=== PATIENT | female | born 1965 | race Caucasian/White ===

== ENCOUNTER 2020-12-26 09:19 | Emergency (ER) | payer MEDICAID, SELFPAY ==
[2020-12-26 09:28] VITALS: BP 224/109; PULSE 97; RESP 16; TEMP 36.9; O2SAT 97; BMI 31.1
--- NOTE | 2020-12-26 09:31 | ED.SKABFB ---
HPI - Skin/Abscess/Foreign Bdy General Chief complaint: Skin/Abscess/Foreign Body Stated complaint: abscess Time Seen by Provider: 12/26/20 09:38 Related Data Previous Rx's Medication Instructions Recorded spironolactone 100 mg tablet 100 mg PO DAILY #90 tab 12/01/20 aspirin 81 mg tablet,delayed 81 mg PO DAILY 30 Days #30 tab 12/05/20 release labetalol 300 mg tablet 300 mg PO BID 30 Days #60 tab 12/05/20 Allergies Allergy/AdvReac Type Severity Reaction Status Date / Time cephalexin [From KEFLEX] Allergy Unknown HIVES Unverified 07/28/20 15:39 codeine [CODEINE] Allergy Unknown NAUSEA & Unverified 07/28/20 15:39 VOMITING, nausea and vomiting dulaglutide [Trulicity] Allergy Unknown abdominal Verified 11/25/18 00:00 pain Cephalosporins Allergy Unknown Uncoded 12/18/19 00:00 seasonal Allergy Unknown Uncoded 12/18/19 00:00 PMFSH Past Medical History Medical History (Updated 12/26/20 @ 09:32 by Nargis Gee) Diabetes FH: cholecystectomy HTN (hypertension) Surgical History (Updated 12/26/20 @ 09:32 by Nargis Gee) History of tubal ligation S/P shoulder surgery Social History Social History Smoking Status: Current every day smoker Use of substances other than those prescribed or required for medical reasons: No Advance Directives: No Advance Directives Information Provided: No Discharge Plan Discharge Prescriptions: No Action spironolactone 100 mg tablet 100 mg PO DAILY Qty: 90 RF: 2 labetalol 300 mg tablet 300 mg PO BID 30 Days Qty: 60 RF: 0 aspirin 81 mg tablet,delayed release (DR/EC) 81 mg PO DAILY 30 Days Qty: 30 RF: 1
[2020-12-26] MEDS: Lidocaine HCl 1 % MPF 5 ML VIAL SUBCUT (10:18)
--- NOTE | 2020-12-26 10:26 | ED_ITS ---
HPI - Skin/Abscess/Foreign Bdy General Chief complaint: Skin/Abscess/Foreign Body Stated complaint: abscess Time Seen by Provider: 12/26/20 09:38 Source: patient Mode of arrival: ambulatory Limitations: no limitations History of Present Illness HPI narrative: 55-year-old female with a past medical history of left labia/groin abscess which she has had I&D in the past and has had surgery by Dr. Cruz for the same thing over year ago presenting to the ED with complaints of redness/swelling the formation of abscess to left labia/groin. complaint: abscess/boil Onset (ago): week(s) (One week worse today) Location: genitals Severity: moderate Quality: other (Pressure sensation) Pain Consistency: constant Relieving factors: none Exacerbating factors: none Context: none Associated symptoms: denies other symptoms Treatments prior to arrival: other ([id number] Motrin and Tylenol with no symptomatic relief) Related Data Previous Rx's Medication Instructions Recorded spironolactone 100 mg tablet 100 mg PO DAILY #90 tab 12/01/20 aspirin 81 mg tablet,delayed 81 mg PO DAILY 30 Days #30 tab 12/05/20 release labetalol 300 mg tablet 300 mg PO BID 30 Days #60 tab 12/05/20 doxycycline monohydrate 100 mg PO BID 10 Days #20 cap 12/26/20 naproxen 500 mg PO BID PRN #10 tab 12/26/20 oxycodone-acetaminophen [Percocet] 1 tab PO Q6H PRN #10 tab 12/26/20 Allergies Allergy/AdvReac Type Severity Reaction Status Date / Time cephalexin [From KEFLEX] Allergy Unknown HIVES Unverified 07/28/20 15:39 codeine [CODEINE] Allergy Unknown NAUSEA & Unverified 07/28/20 15:39 VOMITING, nausea and vomiting dulaglutide [Trulicity] Allergy Unknown abdominal Verified 11/25/18 00:00 pain Cephalosporins Allergy Unknown Uncoded 12/18/19 00:00 seasonal Allergy Unknown Uncoded 12/18/19 00:00 Review of Systems Review of Systems: Constitutional : No Fever, No Chills , no body aches, no recent illness Head/Face: No facial swelling, No facial redness ENT/Mouth : No oral/throat swelling, No Hoarseness, No Swallowing Difficulty Eyes: No Eye Pain, No Swelling, No Redness Cardiovascular : No Chest Pain, No SOB, No palpitations Respiratory : No Cough, No Sputum, No Wheezing, No Smoke Exposure, No Dyspnea Gastrointestinal : No Nausea, No Vomiting, No Diarrhea, No abdominal Pain Genitourinary : No Dysuria, No Urinary Frequency, No Hematuria Musculoskeletal : No joint pain, No Myalgias, No Joint Swelling Skin : No Skin Lesions, positive rash/abscess Neuro : No Weakness, No Numbness, No Headache, No dizziness, No tingling Psych : No Anxiety/Panic, No Depression Heme/Lymph: No Bruising, No Lymphadenopathy Endocrine : No Polyuria, No Polydipsia Denies changes in lotions or detergents. Denies new medications or any changes in medications. Denies drainage from rash. Denies any recent sick contacts or recent travel. Yes all other systems are reviewed and are negative FOR[facility]LY [facility] Past Medical History Attestation statement: The following information was validated with the patient. Medical History Diabetes FH: cholecystectomy HTN (hypertension) Surgical History History of tubal ligation S/P shoulder surgery Social History Social History Smoking Status: Current every day smoker Use of substances other than those prescribed or required for medical reasons: No Advance Directives: No Advance Directives Information Provided: No Physical Exam Vital Signs: Vital Signs: Last Vital Signs Temp 98.5 F 12/26/20 09:28 Pulse 97 12/26/20 09:28 Resp 16 12/26/20 09:28 BP 224/109 H 12/26/20 09:28 Pulse Ox 97 12/26/20 09:28 Body Mass Index 31.1 vital signs have been reviewed as normal and appeared to be correct. Blood pressure hypertensive. Heart rate normal. Respiration rate normal. Temperature normal. Oxygen saturation normal. Appearance: Alert. Oriented X3. No acute distress. Head: Normal external exam. Normocephalic. Atraumatic. Eyes: PERRLA. EOMI. Conjunctiva and sclera normal. Eyelids normal. ENT: Pharynx normal. Uvula midline. Moist mucous membranes. Neck: Normal inspection. Neck supple. FROM. No adenopathy. Thyroid Normal. No meningeal signs. Trachea midline. No neck mass noted. CVS: Normal heart rate and rhythm. Heart sound normal. No murmurs noted. Pulses normal throughout. Respiratory: No respiratory distress. Painless inspiration. Breath sounds normal. No wheezes/rales/rhonchi noted. Chest nontender. No accessory muscle usage noted or decreased air movement noted. : To left outer aspect of labia patient noted to have moderate erythema/fluctuance. No streaking/induration noted. Back: Full range of motion noted. Skin: Skin warm and dry. Normal skin color. Normal skin turgor. No rashes/lesions/lacerations noted. Extremities:Extremities exhibit normal range of motion. Extremities nontender. Neuro: Oriented X 3. No motor deficit. No sensory deficit. Reflexes normal. Course Course Course Narrative: Patient now status post I&D of left labia abscess. With packing placed. Patient tolerated procedure well. No complications. Instructed patient to return in 2 days for recheck and for packing removal along instructions to follow-up with the general surgeon. Patient stands agrees the plan. Procedures Abscess I/D Site: other (Left outer labia) Side (if applicable): left Local Anesthetic: lidocaine 1% Amount of anesthesia used (mL): 5 Technique: needle aspiration and incised with blade Amount of fluid expressed (mL): 3 Sent for culture/gram staining?: No Irrigation: Yes Packing used?: iodoform (1/2 inch) Complications: other (No complications) Discharge Plan Discharge Clinical Impression: Cellulitis, Abscess of skin or subcutaneous tissue Patient Disposition: Home, Self-Care Instructions: Cellulitis (ED), Abscess (ED) Prescriptions: New doxycycline monohydrate 100 mg capsule 100 mg PO BID 10 Days Qty: 20 RF: 0 oxycodone-acetaminophen [Percocet] 5-325 mg tablet 1 tab PO Q6H PRN (Reason: pain) Qty: 10 RF: 0 naproxen 500 mg tablet 500 mg PO BID PRN (Reason: pain) Qty: 10 RF: 0 No Action spironolactone 100 mg tablet 100 mg PO DAILY Qty: 90 RF: 2 labetalol 300 mg tablet 300 mg PO BID 30 Days Qty: 60 RF: 0 aspirin 81 mg tablet,delayed release (DR/EC) 81 mg PO DAILY 30 Days Qty: 30 RF: 1 Referrals: Rosamaria Healy MD [Physician] - 2 days Ines Gama PA [Emergency Midlevel Provider] - 2 days (for wound check ) Yary Cruz MD [Physician] - 2 days (Although I believe she retired) Stand Alone Forms: Work/School Release Discharge Date/Time: 12/26/20 10:25 Print Language: Lithuanian
== END 2020-12-26 10:25 | disposition home or self-care (01) ==
PROVIDERS: Emergency Provider Emergency Medicine; PCP Internal Medicine
DX: N76.4 Abscess of vulva (principal); N76.2 Acute vulvitis; E11.9 Type 2 diabetes mellitus without complications; I10 Essential (primary) hypertension
CPT/HCPCS: 56405; 99283; 99284

== ENCOUNTER 2020-12-28 09:09 | Emergency (ER) | payer MEDICAID, SELFPAY | END 2020-12-28 12:42 | disposition left against medical advice (07) | PROVIDERS: Emergency Provider Emergency Medicine; PCP Internal Medicine | DX: Z48.00 Encounter for change or removal of nonsurgical wound dressing (principal) ==

== ENCOUNTER 2020-12-30 09:03 | Emergency (ER) | payer MEDICAID, SELFPAY ==
[2020-12-30 09:11] VITALS: BP 171/100; PULSE 94; RESP 18; TEMP 37.3; O2SAT 100; BMI 31.1
--- NOTE | 2020-12-30 09:37 | ED_ITS ---
HPI - Skin/Abscess/Foreign Bdy General Chief complaint: Wound/Laceration Stated complaint: ABSCESS Time Seen by Provider: 12/30/20 09:33 Source: patient Mode of arrival: ambulatory Limitations: no limitations History of Present Illness HPI narrative: 55-year-old female with a past medical history of left labia abscess which she has had I&D in the past and has had surgery by Dr. Cruz for the same thing over year ago presenting to the ED with complaints of redness/swelling the formation of abscess to left labia. Of note, patient was seen here Saturday and had I&D with packing placed. Placed on doxycyline and told to f/u outpatient with surgery. Patient tells me she has an appointment on Saturday with Dr. Gómez. The packing fell out at home and since then she has had increased swelling and pain to the site. MD complaint: abscess/boil Related Data Previous Rx's Medication Instructions Recorded spironolactone 100 mg tablet 100 mg PO DAILY #90 tab 12/01/20 doxycycline monohydrate 100 mg PO BID 10 Days #20 cap 12/26/20 naproxen 500 mg PO BID PRN #10 tab 12/26/20 oxycodone-acetaminophen [Percocet] 1 tab PO Q6H PRN #10 tab 12/26/20 aspirin 81 mg tablet,delayed 81 mg PO DAILY 30 Days #30 tab 12/29/20 release labetalol 300 mg tablet 300 mg PO BID #60 tab 12/29/20 oxycodone-acetaminophen [Percocet] 1 tab PO Q4-6H PRN #10 tab 12/30/20 Allergies Allergy/AdvReac Type Severity Reaction Status Date / Time cephalexin [From KEFLEX] Allergy Unknown HIVES Unverified 07/28/20 15:39 codeine [CODEINE] Allergy Unknown NAUSEA & Unverified 07/28/20 15:39 VOMITING, nausea and vomiting dulaglutide [Trulicity] Allergy Unknown abdominal Verified 11/25/18 00:00 pain Cephalosporins Allergy Unknown Uncoded 12/18/19 00:00 seasonal Allergy Unknown Uncoded 12/18/19 00:00 Review of Systems Review of Systems: Yes all other systems are reviewed and are negative Constitutional: Constitutional: Reports no additional constitutional complaints, Denies body ache(s), Denies chills, Denies fever(s), Denies headache(s) and Denies weakness Eyes: Eyes: Reports no additional eye complaints and Denies change in vision ENT: Reports system reviewed and no additional complaints, except as documented, Denies dizziness, Denies headache(s), Denies nasal congestion, Denies nasal discharge and Denies neck pain Cardiovascular: Cardiovascular: Reports no additional cardiovascular complaints, Denies chest pain, Denies leg edema and Denies dyspnea Respiratory: Respiratory: Reports no additional respiratory complaints, Denies cough and Denies dyspnea Gastrointestinal: Gastrointestinal: Reports no additional gastrointestinal complaints, Denies abdominal pain, Denies diarrhea, Denies nausea and Denies vomiting Genitourinary: Genitourinary: Reports no additional female genitourinary complaints and Denies urinary incontinence Musculoskeletal: Musculoskeletal: Reports no additional musculoskeletal complaints, Denies back pain, Denies arthralgias, Denies joint swelling, Denies neck pain, Denies numbness and Denies tingling Integumentary/Breasts: Skin/Breast: Reports system reviewed and no additional complaints, except as docu, Reports furuncle, Reports swelling, Reports erythema and Denies rash Neurologic: Reports system reviewed and no additional complaints, except as documented, Denies Abnormal speech present, Denies dizziness, Denies headache(s), Denies numbness, Denies tingling and Denies weakness PMFSH Past Medical History Attestation statement: The following information was validated with the patient. Source: old records reviewed and nursing notes reviewed Medical History Diabetes FH: cholecystectomy HTN (hypertension) Surgical History History of tubal ligation S/P shoulder surgery Social History Social History Smoking Status: Current every day smoker Advance Directives: No Advance Directives Information Provided: No Physical Exam Vital Signs: Vital Signs: Last Vital Signs Temp 99.2 F 12/30/20 09:11 Pulse 94 12/30/20 09:11 Resp 18 12/30/20 09:11 BP 171/100 H 12/30/20 09:11 Pulse Ox 100 12/30/20 09:11 Body Mass Index 31.1 Const: General: cooperative, healthy appearing, comfortable and no acute dis tress Orientation/consciousness: patient oriented x3 Limitations: no limitations HENMT: Head: Yes normal to inspection Ears: hearing grossly normal bilaterally General nose exam: Normal external nose present Face and sinus: Yes normal facial exam Mouth: Normal oral and palatal mucosa present Throat: Yes posterior oropharynx normal Eyes: General: appearance normal, both eyes and all related structures Pupils: Equal, round and reactive pupils present Neck: Neck: Yes normal visual inspection Chest: Chest palpation & inspection: normal inspection of the chest Resp: Effort & Inspection: normal respiratory effort Auscultation: clear to auscultation bilaterally Cardio: Rate: regular rate Rhythm: regular rhythm Peripheral pulses: Peripheral pulses 2+ throughout GI: Inspection: Yes normal to inspection Palpation (GI): Soft to palpation and nontender Auscultation: normal bowel sounds : Other: To the left labia marjora there is a large area of fluctuance, erythema and tenderness. There is a smaller abscess noted to the labia minora. Back/Spine/Pelvis: Thoracic/Lumbar Spine: thoracic and lumbar spine normal to inspection Skin: General skin exam: no rashes or lesions noted Neuro: General: patient oriented x3, no focal motor deficits and normal sensation to monofilament Cranial nerves: Yes Equal, round and reactive pupils present Cognition (Neuro): normal cognition Speech: No Abnormal speech present Gait exam (Neuro): Normal gait present Motor exam (neuro): 5/5 motor strength present throughout Extrem: General: Yes normal to inspection Course Course Course Narrative: Recurrent abscess to the left labia. Will require I&D. Currently on doxycycline. Patient has severe needle phobia and LMX will be placed prior to procedure. 1100-I&D of abscess. Small amount of purulent drainage, mostly bloody. Packing placed. Patient instructed to come back in 48 hours for packing removal and recheck. Reviewed worrisome signs and symptoms and when to return to the emergency department. Comfortable discharge home. Procedures Abscess I/D Site: other (labial) Side (if applicable): left Local Anesthetic: lidocaine 2% Technique: incised with blade Sent for culture/gram staining?: No Irrigation: No Packing used?: iodoform Discharge Plan Discharge Clinical Impression: Abscess Patient Disposition: Home, Self-Care Instructions: Abscess (ED) Additional Instructions: Keep your appointment with Dr. Gómez Continue your antibiotics Return saturday for wound check and packing removal Prescriptions: New oxycodone-acetaminophen [Percocet] 5-325 mg tablet 1 tab PO Q4-6H PRN (Reason: pain) Qty: 10 RF: 0 No Action spironolactone 100 mg tablet 100 mg PO DAILY Qty: 90 RF: 2 labetalol 300 mg tablet 300 mg PO BID Qty: 60 RF: 0 aspirin 81 mg tablet,delayed release (DR/EC) 81 mg PO DAILY 30 Days Qty: 30 RF: 0 doxycycline monohydrate 100 mg capsule 100 mg PO BID 10 Days Qty: 20 RF: 0 oxycodone-acetaminophen [Percocet] 5-325 mg tablet 1 tab PO Q6H PRN (Reason: pain) Qty: 10 RF: 0 naproxen 500 mg tablet 500 mg PO BID PRN (Reason: pain) Qty: 10 RF: 0 Referrals: Kate Bailon MD [Primary Care Provider] - 1 week John Gómez MD [Physician] - 3 days Stand Alone Forms: Work/School Release Interventions: ED Discharge Assessment Last Done: 12/30/20 11:05 Discharge Date/Time: 12/30/20 11:06
[2020-12-30] MEDS: Lidocaine 4 % Cream KIT 1 APPL TOPICAL (09:44)
[2020-12-30] MEDS: Lidocaine HCl 2 % MPF 5 ML VIAL SUBCUT (10:24)
== END 2020-12-30 11:06 | disposition home or self-care (01) ==
PROVIDERS: Emergency Provider Emergency Medicine; PCP Internal Medicine
DX: N76.4 Abscess of vulva (principal); F17.200 Nicotine dependence, unspecified, uncomplicated; Z71.6 Tobacco abuse counseling; Z79.899 Other long term (current) drug therapy
CPT/HCPCS: 56405; 99283; 99284

== ENCOUNTER 2021-01-01 08:27 | Emergency (ER) | payer MEDICAID, SELFPAY ==
--- NOTE | 2021-01-01 08:30 | ED_ITS ---
HPI - General Adult General Chief complaint: Wound/Laceration Stated complaint: WOUND CHECK Time Seen by Provider: 01/01/21 08:30 Source: patient Mode of arrival: ambulatory Limitations: no limitations History of Present Illness HPI narrative: Pt here for wound check for abscess to left labia. Seen here 12/26 for initial I&D and placed on doxycyline, subsequent visit 12/30 for reoccurrence as packing had fallen out and new I&D done with packing placed. Returned today and tells me packing fell out yesterday, wound draining some serous sanguineous drainage. No fevers, chills. Has appt tomorrow with Dr Gómez. Related Data Previous Rx's Medication Instructions Recorded spironolactone 100 mg tablet 100 mg PO DAILY #90 tab 12/01/20 doxycycline monohydrate 100 mg PO BID 10 Days #20 cap 12/26/20 naproxen 500 mg PO BID PRN #10 tab 12/26/20 oxycodone-acetaminophen [Percocet] 1 tab PO Q6H PRN #10 tab 12/26/20 aspirin 81 mg tablet,delayed 81 mg PO DAILY 30 Days #30 tab 12/29/20 release labetalol 300 mg tablet 300 mg PO BID #60 tab 12/29/20 oxycodone-acetaminophen [Percocet] 1 tab PO Q4-6H PRN #10 tab 12/30/20 Allergies Allergy/AdvReac Type Severity Reaction Status Date / Time cephalexin [From KEFLEX] Allergy Unknown HIVES Verified 01/01/21 08:49 codeine [CODEINE] Allergy Unknown NAUSEA & Verified 01/01/21 08:49 VOMITING, nausea and vomiting dulaglutide [Trulicity] Allergy Unknown abdominal Verified 01/01/21 08:49 pain Cephalosporins Allergy Unknown Unknown Uncoded 01/01/21 08:49 seasonal Allergy Unknown Unknown Uncoded 01/01/21 08:49 Review of Systems Review of Systems: Yes all other systems are reviewed and are negative Constitutional: Constitutional: Reports no additional constitutional complaints, Denies body ache(s), Denies chills, Denies fever(s), Denies headache(s) and Denies weakness Eyes: Eyes: Reports no additional eye complaints and Denies change in vision ENT: Reports system reviewed and no additional complaints, except as documented, Denies dizziness, Denies headache(s), Denies nasal congestion, Denies nasal discharge and Denies neck pain Cardiovascular: Cardiovascular: Reports no additional cardiovascular complaints, Denies chest pain, Denies leg edema and Denies dyspnea Respiratory: Respiratory: Reports no additional respiratory complaints, Denies cough and Denies dyspnea Gastrointestinal: Gastrointestinal: Reports no additional gastrointestinal complaints, Denies abdominal pain, Denies diarrhea, Denies nausea and Denies vomiting Genitourinary: Genitourinary: Reports no additional female genitourinary complaints and Denies urinary incontinence Musculoskeletal: Musculoskeletal: Reports no additional musculoskeletal complaints, Denies back pain, Denies arthralgias, Denies joint swelling, Denies neck pain, Denies numbness and Denies tingling Integumentary/Breasts: Skin/Breast: Reports system reviewed and no additional complaints, except as docu, Reports swelling, Reports erythema and Denies rash Neurologic: Reports system reviewed and no additional complaints, except as documented, Denies Abnormal speech present, Denies dizziness, Denies headache(s), Denies numbness, Denies tingling and Denies weakness PMFSH Past Medical History Attestation statement: The following information was validated with the patient. Source: old records reviewed and nursing notes reviewed Medical History Diabetes FH: cholecystectomy HTN (hypertension) Surgical History History of tubal ligation S/P shoulder surgery Social History Social History Smoking Status: Current every day smoker Advance Directives: Yes Advance Directives Information Provided: Yes Advance Directives on File: No Physical Exam Vital Signs: Vital Signs: Last Vital Signs Temp 97.0 F 01/01/21 08:47 Pulse 91 01/01/21 08:47 Resp 18 01/01/21 08:47 BP 200/100 H 01/01/21 08:47 Pulse Ox 98 01/01/21 08:47 Body Mass Index 31.1 Const: General: cooperative, healthy appearing, comfortable and no acute distress Orientation/consciousness: patient oriented x3 Limitations: no limitations HENMT: Head: Yes normal to inspection Ears: hearing grossly normal bilaterally General nose exam: Normal external nose present Face and s inus: Yes normal facial exam Mouth: Normal oral and palatal mucosa present Throat: Yes posterior oropharynx normal Eyes: General: appearance normal, both eyes and all related structures Pupils: Equal, round and reactive pupils present Neck: Neck: Yes normal visual inspection Chest: Chest palpation & inspection: normal inspection of the chest Resp: Effort & Inspection: normal respiratory effort Auscultation: clear to auscultation bilaterally Cardio: Rate: regular rate Rhythm: regular rhythm Peripheral pulses: Peripheral pulses 2+ throughout GI: Inspection: Yes normal to inspection Palpation (GI): Soft to palpation and nontender Auscultation: normal bowel sounds : Other: February RN To the left labia majora there is a local area of swelling, tenderness and erythema. Able to express scant amount of drainage. much improved from previous Back/Spine/Pelvis: Thoracic/Lumbar Spine: thoracic and lumbar spine normal to inspection Skin: General skin exam: no rashes or lesions noted Neuro: General: patient oriented x3, no focal motor deficits and normal sensation to monofilament Cranial nerves: Yes Equal, round and reactive pupils present Cognition (Neuro): normal cognition Speech: No Abnormal speech present Gait exam (Neuro): Normal gait present Motor exam (neuro): 5/5 motor strength present throughout Extrem: General: Yes normal to inspection Course Course Course Narrative: Improving abscess. packing absent today during visit. Has appt with gen surg tomorrow. Recommended continuing antibiotics. Reviewed worrisome signs/symptoms with patient and when to return to the ED. Comfortable with discharge home. Aysymptomatic HTN-Patient tells me she did not take her morning medications. She will go right home to take them. Discharge Plan Discharge Clinical Impression: Abscess re-check Patient Disposition: Home, Self-Care Instructions: Abscess Follow-up (ED) Additional Instructions: Continue your antibiotics keep your appointment tomorrow with dr gómez Your blood pressure was very high. Take your medications as soon as you are home. Prescriptions: No Action spironolactone 100 mg tablet 100 mg PO DAILY Qty: 90 RF: 2 labetalol 300 mg tablet 300 mg PO BID Qty: 60 RF: 0 aspirin 81 mg tablet,delayed release (DR/EC) 81 mg PO DAILY 30 Days Qty: 30 RF: 0 doxycycline monohydrate 100 mg capsule 100 mg PO BID 10 Days Qty: 20 RF: 0 oxycodone-acetaminophen [Percocet] 5-325 mg tablet 1 tab PO Q6H PRN (Reason: pain) Qty: 10 RF: 0 naproxen 500 mg tablet 500 mg PO BID PRN (Reason: pain) Qty: 10 RF: 0 oxycodone-acetaminophen [Percocet] 5-325 mg tablet 1 tab PO Q4-6H PRN (Reason: pain) Qty: 10 RF: 0 Referrals: Kate Bailon MD [Primary Care Provider] - 1 week Interventions: ED Discharge Assessment Last Done: 01/01/21 08:59 Discharge Date/Time: 01/01/21 08:59
[2021-01-01 08:47] VITALS: BP 200/100; PULSE 91; RESP 18; TEMP 36.1; O2SAT 98; BMI 31.1
--- NOTE | 2021-01-01 08:53 | PC.NURSE ---
PT DID NOT TAKE HER HTN MEDS YET THIS AM. NO CP, NO DIZZINESS, NEUROS INTACT. PT STATES SHE WILL TAKE HER MEDS WHEN SHE GETS HOME.
== END 2021-01-01 08:59 | disposition home or self-care (01) ==
PROVIDERS: Emergency Provider Emergency Medicine; PCP Internal Medicine
DX: N76.4 Abscess of vulva (principal); Z79.899 Other long term (current) drug therapy; F17.200 Nicotine dependence, unspecified, uncomplicated; Z71.6 Tobacco abuse counseling
CPT/HCPCS: 99283

== ENCOUNTER → 2021-01-02 13:19 | Outpatient (BNVA) | payer MEDICAID, SELFPAY | PROVIDERS: PCP Internal Medicine; Visit Provider Surgery | DX: L02.214 Cutaneous abscess of groin (principal) | CPT/HCPCS: 97597; 99212 ==

== ENCOUNTER → 2021-01-12 14:08 | Outpatient (BNVA) | payer MEDICAID, SELFPAY | PROVIDERS: PCP Internal Medicine; Visit Provider Surgery ==

== ENCOUNTER 2021-08-13 09:50 | Emergency (ER) | payer MEDICAID, SELFPAY | END 2021-08-13 13:07 | disposition left against medical advice (07) | PROVIDERS: Emergency Provider Emergency Medicine; PCP Internal Medicine | DX: L02.91 Cutaneous abscess, unspecified (principal) ==

== ENCOUNTER 2021-08-14 08:58 | Emergency (ER) | payer MEDICAID, SELFPAY ==
[2021-08-14 09:22] VITALS: BP 225/126; PULSE 92; RESP 20; TEMP 36; O2SAT 98; BMI 29.6
--- NOTE | 2021-08-14 10:47 | ED_ITS ---
HPI - Skin/Abscess/Foreign Bdy General Chief complaint: Skin/Abscess/Foreign Body Stated complaint: abscess Time Seen by Provider: 08/14/21 10:24 Source: patient Mode of arrival: ambulatory Limitations: no limitations History of Present Illness HPI narrative: 55-year-old female with a past medical history of left labia/groin abscess which she has had I&D in the past and has had surgery by Dr. Cruz and has followed up with Dr. Gómez for the same thing over ther past few years presenting to the ED with complaints of redness/swelling the formation of abscess to left labia/groin. complaint: abscess/boil Onset (ago): week(s) (Two weeks worse today) Location: genitals Severity: severe Severity scale (1-10): >10 Quality: aching Pain Consistency: constant Relieving factors: none Exacerbating factors: palpation and movement Context: none Associated symptoms: denies other symptoms Treatments prior to arrival: attempted to drain pus at home Related Data Home Medications Medication Instructions Recorded Confirmed doxycycline hyclate 100 mg capsule 100 mg PO BID 01/02/21 01/02/21 Previous Rx's Medication Instructions Recorded spironolactone 100 mg tablet 100 mg PO DAILY #90 tab 12/01/20 doxycycline monohydrate 100 mg 100 mg PO BID 10 Days #20 cap 12/26/20 capsule naproxen 500 mg tablet 500 mg PO BID PRN #10 tab 12/26/20 oxycodone-acetaminophen 5 mg-325 1 tab PO Q6H PRN #10 tab 12/26/20 mg tablet (Percocet) oxycodone-acetaminophen 5 mg-325 1 tab PO Q4-6H PRN #10 tab 12/30/20 mg tablet (Percocet) labetalol 300 mg tablet 300 mg PO BID 90 Days #180 tab 01/25/21 aspirin 81 mg tablet,delayed 81 mg PO DAILY 90 Days #90 tab 01/26/21 release acetaminophen 500 mg tablet 1,000 mg PO QID PRN #14 tab 08/14/21 (Tylenol Extra Strength) doxycycline hyclate 100 mg tablet 100 mg PO BID 14 Days #28 tab 08/14/21 ibuprofen 800 mg tablet 800 mg PO Q8H PRN #14 tab 08/14/21 ondansetron HCl 4 mg tablet 4 mg PO Q8H PRN #14 tab 08/14/21 (Zofran) oxycodone 5 mg tablet 5 mg PO Q6H PRN #14 tab 08/14/21 Allergies Allergy/AdvReac Type Severity Reaction Status Date / Time cephalexin [From KEFLEX] Allergy Unknown HIVES Verified 01/12/21 14:16 codeine [CODEINE] Allergy Unknown NAUSEA & Verified 01/12/21 14:16 VOMITING, nausea and vomiting dulaglutide [Trulicity] Allergy Unknown abdominal Verified 01/12/21 14:16 pain Cephalosporins Allergy Unknown Unknown Uncoded 01/01/21 08:49 seasonal Allergy Unknown Unknown Uncoded 01/01/21 08:49 Review of Systems Review of Systems: Constitutional : No Weight loss, No Fever, No Chills, No Night Sweats, No Fatigue, No Malaise ENT/Mouth : No Hearing loss, No Ear Pain, No Nasal Congestion, No Sinus Pain, No Hoarseness, No sore throat, No Rhinorrhea, No Swallowing Difficulty Eyes: No Eye Pain, No Swelling, No Redness, No Foreign Body, No Discharge, No Vision Changes Cardiovascular : No Chest Pain, No SOB, No Dyspnea on Exertion, No Orthopnea, No Edema, No Palpitations Respiratory : No Cough, No Sputum, No Wheezing, No Smoke Exposure, No Dyspnea Gastrointestinal : No Nausea, No Vomiting, No Diarrhea, No Constipation, No abdominal Pain, No Hematochezia, No Melena Genitourinary : no irregular bleeding, No Dysuria, No Urinary Frequency, No Hematuria, No Urinary Incontinence, No Urgency, No Flank Pain, No Urinary Flow Changes, No Hesitancy Musculoskeletal : No joint pain, No Myalgias, No Joint Swelling Skin : Positive abscess, No Skin Lesions, No rash Neuro : No Weakness, No Numbness, No Paresthesias, No Loss of Consciousness, No Dizziness, No Headache Psych : No Anxiety/Panic, No Depression, No SI/HI/AH/VH, No Social Issues, Heme/Lymph: No Bruising, No Bleeding,No Lymphadenopathy Endocrine : No Polyuria, No Polydipsia, No Temperature Intolerance Yes all other systems are reviewed and are negative [facility] Past Medical History Attestation statement: The following information was validated with the patient. Medical History Abscess of left groin Diabetes FH: cholecystectomy HTN (hypertension) Surgical History History of tubal ligation S/P shoulder surgery Social History Social History Advance Directives: No Physical Exam Vital Signs: Vital Signs: Last Vital Signs Temp 96.8 F 08/14/21 09:22 Pulse 92 08/14/21 09:22 Resp 20 08/14/21 09:22 BP 225/126 H 08/14/21 09:22 Pulse Ox 98 08/14/21 09:22 Body Mass Index 29.6 vital signs have been reviewed as normal and appeared to be correct. Blood pressure hypertensive at 225/126. Heart rate normal. Respiration rate normal. Temperature normal. Oxygen saturation normal. Appearance: Alert. Oriented X3. No acute distress. Head: Normal external exam. Normocephalic. Atraumatic. Eyes: PERRLA. EOMI. Conjunctiva and sclera normal. Eyelids normal. ENT: Pharynx normal. Uvula midline. Moist mucous membranes. Neck: Normal inspection. Neck supple. FROM. CVS: Normal heart rate and rhythm. Respiratory: No respiratory distress. Painless inspiration. Skin: Skin warm and dry. Normal skin color. Normal skin turgor. No rashes/lesions/lacerations noted. To left outer aspect of labia patient noted to have moderate erythema/fluctuance.? No streaking/induration noted. Extremities: No lower extremity edema. Extremities exhibit normal range of motion. Extremities nontender. Neuro: Oriented X 3. No motor deficit. No sensory deficit. Reflexes normal. Normal steady gait. No focal neuro deficits noted. Vascular: + radial pulses/+ 2 distal pedal pulses/+2 dorsalis pedis b/l. Normal cap refill. No cyanosis noted to upper extremity nails and lower extremity toes nails. Course Course Course Narrative: 55-year-old female is now status post I&D of left YUNG abscess. No packing placed. Patient tolerated procedure well. No complications. Patient was noted to be hypertensive reports that she just took her blood pressure medication before coming here denied any cardiac-related complaints. Otherwise instructed her to return if any new or worsening symptoms to follow up with Dr. Gómez and also discharged her with doxycycline and symptomatic treatment. Patient understands agrees with this plan. MDM - Skin/Abscess/Foreign Bdy Medical Records Attestation: I reviewed the patient's medical records. Procedures Abscess I/D Site: other (Left groin/labia) Side (if applicable): left Local Anesthetic: lidocaine 1% Amount of anesthesia used (mL): 5 Technique: incised with blade Amount of fluid expressed (mL): 5 Sent for culture/gram staining?: No Irrigation: Yes Packing used?: none Complications: other (No complications) Discharge Plan Discharge Clinical Impression: Abscess of left groin, Cellulitis Patient Disposition: Home, Self-Care Instructions: Cellulitis (ED), Abscess Incision and Drainage (DC), Warm Compress or Soak (ED) Prescriptions: New doxycycline hyclate 100 mg tablet 100 mg PO BID 14 Days Qty: 28 RF: 0 ibuprofen 800 mg tablet 800 mg PO Q8H PRN (Reason: pain) Qty: 14 RF: 0 acetaminophen [Tylenol Extra Strength] 500 mg tablet 1,000 mg PO QID PRN (Reason: fever or pain) Qty: 14 RF: 0 oxycodone 5 mg tablet 5 mg PO Q6H PRN (Reason: pain) Qty: 14 RF: 0 ondansetron HCl [Zofran] 4 mg tablet 4 mg PO Q8H PRN (Reason: nausea and vomiting) Qty: 14 RF: 0 No Action spironolactone 100 mg tablet 100 mg PO DAILY Qty: 90 RF: 2 labetalol 300 mg tablet 300 mg PO BID 90 Days Qty: 180 RF: 0 aspirin 81 mg tablet,delayed release (DR/EC) 81 mg PO DAILY 90 Days Qty: 90 RF: 0 doxycycline monohydrate 100 mg capsule 100 mg PO BID 10 Days Qty: 20 RF: 0 oxycodone-acetaminophen [Percocet] 5-325 mg tablet 1 tab PO Q6H PRN (Reason: pain) Qty: 10 RF: 0 naproxen 500 mg tablet 500 mg PO BID PRN (Reason: pain) Qty: 10 RF: 0 oxycodone-acetaminophen [Percocet] 5-325 mg tablet 1 tab PO Q4-6H PRN (Reason: pain) Qty: 10 RF: 0 doxycycline hyclate 100 mg capsule 100 mg PO BID RF: 0 Referrals: Kate Bailon MD [Primary Care Provider] - 2 days John Gómez MD [Physician] - 2 days Print Language: Turkish
[2021-08-14] MEDS: Lidocaine HCl 1 % MPF 5 ML VIAL SUBCUT (10:49)
== END 2021-08-14 11:01 | disposition home or self-care (01) ==
PROVIDERS: Emergency Provider Emergency Medicine; PCP Internal Medicine
DX: N76.4 Abscess of vulva (principal); N76.2 Acute vulvitis; I10 Essential (primary) hypertension; Z79.899 Other long term (current) drug therapy
CPT/HCPCS: 56405; 99283; 99284

== ENCOUNTER 2021-08-31 07:08 | Emergency (ER) | payer MEDICAID, SELFPAY ==
--- NOTE | ~2021-08-31 | US_ITS ---
EXAMINATION: US VENOUS ULTRASOUND WITH DOPPLER LOWER EXTREMITY, RIGHT CLINICAL INFORMATION: Pain. Assess for occult DVT COMPARISON: None TECHNIQUE: Ultrasound of the deep veins is performed from the hip to the calf with compression sonography and color and pulse Doppler assessment. Spectral analysis with color-flow imaging is performed. FINDINGS: There is normal venous compression and respiratory variation and augmented flow. The visualized common femoral vein, superficial femoral vein, profunda femoral vein, popliteal vein, and the trifurcation region shows no evidence of deep venous thrombosis. There is no popliteal fossa cyst. Additional imaging is performed at the musculotendinous junction Achilles with comparison imaging on the left. There is mild thickening on the right. There is concern for Achilles tendinopathy, then further evaluation could be performed with MR. US/US venous duplex LE RT IMPRESSION: 1. No DVT demonstrated in the right lower extremity. 2. Mild thickening musculotendinous junction Achilles. No visible popliteal fossa cyst. If there is concern for Achilles tendinopathy, then further evaluation could be performed with MRI.
[2021-08-31 07:20] VITALS: BP 157/77; PULSE 82; RESP 17; TEMP 35.9; O2SAT 98; BMI 29.6
--- NOTE | 2021-08-31 09:50 | ED.GENADULT ---
HPI - General Adult General Chief complaint: Extremity Problem Stated complaint: right leg pain Time Seen by Provider: 08/31/21 08:30 Source: patient Limitations: no limitations History of Present Illness HPI narrative: Patient complaining of right lower calf pain. 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 Patient feels muscle spasm and some pain pain is 8/10. Patient denies any trauma but has been on her feet quite a bit. Patient has no prior history of an Achilles tear on the right side. And no other history of DVTs to that right lower extremities. Symptoms are mild to moderate. No other complaints at this time. Related Data Home Medications Medication Instructions Recorded Confirmed doxycycline hyclate 100 mg capsule 100 mg PO BID 01/02/21 01/02/21 Previous Rx's Medication Instructions Recorded spironolactone 100 mg tablet 100 mg PO DAILY #90 tab 12/01/20 doxycycline monohydrate 100 mg 100 mg PO BID 10 Days #20 cap 12/26/20 capsule naproxen 500 mg tablet 500 mg PO BID PRN #10 tab 12/26/20 oxycodone-acetaminophen 5 mg-325 1 tab PO Q6H PRN #10 tab 12/26/20 mg tablet (Percocet) oxycodone-acetaminophen 5 mg-325 1 tab PO Q4-6H PRN #10 tab 12/30/20 mg tablet (Percocet) labetalol 300 mg tablet 300 mg PO BID 90 Days #180 tab 01/25/21 aspirin 81 mg tablet,delayed 81 mg PO DAILY 90 Days #90 tab 01/26/21 release acetaminophen 500 mg tablet 1,000 mg PO QID PRN #14 tab 08/14/21 (Tylenol Extra Strength) doxycycline hyclate 100 mg tablet 100 mg PO BID 14 Days #28 tab 08/14/21 ibuprofen 800 mg tablet 800 mg PO Q8H PRN #14 tab 08/14/21 ondansetron HCl 4 mg tablet 4 mg PO Q8H PRN #14 tab 08/14/21 (Zofran) oxycodone 5 mg tablet 5 mg PO Q6H PRN #14 tab 08/14/21 methocarbamol 750 mg tablet 750 mg PO TID PRN #30 tab 08/31/21 tramadol 50 mg tablet 50 mg PO Q8H PRN #20 tab 08/31/21 Allergies Allergy/AdvReac Type Severity Reaction Status Date / Time cephalexin [From KEFLEX] Allergy Unknown HIVES Verified 01/12/21 14:16 codeine [CODEINE] Allergy Unknown NAUSEA & Verified 01/12/21 14:16 VOMITING, nausea and vomiting dulaglutide [Trulicity] Allergy Unknown abdominal Verified 01/12/21 14:16 pain Cephalosporins Allergy Unknown Unknown Uncoded 01/01/21 08:49 seasonal Allergy Unknown Unknown Uncoded 01/01/21 08:49 Review of Systems Constitutional: Constitutional: Denies chills, Denies fatigue and Denies fever(s) ENT: Denies sore throat Cardiovascular: Cardiovascular: Denies chest pain and Denies dyspnea Respiratory: Respiratory: Denies dyspnea Gastrointestinal: Gastrointestinal: Denies nausea and Denies vomiting Musculoskeletal: Musculoskeletal: Denies numbness Comments: Right lower leg Achilles pain in the low right lower calf pain Neurologic: Denies numbness Endocrine: Endocrine: Denies fatigue PMFSH Past Medical History Attestation statement: The following information was validated with the patient. Medical History Abscess of left groin Diabetes FH: cholecystectomy HTN (hypertension) Surgical History History of tubal ligation S/P shoulder surgery Social History Social History Advance Directives: No Advance Directives Information Provided: No Physical Exam Vital Signs: Vital Signs: Last Vital Signs Temp 96.7 F L 08/31/21 07:20 Pulse 82 08/31/21 07:20 Resp 17 08/31/21 07:20 BP 157/77 H 08/31/21 07:20 Pulse Ox 98 08/31/21 07:20 Body Mass Index 29.6 vital signs have been reviewed as normal and appeared to be correct. Blood pressure normal. Heart rate normal. Respiration rate normal. Temperature normal. Oxygen saturation normal. Appearance: Alert. Oriented X3. No acute distress. Head: Normal external exam. Normocephalic. Atraumatic. Eyes: PERRLA. EOMI. ENT: Pharynx normal. Uvula midline. Neck: Soft full range of motion, no JVD CVS: Heart regular rate and rhythm no murmurs and rubs Respiratory: Breath sounds are clear to auscultation bilaterally. No accessory muscle use noted. Skin: Skin warm and dry. Normal skin color. Extremities: Positive tenderness over the Achilles of the her right lower extremity. Achilles is intact. Proximal calf is minimally tender no areas of erythema or induration Neuro: Oriented X 3. No motor deficit. No sensory deficit. Reflexes normal. Course Course Course Narrative: Right lower leg DVT Achilles tendinitis Achilles rupture Overuse injury Patient has negative Keith's test. Plan to place patient on ortho gasp lung with some dorsiflexion for comfort crutches rest ice elevation orthopedic follow-up is needed Ultrasound negative for DVT MassPat Reviewed patient had recent prescription for oxycodone will give short course of tramadol secondary to pain Medical Decision Making Imaging Data Venous US: Radiologist's impression: [address] [address] Ultrasound Report Signed Patient: Blanca Zuniga MR#: [id number] : 1965 Acct:[id number] Age/Sex: 55 / F ADM Date: 08/31/21 Loc: HO.ED Attending Dr: Ordering Physician: Che Cartagena Date of Service: 08/31/21 Procedure(s): US venous duplex LE RT Accession Number(s): [id number] cc: Che Cartagena~ EXAMINATION:? US VENOUS ULTRASOUND WITH DOPPLER LOWER EXTREMITY, RIGHT CLINICAL INFORMATION:? Pain. Assess for occult DVT COMPARISON:? None TECHNIQUE: Ultrasound of the deep veins is performed from the hip to the calf with compression sonography and color and pulse Doppler assessment. Spectral analysis with color-flow imaging is performed. FINDINGS: There is normal venous compression and respiratory variation and augmented flow. The visualized common femoral vein, superficial femoral vein, profunda femoral vein, popliteal vein, and the trifurcation region shows no evidence of deep venous thrombosis. ? There is no popliteal fossa cyst. Additional imaging is performed at the musculotendinous junction Achilles with comparison imaging on the left. There is mild thickening on the right. There is concern for Achilles tendinopathy, then further evaluation could be performed with MR. US/US venous duplex LE RT IMPRESSION: 1. No DVT demonstrated in the right lower extremity. ? 2. Mild thickening musculotendinous junction Achilles. No visible popliteal fossa cyst. If there is concern for Achilles tendinopathy, then further evaluation could be performed with MRI. Dictated By: Rickey Wong MD Signed By: <Electronically signed by Rickey Wong MD in OV> 08/31/21 1041 DD/ 0830 TD/TT:? Dietetic Assistant: LUEVANO Discharge Plan Discharge Clinical Impression: Achilles tendinitis of right lower extremity Patient Disposition: Home, Self-Care Instructions: Achilles Tendinitis (ED) Additional Instructions: Splint rest ice elevation Follow-up with orthopedics is recommended you may need MRI in the future to evaluate your Achilles tendon Return if symptoms worsen Prescriptions: New methocarbamol 750 mg tablet 750 mg PO TID PRN (Reason: muscle spasm) Qty: 30 RF: 0 tramadol 50 mg tablet 50 mg PO Q8H PRN (Reason: pain) Qty: 20 RF: 0 No Action spironolactone 100 mg tablet 100 mg PO DAILY Qty: 90 RF: 2 labetalol 300 mg tablet 300 mg PO BID 90 Days Qty: 180 RF: 0 aspirin 81 mg tablet,delayed release (DR/EC) 81 mg PO DAILY 90 Days Qty: 90 RF: 0 doxycycline monohydrate 100 mg capsule 100 mg PO BID 10 Days Qty: 20 RF: 0 oxycodone-acetaminophen [Percocet] 5-325 mg tablet 1 tab PO Q6H PRN (Reason: pain) Qty: 10 RF: 0 naproxen 500 mg tablet 500 mg PO BID PRN (Reason: pain) Qty: 10 RF: 0 oxycodone-acetaminophen [Percocet] 5-325 mg tablet 1 tab PO Q4-6H PRN (Reason: pain) Qty: 10 RF: 0 doxycycline hyclate 100 mg tablet 100 mg PO BID 14 Days Qty: 28 RF: 0 ibuprofen 800 mg tablet 800 mg PO Q8H PRN (Reason: pain) Qty: 14 RF: 0 acetaminophen [Tylenol Extra Strength] 500 mg tablet 1,000 mg PO QID PRN (Reason: fever or pain) Qty: 14 RF: 0 oxycodone 5 mg tablet 5 mg PO Q6H PRN (Reason: pain) Qty: 14 RF: 0 ondansetron HCl [Zofran] 4 mg tablet 4 mg PO Q8H PRN (Reason: nausea and vomiting) Qty: 14 RF: 0 doxycycline hyclate 100 mg capsule 100 mg PO BID RF: 0 Referrals: Teodoro Ernst MD [Physician] - 2 days
== END 2021-08-31 11:10 | disposition home or self-care (01) ==
PROVIDERS: Emergency Provider Emergency Medicine Emergency Medical Services; PCP Internal Medicine
DX: M76.61 Achilles tendinitis, right leg (principal); M79.661 Pain in right lower leg; R60.0 Localized edema; Z79.899 Other long term (current) drug therapy
CPT/HCPCS: 93971; 99284

== ENCOUNTER → 2021-09-04 10:19 | Outpatient (BNVA) | payer MEDICAID, SELFPAY | PROVIDERS: PCP Internal Medicine; Visit Provider Physician Assistant | DX: S86.111A Strain of other muscle(s) and tendon(s) of posterior muscle group at lower leg level, right leg, initial encounter (principal); X58.XXXA Exposure to other specified factors, initial encounter; Y93.9 Activity, unspecified; Y92.9 Unspecified place or not applicable; Y99.8 Other external cause status; E11.9 Type 2 diabetes mellitus without complications; I10 Essential (primary) hypertension; Z88.6 Allergy status to analgesic agent; Z88.8 Allergy status to other drugs, medicaments and biological substances; J30.2 Other seasonal allergic rhinitis | CPT/HCPCS: 99202 ==

== ENCOUNTER 2021-09-13 12:01 | Inpatient (IN) | payer MEDICAID, SELFPAY ==
--- NOTE | ~2021-09-13 | US_ITS ---
EXAMINATION: RIGHT LOWER EXTREMITY DUPLEX DOPPLER ARTERIAL EXAMINATION. CLINICAL INFORMATION: Worsening right leg pain with bluish toes and negative DVT study. COMPARISON: August 19, 2018 TECHNIQUE: Real-time ultrasound and Doppler techniques (integrating B-mode 2D vascular images, Doppler spectral analysis and color flow Doppler imaging) were utilized to interrogate the right lower extremity arterial system. FINDINGS: There is noted to be plaque present from the proximal superficial femoral artery throughout to the popliteal artery. Common femoral artery has a peak systolic velocity of 88 cm/s with a triphasic waveform. The profunda femoral artery demonstrates a triphasic waveform with peak systolic velocity of 139 cm/s. The proximal superficial femoral artery has a biphasic waveform with peak systolic velocity of 57 cm/s. A prominent collateral artery is seen off the proximal superficial femoral artery. There is significant hypoechoic plaque seen within the mid superficial femoral artery. Within the mid superficial femoral artery there is elevation of peak systolic velocity with a monophasic waveform and spectral broadening with peak systolic velocity of 251 cm/s. Within the distal superficial femoral artery there is a dampened monophasic waveform with peak systolic velocity of 26 cm/s. Within the popliteal artery there is a monophasic waveform with peak systolic velocity of 22 cm/s. The right posterior tibial artery has diminished phasicity with marked spectral broadening and peak systolic velocity of 24 cm/s. US/US arterial duplex LE RT IMPRESSION: Severe hemodynamically significant mid superficial femoral artery stenosis with biphasic waveforms within the proximal and mid superficial femoral artery and monophasic waveforms distal to the stenosis.
--- NOTE | ~2021-09-13 | XR_ITS ---
EXAMINATION: XR KNEE, RIGHT CLINICAL INFORMATION: Pain upper lateral . No history of trauma. COMPARISON: None TECHNIQUE: Four views of the right knee. FINDINGS: Bone alignment is normal. No fracture or dislocation is seen. The joint spaces are normal. There is no joint effusion. There is a small osteophyte at the quadriceps tendon insertion. There is a small faint soft tissue calcification or ossification adjacent to the lateral fibular head. There is evidence of atherosclerotic disease. XR/XR knee RT 4V IMPRESSION: Faint soft tissue calcification or ossification adjacent to the fibular head. Small osteophyte at the quadriceps tendon insertion to the patella.
--- NOTE | ~2021-09-13 | CT_ITS ---
EXAMINATION: CTA ABDOMEN AND PELVIS WITH BILATERAL RUNOFF WITHOUT AND WITH IV CONTRAST CLINICAL INFORMATION: Cold blue right foot COMPARISON: Arterial duplex earlier today, CT abdomen pelvis 05/20/2017 TECHNIQUE: Multidetector volumetric imaging was performed from the superior aspect of the liver through the the feet both before and following administration 100 mL of Omnipaque 350 intravenous contrast. Sagittal and coronal reformatted images were obtained on the technologist's workstation. . In addition Additional 2-D coronal and sagittal reformatted images and axial 3-D maximum intensity projection MIP images are generated on the CT workstation. This CT examination was performed using dose optimization techniques as appropriate, variously including the following: *Automated exposure control *Adjustment of mA and/or kV according to patient size (this includes techniques or standardized protocols for targeted exams where dose is matched to indication/reason for exam; i.e. extremities or head) *Use of iterative reconstruction technique DLP: 327 mGy-cm. VASCULAR FINDINGS: INFLOW - Aorta and it's branches: Only the very distal aorta is visualized and shows calcific atherosclerotic change without aneurysm or stenosis. No aortic branch origins aren't included study. RUNOFF: RIGHT: The right common iliac artery demonstrates calcific plaque without stenosis. Iliac bifurcation is patent. The internal iliac shows mild disease but is patent. The external iliac is free of significant disease. The common femoral artery shows mild disease but is patent. The femoral bifurcation is patent. The profunda femoris is patent. The SFA is small and occludes in its midportion. There is reconstitution of a small caliber which opacifies poorly. Significant stenoses present in the distal popliteal with calcification. There is calcification present in the distal tibioperoneal trunk. The peroneal is very faintly patent. The posterior tibial artery is only seen proximally. The anterior tibial artery has areas of dense calcification proximally consistent with stenoses. It is very faintly opacified distally. LEFT: Left common iliac is patent with calcific atherosclerotic change. The iliac bifurcation is patent. The internal iliac artery is diseased but patent. The external iliac artery has an approximately 50% stenosis in its proximal portion but the mid and distal portions of the arteries show no significant stenosis. Common femoral is patent. The femoral bifurcation is patent. The profunda femoris is patent. Severe stenotic disease is noted in the SFA at the level of the adductor canal. The distal SFA is patent. The popliteal is patent with patent trifurcation and three-vessel runoff seen . The posterior tibial artery is quite small and not well seen distally. NON-VASCULAR FINDINGS: Only the lower pelvis is included on this scan which shows a normal lower pole of the right kidney. The visualized bowel is unremarkable aside from colonic diverticula without diverticulitis. An anteverted uterus is present. An abnormal adnexal mass or free intraperitoneal fluid is not seen. CT/CT angio LE BI IMPRESSION: On the right, the SFA is occluded with reconstitution of a diseased popliteal with diseased three-vessel runoff, poorly seen secondary to timing. On the left, there is a mild proximal external iliac stenosis with severe stenoses in the SFA at the adductor canal with normal-appearing distal SFA and popliteal with three-vessel runoff as described above.
[2021-09-13 12:40] VITALS: BP 178/88; PULSE 99; RESP 18; TEMP 36.6; O2SAT 99; BMI 29.2
--- NOTE | 2021-09-13 15:38 | ED.GENADULT ---
HPI - General Adult General Chief complaint: Extremity Injury, Lower Stated complaint: rt leg pain, toes turning purple Time Seen by Provider: 09/13/21 13:08 Source: patient Mode of arrival: ambulatory Limitations: no limitations History of Present Illness HPI narrative: 55 yo female with past medical history of HTN and DM presents to the ED with concerns of calf pain X1 week and, my toes are turning blue this started today. Patient states she was recently seen here in the ED where they did a full DVT workup which was negative, she states she was also told by shannan GAB[facility] outpatient that she had achillies tendinitis. She states that today she is having right calf pain and has noted that her toes on the right side have been turning blue over the past day. She states this has never happened to her before. 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 She denies SOB, CP, nausea,vomiting, palpiations, abdominal pain, weakness, control use, recent trauma to the area. She is not on blood thinners. She admits she is a daily smoker. complaint: Right leg pain and toes turning blue Onset (ago): day(s) (1) Location: lower extremity (right calf and right toes. ) Radiation: non-radiation Severity: moderate and severe Quality: dull and constant Pain Consistency: constant Relieving factors: none Exacerbating factors: none Associated symptoms: denies other symptoms Treatments prior to arrival: none Related Data Previous Rx's Medication Instructions Recorded spironolactone 100 mg tablet 100 mg PO DAILY #90 tab 12/01/20 labetalol 300 mg tablet 300 mg PO BID 90 Days #180 tab 01/25/21 aspirin 81 mg tablet,delayed 81 mg PO DAILY 90 Days #90 tab 01/26/21 release Allergies Allergy/AdvReac Type Severity Reaction Status Date / Time cephalexin [From KEFLEX] Allergy Unknown HIVES Verified 09/04/21 10:29 codeine [CODEINE] Allergy Unknown NAUSEA & Verified 09/04/21 10:29 VOMITING, nausea and vomiting dulaglutide [Trulicity] Allergy Unknown abdominal Verified 09/04/21 10:29 pain Cephalosporins Allergy Unknown Unknown Uncoded 01/01/21 08:49 seasonal Allergy Unknown Unknown Uncoded 01/01/21 08:49 Review of Systems Review of Systems: Constitutional : No Weight loss, No Fever, No Chills, No Night Sweats, No Fatigue, NoMalaise ENT/Mouth: No ear pain, No sore throat, No Difficulty swallowing Cardiovascular : No Chest Pain, No SOB, No Dyspnea on Exertion, No Orthopnea, NoEdema, No Palpitations Respiratory : No Cough, No Sputum, No Wheezing, No Dyspnea Gastrointestinal : No Nausea, No Vomiting, No abdominal pain, No Diarrhea, No blood streaked emesis, No coffee-ground emesis, No gross hematemesis, No blood streak stool, No gross hematochezia, No Melena Genitourinary : No irregular bleeding, No Dysuria, No Urinary Frequency, No Hematuria,No Urinary Incontinence, No Urgency, No Flank Pain Musculoskeletal : No joint pain, No Myalgias, No Joint Swelling, + right calf pain + blue discoloration to right toes 1-5 Skin : No Skin Lesions, No rash Neuro : No Weakness, No Numbness, No Paresthesias, No Loss of Consciousness, NoDizziness, No Headache Psych : No Social Issues, Heme/Lymph: No Bruising, No Bleeding,No Lymphadenopathy Endocrine : No Polyuria, No Polydipsia, No Temperature Intolerance Yes all other systems are reviewed and are negative [facility] Past Medical History Attestation statement: The following information was validated with the patient. 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 Blood pressure hypertensive 178/88. Heart rate normal. Respiration rate normal. Temperature normal. Oxygen saturation normal. Appearance: Alert. Oriented X3. No acute distress. Head: Normal external exam. Normocephalic. Atraumatic. Eyes: PERRLA. EOMI. Conjunctiva and sclera normal. Eyelids normal. ENT:Pharynx normal. Uvula midline. Moist mucous membranes. Neck: Normal inspection. Neck supple. FROM. No adenopathy. Thyroid Normal. No meningeal signs. No neck mass noted. CVS: Normal heart rate and rhythm. Heart sound normal. Pulses normal throughout. No murmurs/rales/gallops. Respiratory: No respiratory distress. Painless inspiration. Breath sounds normal. No wheezes/rales/rhonchi noted. Chest nontender. No accessory muscle usage noted or decreased air movement noted. Back: Full range of motion noted. No rashes/lesion/induration/fluctuance or signs of infection noted. Skin: Skin warm and dry. + Normal skin color except to right sided toes #1-5 where she is noted to have a light bluish color. Normal skin turgor. No rashes/lesions/lacerations noted. Extremities: No lower extremity edema. Extremities exhibit normal range of motion. Extremities nontender. No calf tenderness, Negative homans sign + right lower extremity is slightly cooler than the left. Neuro: Oriented X 3. No motor deficit. No sensory deficit. Reflexes normal. Normal steady gait. No focal neuro deficits noted. Vascular: + radial pulses/ 1+ right dorsalis pedis pulse noted , No right posterior tibialis pulse noted on my exam, although noted to have 2+ poplitial pulse on right side. Normal 2+ dorsalis pedal, posterior tibialis and popliteal pulses to left side. Normal cap refill. No cyanosis noted to upper extremity nails. Slight cyanosis noted to toenails/toes 1-5. Course Reevaluation(s) Reevaluation #1: Discussed the US findings with Dr. Reynoso who put in additional labs and a CTA abd aorta runoff. Pt currently has likely arterial occlusion. Patient now states she takes baby aspirin daily. will consult with Dr. Samano waiting for his response Time: 17:04 Reevaluation #2: Spoke to Dr. Samano on the phone who states that this can be approached 1 of 2 ways. If suspecting arthrosclerotic, she can be discharged with aspirin and Plavix, if managing pain. However this patient's pain, and symptoms appear to be more embolic so the plan is to admit the patient to the hospital, start her on heparin, and he will see the patient tomorrow. CTA abdominal aorta runoff pending as well as labs Time: 17:47 Reevaluation #3: No leukocytosis or anemia, PLTS 213, No acute electrolyte abnormalities, Coags stable. OK to proceed with heparin administration Additional Reevaluation(s): 18:20pm - discussed this case with Dr. Collazo who requested to reach back out to the hospitalist team after CTA abdominal with runoff is returned therefore sign-out to JONN Bassett PENDING ABOVE. Medical Decision Making MDM Narrative Medical decision making narrative: 873 55 yo female pmhx HTN, DM presents to the ED with right sided calf pain X 1 week and bluish discoloration to toes 1-5 on right side X1 day. Patient is a smoker. She is not on anticoagulation. To note notes she was seen here on 08/31/2021, where she had a thorough workup to rule out DVT, and ultrasound was done which ruled out DVT. She was diagnosed with Achilles tendinitis, and no DVT. She saw Orthopedic JONN as an outpatient, which told her that there is nothing to be done about her Achilles tendinitis. She returned here today with the similar symptoms, only difference is she notes that her toes to her right foot have been turning blue, and she did not have this before. Upon physical examination and there is no swelling noted to bilateral lower extremities. Negative Homans sign bilaterally. There is a bluish discoloration noted to the right 1st through 5th toes. No overlying skin changes. Lungs are clear to auscultation. S1 and S2 appreciated free of murmurs. Regular rate, and rhythm. Capillary refill to upper and lower extremities <2 cm. It is noted that the right lower extremity is slightly cooler than the left. 1+ DP on right, No palpable right DP, 2+ popliteal pulse on right. Left sided DP,PT and popliteal pulse 2+. Sensory and motor intact to bilateral lower extremities. Will rule out arterial occlusion due to patients history, and PE Plan is to obtain an arterial doppler and xray of right knee since patient complains of chronic right knee pain that has never been looked into. Then re-evaluate Medical Records Medical records reviewed: Yes I reviewed the patient's medical records. Lab Data Lab results reviewed: Yes I reviewed the patient's lab results. Result diagrams: 09/13/21 17:28 09/13/21 17:28 Labs: Lab Results 09/13/21 09/13/21 09/13/21 Range/Units 17:28 17:28 17:28 WBC 10.3 (4.8-10.8) X10*3/uL RBC 4.99 (4.20-5.50) X10*6/uL Hgb 15.6 (12.0-16.0) g/dl Hct 43.3 (37.0-47.0) % MCV 86.8 (80.0-98.0) fL MCH 31.3 (27.0-33.0) pg MCHC 36.0 H (31.0-35.0) g/dl RDW 13.0 (11.0-16.0) % Plt Count 213 (160-400) X10*3/uL MPV 9.2 L (9.4-12.3) fL Immature Gran % (Auto) 1.5 H (0.0-0.4) % Neut % (Auto) 54.9 (45-73) % Lymph % (Auto) 30.7 (20-40) % [place] % (Auto) 7.9 (2-11) % Eos % (Auto) 4.3 H (0-4) % Baso % (Auto) 0.7 (0-2) % Lymph # (Auto) 3.2 (1.2-4.9) X10*3/uL [place] # (Auto) 0.8 (0.1-1.2) X10*3/uL Eos # (Auto) 0.4 (0.0-0.4) X10*3/uL Baso # (Auto) 0.1 (0.0-0.2) X10*3/uL Abs Immat Gran (auto) 0.16 H (0.00-0.03) X10*3/uL Absolute Neuts (auto) 5.67 (2.0-8.3) x10*3/uL Absolute Nucleated RBC 0.000 (0.0-0.012) X10*3/uL Nucleated RBC % (auto) 0.0 (0.0-0.2) /100WBC PT (9.9-13.0) SEC INR (0.9-1.1) APTT (24.1-38.0) SEC PTT (Heparin Protocol) (53-77.9) SEC Sodium 136 (135-145) mmol/L Potassium 4.3 (3.3-5.1) mmol/L Chloride 103 (96-108) mmol/L Carbon Dioxide 22 (22-29) mmol/L Anion Gap 15 (12-20) BUN 12 (9-16) mg/dL Creatinine 0.75 (0.5-1.4) mg/dL Estim Creat Clear Calc 78.1 Estimated GFR > 60 Random Glucose 282 H (60-115) mg/dL Lactic Acid 1.2 (0.5-2.0) mmol/L Calcium 9.6 (8.4-10.2) mg/dL Total Creatine Kinase 44 (26-140) U/L 09/13/21 09/13/21 Range/Units 17:28 17:28 WBC (4.8-10.8) X10*3/uL RBC (4.20-5.50) X10*6/uL Hgb (12.0-16.0) g/dl Hct (37.0-47.0) % MCV (80.0-98.0) fL MCH (27.0-33.0) pg MCHC (31.0-35.0) g/dl RDW (11.0-16.0) % Plt Count (160-400) X10*3/uL MPV (9.4-12.3) fL Immature Gran % (Auto) (0.0-0.4) % Neut % (Auto) (45-73) % Lymph % (Auto) (20-40) % [place] % (Auto) (2-11) % Eos % (Auto) (0-4) % Baso % (Auto) (0-2) % Lymph # (Auto) (1.2-4.9) X10*3/uL [place] # (Auto) (0.1-1.2) X10*3/uL Eos # (Auto) (0.0-0.4) X10*3/uL Baso # (Auto) (0.0-0.2) X10*3/uL Abs Immat Gran (auto) (0.00-0.03) X10*3/uL Absolute Neuts (auto) (2.0-8.3) x10*3/uL Absolute Nucleated RBC (0.0-0.012) X10*3/uL Nucleated RBC % (auto) (0.0-0.2) /100WBC PT 10.9 (9.9-13.0) SEC INR 1.0 (0.9-1.1) APTT 32.9 (24.1-38.0) SEC PTT (Heparin Protocol) 31.4 L (53-77.9) SEC Sodium (135-145) mmol/L Potassium (3.3-5.1) mmol/L Chloride (96-108) mmol/L Carbon Dioxide (22-29) mmol/L Anion Gap (12-20) BUN (9-16) mg/dL Creatinine (0.5-1.4) mg/dL Estim Creat Clear Calc Estimated GFR Random Glucose (60-115) mg/dL Lactic Acid (0.5-2.0) mmol/L Calcium (8.4-10.2) mg/dL Total Creatine Kinase (26-140) U/L Imaging Data Right knee x-ray: Attestation: I personally reviewed and interpreted this imaging study as follows: Radiologist's impression: Faint soft tissue calcification or ossification adjacent to the fibular head. Small osteophyte at the quadriceps tendon insertion to the patella. ? Arterial extremity Right : Attestation: I personally reviewed and interpreted this imaging study as follows: Radiologist's impression: US/US arterial duplex LE RT IMPRESSION: Severe hemodynamically significant mid superficial femoral artery stenosis with biphasic waveforms within the proximal and mid superficial femoral artery and monophasic waveforms distal to the stenosis.? ECG Data Attestation: I personally reviewed and interpreted this ECG as follows: Prior ECG tracings: not available for review Interpretation: 86, VA normal, QRS normal, QT/QTC normal. EKG shows normal sinus rhythm, with ST wave abnormality is noted and V4 V5 V6. No acute ischemia no previous EKGs to compare with. Critical Care Time Critical Care Time Critical Care Time: Yes Total Critical Care Time: 60 Attestation: I personally attest to this time spent taking care of the patient Discharge Plan Discharge Clinical Impression: Acute occlusion of artery of lower extremity Patient Disposition: Admitted As Inpatient
[2021-09-13 16:20] VITALS: BP 147/77; PULSE 82; RESP 18; TEMP 37.3; O2SAT 99
--- NOTE | 2021-09-13 16:54 | ECG_ITS ---
Test Reason : RL PAIN Blood Pressure : / mmHG Vent. Rate : 086 BPM Atrial Rate : 086 BPM P-R Int : 160 ms QRS Dur : 084 ms QT Int : 406 ms P-R-T Axes : 071 047 118 degrees QTc Int : 485 ms Normal sinus rhythm ST & T wave abnormality, consider lateral ischemia Abnormal ECG ST more depressed Lateral leads Referred By: Rosalina Jimenez Electronically Signed By:FERMIN HERR MD
[2021-09-13 17:37] LABS: MANUAL DIFF FLAG NO
[2021-09-13 17:40] LABS: Basophils Absolute Auto 0.1 X10*3/uL (0.0-0.2); Basophils Percent Auto 0.7 % (0-2); Eosinophils Absolute Auto 0.4 X10*3/uL (0.0-0.4); Eosinophils Percent Auto 4.3 % (0-4); Hematocrit 43.3 % (37.0-47.0); Hemoglobin 15.6 g/dl (12.0-16.0); Imm Gran Abs Auto 0.16 X10*3/uL (0.00-0.03); Imm Gran Pct Auto 1.5 % (0.0-0.4); Lymphocytes Absolute Auto 3.2 X10*3/uL (1.2-4.9); Lymphocytes Percent Auto 30.7 % (20-40); Mean Corpuscular Hemoglobin 31.3 pg (27.0-33.0); Mean Corpuscular Volume 86.8 fL (80.0-98.0); Mean Platelet Volume 9.2 fL (9.4-12.3); Monocytes Absolute Auto 0.8 X10*3/uL (0.1-1.2); Monocytes Percent Auto 7.9 % (2-11); Neutrophils Absolute Auto 5.67 x10*3/uL (2.0-8.3); Neutrophils Percent Auto 54.9 % (45-73); Platelet Count 213 X10*3/uL (160-400); Red Blood Count 4.99 X10*6/uL (4.20-5.50); White Blood Count 10.3 X10*3/uL (4.8-10.8)
[2021-09-13 17:46] LABS: Prothrombin Time 10.9 SEC (9.9-13.0)
[2021-09-13 17:49] LABS: PTT Heparin Drip 31.4 SEC (53-77.9); Partial Thromboplastin Time 32.9 SEC (24.1-38.0)
[2021-09-13 18:05] LABS: Lactic Acid 1.2 mmol/L (0.5-2.0)
[2021-09-13 18:12] LABS: Anion Gap 15 (12-20); Blood Urea Nitrogen 12 mg/dL (9-16); Calcium 9.6 mg/dL (8.4-10.2); Carbon Dioxide 22 mmol/L (22-29); Chloride 103 mmol/L (96-108); Creatinine Clr Calc Pharmacy 78.1; Estimated Glomerular Filt Rate > 60; Glucose Random 282 mg/dL (60-115); Potassium 4.3 mmol/L (3.3-5.1); Sodium 136 mmol/L (135-145)
[2021-09-13] MEDS: Heparin Sodium,Porcine 5,000 UNIT/ML VIAL 4000 UNIT IVPUSH (18:13)
[2021-09-13 18:28] LABS: COVID-19 Test Negative (Negative)
[2021-09-13] MEDS: LORazepam 2 MG/ML VIAL 0.5 MG IVPUSH (18:42)
[2021-09-13] MEDS: Heparin Sodium,Porcine/1/2NS 25,000 UNIT/250 ML IV.SOLN 8.71 UNIT IVCONT (18:55)
--- NOTE | 2021-09-13 18:57 | PHA.MEDREC ---
Pharmacy Consult ? Medication Reconciliation Pharmacy has completed the medication reconciliation. Patient is reporting medications that have not been filled recently: Labetalol 300 mg BID on 01/25/2021 Spironolactone 100mg Daily on 11/11/2020 Amlodipine 10 mg daily on 06/2020 Lisinopril 40 mg on 06/2020 I contact [facility] Tory Carty to confirm that medications have not been filled recently. I spoke with patient daughter Alejandra who confirmed that patient is taking the medication and she helps her take the medication. All medications are on shelf at patient's home. She did not know any other pharmacy that her mom could be filling it. She suggest [facility] but they had no record of the patient. Patient must be not adherent to medications. Shagufta Daniel, PharmD
--- NOTE | 2021-09-13 19:14 | PC.NURSE ---
PT PLACED ON MONITOR AND HEPARIN DRIP STARTED WITH OJ CANTU. PT TAKEN TO CT SCAN.
[2021-09-13] MEDS: iohexoL 350 MG/ML 100 ML INFUS..BTL IV (19:20)
[2021-09-13 20:17] VITALS: BP 139/70; PULSE 73; RESP 16; TEMP 36.7; O2SAT 97
[2021-09-14] VITALS: BP 158/71; PULSE 79; RESP 18; TEMP 37.1; O2SAT 97
--- NOTE | 2021-09-14 | ECG_ITS ---
Test Reason : RO DVT Blood Pressure : / mmHG Vent. Rate : 073 BPM Atrial Rate : 073 BPM P-R Int : 160 ms QRS Dur : 076 ms QT Int : 404 ms P-R-T Axes : 072 040 133 degrees QTc Int : 445 ms Normal sinus rhythm T wave abnormality, consider lateral ischemia Abnormal ECG When compared with ECG of 10-APR-2018 14:33, T wave inversion more evident in Lateral leads Referred By: Rosalina Jimenez Electronically Signed By:FERMIN HERR MD
[2021-09-14 01:25] LABS: PTT Heparin Drip 44.2 SEC (53-77.9)
[2021-09-14] MEDS: Heparin Sodium,Porcine 5,000 UNIT/ML VIAL 2900 UNIT IVPUSH (01:57)
[2021-09-14 04:00] VITALS: BP 150/76; PULSE 76; RESP 18; TEMP 36.9; O2SAT 96
--- NOTE | 2021-09-14 05:23 | P.HPHOSP_ITS ---
History of Present Illness Date of Service: 09/13/21 Chief Complaint: Right leg pain 55-year-old female with past medical history of diabetes, hypertension, presents to the hospital with complaints of right calf and foot pain. Patient reports that her pain started about 2 weeks ago, she was evaluated in the ED, underwent venous duplex, which was negative, was referred to orthopedic surgery due to findings of thickening musculotendinous junction of the Achilles, evaluated by Orthopedic surgery, was recommended do home exercise program of stretching and strengthening with heel cord structures. Patient reports that she went back to work on after taking few days off to rest, but as soon as she started working developed significant pain that same night . Patient also noticed discoloration of the base of her leg as well as discussion of her heel as well as toes the got worse over the past few days. She otherwise denies any palpitations, no chest pain, no headache, no change in vision, no shortness of breath, no abdominal pain nausea or vomiting, no diarrhea or constipation, no fever or chills. Patient continued to have pain therefore came to the hospital for further management. No significant abnormal vitals Labs are significant for WBC count of 10.3, otherwise unremarkable. Arterial duplex of lower extremity showed severe hemodynamically significant mid superficial femoral artery stenosis with biphasic they performed within the proximal and mid superficial femoral artery and monophasic waveform distal to the stenosis. Lower extremity CT angiogram showed the SFA is occluded with reconstitution of a diseased popliteal with disease 3 vessel runoff Patient case was discussed with vascular surgery, she started on heparin drip Review of Systems Review of Systems: Yes all other systems are reviewed and are negative [facility] Medical History Abscess of left groin Diabetes FH: cholecystectomy HTN (hypertension) Pertinent family history: No per 10 and history Surgical History (Updated 09/14/21 @ 05:30 by Rosalina Jimenez MD) History of cholecystectomy History of tubal ligation S/P shoulder surgery Social History Advance Directives: Yes Advance Directives Information Provided: Yes Advance Directives on File: No Current occupational status: employed 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 Meds Allergies Allergy/AdvReac Type Severity Reaction Status Date / Time cephalexin [From KEFLEX] Allergy Unknown HIVES Verified 09/04/21 10:29 codeine [CODEINE] Allergy Unknown NAUSEA & Verified 09/04/21 10:29 VOMITING, nausea and vomiting dulaglutide [Trulicity] Allergy Unknown abdominal Verified 09/04/21 10:29 pain Cephalosporins Allergy Unknown Unknown Uncoded 01/01/21 08:49 seasonal Allergy Unknown Unknown Uncoded 01/01/21 08:49 Active Medications: Current Medications Acetaminophen (Acetaminophen 325 Mg Tablet) 650 mg PO Q6H PRN PRN Reason: Pain, Mild (Pain Scale 1-3) Amlodipine Besylate (Amlodipine Besylate 10 Mg Tablet) 10 mg PO DAILY@1200 KARELY; Protocol Aspirin (Aspirin Enteric Coated 81 Mg Tablet.Dr) 81 mg PO DAILY PENDING SALE TO [facility] Docusate Sodium (Docusate Sodium 100 Mg Capsule) 100 mg PO DAILY PRN PRN Reason: Constipation Heparin Sodium (Porcine) (Heparin Sodium,Porcine 5,000 Unit/Ml Vial) 5,800 unit 80 unit/kg (5800 unit) IVPUSH PROTOCOL BOLUS PRN; Protocol PRN Reason: 80 unit/kg - Heparin Protocol Heparin Sodium (Porcine) (Heparin Sodium,Porcine 5,000 Unit/Ml Vial) 2,900 unit 40 unit/kg (2900 unit) IVPUSH PROTOCOL BOLUS PRN; Protocol PRN Reason: 40 unit/kg - Heparin Protocol Last Admin: 09/14/21 01:57 Dose: 2,900 unit Documented by: Heparin Sodium/Sodium Chloride () 25,000 unit in 250 mls @ 0 mls/hr IVCONT .Q0M KARELY; Protocol Last Titration: 09/14/21 01:58 Dose: 14 units/kg/hr, 10.16 mls/hr Documented by: Labetalol HCl (Labetalol Hcl 100 Mg Tablet) 300 mg PO BID PENDING SALE TO [facility] Lisinopril (Lisinopril 40 Mg Tablet) 40 mg PO DAILY@1200 KARELY; Protocol Ondansetron HCl (Ondansetron Hcl 4 Mg/2 Ml Vial) 4 mg IVPUSH Q8H PRN PRN Reason: Nausea and Vomiting Oxycodone HCl (Oxycodone Hcl Immed Release 5 Mg Tablet) 5 mg PO Q6H PRN PRN Reason: Pain, Severe (Pain Scale 7-10) Pharmacy Consult (Consult Rx Perform Med Rec) 1 each MISCELLANE ONCE PRN PRN Reason: Consult order Sodium Chloride (0.9 % Sodium Chloride Flush 3 Ml Syringe) 3 ml IVFLUSH QSHIFT PENDING SALE TO [facility] Last Admin: 09/14/21 01:03 Dose: Not Given Documented by: Spironolactone (Spironolactone 25 Mg Tablet) 100 mg PO BEDTIME PENDING SALE TO [facility]; Protocol Home Medications Medication Instructions Recorded Confirmed Last Taken Type amlodipine 10 mg tablet 10 mg PO DAILY@1200 09/13/21 09/13/21 09/13/21 History lisinopril 40 mg tablet 40 mg PO DAILY@1200 09/13/21 09/13/21 09/13/21 History spironolactone 100 mg tablet 100 mg PO BEDTIME 09/13/21 09/13/21 09/12/21 History Physical Exam Vital Signs and Narrative: Vital Signs: Last Vital Signs Temp 98.4 F 09/14/21 04:00 Pulse 76 09/14/21 04:00 Resp 18 09/14/21 04:00 BP 150/76 H 09/14/21 04:00 Pulse Ox 96 09/14/21 04:00 Body Mass Index 29.2 Const: General: cooperative and no acute distress Orientation/consciousness: patient oriented x3 Eyes: General: appearance normal, both eyes and all related structures Pupils: Equal, round and reactive pupils present Resp: Effort & Inspection: normal respiratory effort Auscultation: clear to auscultation bilaterally Cardio: Rate: regular rate Rhythm: regular rhythm GI: Palpation (GI): Soft to palpation Auscultation: normal bowel sounds Skin: Other: Mild discoloration of his right heel General skin exam: no rashes or lesions noted Neuro: General: patient oriented x3 Cranial nerves: Yes Equal, round and reactive pupils present Cognition (Neuro): normal cognition Extrem: General: Yes normal to inspection and Yes no pedal edema Results Labs CBC and Chem 7: 09/13/21 17:28 09/13/21 17:28 Labs: Laboratory Results - last 24 hr 09/13/21 09/13/21 09/13/21 17:28 17:28 17:28 MCV 86.8 MCH 31.3 MCHC 36.0 H RDW 13.0 Plt Count 213 MPV 9.2 L Immature Gran % (Auto) 1.5 H Neut % (Auto) 54.9 Lymph % (Auto) 30.7 [place] % (Auto) 7.9 Eos % (Auto) 4.3 H Baso % (Auto) 0.7 Lymph # (Auto) 3.2 [place] # (Auto) 0.8 Eos # (Auto) 0.4 Baso # (Auto) 0.1 Abs Immat Gran (auto) 0.16 H Absolute Neuts (auto) 5.67 Absolute Nucleated RBC 0.000 Nucleated RBC % (auto) 0.0 PT INR APTT PTT (Heparin Protocol) Anion Gap 15 Estim Creat Clear Calc 78.1 Estimated GFR > 60 Random Glucose 282 H Lactic Acid 1.2 Calcium 9.6 Total Creatine Kinase 44 COVID-19 (EGNE) COVID-19 Clin Com 09/13/21 09/13/21 09/13/21 17:28 17:28 17:33 MCV MCH MCHC RDW Plt Count MPV Immature Gran % (Auto) Neut % (Auto) Lymph % (Auto) [place] % (Auto) Eos % (Auto) Baso % (Auto) Lymph # (Auto) [place] # (Auto) Eos # (Auto) Baso # (Auto) Abs Immat Gran (auto) Absolute Neuts (auto) Absolute Nucleated RBC Nucleated RBC % (auto) PT 10.9 INR 1.0 APTT 32.9 PTT (Heparin Protocol) 31.4 L Anion Gap Estim Creat Clear Calc Estimated GFR Random Glucose Lactic Acid Calcium Total Creatine Kinase COVID-19 (GENE) Negative COVID-19 Clin Com See Note 09/14/21 01:03 MCV MCH MCHC RDW Plt Count MPV Immature Gran % (Auto) Neut % (Auto) Lymph % (Auto) [place] % (Auto) Eos % (Auto) Baso % (Auto) Lymph # (Auto) [place] # (Auto) Eos # (Auto) Baso # (Auto) Abs Immat Gran (auto) Absolute Neuts (auto) Absolute Nucleated RBC Nucleated RBC % (auto) PT INR APTT PTT (Heparin Protocol) 44.2 L D Anion Gap Estim Creat Clear Calc Estimated GFR Random Glucose Lactic Acid Calcium Total Creatine Kinase COVID-19 (GENE) COVID-19 Clin Com Imaging Radiologist's Impressions: Impressions Duplex Scan Lower Extremity Artery 09/13/21 14:22 IMPRESSION: Severe hemodynamically significant mid superficial femoral artery stenosis with biphasic waveforms within the proximal and mid superficial femoral artery and monophasic waveforms distal to the stenosis. Knee X-Ray 09/13/21 14:23 IMPRESSION: Faint soft tissue calcification or ossification adjacent to the fibular head. Small osteophyte at the quadriceps tendon insertion to the patella. Lower Extremity CTA 09/13/21 16:55 IMPRESSION: On the right, the SFA is occluded with reconstitution of a diseased popliteal with diseased three-vessel runoff, poorly seen secondary to timing. On the left, there is a mild proximal external iliac stenosis with severe stenoses in the SFA at the adductor canal with normal-appearing distal SFA and popliteal with three-vessel runoff as described above. Assessment and Plan (1) Acute occlusion of artery of lower extremity: Status: Acute 55-year-old female with past medical history of diabetes as well as hypertension presents to the hospital with complaints of right lower extremity pain found to have occlusion of SFA # acute occlusion of the artery of lower extremity - no history of AFib - patient started on heparin drip - vascular surgery consult - will place on telemetry and obtain EKG to monitor for AFib as a possible cause of embolic occlusion # hypertension -stable - continue home medication # diabetes - lot on any medications at home - will place her on diabetic diet - add low-dose sliding scale insulin DVT prophylaxis: Heparin ggt Quality Stroke Does the patient have a stroke diagnosis?: No VTE Prior VTE?: No VTE Risk Level:: Medical - moderate - high VTE Device Contraindication: Treatment Not Indicated VTE Drug Contraindication: N/A - Med Ordered
[2021-09-14 05:31] VITALS: RESP 20
[2021-09-14 07:43] VITALS: BP 120/74; PULSE 82; RESP 16; O2SAT 98
[2021-09-14] MEDS: Aspirin Enteric Coated 81 MG TABLET.DR PO (07:43)
[2021-09-14] MEDS: Insulin Lispro 100 UNIT/ML 3 ML VIAL SUBCUT ×2 (07:43→13:36)
[2021-09-14 07:44] VITALS: BP 120/74; PULSE 81
[2021-09-14] MEDS: Labetalol HCL 100 MG TABLET 300 MG PO (07:44)
--- NOTE | 2021-09-14 07:47 | PC.NURSE ---
pt medicated per emar- aware of plan of care for admission and denied having any questions.
[2021-09-14 07:59] LABS: MANUAL DIFF FLAG NO
[2021-09-14 08:01] LABS: Basophils Absolute Auto 0.1 X10*3/uL (0.0-0.2); Basophils Percent Auto 0.7 % (0-2); Eosinophils Absolute Auto 0.4 X10*3/uL (0.0-0.4); Eosinophils Percent Auto 4.4 % (0-4); Hematocrit 42.1 % (37.0-47.0); Imm Gran Abs Auto 0.13 X10*3/uL (0.00-0.03); Imm Gran Pct Auto 1.3 % (0.0-0.4); Lymphocytes Absolute Auto 2.7 X10*3/uL (1.2-4.9); Lymphocytes Percent Auto 27.6 % (20-40); Mean Corpuscular HGB Conc 35.6 g/dl (31.0-35.0); Mean Corpuscular Hemoglobin 31.1 pg (27.0-33.0); Mean Corpuscular Volume 87.3 fL (80.0-98.0); Monocytes Absolute Auto 0.7 X10*3/uL (0.1-1.2); Monocytes Percent Auto 6.7 % (2-11); Neutrophils Absolute Auto 5.78 x10*3/uL (2.0-8.3); Neutrophils Percent Auto 59.3 % (45-73); Platelet Count 209 X10*3/uL (160-400); Red Blood Count 4.82 X10*6/uL (4.20-5.50); Red Cell Distribution Width 12.9 % (11.0-16.0); White Blood Count 9.8 X10*3/uL (4.8-10.8)
[2021-09-14 08:05] LABS: Glucose, Whole Blood 284 mg/dL (60-115)
[2021-09-14 08:13] LABS: Prothrombin Time 11.3 SEC (9.9-13.0)
[2021-09-14 08:15] LABS: PTT Heparin Drip 53.2 SEC (53-77.9)
[2021-09-14 08:19] LABS: Anion Gap 15 (12-20); Blood Urea Nitrogen 12 mg/dL (9-16); Calcium 9.2 mg/dL (8.4-10.2); Carbon Dioxide 22 mmol/L (22-29); Chloride 104 mmol/L (96-108); Creatinine Clr Calc Pharmacy 68.9; Estimated Glomerular Filt Rate > 60; Glucose Random 349 mg/dL (60-115); Potassium 4.7 mmol/L (3.3-5.1); Sodium 136 mmol/L (135-145)
--- NOTE | 2021-09-14 10:40 | MHC.CM.PN ---
Met with patient in regards to discharge planning. Patient lives with her , 2 daughters and granddaughter. Patient ambulates independently and had no services prior to coming to the hospital. PCP verified. HCP completed, signed and witnessed. Original given to patient. Patient has not received any Covid vaccines. Patient's daughter will transport patient home when medically stable. Continue to monitor for d/c needs.
[2021-09-14 12:03] VITALS: BP 147/88; PULSE 79
[2021-09-14] MEDS: lisinopriL 40 MG TABLET PO (12:03)
[2021-09-14] MEDS: amLODIPine Besylate 10 MG TABLET PO (12:03)
[2021-09-14 13:28] LABS: Glucose, Whole Blood 218 mg/dL (60-115)
--- NOTE | 2021-09-14 13:31 | P.DS_ITS ---
DS: Providers Provider Date of Service: 09/14/21 Date of admission: 09/13/21 23:12 Primary care physician: Kate Bailon MD Consults: 09/13/21 23:16 Consult to Vascular Surgery Routine Consulting Provider: Rajan Samano Reason for consultation: SFA clot Has provider been notified: Yes DS: Diagnosis Discharge Diagnosis (1) Acute occlusion of artery of lower extremity: Status: Acute DS: Summary Hospital Course Hospital Course: 55-year-old female with past medical history of diabetes, hypertension, presents to the hospital with complaints of right calf and foot pain.? Patient reports that her pain started about 2 weeks ago, she was evaluated in the ED, underwent venous duplex, which was negative, was referred to orthopedic surgery due to findings of thickening musculotendinous junction of the Achilles, evaluated by Orthopedic surgery, was recommended do home exercise program of stretching and strengthening with heel cord structures.? Patient reports that she went back to work on after taking few days off to rest, but as soon as she started working developed significant pain that same night .? Patient also noticed discoloration of the base of her leg as well as discussion of her heel as well as toes the got worse over the past few days.? She otherwise denies any palpitations, no chest pain, no headache, no change in vision, no shortness of breath, no abdominal pain nausea or vomiting, no diarrhea or constipation, no fever or chills.? Patient continued to have pain therefore came to the hospital for further management. No significant abnormal vitals Labs are significant for WBC count of 10.3, otherwise unremarkable. Arterial duplex of lower extremity showed severe hemodynamically significant mid superficial femoral artery stenosis with biphasic they performed within the proximal and mid superficial femoral artery and monophasic waveform distal to the stenosis.? Lower extremity CT angiogram showed the SFA is occluded with reconstitution of a diseased popliteal with disease 3 vessel runoff Hospital course Seen by vascular surgery who recommends switch from IV heparin to oral Eliquis. Patient can be discharged home and Dr. Samano's office will call and set up outpatient procedure. Patient in agreement and anxious to go home. Will be discharged on Eliquis to follow-up as scheduled Time Spent with Patient Time attestation: Total time spent providing and/or coordinating discharge services: Discharge coordination time: Greater than 30 minutes Quality: Stroke Does the patient have a stroke diagnosis?: No Physical Exam Vital Signs: Vital Signs: Last Vital Signs Temp 98.4 F 09/14/21 04:00 Pulse 79 09/14/21 12:03 Resp 16 09/14/21 07:43 BP 147/88 H 09/14/21 12:03 Pulse Ox 98 09/14/21 07:43 Body Mass Index 29.2 Const: Other: An 80 Resp: Other: Clear to auscultation bilaterally no rales rhonchi or wheezes Cardio: Other: No S4; positive S1-S2; no S3 murmurs or gallops GI: Other: Soft nontender nondistended normoactive bowel sounds Extrem: Other: No edema bilaterally left lower extremity good color warm DS: Data Data Completed and Pending Labs on day of discharge: Laboratory Results - last 24 hr 09/13/21 09/13/21 09/13/21 17:28 17:28 17:28 WBC 10.3 RBC 4.99 Hgb 15.6 Hct 43.3 MCV 86.8 MCH 31.3 MCHC 36.0 H RDW 13.0 Plt Count 213 MPV 9.2 L Immature Gran % (Auto) 1.5 H Neut % (Auto) 54.9 Lymph % (Auto) 30.7 [place] % (Auto) 7.9 Eos % (Auto) 4.3 H Baso % (Auto) 0.7 Lymph # (Auto) 3.2 [place] # (Auto) 0.8 Eos # (Auto) 0.4 Baso # (Auto) 0.1 Abs Immat Gran (auto) 0.16 H Absolute Neuts (auto) 5.67 Absolute Nucleated RBC 0.000 Nucleated RBC % (auto) 0.0 PT INR APTT PTT (Heparin Protocol) Sodium 136 Potassium 4.3 Chloride 103 Carbon Dioxide 22 Anion Gap 15 BUN 12 Creatinine 0.75 Estim Creat Clear Calc 78.1 Estimated GFR > 60 POC Glucose Random Glucose 282 H Lactic Acid 1.2 Calcium 9.6 Total Creatine Kinase 44 COVID-19 (GENE) COVID-19 Clin Com 09/13/21 09/13/21 09/13/21 17:28 17:28 17:33 WBC RBC Hgb Hct MCV MCH MCHC RDW Plt Count MPV Immature Gran % (Auto) Neut % (Auto) Lymph % (Auto) [place] % (Auto) Eos % (Auto) Baso % (Auto) Lymph # (Auto) [place] # (Auto) Eos # (Auto) Baso # (Auto) Abs Immat Gran (auto) Absolute Neuts (auto) Absolute Nucleated RBC Nucleated RBC % (auto) PT 10.9 INR 1.0 APTT 32.9 PTT (Heparin Protocol) 31.4 L Sodium Potassium Chloride Carbon Dioxide Anion Gap BUN Creatinine Estim Creat Clear Calc Estimated GFR POC Glucose Random Glucose Lactic Acid Calcium Total Creatine Kinase COVID-19 (GENE) Negative COVID-19 Clin Com See Note 09/14/21 09/14/21 09/14/21 01:03 07:21 07:56 WBC 9.8 RBC 4.82 Hgb 15.0 Hct 42.1 MCV 87.3 MCH 31.1 MCHC 35.6 H RDW 12.9 Plt Count 209 MPV 9.0 L Immature Gran % (Auto) 1.3 H Neut % (Auto) 59.3 Lymph % (Auto) 27.6 [place] % (Auto) 6.7 Eos % (Auto) 4.4 H Baso % (Auto) 0.7 Lymph # (Auto) 2.7 [place] # (Auto) 0.7 Eos # (Auto) 0.4 Baso # (Auto) 0.1 Abs Immat Gran (auto) 0.13 H Absolute Neuts (auto) 5.78 Absolute Nucleated RBC 0.000 Nucleated RBC % (auto) 0.0 PT INR APTT PTT (Heparin Protocol) 44.2 L D Sodium Potassium Chloride Carbon Dioxide Anion Gap BUN Creatinine Estim Creat Clear Calc Estimated GFR POC Glucose 284 H Random Glucose Lactic Acid Calcium Total Creatine Kinase COVID-19 (GENE) COVID-19 Clin Com 09/14/21 09/14/21 09/14/21 07:56 07:56 07:56 WBC RBC Hgb Hct MCV MCH MCHC RDW Plt Count MPV Immature Gran % (Auto) Neut % (Auto) Lymph % (Auto) [place] % (Auto) Eos % (Auto) Baso % (Auto) Lymph # (Auto) [place] # (Auto) Eos # (Auto) Baso # (Auto) Abs Immat Gran (auto) Absolute Neuts (auto) Absolute Nucleated RBC Nucleated RBC % (auto) PT 11.3 INR 1.0 APTT PTT (Heparin Protocol) 53.2 D Sodium 136 Potassium 4.7 Chloride 104 Carbon Dioxide 22 Anion Gap 15 BUN 12 Creatinine 0.85 Estim Creat Clear Calc 68.9 Estimated GFR > 60 POC Glucose Random Glucose 349 H Lactic Acid Calcium 9.2 Total Creatine Kinase COVID-19 (GENE) COVID-19 Clin Com 09/14/21 13:22 WBC RBC Hgb Hct MCV MCH MCHC RDW Plt Count MPV Immature Gran % (Auto) Neut % (Auto) Lymph % (Auto) [place] % (Auto) Eos % (Auto) Baso % (Auto) Lymph # (Auto) [place] # (Auto) Eos # (Auto) Baso # (Auto) Abs Immat Gran (auto) Absolute Neuts (auto) Absolute Nucleated RBC Nucleated RBC % (auto) PT INR APTT PTT (Heparin Protocol) Sodium Potassium Chloride Carbon Dioxide Anion Gap BUN Creatinine Estim Creat Clear Calc Estimated GFR POC Glucose 218 H Random Glucose Lactic Acid Calcium Total Creatine Kinase COVID-19 (GENE) COVID-19 Clin Com Discharge Plan Discharge Patient Disposition: Home, Self-Care Discharge Diagnosis: Acute occlusion of left lower extremity Referrals: Kate Bailon MD [Primary Care Provider] - 1 Week Discharge Medications: New Eliquis 5 mg tablet 5 mg PO BID Qty: 60 RF: 3 Continued labetalol 300 mg tablet 300 mg PO BID 90 Days Qty: 180 RF: 0 aspirin 81 mg tablet,delayed release (DR/EC) 81 mg PO DAILY 90 Days Qty: 90 RF: 0 amlodipine 10 mg Tablet 10 mg PO DAILY@1200 RF: 0 lisinopril 40 mg Tablet 40 mg PO DAILY@1200 RF: 0 spironolactone 100 mg tablet 100 mg PO BEDTIME RF: 0 Discharge Orders: Discharge Order (Routine); Ordered 09/14/21 Ordered By: Emanuel Chapin Diet: advance to usual diet Activity on Discharge: As tolerated Stand Alone Forms: Patient Portal Discharge page Care Plan Goals: Follow up with Vascular surgery Health Concerns: Cheryl twice daily Plan of Treatment: As alejo Vascular Assessment: stable
--- NOTE | 2021-09-14 13:57 | PM.CNGS ---
History of Present Illness Consult details Consult date: 09/14/21 Reason for consult: ischemic leg Narrative: Very pleasant 55-year-old female presented yesterday evening to the emergency room. She noted that there her toes were discolored. She has had cramping of the lower extremities. She has become quite concerned about this. She now presents to us for vascular evaluation. Of note she has smokes nearly half a pack a day and in addition she is a diabetic. It has become increasingly painful over the last 2 or 3 days where she noted the discoloration of the toes. Of note motor and sensation is intact no significant other concerns aside from the discoloration at the current time. Pain seems to be improved. Review of Systems Review of Systems: Yes all other systems are reviewed and are negative Constitutional: Constitutional: Reports no additional constitutional complaints ENT: Reports Normal hearing present Cardiovascular: Cardiovascular: Denies chest pain, Denies chest pain at rest, Denies chest pain with activity and Denies pedal edema Respiratory: Respiratory: Denies cough Gastrointestinal: Gastrointestinal: Denies abdominal pain Musculoskeletal: Musculoskeletal: Denies abnormal gait, Denies muscle cramps and Denies radiating pain into limb Integumentary/Breasts: Skin/Breast: Denies skin ulcer and Denies wounds Neurologic: Reports Normal hearing present and Denies abnormal gait Psychiatric: Psychiatric: Reports no additional psychiatric complaints [facility] Past Medical History Medical History (Updated 09/14/21 @ 14:00 by Rajan Samano MD) Abscess of left groin Diabetes FH: cholecystectomy HTN (hypertension) Surgical History Surgical History (Updated 09/14/21 @ 05:30 by Rosalina Jimenez MD) History of cholecystectomy History of tubal ligation S/P shoulder surgery Social History Social History service: No Current occupational status: employed and disabled 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 Meds Allergies Allergy/AdvReac Type Severity Reaction Status Date / Time cephalexin [From KEFLEX] Allergy Unknown HIVES Verified 09/04/21 10:29 codeine [CODEINE] Allergy Unknown NAUSEA & Verified 09/04/21 10:29 VOMITING, nausea and vomiting dulaglutide [Trulicity] Allergy Unknown abdominal Verified 09/04/21 10:29 pain Cephalosporins Allergy Unknown Unknown Uncoded 01/01/21 08:49 seasonal Allergy Unknown Unknown Uncoded 01/01/21 08:49 Active Medications: Current Medications Acetaminophen (Acetaminophen 325 Mg Tablet) 650 mg PO Q6H PRN PRN Reason: Pain, Mild (Pain Scale 1-3) Amlodipine Besylate (Amlodipine Besylate 10 Mg Tablet) 10 mg PO DAILY@1200 KARELY; Protocol Last Admin: 09/14/21 12:03 Dose: 10 mg Documented by: Aspirin (Aspirin Enteric Coated 81 Mg Tablet.) 81 mg PO DAILY [facility] Last Admin: 09/14/21 07:43 Dose: 81 mg Documented by: Dextrose (Dextrose 50 % 25 Gm/50 Ml Vial) 25 gm IVPUSH Q15M PRN; Protocol PRN Reason: per Hypoglycemia Standing Ord. Docusate Sodium (Docusate Sodium 100 Mg Capsule) 100 mg PO DAILY PRN PRN Reason: Constipation Glucose (Glucose Gel 15 Gm Gel..Gram.) 15 gm PO Q15M PRN; Protocol PRN Reason: per Hypoglycemia Standing Ord. Heparin Sodium (Porcine) (Heparin Sodium,Porcine 5,000 Unit/Ml Vial) 5,800 unit 80 unit/kg (5800 unit) IVPUSH PROTOCOL BOLUS PRN; Protocol PRN Reason: 80 unit/kg - Heparin Protocol Heparin Sodium (Porcine) (Heparin Sodium,Porcine 5,000 Unit/Ml Vial) 2,900 unit 40 unit/kg (2900 unit) IVPUSH PROTOCOL BOLUS PRN; Protocol PRN Reason: 40 unit/kg - Heparin Protocol Last Admin: 09/14/21 01:57 Dose: 2,900 unit Documented by: Heparin Sodium/Sodium Chloride () 25,000 unit in 250 mls @ 0 mls/hr IVCONT .Q0M [facility]; Protocol Last Titration: 09/14/21 01:58 Dose: 14 units/kg/hr, 10.16 mls/hr Documented by: Insulin Human Lispro (Insulin Lispro 100 Unit/Ml 3 Ml Vial) 0 unit SUBCUT QIDACHS [facility]; Protocol Last Admin: 09/14/21 13:36 Dose: 4 unit Documented by: Labetalol HCl (Labetalol Hcl 100 Mg Tablet) 300 mg PO BID [facility] Last Admin: 09/14/21 07:44 Dose: 300 mg Documented by: Lisinopril (Lisinopril 40 Mg Tablet) 40 mg PO DAILY@1200 KARELY; Protocol Last Admin: 09/14/21 12:03 Dose: 40 mg Documented by: Ondansetron HCl (Ondansetron Hcl 4 Mg/2 Ml Vial) 4 mg IVPUSH Q8H PRN PRN Reason: Nausea and Vomiting Oxycodone HCl (Oxycodone Hcl Immed Release 5 Mg Tablet) 5 mg PO Q6H PRN PRN Reason: Pain, Severe (Pain Scale 7-10) Pharmacy Consult (Consult Rx Perform Med Rec) 1 each MISCELLANE ONCE PRN PRN Reason: Consult order Sodium Chloride (0.9 % Sodium Chloride Flush 3 Ml Syringe) 3 ml IVFLUSH QSHIFT [facility] Last Admin: 09/14/21 07:44 Dose: Not Given Documented by: Spironolactone (Spironolactone 25 Mg Tablet) 100 mg PO BEDTIME [facility]; Protocol Home Medications Medication Instructions Recorded Confirmed Last Taken Type amlodipine 10 mg tablet 10 mg PO DAILY@1200 09/13/21 09/13/21 09/13/21 History lisinopril 40 mg tablet 40 mg PO DAILY@1200 09/13/21 09/13/21 09/13/21 History spironolactone 100 mg tablet 100 mg PO BEDTIME 09/13/21 09/13/21 09/12/21 History Physical Exam Vital Signs: Vital Signs: Last Vital Signs Temp 98.4 F 09/14/21 04:00 Pulse 79 09/14/21 12:03 Resp 16 09/14/21 07:43 BP 147/88 H 09/14/21 12:03 Pulse Ox 98 09/14/21 07:43 Body Mass Index 29.2 Const: General: cooperative, healthy appearing and comfortable Orientation/consciousness: oriented to person, oriented to place and oriented to time HENMT: Head: Yes normal to inspection Neck: Neck: Yes normal visual inspection Carotids: no bruits Chest: Chest palpation & inspection: normal inspection of the chest Resp: Effort & Inspection: normal respiratory effort and able to speak in complete sentences Auscultation: clear to auscultation bilaterally, no crackles, no rales, no rhonchi and no wheezes Cardio: Rate: regular rate Rhythm: regular rhythm Heart sounds: S1 normal heart sound present and S2 normal heart sound present Bruits: no carotid bruits Peripheral pulses: dorsalis pedis present (Bilateral DP signals) GI: Inspection: Yes normal to inspection Skin: Wounds: no wounds Hair: normal Neuro: General: oriented to person, oriented to place and oriented to time Cranial nerves: Yes CN's II-XII intact bilaterally and Yes Normal hearing present Cognition (Neuro): normal cognition Motor exam (neuro): 5/5 motor strength present throughout Extrem: Other: venous exam: No significant superficial varicosities or spider telangiectasias, minimal edema General: No clubbing, No cyanosis and No edema Psych: Appearance: grossly normal Mental Status: mental status grossly normal Speech and movement: Normal speech and movement present Results Labs Result diagrams: 09/14/21 07:56 09/14/21 07:56 Labs: Abnormal lab results 09/13/21 09/13/21 09/13/21 Range/Units 17:28 17:28 17:28 MCHC 36.0 H (31.0-35.0) g/dl MPV 9.2 L (9.4-12.3) fL Immature Gran % (Auto) 1.5 H (0.0-0.4) % Eos % (Auto) 4.3 H (0-4) % Abs Immat Gran (auto) 0.16 H (0.00-0.03) X10*3/uL PTT (Heparin Protocol) 31.4 L (53-77.9) SEC POC Glucose (60-115) mg/dL Random Glucose 282 H (60-115) mg/dL 09/14/21 09/14/21 09/14/21 Range/Units 01:03 07:21 07:56 MCHC 35.6 H (31.0-35.0) g/dl MPV 9.0 L (9.4-12.3) fL Immature Gran % (Auto) 1.3 H (0.0-0.4) % Eos % (Auto) 4.4 H (0-4) % Abs Immat Gran (auto) 0.13 H (0.00-0.03) X10*3/uL PTT (Heparin Protocol) 44.2 L D (53-77.9) SEC POC Glucose 284 H (60-115) mg/dL Random Glucose (60-115) mg/dL 09/14/21 09/14/21 Range/Units 07:56 13:22 MCHC (31.0-35.0) g/dl MPV (9.4-12.3) fL Immature Gran % (Auto) (0.0-0.4) % Eos % (Auto) (0-4) % Abs Immat Gran (auto) (0.00-0.03) X10*3/uL PTT (Heparin Protocol) (53-77.9) SEC POC Glucose 218 H (60-115) mg/dL Random Glucose 349 H (60-115) mg/dL Short CBC 09/13/21 09/14/21 Range/Units 17:28 07:56 WBC 10.3 9.8 (4.8-10.8) X10*3/uL Hgb 15.6 15.0 (12.0-16.0) g/dl Hct 43.3 42.1 (37.0-47.0) % Plt Count 213 209 (160-400) X10*3/uL BMP 09/13/21 09/14/21 17:28 07:56 Sodium 136 136 Potassium 4.3 4.7 Chloride 103 104 Carbon Dioxide 22 22 BUN 12 12 Creatinine 0.75 0.85 Calcium 9.6 9.2 Cardiac Enzymes 09/13/21 Range/Units 17:28 Total Creatine Kinase 44 (26-140) U/L All other labs normal. Imaging Additional studies: CT and ultrasound reviewed demonstrating bilateral SFA occlusions Assessment and Plan (1) PAD (peripheral artery disease): Status: Acute Patient notes leg pain when walking distances, and discoloration of the right toes I have discussed the pathophysiology of peripheral vascular disease with the patient. I have also discussed risk factor modification. I have reviewed the patient's arterial testing which reveals bilateral SFA occlusion. the patient would benefit from a right leg endovascular peripheral angiogram with possible angioplasty, stent, and/or atherectomy. This has been discussed in detail with the patient along with risks, benefits, and complications. This includes but is not limited to bleeding, infection, heart attack, need for emergent surgical repair, limb ischemia, blood vessel damage, bleeding, puncture, kidney injury, bruising, allergic reaction, and skin reaction. The patient demonstrates a clear understanding. We will schedule this as an outpatient. She can be discharged on a NOAC. Will try to schedule her as soon as possible. Thank you for allowing us to assist in this patient's care. Procedures Date of Service Date of Service: 09/14/21
== END 2021-09-14 13:42 | disposition home or self-care (01) | DRG 197 ==
LOC: HO.ED 21:58 → HO.EDOVER 23:28
PROVIDERS: Admitting Provider Internal Medicine; Emergency Provider Emergency Medicine; PCP Internal Medicine; Visit Provider Hospitalist
DX: E11.51 Type 2 diabetes mellitus with diabetic peripheral angiopathy without gangrene (principal); F17.210 Nicotine dependence, cigarettes, uncomplicated; I77.1 Stricture of artery; Z20.822 Contact with and (suspected) exposure to COVID-19; I10 Essential (primary) hypertension; Z79.01 Long term (current) use of anticoagulants; Z88.5 Allergy status to narcotic agent; Z71.6 Tobacco abuse counseling; Z79.82 Long term (current) use of aspirin; Z79.899 Other long term (current) drug therapy
CPT/HCPCS: 36415; 73564; 73706; 80048; 82550; 82947; 83605; 85025; 85027; 85610; 85730; 87635; 93005; 93926; 99284; J2060; Q9967

== ENCOUNTER → 2021-09-20 07:27 | Day surgery (SDC) | payer MEDICAID, SELFPAY ==
[2021-09-19 16:07] VITALS: BMI 28.5
[2021-09-20 08:10] LABS: MANUAL DIFF FLAG NO
[2021-09-20 08:14] LABS: Basophils Absolute Auto 0.1 X10*3/uL (0.0-0.2); Basophils Percent Auto 0.5 % (0-2); Eosinophils Absolute Auto 0.3 X10*3/uL (0.0-0.4); Eosinophils Percent Auto 3.1 % (0-4); Hematocrit 42.8 % (37.0-47.0); Hemoglobin 15.1 g/dl (12.0-16.0); Imm Gran Abs Auto 0.12 X10*3/uL (0.00-0.03); Imm Gran Pct Auto 1.1 % (0.0-0.4); Lymphocytes Percent Auto 17.9 % (20-40); Mean Corpuscular HGB Conc 35.3 g/dl (31.0-35.0); Mean Corpuscular Hemoglobin 30.8 pg (27.0-33.0); Mean Corpuscular Volume 87.3 fL (80.0-98.0); Mean Platelet Volume 9.1 fL (9.4-12.3); Monocytes Absolute Auto 0.8 X10*3/uL (0.1-1.2); Monocytes Percent Auto 7.4 % (2-11); Neutrophils Absolute Auto 7.7 x10*3/uL (2.0-8.3); Platelet Count 221 X10*3/uL (160-400); Red Cell Distribution Width 12.9 % (11.0-16.0)
[2021-09-20 08:19] LABS: Prothrombin Time 11.1 SEC (9.9-13.0)
[2021-09-20 08:21] LABS: Partial Thromboplastin Time 33.7 SEC (24.1-38.0)
[2021-09-20 08:26] LABS: Glucose, Whole Blood 374 mg/dL (60-115)
[2021-09-20 08:33] LABS: Anion Gap 14 (12-20); Blood Urea Nitrogen 12 mg/dL (9-16); Calcium 9.6 mg/dL (8.4-10.2); Carbon Dioxide 24 mmol/L (22-29); Chloride 103 mmol/L (96-108); Creatinine Clr Calc Pharmacy 68.1; Estimated Glomerular Filt Rate > 60; Glucose Random 384 mg/dL (60-115); Potassium 4.7 mmol/L (3.3-5.1); Sodium 136 mmol/L (135-145)
== END ==
PROVIDERS: PCP Internal Medicine; Visit Provider Surgery Vascular Surgery
DX: I73.9 Peripheral vascular disease, unspecified (principal); Z53.09 Procedure and treatment not carried out because of other contraindication; R73.9 Hyperglycemia, unspecified
CPT/HCPCS: 36415; 80048; 82947; 85025; 85610; 85730

== ENCOUNTER 2021-10-04 06:02 | Day surgery (SDC) | payer MEDICAID, SELFPAY ==
[2021-10-04] VITALS (8 sets, daily range): BP systolic 95–144; BP diastolic 65–77; PULSE 70–91; RESP 16–20; TEMP 36.1; O2SAT 97–98; BMI 28.5
[2021-10-04 06:25] LABS: MANUAL DIFF FLAG NO
[2021-10-04 06:27] LABS: Basophils Absolute Auto 0.1 X10*3/uL (0.0-0.2); Basophils Percent Auto 0.6 % (0-2); Eosinophils Absolute Auto 0.4 X10*3/uL (0.0-0.4); Eosinophils Percent Auto 3.2 % (0-4); Hematocrit 42.6 % (37.0-47.0); Hemoglobin 14.9 g/dl (12.0-16.0); Imm Gran Abs Auto 0.13 X10*3/uL (0.00-0.03); Imm Gran Pct Auto 1.1 % (0.0-0.4); Lymphocytes Absolute Auto 2.7 X10*3/uL (1.2-4.9); Lymphocytes Percent Auto 22.4 % (20-40); Mean Corpuscular Hemoglobin 30.6 pg (27.0-33.0); Mean Corpuscular Volume 87.5 fL (80.0-98.0); Mean Platelet Volume 8.9 fL (9.4-12.3); Monocytes Percent Auto 8.3 % (2-11); Neutrophils Absolute Auto 7.8 x10*3/uL (2.0-8.3); Neutrophils Percent Auto 64.4 % (45-73); Platelet Count 277 X10*3/uL (160-400); Red Blood Count 4.87 X10*6/uL (4.20-5.50); Red Cell Distribution Width 12.6 % (11.0-16.0)
[2021-10-04 06:30] LABS: Glucose, Whole Blood 271 mg/dL (60-115)
[2021-10-04 06:33] LABS: Prothrombin Time 11.5 SEC (9.9-13.0)
[2021-10-04 06:36] LABS: Partial Thromboplastin Time 36.5 SEC (24.1-38.0)
[2021-10-04 07:00] LABS: Anion Gap 16 (12-20); Blood Urea Nitrogen 19 mg/dL (9-16); Calcium 9.9 mg/dL (8.4-10.2); Carbon Dioxide 21 mmol/L (22-29); Chloride 105 mmol/L (96-108); Creatinine Clr Calc Pharmacy 62.2; Estimated Glomerular Filt Rate > 60; Glucose Random 276 mg/dL (60-115); Potassium 4.5 mmol/L (3.3-5.1); Sodium 137 mmol/L (135-145)
--- NOTE | 2021-10-04 10:41 | W.PM.OPN ---
Operative Note Operative Note Date of Service: 10/04/21 Narrative: Angiogram report from [facility] Preoperative diagnosis: Atherosclerosis of right lower extremity with rest pain Postoperative diagnosis: Same Procedure: 1. Ultrasound-guided left common femoral access 2. Aortogram with right lower extremity runoff 3. Atherectomy and stent of right SFA Surgeon:Rajan Samano M.D., FACS, RPVI Card Feeder:None Anesthesia: Local with moderate conscious sedation. Total intraservice moderate sedation time was 65 minutes. I monitored the patient's level of consciousness and physiologic status continuously throughout the procedure. Specimens:none Drains:none Estimated blood loss: Less than 10 ml Implant: [place] viabahn 6 x 100 Indications: Pleasant 55-year-old female presents for endovascular intervention of the right lower extremity. She was actually scheduled 2 weeks prior with a history of peripheral vascular disease and concern of SFA occlusion. At that time her blood sugars were uncontrolled. She is now better controlled and now for endovascular intervention. patient has signed the informed consent after reviewing risks, complications, benefits, and alternatives previously discussed with the patient. The patient was given the opportunity to ask any additional questions or voice any concerns. All questions were answered to the patient's satisfaction. Procedure in detail: Patient was brought to the angiography suite prior to which a time-out was called for patient identification and site verification. Bilateral groins were prepped and draped in the standard surgical fashion. Under ultrasound guidance left common femoral was punctured with micro puncture needle and wire. Subsequently a precision 5 [place] sheath was then placed. Bentson wire was advanced to the level of the aorta. 5 [place] Flush catheter was brought up and parked at the level of the renal arteries. Aortogram was then undertaken. Catheter was brought down to the level of the iliac bifurcation. Iliacs were subsequently imaged. Catheter was then brought in up and over to the right side SFA. Runoff study was then undertaken. The mid to distal SFA had a total occlusion with the reconstitution at the above knee popliteal and 3 vessel runoff. At that time we administered 5000 units of systemic heparin. We then were able to traverse the lesion with the Advantage wire and confirmed true lumen with a navicross catheter. Once this was accomplished we exchanged out for a 5 [place] spider wire. Over this we performed a Hawk 1 unidirectional atherectomy. Multiple passes were undertaken. We were able to remove a fair amount of this plaque burden. Once this was accomplished there was still residual stenosis. We 1st plasty this area with a 5 x 80 balloon. We then placed a [place] viabhan covered stent 6x100 into the mid distal right SFA. This was subsequently plasty it into position with a 5 x 80 balloon. Completion angiogram demonstrated excellent result. Catheter wire sheath was brought back to the ipsilateral side. StarClose closure device was deployed. Patient tolerated the procedure well. Returned to recovery with stable vitals. Interpretation of films: 1. Ultrasound demonstrates appropriate femoral puncture. Image of which was saved. 2. Aortogram demonstrates appropriate caliber aorta. Minimal disease. Appropriate take-off of the renals. 3. Iliac images demonstrate no significant disease 4. Right Leg Common femoral artery: No significant disease Profundus Femoris: No significant disease Superficial femoral artery: Total occlusion mid to distal SFA with immediate reconstitution Popliteal artery (p1,p2,p3): All 3 segments patent with mild disease Anterior tibial artery: Patent all the way down to the foot Peroneal artery: Patent to ankle Posterior tibial artery: Diminished of but patent to ankle Dorsalis pedis/plantar arch: Partial filling of arch Conclusion: 1. Successful atherectomy and stent of right SFA 2. Anticoagulation status: Concern is atheroembolic event, will maintain on aspirin and Eliquis for now This note is constructed using voice recognition software. While every effort has been made to ensure accuracy, home health nurse licensed practical errors may have been included. Thank you for allowing me to participate in the care of your patient. Yours sincerely, Rajan Samano MD, FACS, R.P.V.I.
[2021-10-04] MEDS: iohexoL 300 MG/ML 100 ML INFUS..BTL IV (10:59)
[2021-10-04] MEDS: Aspirin 325 MG TABLET 650 MG PO (11:01)
[2021-10-04] MEDS: oxyCODONE HCl Immed Release 5 MG TABLET PO (11:02)
[2021-10-04] MEDS: Acetaminophen 325 MG TABLET 650 MG PO (11:02)
== END 2021-10-04 11:45 | disposition home or self-care (01) ==
PROVIDERS: PCP Internal Medicine; Visit Provider Surgery Vascular Surgery
DX: E11.51 Type 2 diabetes mellitus with diabetic peripheral angiopathy without gangrene (principal); I70.221 Atherosclerosis of native arteries of extremities with rest pain, right leg; I10 Essential (primary) hypertension; Z79.02 Long term (current) use of antithrombotics/antiplatelets; Z79.82 Long term (current) use of aspirin; Z79.84 Long term (current) use of oral hypoglycemic drugs; Z79.899 Other long term (current) drug therapy; F17.210 Nicotine dependence, cigarettes, uncomplicated
CPT/HCPCS: 36415; 37227; 76937; 80048; 82947; 85025; 85610; 85730; 99152; 99153; C1714; C1725; C1760; C1769; C1874; C1884; C1887; J2250; J3010; Q9967

== ENCOUNTER → 2021-10-12 08:52 | Outpatient (BNVA) | payer MEDICAID, SELFPAY | PROVIDERS: PCP Internal Medicine; Visit Provider Surgery Vascular Surgery | DX: I73.9 Peripheral vascular disease, unspecified (principal) | CPT/HCPCS: 99212 ==

== ENCOUNTER → 2021-10-24 13:50 | Outpatient (BNVA) | payer MEDICAID, SELFPAY | PROVIDERS: PCP Internal Medicine; Referring Provider Internal Medicine; Visit Provider Nurse Practitioner Family | DX: I70.209 Unspecified atherosclerosis of native arteries of extremities, unspecified extremity (principal); I73.9 Peripheral vascular disease, unspecified; R94.31 Abnormal electrocardiogram [ECG] [EKG] | CPT/HCPCS: 99212 ==

== ENCOUNTER → 2021-10-31 10:11 | Outpatient (REF) | payer MEDICAID, SELFPAY ==
--- NOTE | 2021-10-31 10:31 | CA_ITS ---
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 Study Quality: Fair ECG Rhythm: Sinus Conclusions: - The left ventricular systolic function is normal. The visually estimated ejection fraction is between 65-70%. - Moderate focal hypertrophy of the basal septum. - There is mild calcification of the aortic valve. - There is moderate posterior mitral annular calcification. Findings Left Ventricle Normal left ventricular cavity size. The left ventricular systolic function is normal. The visually estimated ejection fraction is between 65-70%. There is no evidence of regional wall motion abnormalities. Evidence suggests grade I (mild) diastolic dysfunction. Moderate focal hypertrophy of the basal septum. Right Ventricle Normal right ventricular cavity size and systolic function. Atria Both atria are normal in size. Aortic Valve There is a normal trileaflet aortic valve. There is mild calcification of the aortic valve. There is no aortic valve stenosis. There is no aortic valve regurgitation. Mitral Valve There is moderate posterior mitral annular calcification. There is no mitral valve regurgitation. There is no mitral valve stenosis. Pulmonic Valve The pulmonic valve was not well visualized. Tricuspid Valve There is trace tricuspid valve regurgitation. The pulmonary artery systolic pressure is normal. Great Vessels The aortic annulus, sinuses of valsalva, and asc aorta are normal in size. Venous The inferior vena cava is normal in size and collapses greater than 50% with inspiration. Pericardium/Pleural There is no evidence of pericardial effusion. Prior Study Comparison Changes noted compared to prior study dated: 03/15/2017. Slight progression of valvular calcification Measurements 2D Linear Measurements IVSd: 1.36 0.6-0.9/0.6-1.0 cm LVIDd: 3.59 3.9-5.3/4.2-5.9 cm LVIDd Index: 2.09 2.4-3.2/2.2-3.1 cm/m2 LVIDs: 2.53 2.0-3.6 cm LVPWd: 0.98 0.7-1.1 cm LA Diam: 3.50 2.7-3.8/3.0-4.0 cm LAIDs Index: 2.03 1.5-2.3 cm/m2 LV Mass: 169.19 67-162/88-224 g LV Mass Index: 98.37 43-95/49-115 g/m2 LVOT Diam: 2.30 3.0+(-)1.3 cm 2D Systolic Function EF 4C: 60.90 >55% EF 2C: 67.20 >55% EF BiP: 64.10 >55% Mitral Valve MV Pk E: 0.63 MV PK A: 0.79 MV Decel Time: 140.00 E/A: 0.80 E'Lateral: 8.16 E'Medial: 5.98 E/E' Med: 10.50 E/E' Lat: 7.70 PHT: 41.00 MVA PHT: 5.37 Decel Keith: 4.49 Aortic Valve AoV Pk Clayton: 1.33 AoV Pk Grad: 7.00 LVOT LVOT Pk Clayton: 1.07 LVOT Mn Clayton: 0.63 LVOT VTI: 0.23 LVOT Pk Grad: 5.00 LVOT Mn Grad: 2.00 LVOT Diam: 2.30 LVOT Area: 4.15 Diastolic Function MV Pk E: 0.63 MV Pk A: 0.79 E/A: 0.80 E'Medial: 5.98 E/E' Med: 10.50 E' Laterial: 8.16 E/E' Lat: 7.70 Right Ventricle TAPSE (mm): 2.26 Tricuspid Valve TR Pk Clayton: 2.28 TR Pk Grad: 21.00 RA Press: 3.00 RVSP: 24.00 Great Vessels Aorta Ao Asc: 3.40 2.1-3.4 cm Updated in Other Vendor System with Status of Final Jeffrey Russo MD electronically signed on 11/02/2021 3:32:30 PM with status of Final
== END ==
LOC: HO.CARD 10:11
PROVIDERS: Visit Provider Nurse Practitioner Family
DX: I70.209 Unspecified atherosclerosis of native arteries of extremities, unspecified extremity (principal)
CPT/HCPCS: 93306

== ENCOUNTER → 2021-11-02 10:10 | Outpatient (REF) | payer MEDICAID, SELFPAY ==
--- NOTE | 2021-11-02 10:20 | ECG_ITS ---
Hook-up date: 2021-11-02 10:31:00 Duration: 47:59:00 Test Indications: UNSPEC. ATHEROSCLEROSIS OF NATIV Medications: 113564 QRS complexes 14 Ventricular ectopics which represent <1 % of total QRS comp. 5 Supraventricular ectopics which represent <1 % of total QRS comp. * Paced QRS complexs which represent % of total QRS comp. VENTRICULAR ECTOPY 14 Isolated 0 Bigeminal Cycles 0 Couplets 0 Runs 0 Beats in Runs * Beats LONGEST at * BPM at :: -- * Beats FASTEST at * BPM at :: -- SUPRAVENTRICULAR ECTOPY 5 Isolated 0 Couplets 0 Runs 0 Beats in Runs * Beats LONGEST at * BPM at :: -- * Beats FASTEST at * BPM at :: -- HEART RATES 57 MIN at 04:00:51 2021-11-04 83 AVG 115 MAX at 21:22:46 2021-11-02 LONGEST RR 1.1040 secs at 04:15:44 2021-11-04 S-T LEVELS Channel 1 - 128 mm at 10:31:00 2021-11-02 - 128 mm at 10:31:00 2021-11-02 Channel 2 - 128 mm at 10:31:00 2021-11-02 - 128 mm at 10:31:00 2021-11-02 Channel 3 - 128 mm at 02:95:01 -- - 128 mm at 02:95:01 Underlying rhythm is sinus; Average ventricular rate 83/min; range 57-115/min; Very rare PACs, PVCs; No sustained arrhythmias; Patient did not report any symptoms in the diary Referred By: Mireya Zamarripa Overread By: DAJUAN HUI
== END ==
LOC: HO.CARD 10:10
PROVIDERS: Visit Provider Nurse Practitioner Family
DX: I70.209 Unspecified atherosclerosis of native arteries of extremities, unspecified extremity (principal); R94.31 Abnormal electrocardiogram [ECG] [EKG]
CPT/HCPCS: 93225; 93226

== ENCOUNTER 2022-01-09 08:01 | Outpatient (REF) | payer MEDICAID, SELFPAY ==
--- NOTE | ~2022-01-09 | US_ITS ---
EXAMINATION: Noninvasive assessment of the arteries of both lower extremities to include a PVR exam limited (1-2 levels) and YUNG, bilateral. ? Marleni Santizo M.D., Ph.D. CLINICAL INFORMATION: Peripheral vascular disease status post right SFA stent placed on 10/04/2021. COMPARISON: 09/13/2021 TECHNIQUE: The ankle/brachial indices of the distal posterior tibial and the dorsalis pedis arteries were obtained of the lower extremity arterial system bilaterally; along with pressures and pulse volume recordings at the ankle and duplex Doppler techniques of the common femoral, proximal femoral and proximal profunda arteries. The study was performed at rest. ? FINDINGS AT REST:? RIGHT LE. THE RIGHT ANKLE-BRACHIAL INDEX IS: 0.82 (higher of the DP/PT) >0.97-1.25 = normal - no significant arterial disease 0.75-0.96 = mild peripheral arterial disease 0.50-0.74 = moderate peripheral arterial disease <0.50 = severe peripheral arterial disease <0.30 = critical arterial disease 2. SEGMENTAL PRESSURES: Ankle: PT 160 DP 163 3. PVR WAVEFORMS: Ankle: Within normal limits 4. DIRECT DUPLEX: Common femoral artery: 163 cm/sec; multiphasic waveform Profunda artery: 91.5 cm/sec; multiphasic waveform Superficial femoral artery proximal: 102 cm/sec; multiphasic waveform Stent within the distal aspect of the proximal superficial femoral artery with elevated velocity of 291 cm/s with multiphasic flow. The mid SVC continues with the stent with a velocity of 69.9 cm/s and multiphasic flow. The distal aspect of the stent demonstrates a velocity of 119 cm/s with multiphasic flow. Superficial femoral artery distal (distal to the stent): 59.3 cm/sec; triphasic waveform Popliteal artery: 60.4 cm/sec; multiphasic waveform Posterior tibial artery: 23.6 cm/sec; multiphasic waveform Peroneal artery: 25.5 cm/sec; multiphasic waveform LEFT LE. THE LEFT ANKLE-BRACHIAL INDEX IS: 0.93 (higher of the DP/PT) >0.97-1.25 = normal - no significant arterial disease 0.75-0.96 = mild peripheral arterial disease 0.50-0.74 = moderate peripheral arterial disease <0.50 = severe peripheral arterial disease <0.30 = critical arterial disease 2. SEGMENTAL PRESSURES: Ankle: PT 171 DP 185 3. PVR WAVEFORMS: Ankle: Within normal limits 4. DIRECT DUPLEX: Common femoral artery: 142 cm/sec; multiphasic waveform Profunda artery: 96.7 cm/sec; multiphasic waveform Superficial femoral artery proximal: 127 cm/sec; multiphasic waveform Superficial femoral artery mid portion: 161 cm/sec; multiphasic waveform Superficial femoral artery distal: 207 cm/sec; multiphasic waveform Popliteal artery: 62.5 cm/sec; multiphasic waveform Posterior tibial artery: 30.3 cm/sec; multiphasic waveform Anterior tibial artery: 30.1 cm/sec; multiphasic waveform ? US/US arterial duplex LE BI IMPRESSION: 1. Right lower extremity: Peripheral vascular disease with YUNG of 0.82. The stent within the superficial femoral artery is patent, however proximally velocities are elevated suggesting in-stent stenosis. Flow is maintained throughout all interrogated vessels. 2. Mild peripheral vascular disease of the left leg with mild stenosis at the level of the distal SFA.
== END 2022-01-09 08:02 | disposition home or self-care (01) ==
LOC: HO.US 08:01
PROVIDERS: PCP Internal Medicine; Visit Provider Surgery Vascular Surgery
DX: I70.213 Atherosclerosis of native arteries of extremities with intermittent claudication, bilateral legs (principal)
CPT/HCPCS: 93923; 93925

== ENCOUNTER → 2022-01-16 09:48 | Outpatient (BNVA) | payer MEDICAID, SELFPAY | PROVIDERS: PCP Internal Medicine; Visit Provider Surgery Vascular Surgery ==

== ENCOUNTER → 2022-02-13 09:50 | Outpatient (BNVA) | payer MEDICAID, SELFPAY | PROVIDERS: PCP Internal Medicine; Visit Provider Surgery Vascular Surgery | DX: I73.9 Peripheral vascular disease, unspecified (principal); I65.23 Occlusion and stenosis of bilateral carotid arteries; Z95.820 Peripheral vascular angioplasty status with implants and grafts | CPT/HCPCS: 99212 ==

== ENCOUNTER → 2022-07-05 07:56 | Outpatient (REF) | payer MEDICAID, SELFPAY ==
--- NOTE | ~2022-07-05 | NM_ITS ---
Myocardial perfusion study Indication: Abnormal EKG to evaluate for myocardial ischemia Technique: The patient was brought in for a Lexiscan perfusion study on 07/05/2022. Patient performed low-level exercise and was injected 0.4 mg of Lexiscan intravenously. Within a minute of injection, 25 mCi of sestamibi was given intravenously. Images were obtained using the SPECT gamma camera interlaced with the gating device. Images were obtained in supine position. Resting perfusion study was performed on 07/06/2002. Patient was administered 25 mCi of sestamibi intravenously at rest. Images were then obtained in supine position. Images obtained with and without CT attenuation. Total DLP 85 mGy-cm. Images were processed with the software and compared side to side in short axis, horizontal long axis and vertical long axis views. Findings: The stress perfusion study showed non attenuated images show minimally reduced uptake in the basal inferior wall of the LV myocardium. Remainder of the LV myocardium is normally perfused. Attenuation corrected images show normal uptake of radiotracer in all segments of LV myocardium. The gated study shows normal LV systolic function with calculated LVEF of greater than 70%. LV cavity is normal size. The gated study shows normal systolic wall thickening and contraction of segments. Resting study shows no change in perfusion pattern compared to stress perfusion study. Gating at rest reveals normal systolic wall motion with ejection fraction at 73%. The findings are consistent with normal myocardial perfusion. NM/NM cardiolite stress test Impression: 1. Myocardial perfusion imaging study shows normal myocardial perfusion 2. Gated LVEF is 73% 3. Transient ischemic dilatation not present EKG is nondiagnostic for ischemia
--- NOTE | 2022-07-05 08:05 | CA_ITS ---
Acquisition Time: 2022-07-05 08:07:47 Total Exercise Time: 00:02:00 Test Indications: ABNORMAL EKG Medications: Protocol: LEXISCAN Max HR: 113 BPM 69% of Pred: 163 BPM Max BP: 166/084 mmHG Max Work Load: 1.0 METS Pharmacological stress test with Lexiscan injection, while sitting and kicking her legs, without anginal symptoms, without arrythmia, with normotensive response to injection, with nondiagnostic EKG for ischemia. Nuclear images pending. Test reviewed with Dr Russo Referred By: Mireya Zamarripa Overread By: MIREYA ZAMARRIPA
--- NOTE | 2022-07-05 08:05 | HM_ITS ---
TEST PERFORMED: Cardiac event monitoring. ENROLLMENT PERIOD: 07/06/2022, to 07/31/2022; 25 days. REQUESTING PHYSICIAN: Mireya Zamarripa N.P. FINDINGS: In the above monitoring period, underlying rhythm is sinus. Rate ranged from 82 to 103 beats per minute. No significant arrhythmias documented. No symptoms documented as well. CONCLUSION: Normal even monitoring showing sinus rhythm only and without any arrhythmias. MD TOVA Espinosa/MAY / [id number]
== END ==
LOC: HO.CARD 07:56
PROVIDERS: Visit Provider Nurse Practitioner Family
DX: I70.209 Unspecified atherosclerosis of native arteries of extremities, unspecified extremity (principal); R94.31 Abnormal electrocardiogram [ECG] [EKG]
CPT/HCPCS: 78452; 93017; 93270; A9500; J0280; J2785

== ENCOUNTER 2022-09-19 13:24 | Outpatient (REF) | payer MEDICAID, SELFPAY ==
--- NOTE | ~2022-09-19 | US_ITS ---
EXAMINATION: NONINVASIVE ASSESSMENT OF THE ARTERIES OF BOTH LOWER EXTREMITIES INCLUDING PVR EXAM AND BILATERAL LOWER EXTREMITY DUPLEX. CLINICAL INFORMATION: Peripheral vascular disease COMPARISON: Bilateral lower extremity noninvasive exam on 01/09/2022 TECHNIQUE: Ankle pulse volume recordings, ankle pressure measurements and ankle brachial indices were obtained of the lower extremity arterial system bilaterally in addition to duplex Doppler techniques with wave form analysis and measurement of velocities in the common femoral, profunda femoral, superficial femoral, popliteal, tibial and peroneal arteries. The study was performed only at rest. FINDINGS: RIGHT LEG 1. THE RIGHT ANKLE-BRACHIAL INDEX IS: 0.72 (higher of the DP/PT) >0.97-1.25 = normal - no significant arterial disease 0.75-0.96 = mild peripheral arterial disease 0.5-0.74 = moderate peripheral arterial disease <0.50 = severe peripheral arterial disease <0.30 = critical arterial disease 2. SEGMENTAL PRESSURES (mmHg): Ankle: PT 118, DP 108 3. PVR WAVEFORMS: Ankle: Normal 4. DIRECT DUPLEX: Common femoral artery: 223 cm/s, Multiphasic Profunda femoris artery: 145 cm/s, Multiphasic Superficial femoral artery (proximal): 141 cm/s, Multiphasic Superficial femoral artery (mid): 469 cm/s, Multiphasic; stent Superficial femoral artery (distal): 99 cm/s, Multiphasic; stent Proximal Popliteal artery: 76 cm/s, Multiphasic Mid posterior tibial artery: 57 cm/s, Multiphasic LEFT LE. THE LEFT ANKLE-BRACHIAL INDEX IS: 0.74 (higher of the DP/PT) >0.97-1.25 = normal - no significant arterial disease 0.75-0.96 = mild peripheral arterial disease 0.5-0.74 = moderate peripheral arterial disease <0.50 = severe peripheral arterial disease <0.30 = critical arterial disease 2. SEGMENTAL PRESSURES: Ankle: PT 120, DP 118 3. PVR WAVEFORMS: Ankle: Normal 4. DIRECT DUPLEX: Common femoral artery: 141 cm/s, Multiphasic Profunda femoris artery: 110 cm/s, Multiphasic Superficial femoral artery (proximal): 144 cm/s, Multiphasic Superficial femoral artery (mid): 195 cm/s, Multiphasic Superficial femoral artery (distal): 160 cm/s, Multiphasic Proximal Popliteal artery: 58 cm/s, Multiphasic Mid posterior tibial artery: 50 cm/s, Multiphasic US/US arterial duplex LE BI IMPRESSION: RIGHT LEG: Severe stenosis of the right mid superficial femoral artery within the proximal portion of the stent. LEFT LEG: Mild-moderate peripheral arterial disease.
--- NOTE | ~2022-09-19 | US_ITS ---
EXAMINATION: US EXTRACRANIAL CAROTID DUPLEX, BILATERAL CLINICAL INFORMATION: Occlusion and stenosis of bilateral carotid arteries COMPARISON: Carotid duplex on 03/06/2017 TECHNIQUE: Real-time ultrasound and Doppler techniques (integrating B-mode 2-D vascular images, Doppler spectral analysis and color-flow Doppler imaging) were utilized to interrogate the extracranial carotid arteries, the vertebral arteries and proximal subclavian arteries bilaterally. The degree of stenosis is determined by criteria similar to NASCET. FINDINGS: Right Side: 1. There is mild atherosclerotic plaque seen in the bifurcation/proximal ICA region. 2. The common carotid artery PSV proximally is 77 cm/s and distally 46 cm/s. 3. The proximal internal carotid artery velocities are 55 cm/s systolic and 20 cm/s diastolic. 4. The proximal external carotid artery PSV is 63 cm/s. 5. The vertebral artery shows antegrade flow. 6. The subclavian artery waveforms are normal. Left Side: 1. There is mild atherosclerotic plaque seen in the bifurcation/proximal ICA region. 2. The common carotid artery PSV proximally is 69 cm/s and distally 52 cm/s. 3. The proximal internal carotid artery velocities are 61 cm/s systolic and 23 cm/s diastolic. 4. The proximal external carotid artery PSV is 155 cm/s. 5. The vertebral artery shows antegrade flow. 6. The subclavian artery waveforms are normal. Incidental note is made of bilateral thyroid nodules. US/US carotid duplex BI IMPRESSION: 1. RIGHT: Minimal, non-hemodynamically significant stenosis of the proximal right internal carotid artery corresponding to a 0-49% stenosis by velocity criteria. 2. LEFT: Minimal, non-hemodynamically significant stenosis of the proximal left internal carotid artery corresponding to a 0-49% stenosis by velocity criteria. 3. There is no change in the category severity of disease when compared to the previous study dated 03/06/2017.
== END 2022-09-19 13:25 | disposition home or self-care (01) ==
LOC: HO.US 13:24
PROVIDERS: Visit Provider Surgery Vascular Surgery
DX: I65.23 Occlusion and stenosis of bilateral carotid arteries (principal); I73.9 Peripheral vascular disease, unspecified
CPT/HCPCS: 93880; 93923; 93925

== ENCOUNTER → 2022-10-11 13:48 | Outpatient (BNVA) | payer MEDICAID, SELFPAY | PROVIDERS: PCP Internal Medicine; Visit Provider Surgery Vascular Surgery | DX: I73.9 Peripheral vascular disease, unspecified (principal); I65.23 Occlusion and stenosis of bilateral carotid arteries | CPT/HCPCS: 99212 ==

== ENCOUNTER 2022-10-17 07:21 | Day surgery (SDC) | payer MEDICAID, SELFPAY ==
[2022-10-17] VITALS (7 sets, daily range): BP systolic 132–161; BP diastolic 58–78; PULSE 67–78; RESP 10–18; TEMP 36.2–36.6; O2SAT 95–98; BMI 27.4
[2022-10-17 07:48] LABS: MANUAL DIFF FLAG NO
[2022-10-17 07:51] LABS: Basophils Absolute Auto 0.1 X10*3/uL (0.0-0.2); Basophils Percent Auto 0.7 % (0-2); Eosinophils Absolute Auto 0.3 X10*3/uL (0.0-0.4); Eosinophils Percent Auto 3.2 % (0-4); Hematocrit 39.1 % (37.0-47.0); Hemoglobin 13.6 g/dl (12.0-16.0); Imm Gran Abs Auto 0.12 X10*3/uL (0.00-0.03); Imm Gran Pct Auto 1.2 % (0.0-0.4); Lymphocytes Absolute Auto 1.7 X10*3/uL (1.2-4.9); Lymphocytes Percent Auto 17.2 % (20-40); Mean Corpuscular HGB Conc 34.8 g/dl (31.0-35.0); Mean Corpuscular Hemoglobin 30.4 pg (27.0-33.0); Mean Corpuscular Volume 87.3 fL (80.0-98.0); Monocytes Absolute Auto 0.7 X10*3/uL (0.1-1.2); Monocytes Percent Auto 7.4 % (2-11); Neutrophils Absolute Auto 6.8 x10*3/uL (2.0-8.3); Neutrophils Percent Auto 70.3 % (45-73); Platelet Count 228 X10*3/uL (160-400); Red Blood Count 4.48 X10*6/uL (4.20-5.50); Red Cell Distribution Width 13.4 % (11.0-16.0); White Blood Count 9.6 X10*3/uL (4.8-10.8)
[2022-10-17 08:05] LABS: Blood Urea Nitrogen 12 mg/dL (9-16); Creatinine Clr Calc Pharmacy 72.8; Estimated Glomerular Filt Rate > 60
[2022-10-17 08:51] LABS: Glucose, Whole Blood 310 mg/dL (60-115)
--- NOTE | 2022-10-17 11:12 | P.OP_ITS ---
Operative Note Operative Note Date of Service: 10/17/22 Narrative: Angiogram report from [facility] Preoperative diagnosis: Atherosclerosis of right lower extremity with activity limiting claudication Postoperative diagnosis: Same Procedure: 1. Ultrasound-guided left common femoral access 2. Aortogram with right lower extremity runoff 3. Right SFA plasty and stent Surgeon:Rajan Samano M.D., FACS, RPVI First Assistant Manager:None Anesthesia: Local with moderate conscious sedation. Total intraservice moderate sedation time was 35 minutes. I monitored the patient's level of consciousness and physiologic status continuously throughout the procedure. Specimens:none Drains:none Estimated blood loss: Less than 10 ml Implant: Medtronic Impact DCB 6 x 120; Medtronic Ev3 stent 6 x 80 Indications: 56-year-old female with a prior history of right lower extremity SFA stenting on surveillance presented with stenosis. She now presents for endovascular intervention of the right side. The patient has signed the informed consent after reviewing risks, complications, benefits, and alternatives previously discussed with the patient. The patient was given the opportunity to ask any additional questions or voice any concerns. All questions were answered to the patient's satisfaction. Procedure in detail: Patient was brought to the angiography suite prior to which a time-out was called for patient identification and site verification. Bilateral groins were prepped and draped in the standard surgical fashion. Under ultrasound guidance left common femoral was punctured with micro puncture needle and wire. Subsequently a precision 4 [place] sheath was then placed. Bentson wire was advanced to the level of the aorta. 4 [place] Flush catheter was brought up and parked at the level of the renal arteries. Aortogram was then undertaken. Catheter was brought down to the level of the iliac bifurcation. Iliacs were subsequently imaged. Catheter was then brought in up and over to the right side SFA. Runoff study was then undertaken. It was recognized that she had InStent restenoses. At this time 5000 units of systemic heparin was administered. Once this was accomplished in 5 minutes of circulation time up and over 6 [place] sheath was then placed. We then advanced an 035 glidewire Advantage down through the SFA. [place] Blazer catheter was used to confirmed true lumen. Once this was accomplished we then plasty did the old SFA stent with a 6 x 100 regular balloon. We subsequently plasty this with a 6 x 120 drug coated balloon. This was brought into position in under 3 minutes and insufflated for a total of 3 minutes in duration. Once this was all accomplished we then turned our attention to more proximal from the stent and it noted to have high-grade stenosis as compared to the stented area. We then brought in a 6 x 80 stent just proximal to the old stent. Once deployed we plasty this into position with a 6 x 100 balloon. Completion angiogram demonstrated excellent result catheter wire sheath was brought back to the ipsilateral side StarClose closure device was then deployed. Patient tolerated the procedure well brought to recovery with stable vitals. Interpretation of films: 1. Ultrasound demonstrates appropriate femoral puncture. Image of which was saved. 2. Aortogram demonstrates appropriate caliber aorta. Minimal disease. Appropriate take-off of the renals. 3. Iliac images demonstrate no significant disease 4. Right Leg Common femoral artery: No significant disease Profundus Femoris: No significant disease Superficial femoral artery: InStent restenoses and stenosis proximal to the stent Popliteal artery (p1,p2,p3): No significant disease Anterior tibial artery: No significant disease Peroneal artery: No significant disease Posterior tibial artery: Occludes after the proximal 3rd Dorsalis pedis/plantar arch: Incomplete Conclusion: 1. Successful angioplasty and stent of right SFA. 2. Anticoagulation status: Patient is no longer on Eliquis. She will require 6 months of aspirin and Plavix. This note is constructed using voice recognition software. While every effort has been made to ensure accuracy, product safety test engineer errors may have been included. Thank you for allowing me to participate in the care of your patient. Yours sincerely, Rajan Samano MD, FACS, R.P.V.I.
[2022-10-17] MEDS: Clopidogrel Bisulfate 300 MG TABLET PO (11:16)
[2022-10-17] MEDS: oxyCODONE HCl Immed Release 5 MG TABLET PO (11:24)
== END 2022-10-17 13:50 | disposition home or self-care (01) ==
PROVIDERS: PCP Internal Medicine; Visit Provider Surgery Vascular Surgery
DX: I70.211 Atherosclerosis of native arteries of extremities with intermittent claudication, right leg (principal); T82.856A Stenosis of peripheral vascular stent, initial encounter; Y82.8 Other medical devices associated with adverse incidents; Y83.8 Other surgical procedures as the cause of abnormal reaction of the patient, or of later complication, without mention of misadventure at the time of the procedure; Y92.9 Unspecified place or not applicable; E11.9 Type 2 diabetes mellitus without complications; I10 Essential (primary) hypertension; Z88.1 Allergy status to other antibiotic agents; Z88.5 Allergy status to narcotic agent; Z88.8 Allergy status to other drugs, medicaments and biological substances
CPT/HCPCS: 36415; 37226; 76937; 82565; 82947; 84520; 85025; 99152; 99153; C1725; C1760; C1769; C1876; C1887; J2250; J3010; Q9967

== ENCOUNTER → 2022-11-08 13:06 | Outpatient (BNVA) | payer MEDICAID, SELFPAY | PROVIDERS: PCP Internal Medicine; Visit Provider Surgery Vascular Surgery | DX: I73.9 Peripheral vascular disease, unspecified (principal) | CPT/HCPCS: 99212 ==

== ENCOUNTER 2023-02-13 14:50 | Outpatient (REF) | payer MEDICAID, SELFPAY ==
--- NOTE | ~2023-02-13 | US_ITS ---
EXAMINATION: US NONINVASIVE ASSESSMENT OF THE ARTERIES OF BOTH LOWER EXTREMITIES INCLUDING PVR EXAM AND BILATERAL LOWER EXTREMITY DUPLEX. CLINICAL INFORMATION: Peripheral vascular disease COMPARISON: YUNG; duplex ultrasound September 19, 2022 TECHNIQUE: Ankle pulse volume recordings, ankle pressure measurements and ankle brachial indices were obtained of the lower extremity arterial system bilaterally in addition to duplex Doppler techniques with wave form analysis and measurement of velocities in the common femoral, profunda femoral, superficial femoral, popliteal, tibial and peroneal arteries. The study was performed only at rest. FINDINGS: RIGHT LE. THE RIGHT ANKLE-BRACHIAL INDEX IS: 0.87 noncompressibility/calcification. >0.97-1.25 = normal - no significant arterial disease 0.75-0.96 = mild peripheral arterial disease 0.5-0.74 = moderate peripheral arterial disease <0.50 = severe peripheral arterial disease <0.30 = critical arterial disease 2. SEGMENTAL PRESSURES (mmHg): Ankle: PT 148, DP 108 3. PVR WAVEFORMS: Ankle: Normal 4. DIRECT DUPLEX: Common femoral artery: 196 cm/s, Multiphasic Profunda femoris artery: 140 cm/s, Multiphasic [place] artery proximal distended: 229 cm/s, multiphasic Superficial femoral artery (proximal): 248 cm/s, multiphasic; stent Superficial femoral artery (mid): 82 cm/s, Multiphasic; stent Superficial femoral artery (distal): 80 cm/s, Multiphasic; stent Proximal Popliteal artery: 87.5 cm/s, Multiphasic Mid posterior tibial artery: 50 cm/s, Multiphasic LEFT LE. THE LEFT ANKLE-BRACHIAL INDEX IS: 0.74 (higher of the DP/PT) >0.97-1.25 = normal - no significant arterial disease 0.75-0.96 = mild peripheral arterial disease 0.5-0.74 = moderate peripheral arterial disease <0.50 = severe peripheral arterial disease <0.30 = critical arterial disease 2. SEGMENTAL PRESSURES: Ankle: PT 126, DP 111 3. PVR WAVEFORMS: Ankle: Normal 4. DIRECT DUPLEX: Common femoral artery: 120 cm/s, Multiphasic Profunda femoris artery: 107 cm/s, Multiphasic Superficial femoral artery (proximal): 194 cm/s, multiphasic Superficial femoral artery (mid): 270 cm/s, Multiphasic Superficial femoral artery (distal): 251 cm/s, Multiphasic Distal popliteal artery: 86 cm/s, Multiphasic Mid posterior tibial artery: 49 cm/s, Multiphasic US/US YUNG complete IMPRESSION: Right lower extremity: Mild peripheral arterial disease. There is significant improvement in the velocity within the proximal portion of the SFA stent and now likely mild stenosis (previously severe). Left lower extremity: Moderate peripheral arterial disease
--- NOTE | ~2023-02-13 | US_ITS ---
EXAMINATION: US NONINVASIVE ASSESSMENT OF THE ARTERIES OF BOTH LOWER EXTREMITIES INCLUDING PVR EXAM AND BILATERAL LOWER EXTREMITY DUPLEX. CLINICAL INFORMATION: Peripheral vascular disease COMPARISON: YUNG; duplex ultrasound September 19, 2022 TECHNIQUE: Ankle pulse volume recordings, ankle pressure measurements and ankle brachial indices were obtained of the lower extremity arterial system bilaterally in addition to duplex Doppler techniques with wave form analysis and measurement of velocities in the common femoral, profunda femoral, superficial femoral, popliteal, tibial and peroneal arteries. The study was performed only at rest. FINDINGS: RIGHT LE. THE RIGHT ANKLE-BRACHIAL INDEX IS: 0.87 noncompressibility/calcification. >0.97-1.25 = normal - no significant arterial disease 0.75-0.96 = mild peripheral arterial disease 0.5-0.74 = moderate peripheral arterial disease <0.50 = severe peripheral arterial disease <0.30 = critical arterial disease 2. SEGMENTAL PRESSURES (mmHg): Ankle: PT 148, DP 108 3. PVR WAVEFORMS: Ankle: Normal 4. DIRECT DUPLEX: Common femoral artery: 196 cm/s, Multiphasic Profunda femoris artery: 140 cm/s, Multiphasic [place] artery proximal distended: 229 cm/s, multiphasic Superficial femoral artery (proximal): 248 cm/s, multiphasic; stent Superficial femoral artery (mid): 82 cm/s, Multiphasic; stent Superficial femoral artery (distal): 80 cm/s, Multiphasic; stent Proximal Popliteal artery: 87.5 cm/s, Multiphasic Mid posterior tibial artery: 50 cm/s, Multiphasic LEFT LE. THE LEFT ANKLE-BRACHIAL INDEX IS: 0.74 (higher of the DP/PT) >0.97-1.25 = normal - no significant arterial disease 0.75-0.96 = mild peripheral arterial disease 0.5-0.74 = moderate peripheral arterial disease <0.50 = severe peripheral arterial disease <0.30 = critical arterial disease 2. SEGMENTAL PRESSURES: Ankle: PT 126, DP 111 3. PVR WAVEFORMS: Ankle: Normal 4. DIRECT DUPLEX: Common femoral artery: 120 cm/s, Multiphasic Profunda femoris artery: 107 cm/s, Multiphasic Superficial femoral artery (proximal): 194 cm/s, multiphasic Superficial femoral artery (mid): 270 cm/s, Multiphasic Superficial femoral artery (distal): 251 cm/s, Multiphasic Distal popliteal artery: 86 cm/s, Multiphasic Mid posterior tibial artery: 49 cm/s, Multiphasic US/US arterial duplex LE BI IMPRESSION: Right lower extremity: Mild peripheral arterial disease. There is significant improvement in the velocity within the proximal portion of the SFA stent and now likely mild stenosis (previously severe). Left lower extremity: Moderate peripheral arterial disease
== END 2023-02-13 14:51 | disposition home or self-care (01) ==
LOC: HO.US 14:50
PROVIDERS: Visit Provider Surgery Vascular Surgery
DX: I70.213 Atherosclerosis of native arteries of extremities with intermittent claudication, bilateral legs (principal)
CPT/HCPCS: 93923; 93925

== ENCOUNTER → 2023-02-19 15:07 | Outpatient (BNVA) | payer MEDICAID, SELFPAY | PROVIDERS: PCP Internal Medicine; Visit Provider Surgery Vascular Surgery | DX: I73.9 Peripheral vascular disease, unspecified (principal) | CPT/HCPCS: 99212 ==

== ENCOUNTER 2023-08-21 15:00 | Outpatient (REF) | payer OTHER, SELFPAY ==
--- NOTE | ~2023-08-21 | US_ITS ---
EXAMINATION: Noninvasive assessment of the bilateral lower extremities with ARTERIAL DUPLEX and ANKLE BRACHIAL INDICES (ABIs). CLINICAL INFORMATION: Peripheral vascular disease with history of 2 right superficial femoral artery stents TECHNIQUE: Duplex Doppler techniques with waveform analysis and measurement of velocities in the bilateral common femoral, profunda femoris, superficial femoral, popliteal and tibial arteries were performed. Additionally, ankle pulse volume recordings, ankle pressure measurements and ankle brachial indices were obtained of the lower extremity arterial system bilaterally. The study was performed only at rest. COMPARISON: 09/19/2022 and 02/13/2023 FINDINGS: DIRECT DUPLEX DOPPLER FINDINGS: RIGHT LEG: Common femoral artery: 152 cm/s, phasicity: Biphasic Profunda femoris artery: 118 cm/s, phasicity: Biphasic Superficial femoral artery (proximal): 165 cm/s, phasicity: Biphasic Stent extending from the proximal superficial femoral artery to distal superficial femoral artery. Proximal to stent: 150 cm/s, triphasic Proximal stent: 137 cm/s, triphasic Mid stent: 147 cm/s, biphasic Distal stent: 139 cm/s, biphasic Mid distal to stent: 95.5 cm/s, biphasic Superficial femoral artery (distal): 127 cm/s, phasicity: Biphasic Popliteal artery: 119 cm/s, phasicity: Biphasic Posterior tibial artery: 28.2 cm/s, phasicity: Monophasic Peroneal artery: 137 cm/s, phasicity: Triphasic Anterior tibial artery: 67.6 cm/s, phasicity: Triphasic Dorsalis pedis artery: 38.2 cm/s, phasicity:Monophasic LEFT LEG: Common femoral artery: 128 cm/s, phasicity: Biphasic Profunda femoris artery: 184 cm/s, phasicity: Biphasic Superficial femoral artery (proximal): 127 cm/s, phasicity: Triphasic Superficial femoral artery (mid): 205 cm/s, phasicity: Biphasic Superficial femoral artery (distal): 215 cm/s, phasicity: Triphasic Popliteal artery: 94.9 cm/s, phasicity: Monophasic Posterior tibial artery: Occluded Peroneal artery: 58.2 cm/s, phasicity: Monophasic Anterior tibial artery: 99.5 cm/s, phasicity: Monophasic Dorsalis pedis artery: 50.5 cm/s, phasicity: Monophasic ANKLE-BRACHIAL INDEX: Right: 1.04?, previously 0.87 Left: 1.06, previously 0.74 ANKLE PRESSURES: Right: PT 201, DP 200 Left: PT?204, DP?174 ANKLE PVR WAVEFORMS: Right: Abnormal Left: Abnormal US/US arterial duplex LE BI IMPRESSION: Right leg: Normal ankle brachial index with mildly dampened PVR waveform. Widely patent flow seen throughout the right superficial femoral artery stents within significant stenosis. Patent flow in the below-knee runoff vessels Left leg: Normal ankle brachial index with mildly dampened PVR waveform. Patent arterial flow within the left lower extremity arterial vessels except for occlusion of the posterior tibial artery. Elevated velocities seen in the mid and distal superficial femoral artery with dampened arterial waveforms distally consistent with a moderate stenosis. No significant change compared to the prior exam YUNG Reference: - >1.4 = calcified vessels - 0.9 - 1.4 = normal - no significant arterial disease - 0.7 - 0.89 = mild peripheral arterial disease - 0.51 - 0.69 = moderate peripheral arterial disease - ? 0.50 = severe peripheral arterial disease - < .30 = critical arterial disease
== END 2023-08-21 15:01 | disposition home or self-care (01) ==
LOC: HO.US 15:00
PROVIDERS: PCP Internal Medicine; Visit Provider Surgery Vascular Surgery
DX: I73.9 Peripheral vascular disease, unspecified (principal)
CPT/HCPCS: 93923; 93925

== ENCOUNTER 2023-09-05 15:38 | Outpatient (AMB) | payer OTHER, SELFPAY ==
--- NOTE | 2023-09-05 15:40 | MHC.OFFVIS ---
Intake Vital Signs 09/05/23 15:41 Height 5 ft 2.5 in Weight 155 lb BMI 27.9 Intake Visit Reasons: Follow Up 08/21 Arterial Ultrasound Intake Note: 6 mo follow up s/p Arterial US 08/21/23 and hx of Right Angio 10/04/21 & Right angioplasty 10/17/22. Pt states no complaints of cramping or weakness, only with 4 flights of stairs, walks daily up to 13,000 steps a day for work. Accompanied by: Self / Same As Patient Allergies cephalexin [From KEFLEX] Allergy (Severe, Verified 09/05/23 15:44) HIVES codeine [CODEINE] Allergy (Intermediate, Verified 09/05/23 15:44) NAUSEA & VOMITING, nausea and vomiting dulaglutide [Trulicity] Allergy (Intermediate, Verified 09/05/23 15:44) abdominal pain Cephalosporins Allergy (Intermediate, Uncoded 09/05/23 15:44) Hives seasonal Allergy (Intermediate, Uncoded 09/05/23 15:44) Itchy Eyes HPI Follow Up 08/21 Arterial Ultrasound HPI Details Very pleasant 57-year-old female presents for follow-up arterial surveillance. She reports she is doing extremely well. 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 In addition she can climb 2-3 flights of stairs with no significant difficulty. She continues to smoke about 6 cigarettes daily. She now presents for surveillance arterial follow-up. [facility] Medical History Abscess of left groin FH: cholecystectomy Diabetes HTN (hypertension) Surgical History S/P angiogram of extremity (10/04/21) History of cholecystectomy S/P shoulder surgery History of tubal ligation Family History Father No problems noted. Mother No problems noted. 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 Review of Systems Const All systems reviewed & are unremarkable except as noted in HPI and below Reports no additional complaints ENT Reports Normal hearing present Card Denies chest pain, Denies chest pain at rest, Denies chest pain with activity and Denies pedal edema Resp Denies cough GI Denies abdominal pain Musc Denies abnormal gait, Denies muscle cramps and Denies radiating pain into limb Skin/Breast Denies skin ulcer and Denies wounds Neuro Reports Normal hearing present and Denies abnormal gait Psych Reports no additional complaints Physical Exam Vital Signs: BMI result Body Mass Index 27.9 Const General: cooperative, healthy appearing and comfortable Orientation/consciousness: oriented to person, oriented to place and oriented to time HEENT Head: Yes normal to inspection Neck Neck: Yes normal visual inspection Carotids: no bruits Chest Chest palpation & inspection: normal inspection of the chest Resp Effort & Inspection: normal respiratory effort and able to speak in complete sentences Auscultation: clear to auscultation bilaterally, no crackles, no rales, no rhonchi and no wheezes Cardio Other: Bilateral palpable DP pulses Rate: regular rate Rhythm: regular rhythm Heart sounds: S1 normal heart sound present and S2 normal heart sound present Bruits: no carotid bruits Peripheral pulses: Peripheral pulses 2+ throughout GI Inspection: Yes normal to inspection Skin Wounds: no wounds Hair: normal Neuro General: oriented to person, oriented to place and oriented to time Cranial nerves: Yes CN's II-XII intact bilaterally and Yes Normal hearing present Cognition (Neuro): normal cognition Motor exam (neuro): 5/5 motor strength present throughout Extrem Other: venous exam: No significant superficial varicosities or spider telangiectasias, minimal edema General: No clubbing, No cyanosis and No edema Psych Appearance: grossly normal Mental Status: mental status grossly normal Speech and movement: Normal speech and movement present Assessment & Plan Assessment & Plan (1) PAD (peripheral artery disease): Comment: 10/04/2021 - atherectomy and stent of right SFA 10/17/2022 - right SFA plasty and stent Code(s): I73.9 - Peripheral vascular disease, unspecified Plan: In short patient has stable claudication. I did review the pathophysiology of peripheral vascular disease with the patient. In addition we did discuss routine conservative measures including a healthy diet and the importance of exercise and ambulation. We did discuss risk factor modification. The patient will continue to to follow-up with surveillance follow-up in approximately 1 year. Thank you for allowing us to participate in this patient's care. If there are any questions or concerns please do not hesitate to contact us. Orders: Orders US arterial duplex LE BI 364 Days I73.9 - Peripheral vascular disease, unspecified Coding Level of Care Code Est Pt Level 4 (92619) Diagnoses PAD (peripheral artery disease) I73.9
[2023-09-05 15:41] VITALS: BMI 27.9
== END 2023-09-05 16:00 | disposition home or self-care (01) ==
PROVIDERS: PCP Internal Medicine; Visit Provider Surgery Vascular Surgery
DX: I73.9 Peripheral vascular disease, unspecified (principal)
CPT/HCPCS: 99213

== ENCOUNTER → 2023-09-05 15:38 | Outpatient (BNVA) | payer OTHER, SELFPAY | PROVIDERS: PCP Internal Medicine; Visit Provider Surgery Vascular Surgery | DX: I73.9 Peripheral vascular disease, unspecified (principal); F17.210 Nicotine dependence, cigarettes, uncomplicated | CPT/HCPCS: 99212 ==

== ENCOUNTER 2024-02-11 17:09 | Emergency (ER) | payer OTHER, SELFPAY ==
[2024-02-11] VITALS (9 sets, daily range): BP systolic 148–249; BP diastolic 76–134; PULSE 81–112; RESP 12–20; TEMP 36.6–37; O2SAT 96–98; BMI 27.6
[2024-02-11 17:35] LABS: Appearance Urine Clear; Color Urine Yellow; Glucose Urine UA >=1000 mg/dL (Negative); Leukocyte Esterase Urine Negative (Negative); Nitrite Urine Negative (Negative); PH 6.5 (5.0-9.0); UMIC TRIGGER UACC YES; Urine Blood Small (1+) (Negative); Urine Ketones Trace mg/dL (Negative); Urine Protein 300 (3+) mg/dL (Neg-Trace)
[2024-02-11 17:39] LABS: Bacteria Urine None Seen (None Seen); Hyaline Casts Urine 0-2 /LPF (0-2); Squamous Epithelial Cell Urine 0-2 /HPF (0-2); WBC Urine 0-5 /HPF (0-5)
--- NOTE | 2024-02-11 17:49 | ECG_ITS ---
Test Reason : cp Blood Pressure : / mmHG Vent. Rate : 090 BPM Atrial Rate : 090 BPM P-R Int : 160 ms QRS Dur : 082 ms QT Int : 396 ms P-R-T Axes : 030 022 061 degrees QTc Int : 484 ms Normal sinus rhythm Septal infarct (cited on or before 11-FEB-2024) ST & T wave abnormality, consider lateral ischemia Abnormal ECG When compared with ECG of 14-SEP-2021 06:30, Serial changes of Septal infarct Present Referred By: Dora Weinberg Electronically Signed By:JENNIFER EASTMAN MD
[2024-02-11 18:10] LABS: Glucose, Whole Blood 348 mg/dL (60-115)
--- NOTE | 2024-02-11 18:11 | ED_ITS ---
HPI - General Adult General Chief complaint: Recheck/Abnormal Lab/Rx Stated complaint: asymptomatic hypertension/hyperglycemia Time Seen by Provider: 02/11/24 17:30 History of Present Illness HPI narrative: Patient is a 58-year-old female presents today with having elevated blood pressure at patient's primary physician's office. She denies having any symptoms. She has been out of her medication which included labetalol, amlodipine, spironolactone and lisinopril. Patient was only prescribed lisinopril and amlodipine by her primary physician today. Sent to the ED for further evaluation Related Data Home Medications Medication Instructions Recorded Confirmed metformin 500 mg tablet,extended 1 tab PO DAILY 10/04/21 10/24/21 release 24 hr blood sugar diagnostic (FreeStyle #10 ea 01/16/22 Lite Strips) insulin glargine 100 unit/mL 16 unit subcut BEDTIME 01/16/22 subcutaneous solution (Lantus U-100 Insulin) amlodipine 5 mg tablet 5 mg PO DAILY 02/11/24 02/11/24 lisinopril 20 mg tablet 20 mg PO DAILY 02/11/24 02/11/24 metformin 500 mg tablet,extended 500 mg PO BID 02/11/24 02/11/24 release 24 hr Previous Rx's Medication Instructions Recorded amlodipine 10 mg tablet 10 mg PO DAILY@1200 #90 tabs 10/27/21 lisinopril 40 mg tablet 40 mg PO DAILY@1200 #90 tabs 10/27/21 spironolactone 100 mg tablet 100 mg PO BEDTIME #90 tabs 10/27/21 labetalol 300 mg tablet 300 mg PO BID #180 tabs 07/26/22 clopidogrel 75 mg tablet (Plavix) 75 mg PO DAILY #90 tabs 10/17/22 aspirin 81 mg tablet,delayed 81 mg PO DAILY #90 tabs 10/29/22 release labetalol 300 mg tablet 300 mg PO BID #60 tabs 02/12/24 Allergies Allergy/AdvReac Type Severity Reaction Status Date / Time cephalexin [From KEFLEX] Allergy Severe HIVES Verified 09/05/23 15:44 codeine [CODEINE] Allergy Intermediate NAUSEA & Verified 09/05/23 15:44 VOMITING, nausea and vomiting dulaglutide [Trulicity] Allergy Intermediate abdominal Verified 09/05/23 15:44 pain Cephalosporins Allergy Intermediate Hives Uncoded 09/05/23 15:44 seasonal Allergy Intermediate Itchy Eyes Uncoded 09/05/23 15:44 Review of Systems 2 Review of Systems: No fever no chills no chest pain or shortness of breath Yes all other systems are reviewed and are negative [facility] Past Medical History Attestation statement: The following information was validated with the patient. Medical History Abscess of left groin FH: cholecystectomy Diabetes HTN (hypertension) Surgical History S/P angiogram of extremity (10/04/21) History of cholecystectomy S/P shoulder surgery History of tubal ligation Family History Family History Father No problems noted. Mother No problems noted. 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 Physical Exam ED Vital Signs: Vital Signs - 24 hr 02/11/24 17:22 02/11/24 17:29 02/11/24 18:00 Temperature 98.6 F Pulse Rate 100 Respiratory Rate 20 Blood Pressure 148/126 H 228/105 H 242/96 H Pulse Oximetry 98 Oxygen Delivery Method Room Air 02/11/24 20:49 02/11/24 21:15 02/11/24 23:03 Temperature 97.8 F Pulse Rate 90 86 81 Respiratory Rate 12 18 18 Blood Pressure 220/96 H 203/105 H 192/88 H Pulse Oximetry 96 96 Oxygen Delivery Method Room Air Room Air 02/11/24 23:24 02/11/24 23:49 Temperature Pulse Rate Respiratory Rate Blood Pressure 183/84 H 170/76 H Pulse Oximetry Oxygen Delivery Method BMI result Body Mass Index 27.6 Appearance: Alert. Oriented X3. No acute distress. Eyes: Pupils equal, round and reactive to light. ENT: Pharynx normal. Neck: Normal inspection. Neck supple. No lymph nodes noted. No crepitus CVS: Normal heart rate and rhythm. Pulses normal. Normal S1 and S2 Respiratory: No respiratory distress. Breath sounds normal. No Wheezing. No rales Abdomen: Soft and nontender. No rigidity. No distention. good BS x4 Skin: Skin warm and dry. Normal skin color. Normal skin turgor. Extremities: No lower extremity edema. Neurovascular intact to all extremities. No Lacerations. No Rash Neuro: Oriented X 3. No motor deficit. No sensory deficit. Moving all extermities. No slurred speech Medications Administered Discontinued Medications Generic Name Dose Route Start Last Admin Trade Name Freq PRN Reason Stop Dose Admin Amlodipine Besylate 10 mg 02/11/24 17:49 02/11/24 18:14 Amlodipine Besylate 10 Mg Tablet PO 02/11/24 17:50 Not Given ONCE ONE Protocol Amlodipine Besylate 5 mg 02/11/24 18:10 02/11/24 18:35 Amlodipine Besylate 5 Mg Tablet PO 02/11/24 18:11 5 mg ONCE ONE Administration Protocol Amlodipine Besylate 5 mg 02/11/24 20:47 02/11/24 20:52 Amlodipine Besylate 5 Mg Tablet PO 02/11/24 20:48 5 mg ONCE ONE Administration Protocol Labetalol HCl 300 mg 02/11/24 17:49 02/11/24 18:14 Labetalol Hcl 200 Mg Tablet PO 02/11/24 17:50 Not Given ONCE ONE Protocol Labetalol HCl 20 mg 02/11/24 22:41 02/11/24 22:59 Labetalol Hcl 100 Mg/20 Ml Vial IVPUSH 02/11/24 22:42 20 mg ONCE ONE Administration Lisinopril 40 mg 02/11/24 17:49 02/11/24 18:14 Lisinopril 40 Mg Tablet PO 02/11/24 17:50 Not Given ONCE ONE Protocol Lisinopril 20 mg 02/11/24 18:10 02/11/24 18:35 Lisinopril 20 Mg Tablet PO 02/11/24 18:11 20 mg ONCE ONE Administration Protocol Lisinopril 20 mg 02/11/24 20:47 02/11/24 20:52 Lisinopril 20 Mg Tablet PO 02/11/24 20:48 20 mg ONCE ONE Administration Protocol Metformin HCl 500 mg 02/11/24 18:11 02/11/24 18:35 Metformin Hcl Er 500 Mg Tab.Er.24h PO 02/11/24 18:12 500 mg ONCE ONE Administration Spironolactone 100 mg 02/11/24 17:49 02/11/24 18:14 Spironolactone 25 Mg Tablet PO 02/11/24 17:50 Not Given ONCE ONE Protocol Medical Decision Making Medical Decision Making [facility] Narrative: Patient in no acute distress. Blood pressure elevated at 220/110. However patient was just prescribed lisinopril 20 mg by her primary physician amlodipine 5 mg q.d. by her primary physician. This is a change from baseline of 40 mg of lisinopril and 10 mg of amlodipine. In addition patient was previously prescribed labetalol and also spironolactone. These were not prescribed by her primary physician today. She has been out of these medication for at least 6 months. We will go ahead and give the 20 of lisinopril and also 5 mg of amlodipine and observe patient carefully. Patient also has a long history of diabetes she is post be on metformin 500 mg twice a day. Elected to give patient a dose as patient's sugar was over 300. Currently in stable condition. Will check baseline labs. Patient's labs are unremarkable. Blood pressure still elevated after full dose of amlodipine at 10 mg and lisinopril at 40 mg. Patient was given a dose of labetalol. Blood pressure came down to 170/70. Patient baseline is on labetalol 300 mg twice a day. Will again prescribe patient the same medication. Have patient closely follow-up on an outpatient basis. Blood pressure recheck in 24 hours. Differential Diagnosis Differential Diagnoses: The differential diagnosis associated with the presentation includes Hypertensive urgency Admission/Observation Consideration of admission/observation: Escalation of care including admission/observation considered Lab Data [facility] Lab Attestation statement: I reviewed the patient's lab results. 02/11/24 20:06 02/11/24 20:06 Labs: Lab Results 02/11/24 02/11/24 02/11/24 Range/Units 17:20 18:03 20:06 WBC 9.7 (4.8-10.8) X10*3/uL RBC 4.99 (4.20-5.50) X10*6/uL Hgb 14.8 (12.0-16.0) g/dl Hct 41.6 (37.0-47.0) % MCV 83.4 (80.0-98.0) fL MCH 29.7 (27.0-33.0) pg MCHC 35.6 H (31.0-35.0) g/dl RDW 13.1 (11.0-16.0) % Plt Count 209 (160-400) X10*3/uL MPV 9.2 L (9.4-12.3) fL Immature Gran % (Auto) 0.8 H (0.0-0.4) % Neut % (Auto) 53.9 (45-73) % Lymph % (Auto) 32.7 (20-40) % [place] % (Auto) 8.2 (2-11) % Eos % (Auto) 3.8 (0-4) % Baso % (Auto) 0.6 (0-2) % Lymph # (Auto) 3.2 (1.2-4.9) X10*3/uL [place] # (Auto) 0.8 (0.1-1.2) X10*3/uL Eos # (Auto) 0.4 (0.0-0.4) X10*3/uL Baso # (Auto) 0.1 (0.0-0.2) X10*3/uL Abs Immat Gran (auto) 0.08 H (0.00-0.03) X10*3/uL Absolute Neuts (auto) 5.2 (2.0-8.3) x10*3/uL Absolute Nucleated RBC 0.000 (0.0-0.012) X10*3/uL Nucleated RBC % (auto) 0.0 (0.0-0.2) /100WBC Sodium 136 (135-145) mmol/L Potassium 3.4 (3.3-5.1) mmol/L Chloride 103 (96-108) mmol/L Carbon Dioxide 25 (22-29) mmol/L Anion Gap 11 L (12-20) BUN 11 (9-16) mg/dL Creatinine 0.65 (0.5-1.4) mg/dL Estim Creat Clear Calc 87.9 Estimated GFR > 60 POC Glucose 348 H (60-115) mg/dL Random Glucose 343 H (60-115) mg/dL Calcium 9.0 D (8.4-10.2) mg/dL Urine Color Yellow Urine Appearance Clear Urine pH 6.5 (5.0-9.0) Ur Specific [place] 1.020 (1.005-1.025) Urine Protein 300 (3+) H (Neg-Trace) mg/dL Urine Glucose (UA) >=1000 H (Negative) mg/dL Urine Ketones Trace (Negative) mg/dL Urine Blood Small (1+) H (Negative) Urine Nitrite Negative (Negative) Ur Leukocyte Esterase Negative (Negative) Urine RBC 6-10 H (0-2) /HPF Urine WBC 0-5 (0-5) /HPF Ur Squamous Epith Cells 0-2 (0-2) /HPF Urine Bacteria None Seen (None Seen) Hyaline Casts 0-2 (0-2) /LPF Independent Interpretation I performed an independent interpretation of an: EKG (My interpretation patient's EKG shows sinus rhythm OH QRS QTC within normal limits there is T-wave inversion noted which were present in the lateral leads prior.) External Record Review External record reviewed: Office record Chronic Conditions Patient?s care impacted by: Diabetes and Hypertension Social Determinants Patient?s care significantly limited by Social Determinants of Health including: Low income and Problems related to primary support group Discharge Plan Discharge Clinical Impression: Hypertension Patient Disposition: Home, Self-Care Instructions: Chronic Hypertension (ED) Additional Instructions: Please take your blood pressure medication. Please closely follow-up tomorrow for blood pressure recheck. Prescriptions: New labetalol 300 mg tablet 300 mg PO BID Qty: 60 0RF No Action amlodipine 10 mg tablet 10 mg PO DAILY@1200 Qty: 90 3RF lisinopril 40 mg tablet 40 mg PO DAILY@1200 Qty: 90 3RF spironolactone 100 mg tablet 100 mg PO BEDTIME Qty: 90 3RF labetalol 300 mg tablet 300 mg PO BID Qty: 180 3RF aspirin 81 mg tablet,delayed release (DR/EC) 81 mg PO DAILY Qty: 90 0RF Rx Instructions: OVERDUE for APPT. Please call to schedule for 2022 so we can continue refilling Rx's; [phone]. metformin 500 mg tablet extended release 24 hr 1 tab PO DAILY clopidogrel [Plavix] 75 mg tablet 75 mg PO DAILY Qty: 90 1RF lisinopril 20 mg tablet 20 mg PO DAILY amlodipine 5 mg tablet 5 mg PO DAILY metformin 500 mg tablet extended release 24 hr 500 mg PO BID (DME) FreeStyle Lite Strips Strip See Rx Instructions Not Applicable QID Qty: 10 Rx Instructions: As directed Lantus U-100 Insulin 100 unit/mL solution 16 unit subcut BEDTIME Referrals: Thanh Hough MD [Physician] - 02/13/24 (Please get blood pressure recheck in the next 24 hours.)
[2024-02-11] MEDS: lisinopriL 20 MG TABLET PO ×2 (18:35→20:52)
[2024-02-11] MEDS: amLODIPine Besylate 5 MG TABLET PO ×2 (18:35→20:52)
[2024-02-11] MEDS: metFORMIN HCl ER 500 MG TAB.ER.24H PO (18:35)
[2024-02-11 20:09] LABS: MANUAL DIFF FLAG NO
[2024-02-11 20:22] LABS: Anion Gap 11 (12-20); Blood Urea Nitrogen 11 mg/dL (9-16); Carbon Dioxide 25 mmol/L (22-29); Chloride 103 mmol/L (96-108); Creatinine Clr Calc Pharmacy 87.9; Estimated Glomerular Filt Rate > 60; Glucose Random 343 mg/dL (60-115); Potassium 3.4 mmol/L (3.3-5.1); Sodium 136 mmol/L (135-145)
[2024-02-11 20:32] LABS: Basophils Absolute Auto 0.1 X10*3/uL (0.0-0.2); Basophils Percent Auto 0.6 % (0-2); Eosinophils Absolute Auto 0.4 X10*3/uL (0.0-0.4); Eosinophils Percent Auto 3.8 % (0-4); Hematocrit 41.6 % (37.0-47.0); Hemoglobin 14.8 g/dl (12.0-16.0); Imm Gran Abs Auto 0.08 X10*3/uL (0.00-0.03); Imm Gran Pct Auto 0.8 % (0.0-0.4); Lymphocytes Absolute Auto 3.2 X10*3/uL (1.2-4.9); Lymphocytes Percent Auto 32.7 % (20-40); Mean Corpuscular HGB Conc 35.6 g/dl (31.0-35.0); Mean Corpuscular Hemoglobin 29.7 pg (27.0-33.0); Mean Corpuscular Volume 83.4 fL (80.0-98.0); Mean Platelet Volume 9.2 fL (9.4-12.3); Monocytes Absolute Auto 0.8 X10*3/uL (0.1-1.2); Monocytes Percent Auto 8.2 % (2-11); Neutrophils Absolute Auto 5.2 x10*3/uL (2.0-8.3); Neutrophils Percent Auto 53.9 % (45-73); Platelet Count 209 X10*3/uL (160-400); Red Blood Count 4.99 X10*6/uL (4.20-5.50); Red Cell Distribution Width 13.1 % (11.0-16.0); White Blood Count 9.7 X10*3/uL (4.8-10.8)
[2024-02-11] MEDS: Labetalol HCL 100 MG/20 ML VIAL 20 MG IVPUSH (22:59)
[2024-02-12 00:37] VITALS: BP 164/72; PULSE 84; RESP 17; TEMP 36.8; O2SAT 100
== END 2024-02-12 00:53 | disposition home or self-care (01) ==
PROVIDERS: Emergency Provider Emergency Medicine Emergency Medical Services; PCP Internal Medicine
DX: I10 Essential (primary) hypertension (principal); E11.9 Type 2 diabetes mellitus without complications; Z79.84 Long term (current) use of oral hypoglycemic drugs; Z79.899 Other long term (current) drug therapy
CPT/HCPCS: 36415; 80048; 81001; 82947; 85025; 93005; 96374; 99284; J1920

== ENCOUNTER → 2024-02-11 17:49 | Outpatient (BNV) | payer OTHER, SELFPAY | PROVIDERS: Emergency Provider Emergency Medicine Emergency Medical Services; PCP Internal Medicine; Visit Provider Internal Medicine Cardiovascular Disease | DX: R07.9 Chest pain, unspecified (principal) | CPT/HCPCS: 93010 ==

== ENCOUNTER 2024-03-04 09:18 | Outpatient (AMB) | payer OTHER, SELFPAY ==
--- NOTE | 2024-03-04 09:19 | MHC.OFFVIS ---
Vital Signs 03/04/24 09:27 Weight 155 lb Intake Visit Reasons: Growth~ Lt forearm Intake Note: This patient was referred by for an assessment for Growth~ Lt forearm. Pt c/o; reports lesion had been frozen several months ago and then it came back, reports increased in size, left wrist, reports growth increased in size: Onset July 2023. 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: No Accompanied by: Self / Same As Patient Allergies cephalexin [From KEFLEX] Allergy (Severe, Verified 03/04/24 09:29) HIVES codeine [CODEINE] Allergy (Intermediate, Verified 03/04/24 09:29) NAUSEA & VOMITING, nausea and vomiting dulaglutide [Trulicity] Allergy (Intermediate, Verified 03/04/24 09:29) abdominal pain Cephalosporins Allergy (Intermediate, Uncoded 03/04/24 09:29) Hives seasonal Allergy (Intermediate, Uncoded 03/04/24 09:29) Itchy Eyes Medication List - Last Reconciled 03/04/24 by John Gómez MD amlodipine 5 mg PO DAILY amlodipine 10 mg PO DAILY@1200 aspirin 81 mg PO DAILY blood sugar diagnostic (FreeStyle Lite Strips) As directed clopidogrel (Plavix) 75 mg PO DAILY insulin glargine (Lantus U-100 Insulin) 16 units subcut BEDTIME labetalol 300 mg PO BID labetalol 300 mg PO BID lisinopril 20 mg PO DAILY lisinopril 40 mg PO DAILY@1200 metformin ER 1 tab PO DAILY metformin ER 500 mg PO BID spironolactone 100 mg PO BEDTIME HPI HPI Growth~ Lt forearm: Details: [age] year old female referred for a skin lesion on the left forearm. She says that she has had this for 7 years. She says that this lesion used to be small in size and was frozen? several times in the past. This has increased in size the past few months. She describes frequent scabbing that would peel off. She sees some blood once in a while. [facility] Medical History (Updated 03/04/24 @ 09:37 by John Gómez MD) Skin lesion of left arm Abscess of left groin FH: cholecystectomy Diabetes HTN (hypertension) Surgical History S/P angiogram of extremity (10/04/21) History of cholecystectomy S/P shoulder surgery History of tubal ligation Family History Father No problems noted. Mother No problems noted. 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 Review of Systems Const Denies chills and Denies fever(s) Card Denies chest pain, Denies dyspnea and Denies dyspnea on exertion Resp Denies cough, Denies dyspnea and Denies dyspnea on exertion GI Denies hematochezia and Denies change in bowel habits Denies hematuria Musc Denies back pain and Denies limited range of motion Neuro Denies focal weakness and Denies convulsions Psych Denies depression and Denies mood swings Physical Exam Const General: comfortable and no acute distress Orientation/consciousness: patient oriented x3 Neck Neck: Yes no lymphadenopathy Resp Auscultation: clear to auscultation bilaterally Cardio Rhythm: regular rhythm GI Palpation (GI): Soft to palpation, nontender and no guarding Neuro General: patient oriented x3 Extrem Other: Left forearm with note of a large lesion, about 3 cm in diameter, dark, with pearly borders, elevated to about .5 cm Assessment & Plan Assessment & Plan (1) Skin lesion of left arm: Code(s): L98.9 - Disorder of the skin and subcutaneous tissue, unspecified Category: Medical Plan: I explained the technique of excision of this skin lesion. I reviewed the risks including but not limited to bleeding, infections, poor healing, pain, as well as the benefits and alternatives. I explained to her what to expect postoperatively including possibility of a skin defect She understands and wants to proceed. This will be done in the office under local anesthesia on her next visit. Coding Level of Care Code Est Pt Level 3 (14649) Diagnoses Skin lesion of left arm L98.9
== END 2024-03-04 09:38 | disposition home or self-care (01) ==
PROVIDERS: PCP Internal Medicine; Referring Provider Internal Medicine; Visit Provider Surgery
DX: L98.9 Disorder of the skin and subcutaneous tissue, unspecified (principal)
CPT/HCPCS: 99213

== ENCOUNTER → 2024-03-04 09:18 | Outpatient (BNVA) | payer OTHER, SELFPAY | PROVIDERS: PCP Internal Medicine; Referring Provider Internal Medicine; Visit Provider Surgery | DX: L98.9 Disorder of the skin and subcutaneous tissue, unspecified (principal) | CPT/HCPCS: 99212 ==

== ENCOUNTER 2024-03-09 14:39 | Outpatient (AMB) | payer OTHER, SELFPAY ==
[2024-03-09 15:17] VITALS: BP 200/90; PULSE 94; BMI 27.7
--- NOTE | 2024-03-09 15:17 | A.OFFVIS_ITS ---
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 Required: No Allergies cephalexin [From KEFLEX] Allergy (Severe, Verified 03/09/24 15:19) HIVES codeine [CODEINE] Allergy (Intermediate, Verified 03/09/24 15:19) NAUSEA & VOMITING, nausea and vomiting dulaglutide [Trulicity] Allergy (Intermediate, Verified 03/09/24 15:19) abdominal pain Cephalosporins Allergy (Intermediate, Uncoded 03/09/24 15:19) Hives seasonal Allergy (Intermediate, Uncoded 03/09/24 15:19) Itchy Eyes Medication List - Last Reconciled 03/09/24 by Mireya Zamarripa SALES ASSOCIATE[employer] amlodipine 5 mg PO DAILY aspirin 81 mg PO DAILY blood sugar diagnostic (FreeStyle Lite Strips) As directed insulin glargine (Lantus U-100 Insulin) 16 units subcut BEDTIME labetalol 300 mg PO BID lisinopril 20 mg PO DAILY metformin ER 500 mg PO BID HPI HPI follow-up ED htn: Details: Blanca is a 58-year-old female with past medical history of hypertension, diabetes, peripheral vascular disease with prior SFA occlusion with arthrectomy and stent who has had elevated blood pressure readings recently as she ran out of her medications. She was seen in the emergency room and some of her meds restarted. She now presents for follow-up. Her last prior visit to our office was 10/24/2021. Today she reports that she had run out of her medications a few months ago and since then only some of them have been restarted. She has still not on the treatment she had been on previously. She is still missing Aldactone. Also currently her amlodipine and lisinopril doses are less than what they had been previously. She believes her blood pressure has been uncontrolled since October 2023. She has no concerning symptoms. She denies chest discomfort, shortness of breath, palpitations, presyncope, syncope, falls. No PND, orthopnea or edema. Brought her pill bottles with her. [facility] Medical History Skin lesion of left arm Abscess of left groin FH: cholecystectomy Diabetes HTN (hypertension) Surgical History S/P angiogram of extremity (10/04/21) History of cholecystectomy S/P shoulder surgery History of tubal ligation Family History Father No problems noted. Mother No problems noted. 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 Review of Systems Const All systems reviewed & are unremarkable except as noted in HPI and below ENT Denies dizziness Card Denies chest pain, Denies chest pain at rest, Denies chest pain with activity, Denies rapid heart rate, Denies pedal edema, Denies edema, Denies leg edema, Denies lightheadedness, Denies palpitations, Denies dyspnea, Denies dyspnea on exertion and Denies orthopnea Resp Denies cough, Denies dyspnea and Denies dyspnea on exertion GI Denies hematochezia and Denies change in stool character Musc Denies abnormal gait, Denies limited range of motion, Denies muscle cramps, Denies muscle weakness, Denies numbness, Denies radiating pain into limb, Denies stiffness and Denies tingling Neuro Denies abnormal gait, Denies dizziness, Denies numbness and Denies tingling Endo Denies palpitations Physical Exam Vital Signs: Last Vital Signs Pulse 94 03/09/24 15:17 BP 200/90 H 03/09/24 15:17 BMI result Body Mass Index 27.7 Const General: cooperative, healthy appearing, comfortable and no acute distress Orientation/consciousness: patient oriented x3 Neck Neck: Yes normal visual inspection and Yes no JVD Resp Effort & Inspection: normal respiratory effort Auscultation: clear to auscultation bilaterally, no crackles, no rales, no rhonchi and no wheezes Cardio Jugular venous distension: no JVD Rate: regular rate Rhythm: regular rhythm Heart sounds: S1 normal heart sound present, S2 normal heart sound present, no murmurs and no rubs Neuro General: patient oriented x3 Extrem General: Yes normal to inspection and No no pedal edema Psych Appearance: grossly normal Mental Status: mental status grossly normal Speech and movement: Normal speech and movement present Assessment & Plan Assessment & Plan (1) Uncontrolled hypertension: Code(s): I10 - Essential (primary) hypertension Category: Medical Plan: History of hypertension. According to note she had previously been on labetalol 300 mg b.i.d., amlodipine 10 mg daily, lisinopril 40 mg daily and Aldactone 100 mg daily. She ran out of medications in October and tells me that her blood pressure has been high since then. It seems that she has been restarted on some of her prior management including the labetalol and amlodipine 5 mg, lisinopril 20 mg. On arrival today her blood pressure is quite elevated at 200/90. Recheck done by me 210/100. She says she is asymptomatic and declines ER evaluation. Using her own medications I had her take an additional 20 mg of lisinopril and 5 mg of amlodipine. We had her sit in the office for 45 minutes. Her blood pressure was monitored and she was not allowed to leave until her blood pressure was improved at 170/78. At this time will send refills to her pharmacy for amlodipine 10 mg daily, lisinopril 40 mg daily and Aldactone starting at 25 mg daily. Lab work and office blood pressure check in 1 week. Echocardiogram ordered. Importance of good blood pressure control reviewed with her. Emergency care if any concerning symptoms like significant headache or neurological changes. Cardiology office visit in 1 month. (2) PAD (peripheral artery disease): Comment: 10/04/2021 - atherectomy and stent of right SFA 10/17/2022 - right SFA plasty and stent Code(s): I73.9 - Peripheral vascular disease, unspecified Category: Medical Plan: Follows with Dr. Samano (3) Abnormal EKG: Code(s): R94.31 - Abnormal electrocardiogram [ECG] [EKG] Category: Medical Plan: EKG done on 02/11/[address]24 shows [address] rhythm with ST and T-wave abnormality in the lateral leads. More pronounced but similar to prior EKGs. A nuclear stress test was done 07/06/2022 showing normal myocardial perfusion imaging. She denies any anginal sounding symptoms. Will be checking EF and wall motion on upcoming echo. Plan Time spent on chart review, documentation, interview assessment Orders: Orders CA echo transthoracic complete 03/09/24 I10 - Essential (primary) hypertension Basic Metabolic Panel 1 Week I10 - Essential (primary) hypertension Medications: New spironolactone (Aldactone) 25 mg PO DAILY 30 tabs 1RF amlodipine 10 mg PO DAILY 90 tabs 1RF lisinopril 40 mg PO DAILY 90 tabs 1RF Changed From labetalol 300 mg PO BID 60 tabs 0RF To labetalol 300 mg PO BID 90 days 180 tabs 1RF Coding Level of Care Code Est Pt Level 5 (00923) Diagnoses Uncontrolled hypertension I10 PAD (peripheral artery disease) I73.9 Abnormal EKG R94.31 Time Spent (min) 45
== END 2024-03-09 16:10 | disposition home or self-care (01) ==
PROVIDERS: PCP Internal Medicine; Visit Provider Nurse Practitioner Family
DX: I10 Essential (primary) hypertension (principal); R94.31 Abnormal electrocardiogram [ECG] [EKG]; I73.9 Peripheral vascular disease, unspecified; Z95.820 Peripheral vascular angioplasty status with implants and grafts
CPT/HCPCS: 99215

== ENCOUNTER → 2024-03-09 14:39 | Outpatient (BNVA) | payer OTHER, SELFPAY | PROVIDERS: PCP Internal Medicine; Visit Provider Nurse Practitioner Family | DX: I10 Essential (primary) hypertension (principal); I73.9 Peripheral vascular disease, unspecified; R94.31 Abnormal electrocardiogram [ECG] [EKG] | CPT/HCPCS: 99212 ==

== ENCOUNTER 2024-03-12 13:08 | Outpatient (AMB) | payer OTHER, SELFPAY ==
--- NOTE | 2024-03-12 13:09 | A.OFFVIS_ITS ---
Intake Visit Reasons: excision growth Intake Note: In office procedure: skin lesion of the left arm. Testing Lead Required: No Accompanied by: Self / Same As Patient Allergies cephalexin [From KEFLEX] Allergy (Severe, Verified 03/12/24 13:10) HIVES codeine [CODEINE] Allergy (Intermediate, Verified 03/12/24 13:10) NAUSEA & VOMITING, nausea and vomiting dulaglutide [Trulicity] Allergy (Intermediate, Verified 03/12/24 13:10) abdominal pain Cephalosporins Allergy (Intermediate, Uncoded 03/12/24 13:10) Hives seasonal Allergy (Intermediate, Uncoded 03/12/24 13:10) Itchy Eyes HPI HPI excision growth: Details: She is here for excision of left forearm lesion. [facility] Medical History Skin lesion of left arm Abscess of left groin FH: cholecystectomy Diabetes HTN (hypertension) Surgical History S/P angiogram of extremity (10/04/21) History of cholecystectomy S/P shoulder surgery History of tubal ligation Family History Father No problems noted. Mother No problems noted. 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 Lidocaine 1% was used for local anesthesia. I made an elliptical incision on the skin surrounding this lesion using blade 15. We made sure we included grossly normal looking margins of skin. The lesion was 3.1 cm at the widest dimension, , circumferential, about 1 cm tall, and narrower at the base. The excision was carried down through the full-thickness of the skin to excise this entire lesion. This was sent as a specimen. I closed the skin defect with nylon 3-0 simple interrupted sutures. Dressings were applied. The procedure was completed. The patient tolerated procedure well. There were no immediate complications. There was minimal blood loss. 97503-jqsgu/arms/legs 3.1-4cm Procedure code (CPT) selection complete Assessment & Plan Assessment & Plan (1) Skin lesion of left arm: Code(s): L98.9 - Disorder of the skin and subcutaneous tissue, unspecified Category: Medical Plan: Excision of the left forearm skin lesion was done under local anesthesia. She was given wound care instructions. We will see in the office for removal sutures Coding Level of Care Code Procedure Only Diagnoses Skin lesion of left arm L98.9 CPT Codes Trunk/Arms/Legs - CPT: 88154-erkld/arms/legs 3.1-4cm ([id number])
== END 2024-03-12 13:51 | disposition home or self-care (01) ==
PROVIDERS: PCP Internal Medicine; Visit Provider Surgery
DX: C44.92 Squamous cell carcinoma of skin, unspecified (principal)
CPT/HCPCS: 11606

== ENCOUNTER 2024-03-12 13:08 | Outpatient (REF) | payer OTHER, SELFPAY | END 2024-03-12 13:09 | disposition home or self-care (01) | LOC: HO.LNP 13:08 | PROVIDERS: PCP Internal Medicine; Visit Provider Surgery | DX: L98.9 Disorder of the skin and subcutaneous tissue, unspecified (principal) | CPT/HCPCS: 11606; 88304; 88305 ==

== ENCOUNTER → 2024-03-16 15:26 | Outpatient (BNVA) | payer OTHER, SELFPAY | PROVIDERS: PCP Internal Medicine; Visit Provider Nurse Practitioner Family ==

== ENCOUNTER 2024-03-26 15:57 | Outpatient (AMB) | payer OTHER, SELFPAY ==
--- NOTE | 2024-03-26 15:58 | MHC.OFFVIS ---
Vital Signs 03/26/24 16:07 Height 5 ft 3 in Weight 156 lb 8.451 oz BMI 27.7 Intake Visit Reasons: s/p excision growth Intake Note: This patient presents for a follow-up assessment status post excision skin lesion of the left arm. Patient c/o; reports no complaints. Inbound Customer Service Agent Required: No Accompanied by: Self / Same As Patient Allergies cephalexin [From KEFLEX] Allergy (Severe, Verified 03/26/24 16:07) HIVES codeine [CODEINE] Allergy (Intermediate, Verified 03/26/24 16:07) NAUSEA & VOMITING, nausea and vomiting dulaglutide [Trulicity] Allergy (Intermediate, Verified 03/26/24 16:07) abdominal pain Cephalosporins Allergy (Intermediate, Uncoded 03/26/24 16:07) Hives seasonal Allergy (Intermediate, Uncoded 03/26/24 16:07) Itchy Eyes HPI HPI s/p excision growth: Details: She is here for follow-up after excision of a left forearm skin lesion under local anesthesia. She denies new complaints and seems to be doing well. [facility] Medical History Squamous cell cancer of skin of forearm Skin lesion of left arm Abscess of left groin FH: cholecystectomy Diabetes HTN (hypertension) Surgical History S/P angiogram of extremity (10/04/21) History of cholecystectomy S/P shoulder surgery History of tubal ligation Family History Father No problems noted. Mother No problems noted. 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 Review of Systems Const Denies chills and Denies fever(s) Card Denies chest pain, Denies dyspnea and Denies dyspnea on exertion Resp Denies cough, Denies dyspnea and Denies dyspnea on exertion GI Denies hematochezia and Denies change in bowel habits Denies hematuria Musc Denies back pain and Denies limited range of motion Neuro Denies focal weakness and Denies convulsions Psych Denies depression and Denies mood swings Physical Exam Const General: comfortable and no acute distress Extrem Other: Excision site is well healed, sutures in place, no evidence of infection Assessment & Plan Assessment & Plan (1) Skin lesion of left arm: Code(s): L98.9 - Disorder of the skin and subcutaneous tissue, unspecified Category: Medical (2) Squamous cell cancer of skin of forearm: Code(s): C44.621 - Squamous cell carcinoma of skin of unspecified upper limb, including shoulder Category: Medical Plan: Margins are negative. She does not require further treatment at this time. Plan Status post excision. Her path report shows an invasive squamous cell carcinoma with negative margins. I removed her sutures. She understood tends the path report. She does not require any further surgical interventions for now but will need close monitoring. I explained to her that she should come back to our office if she notices any signs of recurrence. Coding Level of Care Code Global (14966) Diagnoses Skin lesion of left arm L98.9 Squamous cell cancer of skin of forearm C44.621
[2024-03-26 16:07] VITALS: BMI 27.7
== END 2024-03-26 16:12 | disposition home or self-care (01) ==
PROVIDERS: PCP Internal Medicine; Visit Provider Surgery
DX: L98.9 Disorder of the skin and subcutaneous tissue, unspecified (principal); C44.621 Squamous cell carcinoma of skin of unspecified upper limb, including shoulder
CPT/HCPCS: 99024

== ENCOUNTER → 2024-03-26 15:57 | Outpatient (BNVA) | payer OTHER, SELFPAY | PROVIDERS: PCP Internal Medicine; Visit Provider Surgery | DX: Z48.3 Aftercare following surgery for neoplasm (principal); C44.621 Squamous cell carcinoma of skin of unspecified upper limb, including shoulder; Z98.890 Other specified postprocedural states | CPT/HCPCS: 99212 ==

== ENCOUNTER → 2024-03-30 14:11 | Outpatient (REF) | payer OTHER, SELFPAY ==
--- NOTE | 2024-03-30 14:17 | CA_ITS ---
Transthoracic Echocardiogram Patient (Last, First, Middle): Blanca Zuniga, Gender: Female Date of : 1965 Age: 58 Procedure Date: 03/30/2024 Procedure Type: Transthoracic Echocardiogram Location: OP Height: 157.48 cm Weight: 70.31 kg BSA: 1.72 m2 Heart Rate: bpm BP: 172 / 74 mmHg R D Engineer: ТАТЬЯНА Referring MD: Mireya Zamarripa STEREOTYPER-Ale Symptoms: I10 - Essential (primary) hypertension Study Quality: Adequate ECG Rhythm: Sinus Conclusions: - The left ventricular systolic function is normal. The visually estimated ejection fraction is between 65-70%. - Severe focal hypertrophy of the basal septum. - The basal inferior segment is hypokinetic. - There is mild calcification of the aortic valve. - There is mild mitral annular calcification. Findings Left Ventricle Normal left ventricular cavity size. The left ventricular systolic function is normal. The visually estimated ejection fraction is between 65-70%. There is no evidence of regional wall motion abnormalities. Evidence suggests grade I (mild) diastolic dysfunction. Severe focal hypertrophy of the basal septum. LV peak GLS -15.7% (diminished). Wall Motion Rest Echo Findings The basal inferior segment is hypokinetic. Right Ventricle Normal right ventricular cavity size and systolic function. Atria Both atria are normal in size. Aortic Valve There is a normal trileaflet aortic valve. There is mild calcification of the aortic valve. There is no aortic valve stenosis. There is no aortic valve regurgitation. Mitral Valve There is mild mitral annular calcification. There is no mitral valve regurgitation. There is no mitral valve stenosis. Pulmonic Valve The pulmonic valve is likely normal. Tricuspid Valve There is trace tricuspid valve regurgitation. There is no evidence of pulmonary hypertension. Great Vessels The asc aorta is normal in size. Venous The inferior vena cava is normal in size and collapses greater than 50% with inspiration. Pericardium/Pleural There is no evidence of pericardial effusion. Prior Study Comparison Changes noted compared to prior study dated: 10/31/2021. see comment on wall motion. Measurements 2D Linear Measurements IVSd: 0.73 0.6-0.9/0.6-1.0 cm LVIDd: 4.51 3.9-5.3/4.2-5.9 cm LVIDd Index: 2.62 2.4-3.2/2.2-3.1 cm/m2 LVIDs: 3.02 2.0-3.6 cm LVPWd: 1.28 0.7-1.1 cm LA Diam: 3.30 2.7-3.8/3.0-4.0 cm LAIDs Index: 1.92 1.5-2.3 cm/m2 LV Mass: 192.72 67-162/88-224 g LV Mass Index: 112.05 43-95/49-115 g/m2 LVOT Diam: 2.10 3.0+(-)1.3 cm 2D Systolic Function EF 4C: 61.40 >55% EF 2C: 57.50 >55% EF BiP: 58.50 >55% Mitral Valve MV Pk E: 0.80 MV PK A: 1.14 MV Decel Time: 227.00 E/A: 0.70 E'Lateral: 5.55 E'Medial: 4.68 E/E' Med: 17.00 E/E' Lat: 14.30 PHT: 67.00 MVA PHT: 3.28 Decel [place]: 3.50 Aortic Valve AoV Pk [place]: 1.46 AoV Mn [place]: 1.09 AoV VTI: 0.34 AoV Pk Grad: 9.00 Aov Mn Grad: 5.00 AKHIL Cont.VTI: 2.49 LVOT LVOT Pk [place]: 1.05 LVOT Mn [place]: 0.75 LVOT VTI: 0.24 LVOT Pk Grad: 4.00 LVOT Mn Grad: 2.00 LVOT Diam: 2.10 LVOT Area: 3.46 Diastolic Function MV Pk E: 0.80 MV Pk A: 1.14 E/A: 0.70 E'Medial: 4.68 E/E' Med: 17.00 E' Laterial: 5.55 E/E' Lat: 14.30 Right Ventricle TAPSE (mm): 20.70 TVS' [place]: 13.70 Tricuspid Valve RA Press: 3.00 Great Vessels Aorta Sinus of Valsalva: 3.23 2.0-3.[address] [place]: 2.71 1.7-3.4 cm Ao Asc: 3.60 2.1-3.4 cm Updated in Other Vendor System with Status of Final Jeffrey Russo MD electronically signed on 03/31/2024 8:43:58 AM with status of Final
[2024-03-30 14:29] LABS: MANUAL DIFF FLAG NO
[2024-03-30 15:26] LABS: Basophils Absolute Auto 0.1 X10*3/uL (0.0-0.2); Basophils Percent Auto 0.7 % (0-2); Eosinophils Absolute Auto 0.6 X10*3/uL (0.0-0.4); Eosinophils Percent Auto 5.4 % (0-4); Hematocrit 37.4 % (37.0-47.0); Hemoglobin 13.2 g/dl (12.0-16.0); Imm Gran Abs Auto 0.14 X10*3/uL (0.00-0.03); Imm Gran Pct Auto 1.3 % (0.0-0.4); Lymphocytes Absolute Auto 2.5 X10*3/uL (1.2-4.9); Lymphocytes Percent Auto 23.2 % (20-40); Mean Corpuscular HGB Conc 35.3 g/dl (31.0-35.0); Mean Corpuscular Hemoglobin 30.1 pg (27.0-33.0); Mean Corpuscular Volume 85.4 fL (80.0-98.0); Mean Platelet Volume 9.3 fL (9.4-12.3); Monocytes Absolute Auto 0.8 X10*3/uL (0.1-1.2); Monocytes Percent Auto 7.6 % (2-11); Neutrophils Absolute Auto 6.6 x10*3/uL (2.0-8.3); Neutrophils Percent Auto 61.8 % (45-73); Platelet Count 226 X10*3/uL (160-400); Red Blood Count 4.38 X10*6/uL (4.20-5.50); Red Cell Distribution Width 13.2 % (11.0-16.0); White Blood Count 10.7 X10*3/uL (4.8-10.8)
[2024-03-30 16:23] LABS: Alanine Aminotransferase 8 U/L (0-31); Albumin Level 4.1 g/dL (3.5-5.0); Alkaline Phosphatase 136 U/L (39-117); Anion Gap 16 (12-20); Aspartate Amino Transferase 10 U/L (5-31); Bilirubin Total 0.2 mg/dL (0.0-1.0); Blood Urea Nitrogen 19 mg/dL (9-16); Carbon Dioxide 22 mmol/L (22-29); Chloride 103 mmol/L (96-108); Cholesterol 238 mg/dL (<200); Estimated Glomerular Filt Rate 59; Glucose Random 283 mg/dL (60-115); HDL Cholesterol 37 mg/dL (>40); Potassium 4.1 mmol/L (3.3-5.1); Sodium 137 mmol/L (135-145); Total Protein 6.6 g/dL (6.5-8.0); Triglycerides 487 mg/dL (<150)
[2024-03-30 16:37] LABS: TSH reflex Free T4 0.93 uIU/mL (0.32-4.0)
[2024-03-31 09:21] LABS: HIV AB/AG Nonreactive (Nonreactive); HIV Num 1 0.04 S/CO (0.00-0.99); ~HepC Num1 0.05 S/CO (0.00-0.79); ~Hepatitis C Antibody Nonreactive (Nonreactive)
== END ==
LOC: HO.CARD 14:11
PROVIDERS: Absent Provider Internal Medicine; PCP Internal Medicine; Visit Provider Nurse Practitioner Family
DX: I10 Essential (primary) hypertension (principal); E11.65 Type 2 diabetes mellitus with hyperglycemia; E78.5 Hyperlipidemia, unspecified
CPT/HCPCS: 36415; 80053; 80061; 84443; 85025; 86803; 87389; 93306; 93356

== ENCOUNTER → 2024-03-30 14:17 | Outpatient (BNV) | payer OTHER, SELFPAY | PROVIDERS: Absent Provider Internal Medicine; PCP Internal Medicine; Visit Provider Internal Medicine | DX: I34.81 Nonrheumatic mitral (valve) annulus calcification (principal); I35.8 Other nonrheumatic aortic valve disorders | CPT/HCPCS: 93306; 93356 ==

== ENCOUNTER 2024-04-09 15:02 | Outpatient (AMB) | payer OTHER, SELFPAY ==
--- NOTE | 2024-04-09 15:38 | MHC.OFFVIS ---
Vital Signs 04/09/24 15:42 Height 5 ft 3 in Weight 152 lb 1.903 oz BMI 26.9 BP 178/70 H Blood Pressure Location Lt brachial Position Sitting Pulse 88 Pulse Source Pulse Oximeter Intake Visit Reasons: 1 mth f/up bp Allergies cephalexin [From KEFLEX] Allergy (Severe, Verified 03/26/24 16:07) HIVES codeine [CODEINE] Allergy (Intermediate, Verified 03/26/24 16:07) NAUSEA & VOMITING, nausea and vomiting dulaglutide [Trulicity] Allergy (Intermediate, Verified 03/26/24 16:07) abdominal pain Cephalosporins Allergy (Intermediate, Uncoded 03/26/24 16:07) Hives seasonal Allergy (Intermediate, Uncoded 03/26/24 16:07) Itchy Eyes Medication List - Last Reconciled 04/09/24 by Mireya Zamarripa NP-C amlodipine 10 mg PO DAILY aspirin 81 mg PO DAILY atorvastatin 40 mg PO DAILY blood sugar diagnostic (FreeStyle Lite Strips) As directed empagliflozin (Jardiance) 5 mg PO DAILY labetalol 300 mg PO BID 90 days lisinopril 40 mg PO DAILY metformin ER 500 mg PO BID spironolactone 100 mg PO DAILY HPI HPI 1 mth f/up bp: Details: Blanca is a 58-year-old female with past medical history of hypertension, diabetes, peripheral vascular disease with prior SFA occlusion with arthrectomy and stent who has had elevated blood pressure readings recently as she ran out of her medications. She was seen in the emergency room and some of her meds restarted. On last visit her meds were further titrated up. She now presents for follow-up. Today she reports that she is taking all her meds as directed. As of 5 days ago she is back on her usual antihypertensive regimen. She tells me her home blood pressures are running in the 160 systolic. Normally this group of medications had her blood pressure better controlled. She tells me she has had an adrenal mass years ago and was seen by Dr. Howell for Nephrology. At this time her blood pressure has been uncontrolled since October 2023. She has no concerning symptoms. She denies chest discomfort, shortness of breath, palpitations, presyncope, syncope, falls. No PND, orthopnea or edema. Reports compliance with all meds. [facility] Medical History Squamous cell cancer of skin of forearm Skin lesion of left arm Abscess of left groin FH: cholecystectomy Diabetes HTN (hypertension) Surgical History S/P angiogram of extremity (10/04/21) History of cholecystectomy S/P shoulder surgery History of tubal ligation Family History Father No problems noted. Mother No problems noted. 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 Review of Systems Const All systems reviewed & are unremarkable except as noted in HPI and below Denies weakness ENT Denies dizziness Card Denies chest pain, Denies chest pain with activity, Denies syncope, Denies rapid heart rate, Denies pedal edema, Denies edema, Denies leg edema, Denies lightheadedness, Denies palpitations, Denies dyspnea, Denies dyspnea on exertion and Denies orthopnea Resp Denies cough, Denies dyspnea and Denies dyspnea on exertion GI Denies hematochezia and Denies change in stool character Musc Denies abnormal gait, Denies muscle cramps, Denies muscle weakness, Denies numbness, Denies radiating pain into limb and Denies tingling Neuro Denies abnormal gait, Denies dizziness, Denies syncope, Denies numbness, Denies tingling and Denies weakness Endo Denies palpitations Physical Exam Vital Signs: Last Vital Signs Pulse 88 04/09/24 15:42 BP 178/70 H 04/09/24 15:42 BMI result Body Mass Index 26.9 Const General: cooperative, healthy appearing, comfortable and no acute distress Orientation/consciousness: patient oriented x3 Neck Neck: Yes normal visual inspection and Yes no JVD Resp Effort & Inspection: normal respiratory effort Auscultation: clear to auscultation bilaterally, no crackles, no rales, no rhonchi and no wheezes Cardio Jugular venous distension: no JVD Rate: regular rate Rhythm: regular rhythm Heart sounds: S1 normal heart sound present, S2 normal heart sound present, no murmurs and no rubs Neuro General: patient oriented x3 Extrem General: Yes normal to inspection, No no pedal edema and No calf tenderness Psych Appearance: grossly normal Mental Status: mental status grossly normal Speech and movement: Normal speech and movement present Assessment & Plan Assessment & Plan (1) Uncontrolled hypertension: Code(s): I10 - Essential (primary) hypertension Category: Medical Plan: History of hypertension. According to note she had previously been on labetalol 300 mg b.i.d., amlodipine 10 mg daily, lisinopril 40 mg daily and Aldactone 100 mg daily. She ran out of medications in October 2023 and tells me that her blood pressure has been high since then. She has been gradually restarted on her usual medication regimen. Her last increase was Aldactone from 50 mg daily up to 100 mg daily done on 04/05/2024. Last labs done 03/30/2024 showed potassium 4.1, creatinine 0.96. Echocardiogram done 03/30/2024 shows EF 65-70%, severe focal hypertrophy of the basal septum, basal inferior hypokinetic. No anginal symptoms. He tells me she had been followed by Nephrology in the past, Dr. Howell. She says she has an adrenal mass and wonders if that contributes. Will check a renal artery ultrasound to assess for renal artery stenosis. Will do an urgent referral to Nephrology as blood pressure is still elevated in spite of max doses on 4 medications. Emergency care if any concerning symptoms like significant headache or neurological changes. Cardiology office visit in 3 month. (2) PAD (peripheral artery disease): Comment: 10/04/2021 - atherectomy and stent of right SFA 10/17/2022 - right SFA plasty and stent Code(s): I73.9 - Peripheral vascular disease, unspecified Category: Medical Plan: Follows with Dr. Samano (3) Abnormal EKG: Code(s): R94.31 - Abnormal electrocardiogram [ECG] [EKG] Category: Medical Plan: EKG done on 02/11/[address] with [address] and T-wave abnormality in the lateral leads. More pronounced but similar to prior EKGs. A nuclear stress test was done 07/06/2022 showing normal myocardial perfusion imaging. She denies any anginal sounding symptoms. Recent echo as above. Blood pressure is uncontrolled at this time. No anginal symptoms. Plan for ischemic eval once blood pressure is better controlled. Plan Time spent on chart review, documentation, interview assessment Orders: Orders US renal doppler Today I10 - Essential (primary) hypertension Referrals Nephrology Referral I10 - Essential (primary) hypertension Coding Level of Care Code Est Pt Level 4 (49563) Diagnoses Uncontrolled hypertension I10 PAD (peripheral artery disease) I73.9 Abnormal EKG R94.31 Time Spent (min) 28
[2024-04-09 15:42] VITALS: BP 178/70; PULSE 88; BMI 26.9
== END 2024-04-09 16:18 | disposition home or self-care (01) ==
PROVIDERS: PCP Internal Medicine; Visit Provider Nurse Practitioner Family
DX: I10 Essential (primary) hypertension (principal); I73.9 Peripheral vascular disease, unspecified; R94.31 Abnormal electrocardiogram [ECG] [EKG]
CPT/HCPCS: 99214

== ENCOUNTER → 2024-04-09 15:02 | Outpatient (BNVA) | payer OTHER, SELFPAY | PROVIDERS: PCP Internal Medicine; Visit Provider Nurse Practitioner Family | DX: I10 Essential (primary) hypertension (principal); I73.9 Peripheral vascular disease, unspecified; R94.31 Abnormal electrocardiogram [ECG] [EKG] | CPT/HCPCS: 99212 ==

== ENCOUNTER 2024-04-16 08:29 | Outpatient (REF) | payer OTHER, SELFPAY ==
--- NOTE | ~2024-04-16 | US_ITS ---
EXAMINATION: US ABDOMEN COMPLETE CLINICAL INFORMATION: Elevated alkaline phosphatase. COMPARISON: CT abdomen and pelvis 05/20/2017. Ultrasound abdomen complete 09/08/2015. Renal ultrasound 07/30/2015. MRI abdomen 07/28/2015. TECHNIQUE: Real-time imaging of the abdominal viscera. Limited visualization due to bowel gas. FINDINGS: PANCREAS: Limited visualization of pancreatic tail and head. Imaged portion of pancreatic body is unremarkable. ABDOMINAL AORTA: Atherosclerosis. INFERIOR VENA CAVA: Visualized portions are normal. LIVER: Increased hepatic parenchymal heterogeneity and echogenicity could be associated with hepatocellular disease/hepatic steatosis and substantially limits visualization. Correlation with liver function tests and clinical exam recommended to determine further management. GALLBLADDER: Surgically absent. COMMON BILE DUCT: Normal in caliber measuring 0.67 cm in diameter. RIGHT KIDNEY: Right renal 4 mm mid pole and 3 mm lower pole calculi. 2.2 cm midpole cyst with benign features. There is no indication for additional imaging at this time. No hydronephrosis The kidney measures 11.7 cm in maximum dimension. LEFT KIDNEY: No hydronephrosis. No renal calculi. Limited visualization. The kidney measures 12.0 cm in maximum dimension. SPLEEN: Normal. The spleen measures 11.3 cm in maximum dimension. FREE FLUID: None. US/US abdomen complete IMPRESSION: 1. Increased hepatic parenchymal heterogeneity and echogenicity could be associated with hepatocellular disease/hepatic steatosis and substantially limits visualization. Correlation with liver function tests and clinical exam recommended to determine further management. 2. Right renal 4 mm midpole and 3 mm lower pole calculi. No hydronephrosis. 3. Atherosclerosis in the abdominal aorta.
== END 2024-04-16 08:30 | disposition home or self-care (01) ==
LOC: HO.HMGCX 08:29
PROVIDERS: PCP Internal Medicine; Visit Provider Internal Medicine
DX: R74.8 Abnormal levels of other serum enzymes (principal); I10 Essential (primary) hypertension
CPT/HCPCS: 76700; 99202

== ENCOUNTER 2024-04-16 15:11 | Outpatient (AMB) | payer OTHER, SELFPAY ==
[2024-04-16 15:14] VITALS: BP 172/70; PULSE 84; O2SAT 98; BMI 27.3
--- NOTE | 2024-04-16 15:14 | HO.NEPHOV ---
Vital Signs 04/16/24 15:14 Height 5 ft 3 in Weight 154 lb BMI 27.3 BP 172/70 H Blood Pressure Location Lt brachial Position Sitting Pulse 84 Pulse Source Pulse Oximeter Pulse Oximetry (%) 98 Oxygen Delivery Method Room Air Intake Visit Reasons: HTN and adrenal issue per Lynda/ Unable to reach Radiation Oncology Nurse Required: No Accompanied by: Self / Same As Patient Allergies cephalexin [From KEFLEX] Allergy (Severe, Verified 04/16/24 15:17) HIVES codeine [CODEINE] Allergy (Intermediate, Verified 04/16/24 15:17) NAUSEA & VOMITING, nausea and vomiting dulaglutide [Trulicity] Allergy (Intermediate, Verified 04/16/24 15:17) abdominal pain Cephalosporins Allergy (Intermediate, Uncoded 03/26/24 16:07) Hives seasonal Allergy (Intermediate, Uncoded 03/26/24 16:07) Itchy Eyes Medication List - Last Reconciled 04/16/24 by Stephan Howell MD amlodipine 10 mg PO DAILY aspirin 81 mg PO DAILY atorvastatin 40 mg PO DAILY blood sugar diagnostic (FreeStyle Lite Strips) As directed empagliflozin (Jardiance) 10 mg PO DAILY labetalol 300 mg PO BID 90 days lisinopril 40 mg PO DAILY metformin ER 500 mg PO BID spironolactone 100 mg PO DAILY HPI Comments Details: Blanca is a 58-year-old woman with a history of resistant hypertension. She has significant peripheral has disease and has had stents in the lower extremities. Recently blood pressure has been significantly elevated. She is on 4 antihypertensive medications spironolactone was added recently. She is here for further evaluation of resistant hypertension in to evaluate adrenal mass. [facility] Medical History Squamous cell cancer of skin of forearm Skin lesion of left arm Abscess of left groin FH: cholecystectomy Diabetes HTN (hypertension) Surgical History S/P angiogram of extremity (10/04/21) History of cholecystectomy S/P shoulder surgery History of tubal ligation Family History Father No problems noted. Mother No problems noted. 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 Review of Systems Const Denies fever(s) and Denies weight loss Card Denies chest pain Resp Denies cough and Denies hemoptysis GI Denies abdominal pain, Denies diarrhea and Denies nausea Musc Denies back pain Neuro Denies focal weakness Physical Exam Vital Signs: Last Vital Signs Pulse 84 04/16/24 15:14 BP 172/70 H 04/16/24 15:14 Pulse Ox 98 04/16/24 15:14 Oxygen Delivery Method Room Air 04/16/24 15:14 BMI result Body Mass Index 27.3 Const General: comfortable Nutritional Appearance: well nourished Orientation/consciousness: patient oriented x3 HEENT Head: No normal to inspection Mouth: moist mucous membranes Neck Neck: Yes supple and Yes no JVD Resp Auscultation: clear to auscultation bilaterally and no rales Cardio Jugular venous distension: no JVD Palpation: no palpable S3 and no palpable S4 Heart sounds: no rubs GI Palpation (GI): Soft to palpation and nontender Percussion: No Fluid wave present General: Yes no CVA tenderness Back/Spine/Pelvis Back: no CVA tenderness Skin General skin exam: no rashes or lesions noted Neuro General: patient oriented x3 Extrem General: Yes no pedal edema and No clubbing Results Reviewed Nephrology Results: Hgb 13.2 g/dl (12.0-16.0) 03/30/24 WBC 10.7 X10*3/uL (4.8-10.8) 03/30/24 Plt Count 226 X10*3/uL (160-400) 03/30/24 Sodium 137 mmol/L (135-145) 03/30/24 Potassium 4.1 mmol/L (3.3-5.1) 03/30/24 Chloride 103 mmol/L (96-108) 03/30/24 Carbon Dioxide 22 mmol/L (22-29) 03/30/24 BUN 19 mg/dL (9-16) H 03/30/24 Creatinine 0.96 mg/dL (0.5-1.4) 03/30/24 Calcium 10.0 mg/dL (8.4-10.2) 03/30/24 Assessment & Plan Assessment & Plan (1) Uncontrolled hypertension: Code(s): I10 - Essential (primary) hypertension Category: Medical Plan Blanca is a 58-year-old woman with a history of significant vascular disease with resistant hypertension. she most likely has a renal artery stenosis given the history. Adrenal causes should be ruled out. I have ordered a CT angiogram of renal arteries. Check serum aldosterone, plasma renin activity and catecholamines as a screening In the meantime continue current medications to optimize blood pressure Since medications were just adjusted I will not make any changes today. she should stay on low-sodium diet. Orders: Orders IR angio renal BI Today I10 - Essential (primary) hypertension Aldosterone Today I10 - Essential (primary) hypertension Renin Today I10 - Essential (primary) hypertension Catecholamines, Frac., Plasma Today I10 - Essential (primary) hypertension Coding Level of Care Code New Pt Level 4 (99533) Diagnoses Uncontrolled hypertension I10
== END 2024-04-16 15:35 | disposition home or self-care (01) ==
PROVIDERS: PCP Internal Medicine; Visit Provider Internal Medicine Hypertension Specialist
DX: I10 Essential (primary) hypertension (principal)
CPT/HCPCS: 99204

== ENCOUNTER 2024-04-17 06:27 | Outpatient (REF) | payer OTHER, SELFPAY ==
[2024-04-17 07:03] LABS: Anion Gap 13 (12-20); Blood Urea Nitrogen 12 mg/dL (9-16); Calcium 9.9 mg/dL (8.4-10.2); Carbon Dioxide 24 mmol/L (22-29); Chloride 106 mmol/L (96-108); Estimated Glomerular Filt Rate > 60; Glucose Random 245 mg/dL (60-115); Potassium 4.3 mmol/L (3.3-5.1); Sodium 139 mmol/L (135-145)
[2024-04-26 17:53] LABS: Catecholamine Frac, Total 681 pg/mL
[2024-04-27 14:44] LABS: Renin 3.97 ng/mL/h (0.25-5.82)
== END 2024-04-17 06:28 | disposition home or self-care (01) ==
LOC: HO.LAB 06:27
PROVIDERS: Nurse Practitioner Family; PCP Internal Medicine; Visit Provider Internal Medicine Hypertension Specialist
DX: I10 Essential (primary) hypertension (principal)
CPT/HCPCS: 36415; 80048; 82088; 82384; 84244

== ENCOUNTER 2024-04-23 07:26 | Outpatient (REF) | payer OTHER, SELFPAY ==
--- NOTE | ~2024-04-23 | US_ITS ---
EXAMINATION: ULTRASOUND OF KIDNEYS WITH RENAL ARTERY DOPPLER CLINICAL INFORMATION: Hypertension. COMPARISON: None available. TECHNIQUE: Ultrasound of the kidneys was performed along with color flow Doppler imaging and velocity measurements in the proximal mid and distal renal arteries. Aortic velocities were measured and renal/aortic ratios were calculated. Segmental resistive indices were also calculated. FINDINGS: The kidneys appeared normal with the right kidney measuring 11.5 x 5.7 x 6.9 cm and the left kidney measuring 11.8 x 6.1 x 5.1 cm. A benign right mid renal parapelvic 2.0 cm Bosniak class I renal cyst is noted which requires no additional imaging or follow up. No solid renal masses are seen. Nonobstructing mid renal echogenic focus measuring 6 mm with twinkle artifact consistent with a nonobstructing stone. No additional renal stones or hydronephrosis is seen. Renal cortical thickness appears normal. Velocity measurements in the proximal mid and distal renal arteries are normal. On the left, velocity in the mid renal artery is mildly elevated at 280 cm/s. Velocity in the aorta is normal and, therefore, the renal aortic ratios are normal.. Segmental resistive indices are all normal between 0.73 and 0.75. Renal veins are normal and patent. US/US renal doppler IMPRESSION: 1. Mildly elevated velocity in the mid left renal artery. If suspicion is high for renovascular hypertension, CT angiogram may be of value. 2. Incidental note made of a nonobstructing 6 mm left renal calculus.
== END 2024-04-23 07:27 | disposition home or self-care (01) ==
LOC: HO.US 07:26
PROVIDERS: PCP Internal Medicine; Visit Provider Nurse Practitioner Family
DX: I10 Essential (primary) hypertension (principal)
CPT/HCPCS: 93975

== ENCOUNTER 2024-05-05 16:02 | Outpatient (AMB) | payer OTHER, SELFPAY ==
--- NOTE | 2024-05-05 16:03 | HO.NEPHOV_ITS ---
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: No Accompanied by: Self / Same As Patient Allergies cephalexin [From KEFLEX] Allergy (Severe, Verified 05/05/24 16:05) HIVES codeine [CODEINE] Allergy (Intermediate, Verified 05/05/24 16:05) NAUSEA & VOMITING, nausea and vomiting dulaglutide [Trulicity] Allergy (Intermediate, Verified 05/05/24 16:05) abdominal pain Cephalosporins Allergy (Intermediate, Uncoded 03/26/24 16:07) Hives seasonal Allergy (Intermediate, Uncoded 03/26/24 16:07) Itchy Eyes Medication List - Last Reconciled 05/05/24 by Stephan Howell MD amlodipine 10 mg PO DAILY aspirin 81 mg PO DAILY atorvastatin 40 mg PO DAILY blood sugar diagnostic (FreeStyle Lite Strips) As directed empagliflozin (Jardiance) 10 mg PO DAILY labetalol 300 mg PO BID 90 days losartan-hydrochlorothiazide 100-25 mg 1 tab PO DAILY metformin ER 500 mg PO BID spironolactone 100 mg PO DAILY HPI Comments Details: Blanca is a 58-year-old woman with a history of resistant hypertension. She has significant peripheral has disease and has had stents in the lower extremities. Recently blood pressure has been significantly elevated. She is on 4 antihypertensive medications spironolactone was added recently. She is here for further evaluation of resistant hypertension in to evaluate adrenal mass. 05/05/24 BP is still high Work up in progress [facility] Medical History Squamous cell cancer of skin of forearm Skin lesion of left arm Abscess of left groin FH: cholecystectomy Diabetes HTN (hypertension) Surgical History S/P angiogram of extremity (10/04/21) History of cholecystectomy S/P shoulder surgery History of tubal ligation Family History Father No problems noted. Mother No problems noted. 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 Physical Exam Vital Signs: Last Vital Signs Pulse 93 05/05/24 16:04 BP 170/84 H 05/05/24 16:04 Pulse Ox 98 05/05/24 16:04 Oxygen Delivery Method Room Air 05/05/24 16:04 BMI result Body Mass Index 27.1 Const General: comfortable; No acute distress Orientation/consciousness: patient oriented x3 Eyes General: appearance normal, both eyes and all related structures Visual Esquivel: normal visual esquivel by confrontation Neck Neck: Yes supple and Yes no JVD Resp Effort & Inspection: normal respiratory effort and respiratory effort not decreased Auscultation: rhonchi Cardio Palpation: no palpable S3 and no palpable S4 Heart sounds: no rubs GI Inspection: Yes normal to inspection Palpation (GI): Soft to palpation Percussion: Yes normal to percussion Auscultation: normal bowel sounds General: Yes no CVA tenderness Back/Spine/Pelvis Back: no CVA tenderness Skin General skin exam: no petechiae and no purpura Neuro General: patient oriented x3 and no focal motor deficits Extrem General: No clubbing and No edema Results Reviewed Nephrology Results: Hgb 13.2 g/dl (12.0-16.0) 03/30/24 WBC 10.7 X10*3/uL (4.8-10.8) 03/30/24 Plt Count 226 X10*3/uL (160-400) 03/30/24 Sodium 139 mmol/L (135-145) 04/17/24 Potassium 4.3 mmol/L (3.3-5.1) 04/17/24 Chloride 106 mmol/L (96-108) 04/17/24 Carbon Dioxide 24 mmol/L (22-29) 04/17/24 BUN 12 mg/dL (9-16) 04/17/24 Creatinine 0.89 mg/dL (0.5-1.4) 04/17/24 Calcium 9.9 mg/dL (8.4-10.2) 04/17/24 Renal US 04/23/24 Assessment & Plan Assessment & Plan (1) Uncontrolled hypertension: Code(s): I10 - Essential (primary) hypertension Category: Medical Plan Blanca is a 58-year-old woman with a history of significant vascular disease with resistant hypertension. she most likely has a renal artery stenosis given the history. Adrenal causes ruled out. serum aldosterone, plasma renin activity and catecholamines are NORMAL ordered a CT angiogram of renal arteries. Waiting to be scheduled Change Lisinopril to Losatan HCT 100/25 QD Orders: Orders Basic Metabolic Panel 4 Weeks I10 - Essential (primary) hypertension Medications: New losartan-hydrochlorothiazide 100-25 mg 1 tab PO DAILY 30 tabs 2RF Discontinued lisinopril Discontinued Reason: Doctor's Order 40 mg PO DAILY 90 tabs 1RF Coding Level of Care Code Est Pt Level 3 (03874) Diagnoses Uncontrolled hypertension I10
[2024-05-05 16:04] VITALS: BP 170/84; PULSE 93; O2SAT 98; BMI 27.1
== END 2024-05-05 16:20 | disposition home or self-care (01) ==
PROVIDERS: PCP Internal Medicine; Visit Provider Internal Medicine Hypertension Specialist
DX: I10 Essential (primary) hypertension (principal)
CPT/HCPCS: 99213

== ENCOUNTER → 2024-05-05 16:02 | Outpatient (BNVA) | payer OTHER, SELFPAY | PROVIDERS: PCP Internal Medicine; Visit Provider Internal Medicine Hypertension Specialist | DX: I10 Essential (primary) hypertension (principal) | CPT/HCPCS: 99212 ==

== ENCOUNTER 2024-06-23 09:57 | Outpatient (REF) | payer OTHER, SELFPAY ==
--- NOTE | ~2024-06-23 | CT_ITS ---
EXAMINATION: CT ANGIOGRAM ABDOMEN CLINICAL INFORMATION: Renal artery stenosis COMPARISON: Renal duplex 04/23/2024 TECHNIQUE: Multiple axial images were obtained through the abdomen following the administration of 80 mL Omnipaque 350 intravenous contrast. Images were reviewed on a dedicated 3-D workstation. This CT examination was performed using dose optimization techniques as appropriate, variously including the following: *Automated exposure control *Adjustment of mA and/or kV according to patient size (this includes techniques or standardized protocols for targeted exams where dose is matched to indication/reason for exam; i.e. extremities or head) *Use of iterative reconstruction technique DLP: 117 mGy-cm FINDINGS: VASCULAR: Abdominal aorta: Normal in caliber with extensive atherosclerotic plaque. Iliac arteries: The proximal iliac arteries are patent and normal in caliber Mesenteric arteries: The celiac artery is patent. Fusiform dilatation of the distal splenic artery measuring 6 mm in diameter. The SMA is patent. Renal arteries: Plaque in the proximal renal arteries bilaterally causing less than 50% stenoses. NONVASCULAR: Lung Bases: The lungs are clear with no evidence of inflammation or nodules. Liver, Gallbladder, Biliary Tree: The liver is normal in size, shape, and attenuation. No focal hepatic lesion or biliary ductal dilatation is present. The gallbladder is surgically absent. Pancreas: Unremarkable. Spleen: Unremarkable. Adrenal Glands: Unremarkable. Kidneys and Ureters: The kidneys are normal in size, shape, and attenuation. No hydronephrosis or hydroureter or calculi seen. No perinephric stranding. Gastrointestinal Tract: The large and small bowel are normal in caliber. Abdominal Wall: No hernia is demonstrated. Lymph Nodes: Normal. Osseous Structures: Unremarkable. CT/CT angio abdomen IMPRESSION: 1. Atherosclerotic plaque in the proximal renal arteries causing less than 50% narrowing. 2. Fusiform dilatation of the distal splenic artery measuring 6 mm in diameter.
[2024-06-23 10:38] LABS: Anion Gap 11 (12-20); Blood Urea Nitrogen 17 mg/dL (9-16); Calcium 9.8 mg/dL (8.4-10.2); Carbon Dioxide 25 mmol/L (22-29); Chloride 104 mmol/L (96-108); Estimated Glomerular Filt Rate > 60; Glucose Random 344 mg/dL (60-115); Potassium 4.3 mmol/L (3.3-5.1); Sodium 136 mmol/L (135-145)
[2024-06-23] MEDS: iohexoL 350 MG/ML 75 ML INFUS..BTL 80 ML IV (11:26)
== END 2024-06-23 09:58 | disposition home or self-care (01) ==
LOC: HO.CT 09:57
PROVIDERS: Visit Provider Internal Medicine Hypertension Specialist
DX: I10 Essential (primary) hypertension (principal)
CPT/HCPCS: 36415; 74175; 80048; Q9967

== ENCOUNTER 2024-07-07 15:42 | Outpatient (AMB) | payer OTHER, SELFPAY ==
[2024-07-07 15:46] VITALS: BP 200/80; PULSE 83; O2SAT 98; BMI 26.6
--- NOTE | 2024-07-07 15:46 | HO.NEPHOV ---
Vital Signs 07/07/24 15:46 Height 5 ft 3 in Weight 150 lb BMI 26.6 BP 200/80 H Blood Pressure Location Rt brachial Position Sitting Pulse 83 Pulse Source Pulse Oximeter Pulse Oximetry (%) 98 Oxygen Delivery Method Room Air Intake Visit Reasons: CT scan fu Reporting Developer Required: No Accompanied by: Self / Same As Patient Allergies cephalexin [From KEFLEX] Allergy (Severe, Verified 07/07/24 15:48) HIVES codeine [CODEINE] Allergy (Intermediate, Verified 07/07/24 15:48) NAUSEA & VOMITING, nausea and vomiting dulaglutide [Trulicity] Allergy (Intermediate, Verified 07/07/24 15:48) abdominal pain Cephalosporins Allergy (Intermediate, Uncoded 03/26/24 16:07) Hives seasonal Allergy (Intermediate, Uncoded 03/26/24 16:07) Itchy Eyes Medication List - Last Reconciled 07/07/24 by Stephan Howell MD amlodipine 10 mg PO DAILY aspirin 81 mg PO DAILY atorvastatin 40 mg PO DAILY blood sugar diagnostic (FreeStyle Lite Strips) As directed empagliflozin (Jardiance) 10 mg PO DAILY labetalol 300 mg PO BID 90 days losartan-hydrochlorothiazide 100-25 mg 1 tab PO DAILY metformin ER 500 mg PO BID spironolactone 100 mg PO DAILY HPI Comments Details: Blanca is a 58-year-old woman with a history of resistant hypertension. She has significant peripheral has disease and has had stents in the lower extremities. Recently blood pressure has been significantly elevated. She is on 4 antihypertensive medications spironolactone was added recently. She is here for further evaluation of resistant hypertension in to evaluate adrenal mass. 05/05/24 BP is still high Work up in progress 07/07/2024 Recently had a skin biopsy which showed basal cell carcinoma waiting for surgery in August. She underwent CT angiogram which showed about 50% renal artery stenosis proximally Complains of cramps [facility] Medical History Squamous cell cancer of skin of forearm Skin lesion of left arm Abscess of left groin FH: cholecystectomy Diabetes HTN (hypertension) Surgical History S/P angiogram of extremity (10/04/21) History of cholecystectomy S/P shoulder surgery History of tubal ligation Family History Father No problems noted. Mother No problems noted. 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 Exam Vital Signs: Last Vital Signs Pulse 83 07/07/24 15:46 BP 200/80 H 07/07/24 15:46 Pulse Ox 98 07/07/24 15:46 Oxygen Delivery Method Room Air 07/07/24 15:46 BMI result Body Mass Index 26.6 Const General: comfortable; No acute distress Orientation/consciousness: patient oriented x3 Eyes General: appearance normal, both eyes and all related structures Visual Esquivel: normal visual esquivel by confrontation Neck Neck: Yes supple and Yes no JVD Resp Effort & Inspection: normal respiratory effort and respiratory effort not decreased Auscultation: rhonchi Cardio Palpation: no palpable S3 and no palpable S4 Heart sounds: no rubs GI Inspection: Yes normal to inspection Palpation (GI): Soft to palpation Percussion: Yes normal to percussion Auscultation: normal bowel sounds General: Yes no CVA tenderness Back/Spine/Pelvis Back: no CVA tenderness Skin General skin exam: no petechiae and no purpura Neuro General: patient oriented x3 and no focal motor deficits Extrem General: No clubbing and No edema Results Reviewed Nephrology Results: Hgb 13.2 g/dl (12.0-16.0) 03/30/24 WBC 10.7 X10*3/uL (4.8-10.8) 03/30/24 Plt Count 226 X10*3/uL (160-400) 03/30/24 Sodium 136 mmol/L (135-145) 06/23/24 Potassium 4.3 mmol/L (3.3-5.1) 06/23/24 Chloride 104 mmol/L (96-108) 06/23/24 Carbon Dioxide 25 mmol/L (22-29) 06/23/24 BUN 17 mg/dL (9-16) H 06/23/24 Creatinine 0.94 mg/dL (0.5-1.4) 06/23/24 Calcium 9.8 mg/dL (8.4-10.2) 06/23/24 Renal US 04/23/24 Assessment & Plan Assessment & Plan (1) Uncontrolled hypertension: Code(s): I10 - Essential (primary) hypertension Category: Medical Plan Blanca is a 58-year-old woman with a history of significant vascular disease with resistant hypertension. she has a renal artery stenosis contributing to her resistant hypertension Adrenal causes ruled out. serum aldosterone, plasma renin activity and catecholamines are NORMAL We will refer to Dr. Samano for vascular intervention since she is on 5 different antihypertensive medications and blood pressures are still suboptimal. Coding Level of Care Code Est Pt Level 4 (15234) Diagnoses Uncontrolled hypertension I10
== END 2024-07-07 16:07 | disposition home or self-care (01) ==
PROVIDERS: PCP Internal Medicine; Visit Provider Internal Medicine Hypertension Specialist
DX: I10 Essential (primary) hypertension (principal)
CPT/HCPCS: 99214

== ENCOUNTER → 2024-07-07 15:42 | Outpatient (BNVA) | payer OTHER, SELFPAY | PROVIDERS: PCP Internal Medicine; Visit Provider Internal Medicine Hypertension Specialist | DX: I10 Essential (primary) hypertension (principal) | CPT/HCPCS: 99212 ==

== ENCOUNTER 2024-07-14 15:10 | Outpatient (AMB) | payer OTHER, SELFPAY ==
--- NOTE | 2024-07-14 15:13 | MHC.OFFVIS ---
Vital Signs 07/14/24 15:14 Height 5 ft 3 in Weight 149 lb 7.574 oz BMI 26.5 BP 180/100 H Blood Pressure Location Rt brachial Position Sitting Pulse 101 H Intake Visit Reasons: elevated alkaline phosphatase level Intake Note: New patient in office today for elevated alkaline phosphatase level. CC: Patient reports that she was having nausea and lower right back pain but she was told it was d/t her kidney and the pain has now subsided. 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 She is referred by [facility]. PMX Allergic rhinitis Smoker Hypertension High cholesterol Diabetes Hepatic steatosis Overweight History of skin abscess of the groin Peripheral arterial disease * SURGICAL HISTORY Cholecystectomy Shoulder surgery Tubal ligation Angiogram of the extremity * ALLERGIES Cephalexin Codeine Cymbalta * [facility] LABS: Laboratory Tests 03/30/24 06/23/24 14:27 10:09 WBC 10.7 Hgb 13.2 Hct 37.4 Plt Count 226 Estimated GFR > 60 Random Glucose 344 H Total Bilirubin 0.2 AST 10 ALT 8 Alkaline Phosphatase 136 H TSH 0.93 TODAY'S VISIT Pt is s/p cholecystectomy. She is asx but has a lot of health anxiety - mostly regarding her renal system and a skin cancer removed. I reassure her that we see elevated alk phos values frequently, and the normal range is not as well established and not as tight as other blood values. Will get additional labs. ROV 4 weeks. I give her her medical record # so she can sign up for patient portal. COUNTS INCLUDE 234 BEDS AT THE [facility] Medical History Abnormal EKG Acute occlusion of artery of lower extremity Strain of right gastrocnemius muscle Abscess of left groin Squamous cell cancer of skin of forearm Skin lesion of left arm FH: cholecystectomy Diabetes HTN (hypertension) Surgical History H/O colonoscopy S/P angiogram of extremity (10/04/21) History of cholecystectomy S/P shoulder surgery History of tubal ligation Family History (Updated 07/14/24 @ 15:22 by MARIBELL Valerio) Father No problems noted. 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 Review of Systems Const Denies fatigue, Denies fever(s), Denies night sweats, Denies poor appetite and Denies weight loss Eyes Details: glasses Reports requires corrective lenses ENT Reports Normal hearing present, Denies dental pain, Denies dysphagia, Denies hearing loss, Denies mouth pain, Denies odynophagia, Denies throat swelling, Denies tongue swelling and Reports other (Dentition adequate) Card Reports no additional complaints Resp Reports no additional complaints GI Details: Denies abdominal pain, Denies melena, Denies bloating, Denies hematochezia, Denies constipation, Denies GI cramping, Denies dysphagia, Denies excessive flatus, Denies early satiety, Denies heartburn, Denies diarrhea, Denies nausea, Denies odynophagia, Denies vomiting and Denies hematemesis Skin/Breast Denies pruritus, Denies lesions, Denies rash and Denies jaundice Neuro Reports Normal hearing present and Denies Abnormal speech present Endo Denies fatigue Aller/Immun Denies throat swelling and Denies tongue swelling Physical Exam Vital Signs: Last Vital Signs Pulse 101 H 07/14/24 15:14 BP 180/100 H 07/14/24 15:14 BMI result Body Mass Index 26.5 Const General: cooperative, no acute distress, well developed and well groomed Nutritional Appearance: average body habitus and well nourished Orientation/consciousness: oriented to person, oriented to place and oriented to time Limitations: No language barrier HEENT Head: Yes normocephalic and Yes atraumatic Eyes General: appearance normal, both eyes and all related structures Pupils: Equal, round and reactive pupils present Neck Neck: Yes normal visual inspection and Yes no lymphadenopathy Thyroid: Thyroid normal Resp Effort & Inspection: normal respiratory effort and able to speak in complete sentences Auscultation: clear to auscultation bilaterally Cardio Rate: regular rate Rhythm: regular rhythm Heart sounds: Normal, physiologic split S2 sound present Peripheral pulses: radial pulses present and posterior tibial pulses present GI Inspection: No distended and No Abdominal panniculus present Palpation (GI): Soft to palpation, nontender, no guarding, not rigid and No hepatosplenomegaly present Percussion: Yes normal to percussion Auscultation: normal bowel sounds Rectal Exam - Female: deferred Skin General skin exam: no rashes or lesions noted, turgor normal, skin not dry, no jaundice, No spider nevi and no striae Rashes: no rashes Nails: normal Neuro General: oriented to person, oriented to place and oriented to time Cranial nerves: Yes Equal, round and reactive pupils present and Yes Normal hearing present Speech: No Abnormal speech present Extrem General: Yes normal to inspection, No clubbing, No cyanosis and No edema Psych Appearance: grossly normal and well kempt Mental Status: mental status grossly normal Speech and movement: Normal speech and movement present Affect: normal affect Attitude: cooperative Thought process: Normal thought process present and not confabulating Thought content: Normal thought content present Insight: Limited insight present (Psych) Judgement: Limited judgement present (Psych) Assessment & Plan Assessment & Plan (1) Elevated alkaline phosphatase level: Code(s): R74.8 - Abnormal levels of other serum enzymes Category: Medical Plan Pt is s/p cholecystectomy. She is asx but has a lot of health anxiety - mostly regarding her renal system and a skin cancer removed. I reassure her that we see elevated alk phos values frequently, and the normal range is not as well established and not as tight as other blood values. Will get additional labs. ROV 4 weeks. I give her her medical record # so she can sign up for patient portal Orders: Orders Alkaline Phosphatase Isoenzyme Today R74.8 - Abnormal levels of other serum enzymes Mitochondrial Antibody Today R74.8 - Abnormal levels of other serum enzymes Alkaline Phosphatase Bone Today R74.8 - Abnormal levels of other serum enzymes Coding Level of Care Code New Pt Level 3 (47844) Diagnoses Elevated alkaline phosphatase level R74.8
[2024-07-14 15:14] VITALS: BP 180/100; PULSE 101; BMI 26.5
== END 2024-07-14 15:43 | disposition home or self-care (01) ==
PROVIDERS: PCP Internal Medicine; Visit Provider Nurse Practitioner
DX: R74.8 Abnormal levels of other serum enzymes (principal)
CPT/HCPCS: 99203

== ENCOUNTER → 2024-07-14 15:10 | Outpatient (BNVA) | payer OTHER, SELFPAY | PROVIDERS: PCP Internal Medicine; Visit Provider Nurse Practitioner | DX: R74.8 Abnormal levels of other serum enzymes (principal) | CPT/HCPCS: 99202 ==

== ENCOUNTER 2024-07-15 14:59 | Outpatient (REF) | payer OTHER, SELFPAY ==
--- NOTE | ~2024-07-15 | US_ITS ---
EXAMINATION: NONINVASIVE ASSESSMENT OF THE ARTERIES OF BOTH LOWER EXTREMITIES INCLUDING PVR EXAM AND BILATERAL LOWER EXTREMITY DUPLEX CLINICAL INFORMATION: PVD COMPARISON: Lower extremity duplex August 21, 2023 TECHNIQUE: Ankle pulse volume recordings, ankle pressure measurements and ankle brachial indices were obtained of the lower extremity arterial system bilaterally in addition to duplex Doppler techniques with wave form analysis and measurement of velocities in the common femoral, profunda femoral, superficial femoral, popliteal, tibial and peroneal arteries. The study was performed only at rest. FINDINGS: RIGHT LEG 1. Right Ankle-Brachial Index: 0.9 (higher of the DP/PT) >0.97-1.25 = normal - no significant arterial disease 0.75-0.96 = mild peripheral arterial disease 0.5-0.74 = moderate peripheral arterial disease <0.50 = severe peripheral arterial disease <0.30 = critical arterial disease 2. Segmental Pressures (mmHg): Brachial: 155 Ankle: PT 140, DP and 37 3. PVR Waveforms: Ankle: Biphasic 4. Direct Duplex: Common femoral artery: 136 cm/s, Multiphasic Profunda femoris artery: 77 cm/s, monophasic Superficial femoral artery (proximal): 163 cm/s, Multiphasic Superficial femoral artery (mid): Stent in place * [place] artery proximal to the stent: 133 cm/s * Proximal stent: 118 cm/s * Mid stent: 55 cm/s * Distal stent: 66 cm/s * [place] artery distal to stent: 111 cm/s Superficial femoral artery (distal): 111 cm/s, Multiphasic Proximal Popliteal artery: 53 cm/s, monophasic Mid posterior tibial artery: 37 cm/s, monophasic LEFT LE. Left Ankle-Brachial Index: 0.66 (higher of the DP/PT) >0.97-1.25 = normal - no significant arterial disease 0.75-0.96 = mild peripheral arterial disease 0.5-0.74 = moderate peripheral arterial disease <0.50 = severe peripheral arterial disease <0.30 = critical arterial disease 2. Segmental Pressures: Brachial: 148 Ankle: PT 102, DP 72 3. PVR Waveforms: Ankle: Biphasic 4. Direct Duplex: Common femoral artery: 97 cm/s, Multiphasic Profunda femoris artery: 118 cm/s, Multiphasic Superficial femoral artery (proximal): 219 cm/s, monophasic Superficial femoral artery (mid): 247 cm/s, monophasic Superficial femoral artery (distal): 112 cm/s, monophasic Proximal Popliteal artery: 37 cm/s, monophasic Mid posterior tibial artery: 11 cm/s, monophasic US/US arterial duplex LE BI IMPRESSION: 1. Right YUNG 0.9. 2. Left YUNG 0.66. 3. Right SFA stent is patent. 4. Elevated velocities in the left proximal and mid superficial femoral artery suggestive of moderate to severe stenosis. Electronically signed by: Cliff White MD 07/18/2024 04:38 PM EDT
--- NOTE | ~2024-07-15 | US_ITS ---
EXAMINATION: NONINVASIVE ASSESSMENT OF THE ARTERIES OF BOTH LOWER EXTREMITIES INCLUDING PVR EXAM AND BILATERAL LOWER EXTREMITY DUPLEX CLINICAL INFORMATION: PVD COMPARISON: Lower extremity duplex August 21, 2023 TECHNIQUE: Ankle pulse volume recordings, ankle pressure measurements and ankle brachial indices were obtained of the lower extremity arterial system bilaterally in addition to duplex Doppler techniques with wave form analysis and measurement of velocities in the common femoral, profunda femoral, superficial femoral, popliteal, tibial and peroneal arteries. The study was performed only at rest. FINDINGS: RIGHT LEG 1. Right Ankle-Brachial Index: 0.9 (higher of the DP/PT) >0.97-1.25 = normal - no significant arterial disease 0.75-0.96 = mild peripheral arterial disease 0.5-0.74 = moderate peripheral arterial disease <0.50 = severe peripheral arterial disease <0.30 = critical arterial disease 2. Segmental Pressures (mmHg): Brachial: 155 Ankle: PT 140, DP and 37 3. PVR Waveforms: Ankle: Biphasic 4. Direct Duplex: Common femoral artery: 136 cm/s, Multiphasic Profunda femoris artery: 77 cm/s, monophasic Superficial femoral artery (proximal): 163 cm/s, Multiphasic Superficial femoral artery (mid): Stent in place * [place] artery proximal to the stent: 133 cm/s * Proximal stent: 118 cm/s * Mid stent: 55 cm/s * Distal stent: 66 cm/s * [place] artery distal to stent: 111 cm/s Superficial femoral artery (distal): 111 cm/s, Multiphasic Proximal Popliteal artery: 53 cm/s, monophasic Mid posterior tibial artery: 37 cm/s, monophasic LEFT LE. Left Ankle-Brachial Index: 0.66 (higher of the DP/PT) >0.97-1.25 = normal - no significant arterial disease 0.75-0.96 = mild peripheral arterial disease 0.5-0.74 = moderate peripheral arterial disease <0.50 = severe peripheral arterial disease <0.30 = critical arterial disease 2. Segmental Pressures: Brachial: 148 Ankle: PT 102, DP 72 3. PVR Waveforms: Ankle: Biphasic 4. Direct Duplex: Common femoral artery: 97 cm/s, Multiphasic Profunda femoris artery: 118 cm/s, Multiphasic Superficial femoral artery (proximal): 219 cm/s, monophasic Superficial femoral artery (mid): 247 cm/s, monophasic Superficial femoral artery (distal): 112 cm/s, monophasic Proximal Popliteal artery: 37 cm/s, monophasic Mid posterior tibial artery: 11 cm/s, monophasic US/US YUNG complete IMPRESSION: 1. Right YUNG 0.9. 2. Left YUNG 0.66. 3. Right SFA stent is patent. 4. Elevated velocities in the left proximal and mid superficial femoral artery suggestive of moderate to severe stenosis. Electronically signed by: Cliff White MD 07/18/2024 04:38 PM EDT
[2024-07-15 17:39] LABS: Anion Gap 17 (12-20); Blood Urea Nitrogen 25 mg/dL (9-16); Calcium 10.1 mg/dL (8.4-10.2); Carbon Dioxide 23 mmol/L (22-29); Chloride 99 mmol/L (96-108); Estimated Glomerular Filt Rate 49; Glucose Random 333 mg/dL (60-115); Potassium 4.1 mmol/L (3.3-5.1); Sodium 135 mmol/L (135-145)
[2024-07-17 19:08] LABS: Alkaline Phosphatase Bone 16.3 mcg/L (5.6-29.0)
[2024-07-19 21:48] LABS: Alk.Phos Iso. Macrohepatic 0 % (<=0); Alk.Phos Isoenzymes Bone 21 % (28-66); Alk.Phos Isoenzymes Intest 19 % (1-24); Alk.Phos Isoenzymes Liver 60 % (25-69); Alk.Phos Isoenzymes Placental 0 % (<=0); Alk.Phos Isoenzymes Total 126 U/L (37-153)
== END 2024-07-15 15:00 | disposition home or self-care (01) ==
LOC: HO.US 14:59
PROVIDERS: Nurse Practitioner Family; Absent Provider Nurse Practitioner; PCP Internal Medicine; Visit Provider Surgery Vascular Surgery
DX: I73.9 Peripheral vascular disease, unspecified (principal); R74.8 Abnormal levels of other serum enzymes; I10 Essential (primary) hypertension
CPT/HCPCS: 36415; 80048; 84075; 84080; 86381; 93923; 93925

== ENCOUNTER 2024-07-16 14:29 | Outpatient (AMB) | payer OTHER, SELFPAY ==
[2024-07-16 14:34] VITALS: BMI 26.4
--- NOTE | 2024-07-16 14:34 | MHC.OFFVIS ---
Vital Signs 07/16/24 14:34 Height 5 ft 3 in Weight 149 lb BMI 26.4 Intake Visit Reasons: Follow up Arterial US & CTA renal stenosis Intake Note: 1 yr follow up (being seen early) for arterial US 07/15/24 w/ hx of Right Angio 10/04/21 + 10/17/22. Was seen at nephrology and a CTA abd was done on 06/23/24. They wanted pt seen for renal artery stenosis. Pt has had squamous cell removal on left wrist since last visit, being followed by derm at [facility]. Accompanied by: Self / Same As Patient Allergies cephalexin [From KEFLEX] Allergy (Severe, Verified 07/16/24 14:44) HIVES codeine [CODEINE] Allergy (Intermediate, Verified 07/16/24 14:44) NAUSEA & VOMITING, nausea and vomiting dulaglutide [Trulicity] Allergy (Intermediate, Verified 07/16/24 14:44) abdominal pain Cephalosporins Allergy (Intermediate, Uncoded 07/16/24 14:44) Hives seasonal Allergy (Intermediate, Uncoded 07/16/24 14:44) Itchy Eyes HPI HPI Follow up Arterial US & CTA renal stenosis: Details: Very pleasant 58-year-old female presents for follow-up regarding peripheral vascular disease and renal artery stenosis. She had actually undergone endovascular intervention by us back in 2021 and reports that from a lower extremity standpoint she is doing fairly well. She can climb 2-3 flights of stairs. She is able to walk several blocks with no difficulties. She has been seen and worked up by Nephrology. For uncontrolled hypertension. She is on 5 different antihypertensive meds and has had suboptimal control. She now presents for routine follow-up. [facility] Medical History Abnormal EKG Acute occlusion of artery of lower extremity Strain of right gastrocnemius muscle Abscess of left groin Squamous cell cancer of skin of forearm Skin lesion of left arm FH: cholecystectomy Diabetes HTN (hypertension) Surgical History H/O colonoscopy S/P angiogram of extremity (10/04/21) History of cholecystectomy S/P shoulder surgery History of tubal ligation Family History Father No problems noted. 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 Review of Systems Const All systems reviewed & are unremarkable except as noted in HPI and below Reports no additional complaints ENT Reports Normal hearing present Card Denies chest pain, Denies chest pain at rest, Denies chest pain with activity and Denies pedal edema Resp Denies cough GI Denies abdominal pain Musc Denies abnormal gait, Denies muscle cramps and Denies radiating pain into limb Skin/Breast Denies skin ulcer and Denies wounds Neuro Reports Normal hearing present and Denies abnormal gait Psych Reports no additional complaints Physical Exam Vital Signs: BMI result Body Mass Index 26.4 Const General: cooperative, healthy appearing and comfortable Orientation/consciousness: oriented to person, oriented to place and oriented to time HEENT Head: Yes normal to inspection Neck Neck: Yes normal visual inspection Carotids: no bruits Chest Chest palpation & inspection: normal inspection of the chest Resp Effort & Inspection: normal respiratory effort and able to speak in complete sentences Auscultation: clear to auscultation bilaterally, no crackles, no rales, no rhonchi and no wheezes Cardio Rate: regular rate Rhythm: regular rhythm Heart sounds: S1 normal heart sound present and S2 normal heart sound present Bruits: no carotid bruits Peripheral pulses: Peripheral pulses 2+ throughout GI Inspection: Yes normal to inspection Skin Wounds: no wounds Hair: normal Neuro General: oriented to person, oriented to place and oriented to time Cranial nerves: Yes CN's II-XII intact bilaterally and Yes Normal hearing present Cognition (Neuro): normal cognition Motor exam (neuro): 5/5 motor strength present throughout Extrem Other: venous exam: No significant superficial varicosities or spider telangiectasias, minimal edema General: No clubbing, No cyanosis and No edema Psych Appearance: grossly normal Mental Status: mental status grossly normal Speech and movement: Normal speech and movement present Results Reviewed Results Reviewed: Noninvasive arterial testing dated 07/15/2024 demonstrates YUNG on the right of 0.9 and on the left of 0.66. Written report and images were reviewed. CT angiogram dated 06/23/2024 was reviewed. It does demonstrate bilateral renal artery stenosis. Right greater than left. Although reports less than 50% stenosis I do appreciate more stenosis on the right. Assessment & Plan Assessment & Plan (1) PAD (peripheral artery disease): Comment: 10/04/2021 - atherectomy and stent of right SFA 10/17/2022 - right SFA plasty and stent Code(s): I73.9 - Peripheral vascular disease, unspecified Category: Medical Plan: In short patient has stable claudication. I did review the pathophysiology of peripheral vascular disease with the patient. In addition we did discuss routine conservative measures including a healthy diet and the importance of exercise and ambulation. We did discuss risk factor modification. The patient will continue to to follow-up with surveillance follow-up in approximately 1 year. Thank you for allowing us to participate in this patient's care. If there are any questions or concerns please do not hesitate to contact us. (2) Renal artery stenosis, [place], bilateral: Code(s): I70.1 - Atherosclerosis of renal artery Category: Medical Plan: Patient has bilateral renal artery stenosis. I have discussed the pathophysiology of renal stenosis. I have also discussed risk factor modification. I have reviewed the patient's CT scan notes bilateral renal artery stenosis right greater than left. the patient would benefit from a renal artery angiogram with possible angioplasty, stent, and/or atherectomy. This has been discussed in detail with the patient along with risks, benefits, and complications. This includes but is not limited to bleeding, infection, heart attack, need for emergent surgical repair, limb ischemia, blood vessel damage, bleeding, puncture, kidney injury, bruising, allergic reaction, and skin reaction. The patient demonstrates a clear understanding. We will schedule for the next appropriate time. Thank you for allowing us to assist in this patient's care. Coding Level of Care Code Est Pt Level 4 (77230) Diagnoses PAD (peripheral artery disease) I73.9 Renal artery stenosis, [place], bilateral I70.1
== END 2024-07-16 15:07 | disposition home or self-care (01) ==
PROVIDERS: PCP Internal Medicine; Visit Provider Surgery Vascular Surgery
DX: I73.9 Peripheral vascular disease, unspecified (principal); I70.1 Atherosclerosis of renal artery
CPT/HCPCS: 99214

== ENCOUNTER → 2024-07-16 14:29 | Outpatient (BNVA) | payer OTHER, SELFPAY | PROVIDERS: PCP Internal Medicine; Visit Provider Surgery Vascular Surgery | DX: I73.9 Peripheral vascular disease, unspecified (principal); I70.1 Atherosclerosis of renal artery | CPT/HCPCS: 99212 ==

== ENCOUNTER 2024-07-21 14:34 | Outpatient (AMB) | payer OTHER, SELFPAY ==
--- NOTE | 2024-07-21 15:06 | A.OFFVIS_ITS ---
Vital Signs 07/21/24 15:07 Height 5 ft 3 in Weight 151 lb 7.321 oz BMI 26.8 BP 160/76 H Blood Pressure Location Lt brachial Position Sitting Pulse 92 Pulse Source Pulse Oximeter Intake Visit Reasons: 4m follow up Intake Note: 4 mth f/up Car Packer Required: No Accompanied by: Self / Same As Patient Allergies cephalexin [From KEFLEX] Allergy (Severe, Verified 07/16/24 14:44) HIVES codeine [CODEINE] Allergy (Intermediate, Verified 07/16/24 14:44) NAUSEA & VOMITING, nausea and vomiting dulaglutide [Trulicity] Allergy (Intermediate, Verified 07/16/24 14:44) abdominal pain Cephalosporins Allergy (Intermediate, Uncoded 07/16/24 14:44) Hives seasonal Allergy (Intermediate, Uncoded 07/16/24 14:44) Itchy Eyes Medication List - Last Reconciled 07/21/24 by Thanh Hough MD amlodipine 10 mg PO DAILY aspirin 81 mg PO DAILY blood sugar diagnostic (FreeStyle Lite Strips) As directed empagliflozin (Jardiance) 25 mg PO DAILY labetalol 300 mg PO BID 90 days losartan-hydrochlorothiazide 100-25 mg 1 tab PO DAILY metformin ER 500 mg PO BID spironolactone 100 mg PO DAILY HPI Comments Details: Blanca comes for follow-up, recent diagnose bilateral renal artery stenosis and has seen Dr. Samano and is scheduled for renal artery intervention on the right next Saturday. She continues to have uncontrolled blood pressure although says a blood pressure is better controlled, currently on 5 medications. No obvious heart symptoms. No exertional chest pain or shortness of breath. No heart failure symptoms. Continues to have claudication and has significant stenosis in the left superficial femoral artery being followed by vascular surgery. Currently taking medication found but unfortunately she continues to smoke. No obvious cardiac complaints at this point time. Heart failure symptoms. [facility] Medical History Abnormal EKG Acute occlusion of artery of lower extremity Strain of right gastrocnemius muscle Abscess of left groin Squamous cell cancer of skin of forearm Skin lesion of left arm FH: cholecystectomy Diabetes HTN (hypertension) Surgical History H/O colonoscopy S/P angiogram of extremity (10/04/21) History of cholecystectomy S/P shoulder surgery History of tubal ligation Family History Father No problems noted. 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 Review of Systems Const Denies chills, Denies fatigue, Denies fever(s), Denies frequent falls, Denies weakness, Denies weight gain and Denies weight loss ENT Denies dizziness Card Denies chest pain, Denies leg edema, Denies lightheadedness, Denies palpitations, Denies dyspnea and Denies dyspnea on exertion Resp Denies cough, Denies dyspnea and Denies dyspnea on exertion GI Denies hematochezia Musc Denies abnormal gait, Denies muscle weakness, Denies numbness, Denies radiating pain into limb and Denies tingling Neuro Denies abnormal gait, Denies dizziness, Denies frequent falls, Denies numbness, Denies tingling and Denies weakness Endo Denies fatigue and Denies palpitations Physical Exam Vital Signs: Last Vital Signs Pulse 92 07/21/24 15:07 BP 160/76 H 07/21/24 15:07 BMI result Body Mass Index 26.8 Const General: cooperative, healthy appearing, comfortable and no acute distress Orientation/consciousness: patient oriented x3 Neck Neck: Yes normal visual inspection and Yes no JVD Resp Effort & Inspection: normal respiratory effort Auscultation: clear to auscultation bilaterally, no crackles, no rales, no rhonchi and no wheezes Cardio Jugular venous distension: no JVD Rate: regular rate Rhythm: regular rhythm Heart sounds: S1 normal heart sound present, S2 normal heart sound present, no murmurs and no rubs Neuro General: patient oriented x3 Extrem General: Yes normal to inspection, No no pedal edema and No calf tenderness Psych Appearance: grossly normal Mental Status: mental status grossly normal Speech and movement: Normal speech and movement present Assessment & Plan Assessment & Plan (1) Uncontrolled hypertension: Code(s): I10 - Essential (primary) hypertension Category: Medical Plan: Uncontrolled hypertension in this middle-aged woman most likely due to renal artery stenosis. Scheduled to undergo renal artery intervention near future. This should significantly help with her blood pressure control. She is on multiple medications unlikely to have low blood pressure post intervention. Advised to call with blood pressure reading on the following day after intervention. May require rapid reduction therapy. This was discussed with her in details. She has diffuse atherosclerotic disease including bilateral carotid disease bilateral peripheral vascular disease. This is due to multiple risk factors and she is strongly encouraged to stop smoking. She did not show much interest. Continue high-intensity statin therapy and as per her she was started recently on Crestor therapy but primary care physician. Goal LDL closer to 50 mg/dL. Continue low-dose aspirin therapy. Continue aggressive diabetes management goal hemoglobin A1c less than 7%. Once interventions have completed she may benefit from low-dose Xarelto 2.5 mg b.i.d. to reduce limb loss as well as cardiovascular and cerebrovascular events. Will follow up in the clinic in 6 months time. Coding Level of Care Code Est Pt Level 4 (31002) Diagnoses Uncontrolled hypertension I10
[2024-07-21 15:07] VITALS: BP 160/76; PULSE 92; BMI 26.8
== END 2024-07-21 15:25 | disposition home or self-care (01) ==
PROVIDERS: PCP Internal Medicine; Visit Provider Internal Medicine Cardiovascular Disease
DX: I10 Essential (primary) hypertension (principal)
CPT/HCPCS: 99214

== ENCOUNTER → 2024-07-21 14:34 | Outpatient (BNVA) | payer OTHER, SELFPAY | PROVIDERS: PCP Internal Medicine; Visit Provider Internal Medicine Cardiovascular Disease | DX: I10 Essential (primary) hypertension (principal) | CPT/HCPCS: 99212 ==

== ENCOUNTER 2024-07-29 05:53 | Day surgery (SDC) | payer OTHER, SELFPAY ==
[2024-07-29] VITALS (10 sets, daily range): BP systolic 141–171; BP diastolic 64–106; PULSE 68–81; RESP 16–20; TEMP 36–36.8; O2SAT 95–98; BMI 27.2
[2024-07-29] MEDS: 0.9 % Sodium Chloride 1,000 ML 100 ML IVCONT (06:40)
[2024-07-29 07:12] LABS: MANUAL DIFF FLAG NO
[2024-07-29 07:20] LABS: Basophils Absolute Auto 0.1 X10*3/uL (0.0-0.2); Basophils Percent Auto 0.8 % (0-2); Eosinophils Absolute Auto 0.5 X10*3/uL (0.0-0.4); Eosinophils Percent Auto 4.8 % (0-4); Hemoglobin 14.1 g/dl (12.0-16.0); Imm Gran Abs Auto 0.21 X10*3/uL (0.00-0.03); Lymphocytes Absolute Auto 1.7 X10*3/uL (1.2-4.9); Lymphocytes Percent Auto 16.2 % (20-40); Mean Corpuscular HGB Conc 35.3 g/dl (31.0-35.0); Mean Corpuscular Hemoglobin 31.1 pg (27.0-33.0); Mean Corpuscular Volume 88.3 fL (80.0-98.0); Mean Platelet Volume 8.8 fL (9.4-12.3); Monocytes Absolute Auto 0.9 X10*3/uL (0.1-1.2); Monocytes Percent Auto 8.4 % (2-11); Neutrophils Percent Auto 67.8 % (45-73); Platelet Count 203 X10*3/uL (160-400); Red Blood Count 4.53 X10*6/uL (4.20-5.50); Red Cell Distribution Width 13.4 % (11.0-16.0); White Blood Count 10.3 X10*3/uL (4.8-10.8)
[2024-07-29 07:32] LABS: Blood Urea Nitrogen 17 mg/dL (9-16); Creatinine Clr Calc Pharmacy 64.9; Estimated Glomerular Filt Rate > 60
[2024-07-29] MEDS: Morphine Sulfate 4 MG/ML CARTRIDGE IVPUSH (09:50)
--- NOTE | 2024-07-29 09:53 | W.PM.OPN ---
Operative Note Operative Note Date of Service: 07/29/24 Narrative: Angiogram report from [facility] Preoperative diagnosis: Renal artery stenosis Postoperative diagnosis: Same Procedure: 1. Ultrasound-guided right common femoral access 2. Aortogram with renal artery angiogram 3. Selective right renal artery angiogram Surgeon:Rajan Samano M.D., FACS, RPVI Coding Assistant:None Anesthesia: Local with moderate conscious sedation. Total intraservice moderate sedation time was 60 minutes. I monitored the patient's level of consciousness and physiologic status continuously throughout the procedure. Specimens:none Drains:none Estimated blood loss: Less than 10 ml Implant: None Indications: Very pleasant 58-year-old female with uncontrolled hypertension and diagnosis of renal artery stenosis on ultrasound now presents for endovascular intervention The patient has signed the informed consent after reviewing risks, complications, benefits, and alternatives previously discussed with the patient. The patient was given the opportunity to ask any additional questions or voice any concerns. All questions were answered to the patient's satisfaction. Procedure in detail: Patient was brought to the angiography suite prior to which a time-out was called for patient identification and site verification. Bilateral groins were prepped and draped in the standard surgical fashion. Under ultrasound guidance right common femoral was punctured with micro puncture needle and wire. Subsequently a precision 5 [place] sheath was then placed. [employer] wire was advanced to the level of the aorta. 4 [place] Flush catheter was brought up and parked at the level of the renal arteries. Aortogram was then undertaken. Once this was accomplished left side appeared to be patent but there was concern about the right side. Multiple orthogonal views were undertaken. We then administered 5000 units of systemic heparin. After 5 minutes of circulation time angled 6 [place] sheath was then placed. We then were is able to access the renal artery with flush catheter. We advanced a Glidewire advantage over which we exchanged out for a Navicross catheter. We brought up a 6 [place] sheath. ACT was noted to be decreased in additional 2000 units of heparin was then administered. Once this was all accomplished we noted that the stenosis was less than 50%. At this time catheter wire sheath was removed. CELT closure device was deployed. Patient was returned to recovery with stable vitals. Interpretation of films: 1. Ultrasound demonstrates appropriate femoral access site. Vessel was patent with minimal stenosis. Needle entry was visualized. Image of ultrasound was saved. 2. Aortogram demonstrates appropriate caliber aorta. Minimal disease. 3. Initial renal angiogram demonstrated minimal bilateral disease left side had no significant disease. There was concern of disease at the origin of the right renal artery. 4. Right renal artery angiogram - focal angiogram with multiple orthogonal views demonstrated mild to moderate stenosis. Less than 50%. Conclusion: 1. Stable renal arteries. No intervention indicated. 2. Anticoagulation status: No change This note is constructed using voice recognition software. While every effort has been made to ensure accuracy, wood carving lathe operator errors may have been included. Thank you for allowing me to participate in the care of your patient. Yours sincerely, Rajan Samano MD, FACS, R.P.V.I.
[2024-07-31 09:52] LABS: ACT 126 Celite s (79-173)
[2024-07-31 09:52] LABS: ACT 148 Celite s (79-173)
== END 2024-07-29 11:30 | disposition home or self-care (01) ==
PROVIDERS: PCP Internal Medicine; Visit Provider Surgery Vascular Surgery
DX: I70.1 Atherosclerosis of renal artery (principal); I73.9 Peripheral vascular disease, unspecified; I10 Essential (primary) hypertension; E11.9 Type 2 diabetes mellitus without complications; C44.629 Squamous cell carcinoma of skin of left upper limb, including shoulder; F17.210 Nicotine dependence, cigarettes, uncomplicated; Z88.1 Allergy status to other antibiotic agents; Z88.5 Allergy status to narcotic agent; Z88.8 Allergy status to other drugs, medicaments and biological substances; Z98.890 Other specified postprocedural states
CPT/HCPCS: 36253; 36415; 76937; 82565; 84520; 85025; 85347; 99152; 99153; C1760; C1769; C1887; C1894; J0360; J1644; J2250; J2270; J2310; J3010; Q9967

== ENCOUNTER → 2024-07-29 05:53 | Outpatient (BNV) | payer OTHER, SELFPAY | PROVIDERS: PCP Internal Medicine; Visit Provider Surgery Vascular Surgery | DX: I70.1 Atherosclerosis of renal artery (principal) | CPT/HCPCS: 36251; 75625; 76937; 99152 ==

== ENCOUNTER 2024-07-31 15:11 | Outpatient (AMB) | payer OTHER, SELFPAY ==
--- NOTE | 2024-07-31 15:08 | HO.NEPHOV_ITS ---
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 Trouble Locator Required: No Accompanied by: Self / Same As Patient Allergies cephalexin [From KEFLEX] Allergy (Severe, Verified 07/31/24 15:13) HIVES codeine [CODEINE] Allergy (Intermediate, Verified 07/31/24 15:13) NAUSEA & VOMITING, nausea and vomiting dulaglutide [Trulicity] Allergy (Intermediate, Verified 07/31/24 15:13) abdominal pain Cephalosporins Allergy (Intermediate, Uncoded 07/16/24 14:44) Hives seasonal Allergy (Intermediate, Uncoded 07/16/24 14:44) Itchy Eyes Medication List - Last Reconciled 07/31/24 by Stephan Howell MD amlodipine 10 mg PO DAILY aspirin 81 mg PO DAILY blood sugar diagnostic (FreeStyle Lite Strips) As directed empagliflozin (Jardiance) 25 mg PO DAILY labetalol 300 mg PO BID 90 days losartan-hydrochlorothiazide 100-25 mg 1 tab PO DAILY metformin ER 500 mg PO BID rosuvastatin 20 mg PO BEDTIME spironolactone 100 mg PO DAILY HPI Comments Details: Blanca is a 58-year-old woman with a history of resistant hypertension. She has significant peripheral has disease and has had stents in the lower extremities. Recently blood pressure has been significantly elevated. She is on 4 antihypertensive medications spironolactone was added recently. She is here for further evaluation of resistant hypertension in to evaluate adrenal mass. 05/05/24 BP is still high Work up in progress 07/07/2024 Recently had a skin biopsy which showed basal cell carcinoma waiting for surgery in August. She underwent CT angiogram which showed about 50% renal artery stenosis proximally Complains of cramps 07/31/2024. She underwent CT angiogram and there was no significant renal artery stenosis. Discussed with vascular surgery [facility] Medical History Abnormal EKG Acute occlusion of artery of lower extremity Strain of right gastrocnemius muscle Abscess of left groin Squamous cell cancer of skin of forearm Skin lesion of left arm FH: cholecystectomy Diabetes HTN (hypertension) Surgical History H/O colonoscopy S/P angiogram of extremity (10/04/21) History of cholecystectomy S/P shoulder surgery History of tubal ligation Family History Father No problems noted. 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 Exam Vital Signs: Last Vital Signs Pulse 93 07/31/24 15:09 BP 182/72 H 07/31/24 15:09 Pulse Ox 98 07/31/24 15:09 Oxygen Delivery Method Room Air 07/31/24 15:09 BMI result Body Mass Index 27.4 Const General: comfortable; No acute distress Orientation/consciousness: patient oriented x3 Eyes General: appearance normal, both eyes and all related structures Visual Esquivel: normal visual esquivel by confrontation Neck Neck: Yes supple and Yes no JVD Resp Effort & Inspection: normal respiratory effort and respiratory effort not decreased Auscultation: rhonchi Cardio Palpation: no palpable S3 and no palpable S4 Heart sounds: no rubs GI Inspection: Yes normal to inspection Palpation (GI): Soft to palpation Percussion: Yes normal to percussion Auscultation: normal bowel sounds General: Yes no CVA tenderness Back/Spine/Pelvis Back: no CVA tenderness Skin General skin exam: no petechiae and no purpura Neuro General: patient oriented x3 and no focal motor deficits Extrem General: No clubbing and No edema Results Reviewed Nephrology Results: Hgb 14.1 g/dl (12.0-16.0) 07/29/24 WBC 10.3 X10*3/uL (4.8-10.8) 07/29/24 Plt Count 203 X10*3/uL (160-400) 07/29/24 Sodium 135 mmol/L (135-145) 07/15/24 Potassium 4.1 mmol/L (3.3-5.1) 07/15/24 Chloride 99 mmol/L (96-108) 07/15/24 Carbon Dioxide 23 mmol/L (22-29) 07/15/24 BUN 17 mg/dL (9-16) H 07/29/24 Creatinine 0.84 mg/dL (0.5-1.4) 07/29/24 Calcium 10.1 mg/dL (8.4-10.2) 07/15/24 Assessment & Plan Assessment & Plan (1) Renal artery stenosis, [place], bilateral: Code(s): I70.1 - Atherosclerosis of renal artery Category: Medical (2) Uncontrolled hypertension: Code(s): I10 - Essential (primary) hypertension Category: Medical Plan Blanca is a 58-year-old woman with a history of significant vascular disease with resistant hypertension. Status post renal angiogram did not reveal any hemodynamically significant stenosis of the large vessels. She probably has generalized atherosclerotic disease Adrenal causes ruled out. serum aldosterone, plasma renin activity and catecholamines are NORMAL Needs to maximum medical management. Discontinue spironolactone Add aliskiren 150 mg daily Watch potassium and creatinine. Return to clinic in few weeks Orders: Orders Basic Metabolic Panel 2 Weeks I10 - Essential (primary) hypertension Medications: New aliskiren 150 mg PO DAILY 90 tabs 1RF Discontinued spironolactone dose increase Discontinued Reason: Doctor's Order 100 mg PO DAILY 90 tabs 1RF Coding Level of Care Code Est Pt Level 4 (45189) Diagnoses Renal artery stenosis, [place], bilateral I70.1 Uncontrolled hypertension I10
[2024-07-31 15:09] VITALS: BP 182/72; PULSE 93; O2SAT 98; BMI 27.4
== END 2024-07-31 15:35 | disposition home or self-care (01) ==
PROVIDERS: PCP Internal Medicine; Visit Provider Internal Medicine Hypertension Specialist
DX: I70.1 Atherosclerosis of renal artery (principal); I1A.0 Resistant hypertension
CPT/HCPCS: 99214

== ENCOUNTER → 2024-07-31 15:11 | Outpatient (BNVA) | payer OTHER, SELFPAY | PROVIDERS: PCP Internal Medicine; Visit Provider Internal Medicine Hypertension Specialist | DX: I70.1 Atherosclerosis of renal artery (principal); I10 Essential (primary) hypertension | CPT/HCPCS: 99212 ==

== ENCOUNTER 2024-08-13 13:49 | Outpatient (AMB) | payer OTHER, SELFPAY ==
--- NOTE | 2024-08-13 13:56 | A.OFFVIS_ITS ---
Intake Visit Reasons: 2 week follow up renal angio Intake Note: Patient presents for follow up renal angiogram . No complaints. Allergies cephalexin [From KEFLEX] Allergy (Severe, Verified 08/13/24 13:57) HIVES codeine [CODEINE] Allergy (Intermediate, Verified 08/13/24 13:57) NAUSEA & VOMITING, nausea and vomiting dulaglutide [Trulicity] Allergy (Intermediate, Verified 08/13/24 13:57) abdominal pain Cephalosporins Allergy (Intermediate, Uncoded 07/16/24 14:44) Hives seasonal Allergy (Intermediate, Uncoded 07/16/24 14:44) Itchy Eyes HPI HPI 2 week follow up renal angio: Details: Very pleasant 58-year-old female presents for follow-up status post renal artery angiogram. It was more diagnostic and turned out to be negative. Overall appears to be doing relatively well. Blood pressure seems to be well controlled. 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 She also follows us for peripheral vascular disease as well. Of note most recently she has undergone Mohs surgery and is following up regarding that at [facility]. [facility] Medical History Abnormal EKG Acute occlusion of artery of lower extremity Strain of right gastrocnemius muscle Abscess of left groin Squamous cell cancer of skin of forearm Skin lesion of left arm FH: cholecystectomy Diabetes HTN (hypertension) Surgical History H/O colonoscopy S/P angiogram of extremity (10/04/21) History of cholecystectomy S/P shoulder surgery History of tubal ligation Family History Father No problems noted. 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 Review of Systems Const All systems reviewed & are unremarkable except as noted in HPI and below Reports no additional complaints ENT Reports Normal hearing present Card Denies chest pain, Denies chest pain at rest, Denies chest pain with activity and Denies pedal edema Resp Denies cough GI Denies abdominal pain Musc Denies abnormal gait, Denies muscle cramps and Denies radiating pain into limb Skin/Breast Denies skin ulcer and Denies wounds Neuro Reports Normal hearing present and Denies abnormal gait Psych Reports no additional complaints Physical Exam Const General: cooperative, healthy appearing and comfortable Orientation/consciousness: oriented to person, oriented to place and oriented to time HEENT Head: Yes normal to inspection Neck Neck: Yes normal visual inspection Carotids: no bruits Chest Chest palpation & inspection: normal inspection of the chest Resp Effort & Inspection: normal respiratory effort and able to speak in complete sentences Auscultation: clear to auscultation bilaterally, no crackles, no rales, no rhonchi and no wheezes Cardio Rate: regular rate Rhythm: regular rhythm Heart sounds: S1 normal heart sound present and S2 normal heart sound present Bruits: no carotid bruits GI Inspection: Yes normal to inspection Skin Wounds: no wounds Hair: normal Neuro General: oriented to person, oriented to place and oriented to time Cranial nerves: Yes CN's II-XII intact bilaterally and Yes Normal hearing present Cognition (Neuro): normal cognition Motor exam (neuro): 5/5 motor strength present throughout Extrem Other: venous exam: No significant superficial varicosities or spider telangiectasias, minimal edema General: No clubbing, No cyanosis and No edema Psych Appearance: grossly normal Mental Status: mental status grossly normal Speech and movement: Normal speech and movement present Results Reviewed Results Reviewed: Noninvasive arterial dated 07/15/2024 demonstrates YUNG on the right of 0.9 and on the left of 0.66 Assessment & Plan Assessment & Plan (1) Renal artery stenosis, [place], bilateral: Code(s): I70.1 - Atherosclerosis of renal artery Category: Medical Plan: Minimal disease. No intervention was indicated. Continue medical management (2) PAD (peripheral artery disease): Comment: 10/04/2021 - atherectomy and stent of right SFA 10/17/2022 - right SFA plasty and stent Code(s): I73.9 - Peripheral vascular disease, unspecified Category: Medical Plan: Stable peripheral vascular disease. Most recent ultrasound on 07/15/2024 appear to be relatively stable. In light of everything that she has going on would recommend six-month surveillance follow-up. We will schedule that for her. Would like all her facial issues to resolve prior to any lower extremity inte rvention. Thank you for allowing us to assist in her care. Please note a longitudinal relationship has been created with the patient and we have been following and surveillance this chronic condition. Orders: Orders US arterial duplex LE BI 6 Months I73.9 - Peripheral vascular disease, uns pecified Coding Level of Care Code Est Pt Level 4 (48874) Complex EM visit Add On G2211 Diagnoses Renal artery stenosis, [place], bilateral I70.1 PAD (peripheral artery disease) I73.9
== END 2024-08-13 14:28 | disposition home or self-care (01) ==
PROVIDERS: PCP Internal Medicine; Visit Provider Surgery Vascular Surgery
DX: I70.1 Atherosclerosis of renal artery (principal); I73.9 Peripheral vascular disease, unspecified
CPT/HCPCS: 99214; G2211

== ENCOUNTER → 2024-08-13 13:49 | Outpatient (BNVA) | payer OTHER, SELFPAY | PROVIDERS: PCP Internal Medicine; Visit Provider Surgery Vascular Surgery | DX: I70.1 Atherosclerosis of renal artery (principal); I73.9 Peripheral vascular disease, unspecified | CPT/HCPCS: 99212 ==

== ENCOUNTER 2024-08-18 15:37 | Outpatient (AMB) | payer OTHER, SELFPAY ==
[2024-08-18 15:39] VITALS: BP 196/89; PULSE 79; BMI 27.4
--- NOTE | 2024-08-18 15:39 | A.OFFVIS_ITS ---
Vital Signs 08/18/24 15:39 Height 5 ft 2 in Weight 149 lb 14.629 oz BMI 27.4 BP 196/89 H Blood Pressure Location Lt brachial Position Sitting Pulse 79 Intake Visit Reasons: 4 weeks elevated alk phos Allergies cephalexin [From KEFLEX] Allergy (Severe, Verified 09/29/24 15:35) HIVES codeine [CODEINE] Allergy (Intermediate, Verified 09/29/24 15:35) NAUSEA & VOMITING, nausea and vomiting dulaglutide [Trulicity] Allergy (Intermediate, Verified 09/29/24 15:35) abdominal pain Cephalosporins Allergy (Intermediate, Uncoded 07/16/24 14:44) Hives seasonal Allergy (Intermediate, Uncoded 07/16/24 14:44) Itchy Eyes HPI HPI 4 weeks elevated alk phos: Details: Assessment & Plan (1) Elevated alkaline phosphatase level: Code(s): R74.8 - Abnormal levels of other serum enzymes Category: Medical Plan Pt is s/p cholecystectomy. She is asx but has a lot of health anxiety - mostly regarding her renal system and a skin cancer removed. I reassure her that we see elevated alk phos values frequently, and the normal range is not as well established and not as tight as other blood values. Will get additional labs. ROV 4 weeks. I give her her medical record # so she can sign up for patient portal Orders: Orders Alkaline Phosphatase Isoenzyme Today R74.8 - Abnormal levels of other serum enzymes Mitochondrial Antibody Today R74.8 - Abnormal levels of other serum enzymes Alkaline Phosphatase Bone Today R74.8 - Abnormal levels of other serum enzymes LABS: Laboratory Tests 07/15/24 16:18 Alk Phos Bone Specific 16.3 Alk Phos Iso-Intestine 19 Alk Phos Iso-Bone 21 L Alk Phos Iso-Liver 60 Anti-Mitochondrial Ab NEGATIVE TODAY'S VISIT She had BCC and extensive reconstruction involving cartilage from her ear. She has a new DX of DAYANA. We review the labs and there is absolutely no disease r/t her elevated alk phos. ROV prn PFSH Medical History Abnormal EKG Acute occlusion of artery of lower extremity Strain of right gastrocnemius muscle Abscess of left groin Squamous cell cancer of skin of forearm Skin lesion of left arm FH: cholecystectomy Diabetes HTN (hypertension) Surgical History History of nasal surgery (~08/2024) H/O colonoscopy S/P angiogram of extremity (10/04/21) History of cholecystectomy S/P shoulder surgery History of tubal ligation Family History Father No problems noted. 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 Review of Systems Const Denies fatigue, Denies fever(s), Denies night sweats, Denies poor appetite and Denies weight loss Eyes Details: glasses Reports requires corrective lenses ENT Reports Normal hearing present, Denies dental pain, Denies dysphagia, Denies hearing loss, Denies mouth pain, Denies odynophagia, Denies throat swelling, Denies tongue swelling and Reports other (Dentition adequate) Card Reports no additional complaints Resp Reports no additional complaints GI Details: Denies abdominal pain, Denies melena, Denies bloating, Denies hematochezia, Denies constipation, Denies GI cramping, Denies dysphagia, Denies excessive flatus, Denies early satiety, Denies heartburn, Denies diarrhea, Denies nausea, Denies odynophagia, Denies vomiting and Denies hematemesis Skin/Breast Denies pruritus, Denies lesions, Denies rash and Denies jaundice Neuro Reports Normal hearing present and Denies Abnormal speech present Endo Denies fatigue Aller/Immun Denies throat swelling and Denies tongue swelling Physical Exam Vital Signs: Last Vital Signs Pulse 79 08/18/24 15:39 BP 196/89 H 08/18/24 15:39 BMI result Body Mass Index 27.4 Const General: cooperative, no acute distress, well developed and well groomed Nutritional Appearance: average body habitus and well nourished Orientation/consciousness: oriented to person, oriented to place and oriented to time Limitations: No language barrier HEENT Other: left face bandage Head: Yes normocephalic and Yes atraumatic Teeth and gingiva: poor dentition Eyes General: appearance normal, both eyes and all related structures Pupils: Equal, round and reactive pupils present Neck Neck: Yes normal visual inspection and Yes no lymphadenopathy Thyroid: Thyroid normal Resp Effort & Inspection: normal respiratory effort and able to speak in complete sentences Auscultation: clear to auscultation bilaterally Cardio Rate: regular rate Rhythm: regular rhythm Heart sounds: Normal, physiologic split S2 sound present Peripheral pulses: radial pulses present and posterior tibial pulses present GI Inspection: No distended and No Abdominal panniculus present Palpation (GI): Soft to palpation, nontender, no guarding, not rigid and No hepatosplenomegaly present Percussion: Yes normal to percussion Auscultation: normal bowel sounds Rectal Exam - Female: deferred Skin General skin exam: no rashes or lesions noted, turgor normal, skin not dry, no jaundice, No spider nevi and no striae Rashes: no rashes Nails: normal Neuro General: oriented to person, oriented to place and oriented to time Cranial nerves: Yes Equal, round and reactive pupils present and Yes Normal hearing present Speech: No Abnormal speech present Extrem General: Yes normal to inspection, No clubbing, No cyanosis and No edema Psych Appearance: grossly normal and well kempt Mental Status: mental status grossly normal Speech and movement: Normal speech and movement present Affect: normal affect Attitude: cooperative Thought process: Normal thought process present and not confabulating Thought content: Normal thought content present Insight: Good insight present (Psych) Judgement: Good judgement present (Psych) Assessment & Plan Assessment & Plan (1) Elevated alkaline phosphatase level: Code(s): R74.8 - Abnormal levels of other serum enzymes Category: Medical Plan She had BCC and extensive reconstruction involving cartilage from her ear. She has a new DX of [place]. We review the labs and there is absolutely no disease r/t her elevated alk phos. ROV prn Coding Level of Care Code Est Pt Level 3 (73563) Diagnoses Elevated alkaline phosphatase level R74.8
--- NOTE | 2024-08-18 15:39 | MHC.OFFVIS ---
Vital Signs 08/18/24 15:39 Height 5 ft 2 in Weight 149 lb 14.629 oz BMI 27.4 BP 196/89 H Blood Pressure Location Lt brachial Position Sitting Pulse 79 Intake Visit Reasons: 4 weeks elevated alk phos Intake Note: Blanca return to office today for elevated alkaline phosphatase level follow up CC: Patient reports that she recently had a surgery on her face and still recovering. 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: No Accompanied by: Self / Same As Patient Allergies cephalexin [From KEFLEX] Allergy (Severe, Verified 08/18/24 15:48) HIVES codeine [CODEINE] Allergy (Intermediate, Verified 08/18/24 15:48) NAUSEA & VOMITING, nausea and vomiting dulaglutide [Trulicity] Allergy (Intermediate, Verified 08/18/24 15:48) abdominal pain Cephalosporins Allergy (Intermediate, Uncoded 07/16/24 14:44) Hives seasonal Allergy (Intermediate, Uncoded 07/16/24 14:44) Itchy Eyes PFSH Medical History Abnormal EKG Acute occlusion of artery of lower extremity Strain of right gastrocnemius muscle Abscess of left groin Squamous cell cancer of skin of forearm Skin lesion of left arm FH: cholecystectomy Diabetes HTN (hypertension) Surgical History H/O colonoscopy S/P angiogram of extremity (10/04/21) History of cholecystectomy S/P shoulder surgery History of tubal ligation Family History Father No problems noted. 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
== END 2024-08-18 16:05 | disposition home or self-care (01) ==
PROVIDERS: PCP Internal Medicine; Visit Provider Nurse Practitioner
DX: R74.8 Abnormal levels of other serum enzymes (principal)
CPT/HCPCS: 99213

== ENCOUNTER → 2024-08-18 15:37 | Outpatient (BNVA) | payer OTHER, SELFPAY | PROVIDERS: PCP Internal Medicine; Visit Provider Nurse Practitioner | DX: R74.8 Abnormal levels of other serum enzymes (principal) | CPT/HCPCS: 99212 ==

== ENCOUNTER 2024-08-31 12:01 | Outpatient (REF) | payer OTHER, SELFPAY ==
[2024-08-31 13:50] LABS: Anion Gap 17 (12-20); Blood Urea Nitrogen 15 mg/dL (9-16); Calcium 9.9 mg/dL (8.4-10.2); Carbon Dioxide 27 mmol/L (22-29); Chloride 101 mmol/L (96-108); Estimated Glomerular Filt Rate 54; Glucose Random 335 mg/dL (60-115); Potassium 4.3 mmol/L (3.3-5.1); Sodium 141 mmol/L (135-145)
== END 2024-08-31 12:02 | disposition home or self-care (01) ==
LOC: HO.LAB 12:01
PROVIDERS: PCP Internal Medicine; Visit Provider Internal Medicine Hypertension Specialist
DX: I10 Essential (primary) hypertension (principal)
CPT/HCPCS: 36415; 80048

== ENCOUNTER 2024-09-03 15:15 | Outpatient (AMB) | payer OTHER, SELFPAY ==
[2024-09-03 15:26] VITALS: BP 128/70; PULSE 76; O2SAT 98; BMI 27.6
--- NOTE | 2024-09-03 15:26 | HO.NEPHOV ---
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 Required: No Accompanied by: Self / Same As Patient Allergies cephalexin [From KEFLEX] Allergy (Severe, Verified 09/03/24 15:28) HIVES codeine [CODEINE] Allergy (Intermediate, Verified 09/03/24 15:28) NAUSEA & VOMITING, nausea and vomiting dulaglutide [Trulicity] Allergy (Intermediate, Verified 09/03/24 15:28) abdominal pain Cephalosporins Allergy (Intermediate, Uncoded 07/16/24 14:44) Hives seasonal Allergy (Intermediate, Uncoded 07/16/24 14:44) Itchy Eyes Medication List - Last Reconciled 09/03/24 by Stephan Howell MD aliskiren 150 mg PO DAILY amlodipine 10 mg PO DAILY aspirin 81 mg PO DAILY blood sugar diagnostic (FreeStyle Lite Strips) As directed doxycycline monohydrate 100 mg PO BID empagliflozin (Jardiance) 25 mg PO DAILY labetalol 300 mg PO BID 90 days losartan-hydrochlorothiazide 100-25 mg 1 tab PO DAILY metformin ER 500 mg PO BID rosuvastatin 20 mg PO BEDTIME HPI Comments Details: Blanca is a 58-year-old woman with a history of resistant hypertension. She has significant peripheral has disease and has had stents in the lower extremities. Recently blood pressure has been significantly elevated. She is on 4 antihypertensive medications spironolactone was added recently. She is here for further evaluation of resistant hypertension in to evaluate adrenal mass. 05/05/24 BP is still high Work up in progress 07/07/2024 Recently had a skin biopsy which showed basal cell carcinoma waiting for surgery in August. She underwent CT angiogram which showed about 50% renal artery stenosis proximally Complains of cramps 07/31/2024. She underwent CT angiogram and there was no significant renal artery stenosis. Discussed with vascular surgery 09/03 BP better controlled [facility] Medical History Abnormal EKG Acute occlusion of artery of lower extremity Strain of right gastrocnemius muscle Abscess of left groin Squamous cell cancer of skin of forearm Skin lesion of left arm FH: cholecystectomy Diabetes HTN (hypertension) Surgical History (Updated 09/03/24 @ 15:29 by ASHA Dolan) History of nasal surgery (~08/2024) H/O colonoscopy S/P angiogram of extremity (10/04/21) History of cholecystectomy S/P shoulder surgery History of tubal ligation Family History Father No problems noted. 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 Comfortable. Neck is supple. Mucosa moist. Lungs AE equal Heart S1-S2 heard no gallop. Abdomen soft. Extremities no edema. No involuntary movements. No myoclonus. Results Reviewed Nephrology Results: Hgb 14.1 g/dl (12.0-16.0) 07/29/24 WBC 10.3 X10*3/uL (4.8-10.8) 07/29/24 Plt Count 203 X10*3/uL (160-400) 07/29/24 Sodium 141 mmol/L (135-145) 08/31/24 Potassium 4.3 mmol/L (3.3-5.1) 08/31/24 Chloride 101 mmol/L (96-108) 08/31/24 Carbon Dioxide 27 mmol/L (22-29) 08/31/24 BUN 15 mg/dL (9-16) 08/31/24 Creatinine 1.05 mg/dL (0.5-1.4) 08/31/24 Calcium 9.9 mg/dL (8.4-10.2) 08/31/24 Assessment & Plan Assessment & Plan (1) Uncontrolled hypertension: Code(s): I10 - Essential (primary) hypertension Category: Medical Plan Blanca is a 58-year-old woman with a history of significant vascular disease with resistant hypertension. Status post renal angiogram did not reveal any hemodynamically significant stenosis of the large vessels. She probably has generalized atherosclerotic disease Adrenal causes ruled out. serum aldosterone, plasma renin activity and catecholamines are NORMAL Needs to maximum medical management. Discontinue spironolactone Keep aliskiren 150 mg daily Watch potassium and creatinine. Return to clinic in 4 weeks Reassess BP and see if we can increase Aliskerin and taper other meds ekta labetolol Orders: Orders Basic Metabolic Panel 4 Weeks I10 - Essential (primary) hypertension Coding Level of Care Code Est Pt Level 4 (93940) Diagnoses Uncontrolled hypertension I10
== END 2024-09-03 15:40 | disposition home or self-care (01) ==
PROVIDERS: PCP Internal Medicine; Visit Provider Internal Medicine Hypertension Specialist
DX: I1A.0 Resistant hypertension (principal)
CPT/HCPCS: 99214

== ENCOUNTER → 2024-09-03 15:15 | Outpatient (BNVA) | payer OTHER, SELFPAY | PROVIDERS: PCP Internal Medicine; Visit Provider Internal Medicine Hypertension Specialist | DX: I1A.0 Resistant hypertension (principal); F17.210 Nicotine dependence, cigarettes, uncomplicated; Z79.899 Other long term (current) drug therapy | CPT/HCPCS: 99212 ==

== ENCOUNTER 2024-09-29 15:29 | Outpatient (AMB) | payer OTHER, SELFPAY ==
--- NOTE | 2024-09-29 15:29 | HO.NEPHOV_ITS ---
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: No Accompanied by: Self / Same As Patient Allergies cephalexin [From KEFLEX] Allergy (Severe, Verified 09/29/24 15:35) HIVES codeine [CODEINE] Allergy (Intermediate, Verified 09/29/24 15:35) NAUSEA & VOMITING, nausea and vomiting dulaglutide [Trulicity] Allergy (Intermediate, Verified 09/29/24 15:35) abdominal pain Cephalosporins Allergy (Intermediate, Uncoded 07/16/24 14:44) Hives seasonal Allergy (Intermediate, Uncoded 07/16/24 14:44) Itchy Eyes Medication List - Last Reconciled 09/29/24 by Stephan Howell MD aliskiren 150 mg PO DAILY amlodipine 10 mg PO DAILY aspirin 81 mg PO DAILY blood sugar diagnostic (FreeStyle Lite Strips) As directed doxycycline monohydrate 100 mg PO BID empagliflozin (Jardiance) 25 mg PO DAILY labetalol 300 mg PO BID 90 days losartan-hydrochlorothiazide 100-25 mg 1 tab PO DAILY metformin ER 500 mg PO BID rosuvastatin 20 mg PO BEDTIME HPI Comments Details: Blanca is a 58-year-old woman with a history of resistant hypertension. She has significant peripheral has disease and has had stents in the lower extremities. Recently blood pressure has been significantly elevated. She is on 4 antihypertensive medications spironolactone was added recently. She is here for further evaluation of resistant hypertension in to evaluate adrenal mass. 05/05/24 BP is still high Work up in progress 07/07/2024 Recently had a skin biopsy which showed basal cell carcinoma waiting for surgery in August. She underwent CT angiogram which showed about 50% renal artery stenosis proximally Complains of cramps 07/31/2024. She underwent CT angiogram and there was no significant renal artery stenosis. Discussed with vascular surgery 09/03 BP better controlled COUNT INCLUDES [facility] Medical History Abnormal EKG Acute occlusion of artery of lower extremity Strain of right gastrocnemius muscle Abscess of left groin Squamous cell cancer of skin of forearm Skin lesion of left arm FH: cholecystectomy Diabetes HTN (hypertension) Surgical History History of nasal surgery (~08/2024) H/O colonoscopy S/P angiogram of extremity (10/04/21) History of cholecystectomy S/P shoulder surgery History of tubal ligation Family History Father No problems noted. 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4-10.2) 08/31/24 Assessment & Plan Assessment & Plan (1) Uncontrolled hypertension: Code(s): I10 - Essential (primary) hypertension Category: Medical Plan Blanca is a 58-year-old woman with a history of significant vascular disease with resistant hypertension. Status post renal angiogram did not reveal any hemodynamically significant stenosis of the large vessels. She probably has generalized atherosclerotic disease Adrenal causes ruled out. serum aldosterone, plasma renin activity and catecholamines are NORMAL Needs to maximum medical management. Keep aliskiren 150 mg daily Watch potassium and creatinine. Reassess BP and see if we can increase Aliskerin and taper other meds ekta labetolol Orders: Orders Basic Metabolic Panel 2 Weeks I10 - Essential (primary) hypertension Coding Level of Care Code Est Pt Level 4 (17396) Diagnoses Uncontrolled hypertension I10
[2024-09-29 15:30] VITALS: BP 148/64; PULSE 93; O2SAT 98; BMI 27.6
[2024-09-29 15:41] VITALS: BP 134/60
== END 2024-09-29 15:44 | disposition home or self-care (01) ==
PROVIDERS: PCP Internal Medicine; Visit Provider Internal Medicine Hypertension Specialist
DX: I10 Essential (primary) hypertension (principal)
CPT/HCPCS: 99214

== ENCOUNTER → 2024-09-29 15:29 | Outpatient (BNVA) | payer OTHER, SELFPAY | PROVIDERS: PCP Internal Medicine; Visit Provider Internal Medicine Hypertension Specialist | DX: I10 Essential (primary) hypertension (principal) | CPT/HCPCS: 99212 ==

== ENCOUNTER 2025-08-09 09:38 | Emergency (ER) | payer MEDICAID, SELFPAY ==
--- NOTE | ~2025-08-09 | US_ITS ---
EXAMINATION: US LOWER EXTREMITY VEINS LIMITED LEFT HISTORY: weakness of L leg, HX of DVT COMPARISON: There are no prior studies available for comparison. TECHNIQUE: Duplex and color Doppler sonographic examination of the deep venous system of the left lower extremity was performed. FINDINGS: The common femoral, superficial femoral, and popliteal veins are patent demonstrating normal compressibility, spontaneous flow, and augmentation. There is a normal color and spectral Doppler waveform appearance of the visualized deep venous system above the knee. The posterior tibial and peroneal veins are patent. US/US venous duplex LE LT IMPRESSION: No evidence of acute DVT in the left lower extremity. Electronically signed by: Bob Haile MD 08/09/2025 11:56 AM EDT
--- NOTE | ~2025-08-09 | XR_ITS ---
EXAMINATION: XR LUMBOSACRAL SPINE CLINICAL INFORMATION: lumbar back pain COMPARISON: Correlated to CT abdomen dated June 23, 2024. TECHNIQUE: AP and lateral views. FINDINGS: Mild multilevel endplate sclerosis and small marginal osteophyte formation at the levels of the axial skeleton. 2 mm anterolisthesis at L4-5. Vascular calcifications, aorta, iliac and likely the splenic arteries. Sclerosis and the sacroiliac joints bilaterally. Sclerosis along the articular surface of the coxofemoral joints not fully included in the wigto-fl-glia. Vascular clips right upper quadrant abdomen likely prior cystectomy. XR/XR lumbar spine 2-3V IMPRESSION: Multilevel thoracolumbar spondylosis resulting in grade 1 anterolisthesis L4-5. Atherosclerosis disease. Electronically signed by: Luis Enrique Taylor MD 08/09/2025 11:06 AM EDT
[2025-08-09 09:47] VITALS: BP 224/98; PULSE 102; RESP 16; TEMP 37; O2SAT 98; BMI 27.8
--- NOTE | 2025-08-09 10:30 | ED.BACK ---
HPI - Back Pain/Injury General Chief Complaint: Back Pain/Injury Stated Complaint: back pain , left leg pain Time Seen by Provider: 08/09/25 09:57 Source: patient, RN notes reviewed and old records reviewed Mode of arrival: ambulatory Limitations: no limitations History of Present Illness ED Provider: JONN Tavarez HPI Narrative: 59-year-old female with medical history of HLD, HTN, PAD, presents to ED due to 3 days of R sided lumbar back pain . Patient states she noticed R sided lumbar back pain in the afternoon after working. 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 Patient states she has a history of sciatica with this pain feeling similar. Patient has been using heating pad, gentle stretching and tylenol/advil without effect. Additionally, patient states her L leg is feeling weak, like it wants to give out while she is walking which started yesterday. Denies fall/trauma or injury. Denies history of IVDU, fevers, chills, abd pain, nausea, vomiting. Related Data Home Medications ?Medication ?Instructions ?Recorded ?Confirmed blood sugar diagnostic (Freeyle #10 ea 01/16/22 09/29/24 Lite Strips) metformin 500 mg tablet,extended 500 mg PO BID 02/11/24 09/29/24 release 24 hr rosuvastatin 20 mg tablet 20 mg PO BEDTIME 07/31/24 09/29/24 doxycycline monohydrate 100 mg 100 mg PO BID 09/03/24 09/29/24 capsule empagliflozin 25 mg tablet 25 mg PO DAILY 09/03/24 09/29/24 (Jardiance) Previous Rx's ?Medication ?Instructions ?Recorded aspirin 81 mg tablet,delayed 81 mg PO DAILY #90 tabs 10/29/22 release amlodipine 10 mg tablet 10 mg PO DAILY #90 tabs 06/23/24 labetalol 300 mg tablet 300 mg PO BID 90 days #180 tabs 06/23/24 aliskiren 150 mg tablet 150 mg PO DAILY #90 tabs 07/31/24 losartan 100 1 tab PO DAILY #90 tabs 11/02/24 mg-hydrochlorothiazide 25 mg tablet cyclobenzaprine 5 mg tablet 5 mg PO TID PRN muscle spasm #15 08/09/25 tabs Allergies Allergy/AdvReac Type Severity Reaction Status Date / Time cephalexin (From KEFLEX) Allergy Severe HIVES Verified 08/09/25 09:51 codeine (CODEINE) Allergy Intermediate NAUSEA & Verified 08/09/25 09:51 VOMITING, nausea and vomiting dulaglutide (Trulicity) Allergy Intermediate abdominal Verified 08/09/25 09:51 pain Cephalosporins Allergy Intermediate Hives Uncoded 07/16/24 14:44 seasonal Allergy Intermediate Itchy Eyes Uncoded 07/16/24 14:44 Review of Systems Review of Systems: CONST: Negative for fever, body aches and chills. HENT: Negative for neck pain/stiffness, headache, congestion, sore throat, swelling. EYES: Negative for discharge/pain or vision changes. RESP: Negative for cough/hemoptysis and shortness of breath. CV: Negative chest pain, difficulty breathing, palpitations. ABD: Negative pain, nausea, vomiting. : Negative increase frequency, dysuria, blood in urine or stool. MUSC: Negative for muscle aches, edema. POS R sided lumbar back pain SKIN: Negative rash, lesions/sores. NEURO: Negative headache, dizziness. POS L leg weakness, instability of knee Yes all other systems are reviewed and are negative [facility] Past Medical History Attestation statement: The following information was validated with the patient. Source: old records reviewed and nursing notes reviewed Medical History Abnormal EKG Acute occlusion of artery of lower extremity Strain of right gastrocnemius muscle Abscess of left groin Squamous cell cancer of skin of forearm Skin lesion of left arm FH: cholecystectomy Diabetes HTN (hypertension) Surgical History History of nasal surgery (~08/2024) H/O colonoscopy S/P angiogram of extremity (10/04/21) History of cholecystectomy S/P shoulder surgery History of tubal ligation Family History Family History Father No problems noted. 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 HEENT: ?NC, AT. MMM. EOMI, clear conjunctiva, oropharynx clear. NECK: ?Supple without lymphadenopathy.? No stiffness or restricted ROM. HEART:? Normal rate and regular rhythm, normal S1/S2, no m/r/g LUNGS:? CTAB, moving air well. No crackles or wheezes are heard. ABDOMEN: ?Soft, nontender, nondistended BACK: No CVAT, no obvious deformity. TTP of R sided lumbar paraspinal muscles and over R SI joint, no midline spinal tenderness, no bony stepoffs palpated, no bony abnormalities observed, ROM intact with extension, flexion and lateral bending, positive R side straight leg test. EXTREMITIES: ?Without cyanosis, clubbing or edema. No calf tenderness, desean's sign negative, Strength 4/5 of RLE, strength 5/5 LLE. NEUROLOGICAL: ?Grossly nonfocal. Alert and oriented, moving all 4 extremities. Observed to ambulate with slow, steady gait, able to heel and toe walk. Skin: ?Warm and dry without any rash. Medications Administered Discontinued Medications Generic Name Dose Route Start Last Admin Trade Name Freq PRN Reason Stop Dose Admin Cyclobenzaprine HCl 5 mg 08/09/25 10:31 08/09/25 10:48 Cyclobenzaprine Hcl 5 Mg Tablet PO 08/09/25 10:32 5 mg ONCE ONE Administration Ketorolac Tromethamine 30 mg 08/09/25 10:31 08/09/25 10:49 Ketorolac Tromethamine 30 Mg/Ml Vial IM 08/09/25 10:32 30 mg ONCE ONE Administration Medical Decision Making Medical Decision Making [facility] Narrative: 59-year-old female with medical history of HLD, HTN, PAD, presents to ED due to 3 days of R sided lumbar back pain that she noticed 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 Patient noticed weakness like the leg is going to give out of the L leg yesterday. Patient has been using heating pad, gentle stretching, and tylenol/Advil with minimal relief. On physical exam TTP of R sided lumbar paraspinal muscles and over R SI joint, no midline spinal tenderness, no bony stepoffs palpated, no bony abnormalities observed, ROM intact with extension, flexion and lateral bending, positive R side straight leg test. No calf tenderness, desean's sign negative, Strength 4/5 of RLE, strength 5/5 LLE. No neurological deficits noted, patient able to ambulate without ataxic gait, able to heel and toe walk. XR lumbar spine negative for fracture or dislocation however does reveal multilevel thoracolumbar spondylosis resulting in grade 1 anterolisthesis of L4/5. U/S venous duplex of the left lower extremity negative for DVT. Symptoms most consistent with sciatic pain patient has history of, feels similar. No red flag symptoms, patient is afebrile, no saddle paresthesias, bowel/bladder incontinence, no history of IVDU, on physical exam spinal ROM is intact, no neurological deficits noted, patient able to ambulate without ataxic gait, patient able to heel and toe walk. Patient is diabetic with uncontrolled glucose, not a good candidate for sterioids. Patient will be discharged home with flexeril and counsled patient on alternating tylenol and motrin. I encouraged patient to follow up with her primary care doctor to explore management and possible PT referral for anterolisthesis. Patient is in agreement with the plan. Differential Diagnosis Differential Diagnoses: The differential diagnosis associated with the presentation includes Cauda equina SEA lumbar strain lumbar radiculopathy Admission/Observation Consideration of admission/observation: Escalation of care including admission/observation considered Lab Data [facility] Lab Attestation statement: I reviewed the patient's lab results. Independent Interpretation I performed an independent interpretation of an: Plain X-Ray Interpretation: I independently interpreted the XR lumbar spine which was negative for fracture or dislocation, however does reveal anterolisthesis of L4/5 I independently interpreted the U/S venous duplex of LLE which was negative for DVT Radiology Impression Discussion of test interpretation with radiology: I have reviewed the radiologist's reading. Radiologist Impression: XR lumbar spine FINDINGS: Mild multilevel endplate sclerosis and small marginal osteophyte formation at the levels of the axial skeleton. 2 mm anterolisthesis at L4-5. Vascular calcifications, aorta, iliac and likely the splenic arteries. Sclerosis and the sacroiliac joints bilaterally. Sclerosis along the articular surface of the coxofemoral joints not fully included in the [id number]. Vascular clips right upper quadrant abdomen likely prior cystectomy. XR/XR lumbar spine 2-3V IMPRESSION: Multilevel thoracolumbar spondylosis resulting in grade 1 anterolisthesis L4-5. Atherosclerosis disease. Electronically signed by: Luis Enrique Taylor MD 08/09/2025 11:06 AM EDT Dictated By: Luis Enrique Pineda MD Signed By: <Electronically signed by Luis Enrique Maguire MD in OV> 08/09/25 1106 U/S venous duplex LLE FINDINGS: The common femoral, superficial femoral, and popliteal veins are patent demonstrating normal compressibility, spontaneous flow, and augmentation. There is a normal color and spectral Doppler waveform appearance of the visualized deep venous system above the knee. The posterior tibial and peroneal veins are patent. US/US venous duplex LE LT IMPRESSION: No evidence of acute DVT in the left lower extremity. Electronically signed by: Bob Haile MD 08/09/2025 11:56 AM EDT Dictated By: Bob Haile MD Signed By: <Electronically signed by Bob Haile MD in OV> 08/09/25 1156 External Record Review External record reviewed: Inpatient record, Office record and Outpatient record Prescription Management I considered prescription management with: Other (Prednisone) I considered course of prednisone, however patient is diabetic with uncontrolled glucose Chronic Conditions Patient?s care impacted by: Diabetes, Hypertension and Other (HLD, PAD) Discharge Plan Discharge Clinical Impression: Sciatica Patient Disposition: Home, Self-Care Instructions: Back Pain (ED), Lower Back Exercises (ED) Additional Instructions: You were evaluated in the ED today due to right-sided back pain, and left-sided leg weakness. The x-ray of your lumbar spine was negative for fracture or dislocation however does show anterolithesis of the spine meaning some of the dics are slipping forward under the bone beneath it most likely causing your pain. The ultrasound of your left leg was negative for clots. You are being prescribed a 5 day course of Flexeril. Additionally you can manage his pain by alternating 500 mg of Tylenol and 400 mg of ibuprofen every 6 hours. Use heat for pain relief. Additionally please follow up with your primary care doctor for these findings as you may need PT and/or referral to spine doctor for further management. Please return to the emergency department if you experience fevers over 100.4?, numbness and tingling of your inner thighs or genital area, bowel or bladder incontinence, worsening back pain, inability to bear weight, worsening weakness of your left leg, or any new/worsening/concerning symptoms Prescriptions: New cyclobenzaprine 5 mg tablet 5 mg PO TID PRN (Reason: muscle spasm) Qty: 15 0RF No Action aspirin 81 mg tablet,delayed release (DR/EC) 81 mg PO DAILY Qty: 90 0RF Rx Instructions: OVERDUE for APPT. Please call to schedule for 2022 so we can continue refilling Rx's; [phone]. labetalol 300 mg tablet 300 mg PO BID 90 Days Qty: 180 3RF amlodipine 10 mg tablet 10 mg PO DAILY Qty: 90 3RF losartan-hydrochlorothiazide 100-25 mg tablet 1 tab PO DAILY Qty: 90 0RF metformin 500 mg tablet extended release 24 hr 500 mg PO BID (DME) FreeStyle Lite Strips Strip See Rx Instructions Not Applicable QID Qty: 10 Rx Instructions: As directed rosuvastatin 20 mg tablet 20 mg PO BEDTIME aliskiren 150 mg tablet 150 mg PO DAILY Qty: 90 1RF doxycycline monohydrate 100 mg capsule 100 mg PO BID Jardiance 25 mg tablet 25 mg PO DAILY Stand Alone Forms: Work/School Release Interventions: ED Discharge Assessment Last Done: 08/09/25 12:59 Print Language: Liberian
--- OUTSIDE RECORDS SUMMARY | 2025-08-09 11:00 | XMS_ITS | Encounter Summary ---
Author Organization [facility] Address [address] [place] [address] [address] [place] [address] Care Team Providers Care Pharmaceutical Physician Name Role Phone Kate Bailon MD Primary Care Provider [phone] Reason for Referral * Consultation (Routine) - Closed Specialty Diagnoses / Procedures Referred By Contac t Referred To Contact Pharmacy Diagnoses Type 2 diabetes mellitus with hyperglycemia, without long-term current use of insulin ([facility]) Kate Bailon MD [address] [place] [address] Phone: tel: fax: Referral ID Status Reason Start Date Expiration Date V isits Requested Visits Authorized [id number] Closed Consult and Treat 12/09/2024 12/09/2025 6 6 Encounter Details Date Type Department Care Team ([facility] st Contact Info) Description 12/09/2024 Orders Only [facility] [address] [place] [address] Kate Bailon MD [address] [place], [place] [phone] Type 2 diabetes mellitus with hyperglycemia, without long-term current use of insulin (CMS/HCC) (Primary Dx) Social History Tobacco Use Types Packs/Day Years Used Date Smoking Tobacco: Every Day Cigarettes 0.5 45 Smokeless Tobacco: Never Alcohol Use Standard Drinks/Week Comments Never 0 (1 standard drink = 0.6 oz pur e alcohol) Comments Unknown Sex and Gender Information Value Date Recorded Sex Assigned at Female 09/10/2022 10:17 AM EDT Legal Sex Female 10:17 AM EDT Gender Identity Female 09/10/2022 10:17 AM EDT Sexual Orientation Straight 07/21/2024 3: 34 PM EDT documented as of this encounter Plan of Treatment Scheduled Referrals Name Type Priority Associated Diagnoses Orde r Schedule Referral to Pharmacy CDTM Outpatient Referral Routine Type 2 diabetes mellitus with hyperglycemia, without long-term current use of insulin ([facility]/HCC) Ordered: 12/09/2024 documented as of this encounter Visit Diagnoses Diagnosis Type 2 diabetes mellitus with hyperglycemia, without long-term current use of insulin ([facility])- Primary documented in this encounter Care Teams Pharmaceutical Physician Relationship Specialty Start Date End Date Kate Bailon MD [address] [place] [id number] PCP - General Internal Medicine 09/03/19 documented as of this encounter
--- OUTSIDE RECORDS SUMMARY | 2025-08-09 11:00 | XMS_ITS | Encounter Summary ---
Author Organization [facility] Address [address] [place] [address] 7 [place] [address] Care Team Providers Care Pediatric Immunologist Name Role Phone Kate Bailon MD Primary Care Provider [phone]- [phone] Reason for Referral * Consultation (Routine) - Closed Specialty Diagnoses / Procedures Referred By Contac t Referred To Contact Dermatology Diagnoses Neoplasm of uncertain behavior Kate Bailon MD [address] [place] [address] Phone: tel: fax: [facility] [address] [place] [address] [address] [place], [place] Phone: tel: fax: Referral ID Status Reason Start Date Expiration Date V isits Requested Visits Authorized [id number] Closed Specialty Services Required 06/08/2024 06/08/2025 1 1 Encounter Details Date Type Department Care Team (Late st Contact Info) Description 06/08/2024 Orders Only [facility] [address] [place], [place] [phone] Kate Bailon MD [address] [place], [place] [phone] Neoplasm of uncertain behavior (Primary Dx) Social History Tobacco Use Types [...] Scheduled Referrals Name Type Priority Associated Diagnoses Order Schedule Referral to Dermatology Outpatient Referral Routine Neoplasm of uncertain behavior Expected: 06/08/2024 (Approximate), Expires: 06/08/2025 documented as of this encounter Visit Diagnoses Diagnosis Neoplasm of uncertain behavior- Primary Neoplasm of uncertain behavior, site unspecified documented in this encounter Care Teams Pediatric Immunologist Relationship Specialty Start Date End Date Kate Bailon MD [address] [place] [id number] PCP - General Internal Medicine 09/03/19 documented as of this encounter
--- OUTSIDE RECORDS SUMMARY | 2025-08-09 11:00 | XMS_ITS | Encounter Summary ---
Author Organization [facility] Address [address] [place] [address] 7 [place] [address] Care Team Providers Care Collector Name Role Phone Kate Bailon MD Primary Care Provider [phone]- [phone] Reason for Referral * Consultation (Routine) - Closed Specialty Diagnoses / Procedures Referred By Contac t Referred To Contact Gastroenterology Diagnoses Elevated alkaline phosphatase level Kate Bailon MD [address] [place] [address] Phone: tel: fax: Toshia Winkler MD [address] [place] [id number] Phone: tel: fax: Referral ID Status Reason Start Date Expiration Date V isits Requested Visits Authorized [id number] Closed Specialty Services Required 04/30/2024 04/30/2025 1 1 Encounter Details Date Type Department Care Team (Late st Contact Info) Description 04/30/2024 Orders Only [facility]S [address] [place], [place] [phone] Kate Bailon MD [address] [place], [place] [phone] Elevated alkaline phosphatase level (Primary Dx) Social History Tobacco Use Types [...] Priority Associated Diagnoses Order Schedule Referral to Gastroenterology Outpatient Referral Routine Elevated alkaline phosphatase level Expected: 04/30/2024 (Approximate), Expires: 04/30/2025 documented as of this encounter Visit Diagnoses Diagnosis Elevated alkaline phosphatase level- Primary documented in this encounter Care Teams Collector Relationship Specialty Start Date End Date Kate Bailon MD [address] [place] [id number] PCP - General Internal Medicine 09/03/19 documented as of this encounter
--- OUTSIDE RECORDS SUMMARY | 2025-08-09 11:00 | XMS_ITS | Clinical Summary ---
Author Organization [facility] Address [address] [place] [address] Care Team Providers Care Shell Plater Name Role Phone Kate Bailon Primary Care Provider Allergies Active Allergy Reactions Criticality Noted Date Comments Cephalexin Hives 02/11/2024 Codeine Nausea 02/11/2024 Dulaglutide Abdominal Pain 08/11/2024 Medications metFORMIN ER (GLUCOPHAGE XR) 500 mg tablet Take 500 mg by mouth 2 times daily. 4 Active rosuvastatin (CRESTOR) 20 mg tablet Take 20 mg by mouth daily. 4 Active blood glucose diagnostic test strip Use to test blood sugar 2 times daily 4 Active aliskiren (TEKTURNA) 150 mg tablet SMARTSI Tablet(s) By Mouth Daily 4 Active Alcohol Prep Pads pads, medicated SMARTSIG:Pledge t(s) Topical Twice Daily 4 Active amLODIPine (NORVASC) 10 mg tablet SMARTSI Tablet(s) By Mouth Daily 4 Active aspirin (ASPIR-81 ORAL) Acti ve blood pressure test kit-large kit Check blood pressure on arm as directed 4 Active labetaloL (NORMODYNE) 300 mg tablet SMARTSI Tablet(s) By Mouth Twice Daily 4 Active Easy Touch Twist Lancets lancet 33 gauge TEST BLOOD SUGAR TWICE DAILY 4 Active losartan-hydroc hlorothiazide (HYZAAR) 100-25 mg per tablet Active traMADoL (ULTRAM) 50 mg tablet Take 1 tablet (50 mg total) by mouth every 6 hours as needed for pain. Caution this medication can cause sedation. Max Daily Amount: 200 mg 8 tablet 4 Active empagliflozin (JARDIANCE) 25 mg tablet Take 25 mg by mouth daily. 4 08/13/20 25 Active Hospital, Clinic, or Other Facility Administered Medication Ordered Dose Route Frequency Start Date End Date Status mupirocin (BACTROBAN) 2% ointment topical Once 08/21/2024 Active Active Problems No known active problems Social History Tobacco Use Types Packs/Day Years Used Date Smoking Tobacco: Every Day Cigarettes 0.5 6.7 Started: 2018 Tobacco Cessation:Ready to Q uit: Not Asked; Counseling Given: Not Answered Comments Unknown Sex and Gender Information Value Date Recorded Sex Assigned at Female 08/04/2024 7:30 PM EDT Legal Sex Female 10:50 AM EDT Gender Identity Female 08/04/2024 7:30 PM EDT Sexual Orientation Straight 08/04/2024 7: 30 PM EDT Last Filed Vital Signs Vital Sign Reading Time Taken Comments Blood Pressure 167/88 08/11/2024 3:53 PM EDT Pulse 78 08/11/2024 3:53 PM EDT Temperature - - Respiratory Rate - - Oxygen Saturation - - Inhaled Oxygen Concentration - - Weight - - Height - - Body Mass Index - - Plan of Treatment Health Maintenance Due Date Last Done Comments Cervical Cancer Screening 1964 Cologuard 1964 Colon Cancer Screening 1964 Colonoscopy 1964 FOBT / Fit Test 1964 HPV and Pap Smear 1964 Hepatitis C Screening 1964 Pap Smear 1964 Sigmoidoscopy 1964 Pneumococcal Vaccine: 50+ Years (1 of 2 - PCV) 1983 DTaP,Tdap,and Td Vaccines (1 - Tdap) 1986 Mammogram 2004 Zoster Vaccines (1 of 2) 2014 Alcohol/Substance Use Screening 2024 Depression Screening and Follow-Up 2024 Social Drivers of Health Annual Screening 2024 COVID-19 Vaccine ( - 2023-2 5 season) 2025 Influenza Vaccine (#1) 2025 RSV Vaccine (60+ years old a nd patients) (1 - 1-dose 75+ series) 2039 HIV Screening Completed 03/30/2024, 03/30/2024 Hepatitis B Vaccines Aged Out No long er eligible based on patient's age to complete this topic Care Teams Shell Plater Relationship Specialty Start Date End Date Kate Bailon [address] [place] [id number] PCP - General Internal Medicine 06/10/24
--- OUTSIDE RECORDS SUMMARY | 2025-08-09 11:00 | XMS_ITS | Encounter Summary ---
Author Organization [facility] Address [address] [place] [address] Care Team Providers Care Reserve Operator Name Role Phone Kate Bailon MD Primary Care Provider [phone]- [phone] Encounter Details Date Type Department Care Team ([facility] Contact Info) Description 12/13/2023 Telephone [facility] [address] [place], [place] [phone] Kate Bailon MD [address] [place] [address] Social History Tobacco Use Types Packs/Day Years Used Date Smoking Tobacco: Never Assessed Comments Unknown Sex and Gender Information Value Date Recorded Sex Assigned at Female 09/10/2022 10:17 AM EDT Legal Sex Female 10:17 AM EDT Gender Identity Female 09/10/2022 10:17 AM EDT Sexual Orientation Straight 07/21/2024 3: 34 PM EDT documented as of this encounter Plan of Treatment Not on file documented as of this encounter Visit Diagnoses Not on filedocumented in this encounter Care Teams Reserve Operator Relationship Specialty Start Date End Date Kate Bailon MD [address] [place] [address] PCP - General Internal Medicine 09/03/19 documented as of this encounter
--- OUTSIDE RECORDS SUMMARY | 2025-08-09 11:00 | XMS_ITS | Encounter Summary ---
Author Organization [employer] Address [address] [place] [address] 7 [place] [address] Care Team Providers Care Pallet Stone Positioner Name Role Phone Kate Bailon MD Primary Care Provider [phone] Encounter Details Date Type Department Care Team ([facility] st Contact Info) Description 06/12/2024 Orders Only [facility] [address] [place], [place] [phone] Provider, MD Abner Social History Tobacco Use Types Packs/Day Years [...] on file documented as of this encounter Procedures Procedure Name Priority Date/Time Associated Diagnosis Comments DERMATOPATHOLOGY REPORT Routine 06/02/20 11:31 AM EDT documented in this encounter Results * Dermatopathology Report (06/02/2024 11:31 AM EDT) us Historical Provider LAB BLOOD ORDERABLES Luz l Result documented in this encounter Visit Diagnoses Not on filedocumented in this encounter Care Teams Pallet Stone Positioner Relationship Specialty Start Date End Date Kate Bailon MD [address] [place] [phone] PCP - General Internal Medicine 09/03/19 documented as of this encounter
--- OUTSIDE RECORDS SUMMARY | 2025-08-09 11:00 | XMS_ITS | Clinical Summary ---
Author Organization [email or web address] Address [address] [place] [address] 7[address] [place] [address] Care Team Providers Care Event Set Up Specialist Name Role Phone Kate Bailon MD Primary Care Provider [phone] Allergies Active Allergy Reactions Criticality Noted Date Comments Codeine Nausea 02/11/2024 Cephalexin Hives 02/11/2024 Medications spironolactone (Aldactone) 100 MG tablet Take 100 mg by mouth in the morning. Active cholecalciferol (Vitamin D-3) 50 MCG (1999) capsule Take 2,000 Units by mouth in the morning. 1 Active apixaban (Eliquis) 5 MG tablet Take 5 mg by mouth every 12 (twelve) hours. Active amLODIPine (Norvasc) 5 MG tabletIndications: Primary hypertension Take 1 tablet (5 mg) by mouth in the morning. 30 tablet 11 4 Active metFORMIN XR (Glucophage-XR) 500 MG 24 hr tabletIndications: Uncontrolled type 2 diabetes mellitus with hyperglycemia (HCC) Take 1 tablet (500 mg) by mouth 2 times daily. Do not crush, chew, or split. 180 tablet 1 4 Active lisinopril 20 MG tabletIndications: Primary hypertension TAKE 1 TABLET BY MOUTH EVERY DAY IN THE MORNING 90 tablet 1 4 Active Blood Pressure kitIndications:Dorothy christopher hypertension 1 kit Once per day. 1 kit 4 Active Lancets miscIndications:Ty pe 2 diabetes mellitus with hyperglycemia, with long-term current use of insulin (HCC) Use to test blood sugar 2 times daily 100 each 4 Active Alcohol Swabs 70 % padsIndications:Ty pe 2 diabetes mellitus with hyperglycemia, with long-term current use of insulin (HCC) Use to test blood sugar 2 times daily 100 each 4 Active Blood Glucose Monitoring Suppl (FreeStyle [place] Lite) w/Device kitIndications:Typ e 2 diabetes mellitus with hyperglycemia, with long-term current use of insulin (HCC) Use to test blood sugar 2 times daily 1 kit 4 Active rosuvastatin (Crestor) 20 MG tabletIndications: Hypercholesterolem ia Take 1 tablet (20 mg) by mouth Once per day. 30 tablet 11 4 Active empagliflozin (Jardiance) 25 MGIndications:Type 2 diabetes mellitus with hyperglycemia, without long-term current use of insulin ([facility]) Take 1 tablet (25 mg) by mouth Once per day. 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 Hypertensive disorder 09/25/2021 Type 2 diabetes mellitus 09/25/2021 Encounters Date Type Department Care Team Description 07/29/2025 Telephone [facility] MED [facility] [address] [place] [address] Kate Bailon MD Appointment Request from Last 3 Months Social History Tobacco Use Types Packs/Day Years Used Date Smoking Tobacco: Every Day Cigarettes 0.5 45 Smokeless Tobacco: Never Tobacco Cessation:Ready to Q uit: No; Counseling Given: Yes Alcohol Use Standard Drinks/Week Comments Never 0 (1 standard drink = 0.6 oz pur e alcohol) Comments Unknown Sex and Gender Information Value Date Recorded Sex Assigned at Female 09/10/2022 10:17 AM EDT Legal Sex Female 10:17 AM EDT Gender Identity Female 09/10/2022 10:17 AM EDT Sexual Orientation Straight 07/21/2024 3: 34 PM EDT Last Filed Vital Signs Vital Sign Reading Time Taken Comments Blood Pressure 192/93 07/20/2024 4:03 PM EDT Pulse 89 07/20/2024 4:03 PM EDT Temperature 36.3 C (97.3 F) 07/20/2024 4:03 PM EDT Respiratory Rate 20 07/20/2024 4:03 PM EDT Oxygen Saturation 98% 07/20/2024 4:03 PM EDT Inhaled Oxygen Concentration - - Weight 67.1 kg (148 lb) 07/20/2024 4:03 PM EDT Height 158 cm (5' 2.2 ) 07/20/2024 4:03 PM EDT Body Mass Index 26.9 07/20/2024 4:03 PM EDT Plan of Treatment Health Maintenance Due Date Last Done Comments CT Colonography 1964 Colonoscopy 1964 Colorectal Cancer Screening 1964 Depression Screening 1964 FIT DNA/Cologuard 1964 FIT 1964 FOBT 1964 SDOH Screening 1964 Sigmoidoscopy 1964 Disability Screening 1964 Diabetes: Foot Exam 1974 Eye Exam 1974 Alcohol/Substance Use Screening 1976 DTaP/Tdap/Td Vaccines (1 - Tdap) 1983 Diabetes: Urine Protein Screening 1983 Pneumococcal Vaccine: 50+ Ye ars (1 of 2 - PCV) 1983 Pap Smear 1985 Cervical Cancer Screening 1994 HPV/Cotest 1994 Mammogram 2004 Zoster Vaccines (1 of 2) 2014 Diabetes: Hemoglobin A1C 10/19/2024 07/20/2024 RSV Patients and Pa tients Aged 60 years or older (1 - Risk 60-74 years 1-dose series) 2024 Lipid Panel 03/30/2025 03/30/2024 COVID-19 Vaccine (1 - 2023-2 5 season) 2025 Influenza Vaccine (#1) 2025 Tobacco Screening 07/20/2025 07/20/2024 HIV Screening Completed 03/30/2024 Hepatitis C Screening Completed 03/30/2024 HIB Vaccines Aged Out No longer eligi ble based on patient's age to complete this topic HPV Vaccines Aged Out No longer eligi ble based on patient's age to complete this topic Hepatitis A Vaccines Aged Out No long er eligible based on patient's age to complete this topic Hepatitis B Vaccines Aged Out No long er eligible based on patient's age to complete this topic IPV Vaccines Aged Out No longer eligi ble based on patient's age to complete this topic Meningococcal B Vaccine Aged Out No l onger eligible based on patient's age to complete this topic Meningococcal Vaccine Aged Out No madan harley eligible based on patient's age to complete this topic RSV under 20 months Aged Out No longe r eligible based on patient's age to complete this topic Rotavirus Vaccines Aged Out No longer eligible based on patient's age to complete this topic Procedures Procedure Name Priority Date/Time Associated Diagnosis Comments POCT GLYCATED HEMOGLOBIN, TOTAL Routine 07/20/2024 4:37 PM EDT Type 2 diabetes mellitus with hyperglycemia, without long-term current use of insulin (CMS/HCC) HEPATITIS C ANTIBODY Routine 03/30/2024 2:27 PM EDT Uncontrolled type 2 diabetes mellitus with hyperglycemia (CMS/HCC) Primary hypertension Dyslipidemia HIV 1/2 ANTIGEN/ANTIBODY, FOURTH GENERATION W/RFL Routine 03/30/2024 2:27 PM EDT Uncontrolled type 2 diabetes mellitus with hyperglycemia (CMS/HCC) Primary hypertension Dyslipidemia LIPID PANEL, STANDARD Routine 03/30/2024 2:27 PM EDT Uncontrolled type 2 diabetes mellitus with hyperglycemia (CMS/HCC) Primary hypertension Dyslipidemia from Last 3 Months or Most Recently Relevant to Health Maintenance Results * (ABNORMAL) POCT HGB A1C (07/20/2024 4:37 PM EDT) Hemoglobin A1C 11.1(A) 4.0 - 6.0 % QC Media Lot # [id number] Lot# Expiration Date [id number] Blood 07/20/2024 4:37 PM EDT Kate Bailon MD POINT OF CARE TEST ENTER/ED IT ORDERABLES Final Result * Hepatitis C Ab (03/30/2024 2:27 PM EDT) Hepatitis C Antibody Nonreactive Nonreactive [facility] Comment:Antibodies to HCV no t detected; does not exclude early acuteHCV infection. Blood Venous blood specimen / Unknown 03/30/2024 2:27 PM EDT 03/30/2024 2:28 PM EDT us Kate Bailon MD LAB BLOOD ORDERABLES Final Result Performing Organization Address City/[facility]/ZIP Co de Phone Number [facility] [address] [place] [address] [phone] * HIV-1/2 Antigen and Antibodies, Fourth Generation, with Reflexes (03/30/2024 2:27 PM EDT) HIV AB/AG Nonreactive Nonreactive [facility] Comment:HIV-1 p24 Ag and/or HIV-1/HIV-2 Ab not detected.A test result that is nonreactive does not exclude thepossibility of exposure to or infection with HIV-1 and/orHIV-2. Nonreactive results in this assay for individualswith prior exposure to HIV-1 and/or HIV-2 may be due toantigen and antibody levels that are below the limit ofdetection of this assay.The [employer]3 HIV Ag/Ab Combo assay result andsupplemental assay results should be interpreted inconjunction with the patient's clinical presentation,history and other laboratory results. If the results areinconsistent with clinical evidence, additional testing issuggested to confirm the result. Blood Venous blood specimen / Unknown 03/30/2024 2:27 PM EDT 03/30/2024 2:28 PM EDT us Kate Bailon MD LAB BLOOD ORDERABLES Final Result Performing Organization Address City/[facility]/ZIP Co de Phone Number [facility] [address] [place] [address] [phone] * (ABNORMAL) Lipid Panel, Standard (03/30/2024 2:27 PM EDT) Triglycerides 487(H) <150 mg/dL [facility] Comment:Desirable Triglyceri de: less than 150 mg/dLBorderline High Triglyceride 150-199 mg/dLHigh Triglyceride: 200-499 mg/dLVery High Triglyceride: greater than or equal to 5OO mg/dL Cholesterol 238(H) <200 mg/dL [facility] Comment:Desirable Cholestero l: less than 200 mg/dLBorderline High Cholesterol: 200-239 mg/dLHigh Cholesterol: greater than 239 mg/dL LDL Cholesterol Calculated TNP <100 mg/dL [facility] Comment:Unable to calculate the LDL. The formula of Friedwald,Almonte, and Ida is only valid if the triglycerides areless than 400 mg/dl. HDL Cholesterol 37(L) >40 mg/dL [facility] Comment:Desirable HDL: great er than 40 mg/dL Note: This HDL assay may give artificially low results in patients with liver disease. Blood Venous blood specimen / Unknown 03/30/2024 2:27 PM EDT 03/30/2024 2:28 PM EDT us Kate Bailon MD LAB BLOOD ORDERABLES Final Result [facility] [address] [place] [phone] from Last 3 Months or Most Recently Relevant to Health Maintenance Insurance [facility]LY [facility] Care Teams Event Set Up Specialist Relationship Specialty Start Date End Date Kate Bailon MD [address] [place] [address] [place] [address] PCP - General Internal Medicine 09/03/19
[2025-08-09 12:32] VITALS: BP 212/107; PULSE 96; RESP 18; O2SAT 97
[2025-08-09 12:52] VITALS: BP 159/96; PULSE 91; RESP 18
[2025-08-09 12:59] VITALS: BP 159/96; PULSE 91; RESP 18; TEMP 36.9; O2SAT 97
== END 2025-08-09 13:09 | disposition home or self-care (01) ==
PROVIDERS: Emergency Provider Emergency Medicine; PCP Internal Medicine
DX: M54.31 Sciatica, right side (principal); R53.1 Weakness; M54.89 Other dorsalgia; I10 Essential (primary) hypertension; E11.9 Type 2 diabetes mellitus without complications; Z79.899 Other long term (current) drug therapy
CPT/HCPCS: 72100; 93971; 96372; 99283; 99284; J1885

== ENCOUNTER → 2025-08-09 10:30 | Outpatient (BNV) | payer OTHER, SELFPAY | PROVIDERS: Emergency Provider Emergency Medicine; PCP Internal Medicine; Visit Provider Radiology Diagnostic Radiology | DX: I10 Essential (primary) hypertension (principal); M54.50 Low back pain, unspecified; R53.1 Weakness; M47.815 Spondylosis without myelopathy or radiculopathy, thoracolumbar region; Z86.718 Personal history of other venous thrombosis and embolism | CPT/HCPCS: 70450; 70496; 70498; 72100; 93971 ==

== ENCOUNTER 2025-08-09 17:57 | Inpatient (IN) | payer MEDICAID, SELFPAY ==
--- NOTE | ~2025-08-09 | MR_ITS ---
EXAMINATION: MR BRAIN WITHOUT IV CONTRAST HISTORY: Left-sided weakness TECHNIQUE: Sagittal T1, and axial diffusion weighted MR images of the brain were obtained. The patient became claustrophobic and refused the remainder of the study. COMPARISON: Correlation is made with an unenhanced head CT dated 08/09/2025. FINDINGS: The pituitary is normal in size. The cerebellar tonsils are normally located. Diffusion-weighted images demonstrate multiple small acute infarcts involving the right basal ganglia, right mendez radiata, and right frontal and parietal lobes (all in the MCA distribution). There is no mass effect or midline shift. MR/MR head/brain wo con IMPRESSION: Multiple acute right-sided infarcts as described. The examination is otherwise limited as the patient terminated the examination. Findings were sent to Dr. Cristiano Sebastian on 08/10/2025 at 1:10 PM and immediately acknowledged. Electronically signed by: Bob Haile MD 08/10/2025 01:13 PM EDT
--- NOTE | ~2025-08-09 | CT_ITS ---
CLINICAL HISTORY: HTN, L Sided weakness CT HEAD WITHOUT CONTRAST Comparison: None provided Findings: No acute intracranial hemorrhage, extra-axial fluid collection, hydrocephalus or midline shift. Age appropriate generalized parenchymal atrophy. There are periventricular and subcortical white matter hypodensities which are nonspecific but most likely related to microangiopathic gliosis. Intracranial arteriosclerosis. No evidence for acute large territorial infarct. There is no sinus or mastoid fluid. Nonspecific mucosal thickening in the left maxillary sinus. Visualized orbits: No acute abnormalities. There is no acute fracture. IMPRESSION: 1. No acute intracranial process. This document has been electronically signed by: Seda Blanco DO on 08/09/2025 18:53:04
--- NOTE | ~2025-08-09 | CT_ITS ---
CLINICAL HISTORY: HTN, L sided weakness CTA HEAD WITH CONTRAST, 3D POSTPROCESSING CTA NECK WITH CONTRAST, WITH 3D POSTPROCESSING Comparison: CT/SR - CT HEAD FOR STROKE - 08/09/25 18:27 EDT Findings: Aortic arch: Prominent atherosclerotic changes in the three-vessel arch including the branch origins which appear patent. Vertebral arteries: No occlusion or dissection. Extracranial carotid arteries: No occlusion, aneurysm or dissection. Mixed plaque formation with chunky calcific plaque in the bilateral carotid bifurcations. There is at least 50% stenosis per NASCET criteria. No flow-limiting stenosis in the bilateral proximal ICAs. Intracranial carotid arteries: Prominent calcific plaque with no occlusion or definite flow limiting stenosis. Vertebrobasilar system: Patent. Cerebellar arteries: Patent. Posterior cerebral arteries: Patent. No occlusion or aneurysm. Anterior cerebral arteries: Patent. No occlusion or aneurysm. Middle cerebral arteries: Patent. No occlusion or aneurysm. No enhancing intracranial mass lesion. Dural venous sinuses are patent. No enhancing cervical mass or fluid collection. Multiple nonenlarged cervical and submandibular lymph nodes are nonspecific. Probable multinodular thyroid gland. No acute abnormalities in the included lungs. No acute osseous abnormalities. Impression: 1. Patent head and neck CTA. This document has been electronically signed by: Seda Blanco DO on 08/09/2025 19:23:28
[2025-08-09 18:10] VITALS: BP 202/145; BP 241/133; PULSE 102; PULSE 115; RESP 19; O2SAT 97; O2SAT 98; BMI 27.1
[2025-08-09 18:22] VITALS: BMI 28.9
--- NOTE | 2025-08-09 18:22 | ECG_ITS ---
Test Reason : STROKE SYMPTOMS Blood Pressure : */* mmHG Vent. Rate : 88 BPM Atrial Rate : 88 BPM P-R Int : 166 ms QRS Dur : 86 ms QT Int : 402 ms P-R-T Axes : 64 35 146 degrees QTcB Int : 486 ms Normal sinus rhythm Left ventricular hypertrophy with repolarization abnormality ( [facility] product ) Anteroseptal infarct (cited on or before 27-Jul-2015) Abnormal ECG When compared with ECG of 11-Feb-2024 18:15, No significant changes seen Referred By: Pamela Reynoso Electronically Signed By: DAJUAN HUI
[2025-08-09] MEDS: iohexoL 350 MG/ML 100 ML INFUS..BTL IV (18:46)
--- NOTE | 2025-08-09 18:56 | ED.NEUROSD ---
HPI - Neuro Symptoms/Deficit General Chief Complaint: General Medical Stated Complaint: HTN *250/144* Time Seen by Provider: 08/09/25 18:18 Source: patient, EMS and old records reviewed Mode of arrival: EMS Limitations: no limitations History of Present Illness ED Provider: MARY GILL Narrative: 59 yo female with PMH of HTN, HLD, smoker, PAD, renal artery stenosis she came in earlier today for low back pain but also left leg weakness that started yesterday. She denies back trauma. She then noted around 830am today she felt weakness and numbness in LUE. She missed her afternoon BP medications. She denies chest pain/shortness of breath. She denies any recent trauma to the head. She is not on any blood thinners. She did not relay LUE weakness on prior visit Onset (ago): day(s) (yesterday and 830am today) Location: left arm and left leg History of same: No Severity: moderate Quality: weak and tingling Relieving factors: none Exacerbating factors: none Context: gradual onset On Anticoagulants: No Associated symptoms: other Treatments Prior to Arrival: none Related Data Home Medications ?Medication ?Instructions ?Recorded ?Confirmed blood sugar diagnostic (FreeStyle #10 ea 01/16/22 09/29/24 Lite Strips) metformin 500 mg tablet,extended 500 mg PO BID 02/11/24 09/29/24 release 24 hr rosuvastatin 20 mg tablet 20 mg PO BEDTIME 07/31/24 09/29/24 doxycycline monohydrate 100 mg 100 mg PO BID 09/03/24 09/29/24 capsule empagliflozin 25 mg tablet 25 mg PO DAILY 09/03/24 09/29/24 (Jardiance) Previous Rx's ?Medication ?Instructions ?Recorded aspirin 81 mg tablet,delayed 81 mg PO DAILY #90 tabs 10/29/22 release amlodipine 10 mg tablet 10 mg PO DAILY #90 tabs 06/23/24 labetalol 300 mg tablet 300 mg PO BID 90 days #180 tabs 06/23/24 aliskiren 150 mg tablet 150 mg PO DAILY #90 tabs 07/31/24 losartan 100 1 tab PO DAILY #90 tabs 11/02/24 mg-hydrochlorothiazide 25 mg tablet cyclobenzaprine 5 mg tablet 5 mg PO TID PRN muscle spasm #15 08/09/25 tabs Allergies Allergy/AdvReac Type Severity Reaction Status Date / Time cephalexin (From KEFLEX) Allergy Severe HIVES Verified 08/09/25 18:13 codeine (CODEINE) Allergy Intermediate NAUSEA & Verified 08/09/25 18:13 VOMITING, nausea and vomiting dulaglutide (Trulicity) Allergy Intermediate abdominal Verified 08/09/25 18:13 pain Cephalosporins Allergy Intermediate Hives Uncoded 08/09/25 18:13 seasonal Allergy Intermediate Itchy Eyes Uncoded 08/09/25 18:13 Review of Systems Review of Systems: Constitutional : No Fever, No Chills, No Fatigue ENT/Mouth : No sore throat, No Rhinorrhea Eyes: No Eye Pain, No Swelling, No Redness Cardiovascular : No Chest Pain, No SOB, No Dyspnea on Exertion Respiratory : No Cough, No Sputum Gastrointestinal : No Nausea, No Vomiting, No Diarrhea, No abdominal Pain Genitourinary : No Dysuria, No Urinary Frequency, No Hematuria, Musculoskeletal : No joint pain, No Myalgias, No Joint Swelling Skin : No Skin Lesions, No rash Neuro : pos Weakness, pos Numbness, No Dizziness, no headache All other systems reviewed and are negative [facility] Past Medical History Attestation statement: The following information was validated with the patient. Source: old records reviewed Medical History Abnormal EKG Acute occlusion of artery of lower extremity Strain of right gastrocnemius muscle Abscess of left groin Squamous cell cancer of skin of forearm Skin lesion of left arm FH: cholecystectomy Diabetes HTN (hypertension) Surgical History History of nasal surgery (~08/2024) H/O colonoscopy S/P angiogram of extremity (10/04/21) History of cholecystectomy S/P shoulder surgery History of tubal ligation Family History Family History Father No problems noted. 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 Oriented X3. No acute distress. Eyes: Pupils equal, round and reactive to light. ENT: Pharynx normal. Neck: Normal inspection. Neck supple. CVS: Normal heart rate and rhythm. Pulses normal. Respiratory: No respiratory distress. Breath sounds normal. Abdomen: Soft and nontender. Skin: Skin warm and dry. Normal skin color. Normal skin turgor. Extremities: No lower extremity edema. LLE 4/5, LUE seismic prospecting observer intact 5/5 but 4+/5 on biceps and shoulder strenght, has drift of LUE as well Neuro: Oriented X 3. No motor deficit. No sensory deficit. CN2-12 intact Course Course Course Narrative: BP down with small 10mg dose of labetalol no change in symptoms Medications Administered Discontinued Medications Generic Name Dose Route Start Last Admin Trade Name Miranda PRN Reason Stop Dose Admin Iohexol 100 ml 08/09/25 18:44 08/09/25 18:46 Iohexol 350 Mg/Ml 100 Ml Infus..Btl IV 08/09/25 18:45 70 ml ONCE ONE Administration Labetalol HCl 10 mg 08/09/25 18:23 08/09/25 19:05 Labetalol Hcl 100 Mg/20 Ml Vial IVPUSH 08/09/25 18:24 10 mg ONCE ONE Administration Medical Decision Making Medical Decision Making MDM Narrative: 59 yo female with PMH of HTN, HLD, smoker, PAD, renal artery stenosis here with c/o LLE weakness staring yesterday and LUE weakness 830am today at this time she does have deficits on exam - she has also significantly high BP on recheck - I am going to obtain stroke protocol as well as IV labetalol for HTN - she is not a candidate for TNK given she is almost 12 hours out from onset. She took her aspirin and AM BP meds. NO chest pain/dyspnea. Differential Diagnosis Differential Diagnoses: The differential diagnosis associated with the presentation includes stroke, uncontrolled HTN Admission/Observation Consideration of admission/observation: Escalation of care including admission/observation considered admit for stroke work up Consult Healthcare Provider Management of the patient was discussed with: Hospitalist (will admit) Lab Data MDM Lab Attestation statement: I reviewed the patient's lab results. 08/09/25 18:54 08/09/25 18:54 Labs: Lab Results 08/09/25 Range/Units 18:54 WBC 10.3 (4.8-10.8) X10*3/uL RBC 4.41 (4.20-5.50) X10*6/uL Hgb 13.4 (12.0-16.0) g/dl Hct 36.9 L (37.0-47.0) % MCV 83.7 (80.0-98.0) fL MCH 30.4 (27.0-33.0) pg MCHC 36.3 H (31.0-35.0) g/dl RDW 13.0 (11.0-16.0) % Plt Count 230 (160-400) X10*3/uL MPV 8.9 L (9.4-12.3) fL Immature Gran % (Auto) 1.4 H (0.0-0.4) % Neut % (Auto) 62.1 (45-73) % Lymph % (Auto) 22.9 (20-40) % [place] % (Auto) 8.5 (2-11) % Eos % (Auto) 4.3 H (0-4) % Baso % (Auto) 0.8 (0-2) % Lymph # (Auto) 2.4 (1.2-4.9) X10*3/uL [place] # (Auto) 0.9 (0.1-1.2) X10*3/uL Eos # (Auto) 0.4 (0.0-0.4) X10*3/uL Baso # (Auto) 0.1 (0.0-0.2) X10*3/uL Abs Immat Gran (auto) 0.14 H (0.00-0.03) X10*3/uL Absolute Neuts (auto) 6.4 (2.0-8.3) x10*3/uL Absolute Nucleated RBC 0.000 (0.0-0.012) X10*3/uL Nucleated RBC % (auto) 0.0 (0.0-0.2) /100WBC Sodium 135 (135-145) mmol/L Potassium 3.3 D (3.3-5.1) mmol/L Chloride 101 (96-108) mmol/L Carbon Dioxide 23 (22-29) mmol/L Anion Gap 14 (12-20) BUN 17 H (9-16) mg/dL Creatinine 0.67 (0.5-1.4) mg/dL Estim Creat Clear Calc 82.7 Estimated GFR > 60 Random Glucose 386 H* (60-115) mg/dL Calcium 9.0 D (8.4-10.2) mg/dL Magnesium 2.0 (1.6-2.6) mg/dL Total Bilirubin 0.2 (0.0-1.0) mg/dL Direct Bilirubin < 0.2 (0.0-0.5) mg/dL AST 17 (5-31) U/L ALT < 6 (0-31) U/L Alkaline Phosphatase 127 H (39-117) U/L Total Protein 5.7 L (6.5-8.0) g/dL Albumin 3.5 (3.5-5.0) g/dL Triglycerides 498 H (<150) mg/dL Cholesterol 298 H (<200) mg/dL LDL Cholesterol, Calc TNP HDL Cholesterol 35 L (>40) mg/dL Independent Interpretation I performed an independent interpretation of an: EKG and CT Scan (no ICH, no LVO) Interpretation: Rate: 88 Rhythm: NSR [place]: normal , LVH Normal P waves. Normal DA. Normal QRS complex. ST T wave : LVH with strain - inverted lateral t waves, no HELEN qTC: 486 prior studies: no change from prior. The study has been interpreted contemporaneously by me. Radiology Impression Discussion of test interpretation with radiology: I have reviewed the radiologist's reading. Independent Historian Clinical information obtained from an independent historian. History obtained from or confirmed by: EMS External Record Review External record reviewed: Inpatient record and Outpatient record NIH Stroke Scale Internal: Initial- Upon Arrival Level of Consciousness: Alert Level of Consciousness Questions: Answers both questions correctly Level of Consciousness Commands: Performs both tasks correctly Best Gaze: Normal Visual: No visual loss Facial Palsy: Normal Motor Arm (Right): No drift Motor Arm (Left): Drift Motor Leg (Right): No drift Limb Ataxia: Absent Sensory: Normal Best Language: No aphasia Dysarthia: Normal Extinction and Inattention: No abnormality Critical Care Time Critical Care Time Critical Care Time: Yes Total Critical Care Time: 40 Attestation: IV labetalol for uncontrolled HTN with good effect, stroke protocol work up, review of records I attest to this time spent taking care of the patient Discharge Plan Discharge Clinical Impression: Hypertension, uncontrolled, Acute left-sided muscle weakness Patient Disposition: Admitted As Inpatient Print Language: Uzbek
[2025-08-09 19:01] LABS: MANUAL DIFF FLAG NO
[2025-08-09 19:03] LABS: Hematocrit 36.9 % (37.0-47.0); Hemoglobin 13.4 g/dl (12.0-16.0); Imm Gran Abs Auto 0.14 X10*3/uL (0.00-0.03); Imm Gran Pct Auto 1.4 % (0.0-0.4); Lymphocytes Absolute Auto 2.4 X10*3/uL (1.2-4.9); Mean Corpuscular HGB Conc 36.3 g/dl (31.0-35.0); Mean Corpuscular Hemoglobin 30.4 pg (27.0-33.0); Mean Corpuscular Volume 83.7 fL (80.0-98.0); NRBC Abs Auto 0.000 X10*3/uL (0.0-0.012); NRBC Pct Auto 0.0 /100WBC (0.0-0.2); Platelet Count 230 X10*3/uL (160-400); Red Blood Count 4.41 X10*6/uL (4.20-5.50); White Blood Count 10.3 X10*3/uL (4.8-10.8)
[2025-08-09 19:05] VITALS: BP 205/142; PULSE 101
[2025-08-09 19:21] LABS: Alanine Aminotransferase < 6 U/L (0-31); Albumin Level 3.5 g/dL (3.5-5.0); Alkaline Phosphatase 127 U/L (39-117); Anion Gap 14 (12-20); Aspartate Amino Transferase 17 U/L (5-31); Blood Urea Nitrogen 17 mg/dL (9-16); Calcium 9.0 mg/dL (8.4-10.2); Carbon Dioxide 23 mmol/L (22-29); Chloride 101 mmol/L (96-108); Cholesterol 298 mg/dL (<200); Creatinine Clr Calc Pharmacy 82.7; Estimated Glomerular Filt Rate > 60; HDL Cholesterol 35 mg/dL (>40); Magnesium 2.0 mg/dL (1.6-2.6); Potassium 3.3 mmol/L (3.3-5.1); Sodium 135 mmol/L (135-145); Total Protein 5.7 g/dL (6.5-8.0); Triglycerides 498 mg/dL (<150)
[2025-08-09 19:26] VITALS: BP 145/64; PULSE 98; RESP 17; O2SAT 98
[2025-08-09 20:30] VITALS: BP 184/76; PULSE 86; RESP 16; O2SAT 96
[2025-08-09 21:00] VITALS: BP 186/89; PULSE 90; RESP 16; TEMP 36.8; O2SAT 99
--- NOTE | 2025-08-09 21:04 | P.HPHOSP_ITS ---
History of Present Illness Date of Service: 08/09/25 Attending physician on admission: Malu Rivera Chief Complaint: Left-sided weakness Blanca Zuniga is a 59 years old woman with past medical history significant for type 2 diabetes mellitus, essential hypertension and ongoing tobacco smoking presents to the emergency department complaining of left-sided weakness associated with left hand/finger tingling sensation that started this morning. She will report difficulty with ambulation. She denied any headache, acute visual disturbances, nausea, vomiting, speech difficulty or facial droop. She has an ongoing tobacco smoker about half pack daily and has been smoking for the last 45 years. She denied alcohol abuse or illicit drug use. Patient mentioned that she has not been taking her diabetes medications: Metformin and Januvia over the last 3 months due to insurance issues. She used to take insulin but this was discontinued by her primary care physician. In the ED, she was found to have significant hypertension. Last blood pressure is 186/89. Blood workup showed WBC count of 10.3, hemoglobin 13.4 platelets 230. Blood glucose quite elevated at 386. LFTs are unremarkable. BUN is 17 and creatinine 0.67. LFTs unremarkable. Alk-phos is 127. Total protein is 5.7, triglycerides 498, cholesterol 298 and HDL 35. ECG showed normal sinus rhythm and LVH findings. Head CT scan without contrast showed no acute intracranial hemorrhage. Head and neck CTA showed patent head and neck vessels. ED Tx: Labetalol 10 IV Review of Systems 2 Review of Systems: All 12 systems were reviewed and normal except as noted in HPI. [facility] Medical History Abnormal EKG Acute occlusion of artery of lower extremity Strain of right gastrocnemius muscle Abscess of left groin Squamous cell cancer of skin of forearm Skin lesion of left arm FH: cholecystectomy Diabetes HTN (hypertension) Family History Father No problems noted. Mother Cancer Maternal Grandmother Cancer Surgical History History of nasal surgery (~08/2024) H/O colonoscopy S/P angiogram of extremity (10/04/21) History of cholecystectomy S/P shoulder surgery History of tubal ligation Social History Alcohol intake: current Alcohol intake frequency: holidays/special occasions only Comment: previously medicated Patient Tobacco Use Status: Current everyday Tobacco user Cigarettes Per Day: 6 Smoked in Last 30 Days: No Advance Directives: No Advance Directives Information Provided: No Do you have a plan to hurt others: No Plan service: No Current occupational status: employed and disabled 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 Meds Allergies Allergy/AdvReac Type Severity Reaction Status Date / Time cephalexin (From KEFLEX) Allergy Severe HIVES Verified 08/09/25 18:13 codeine (CODEINE) Allergy Intermediate NAUSEA & Verified 08/09/25 18:13 VOMITING, nausea and vomiting dulaglutide (Trulicity) Allergy Intermediate abdominal Verified 08/09/25 18:13 pain Cephalosporins Allergy Intermediate Hives Uncoded 08/09/25 18:13 seasonal Allergy Intermediate Itchy Eyes Uncoded 08/09/25 18:13 Active Medications: Current Medications Acetaminophen (Acetaminophen 325 Mg Tablet) 650 mg PO Q6H PRN PRN Reason: Pain, Mild 1-3,fever,headache Calcium Carbonate (Calcium Carbonate 750 Mg Tab.Chew) 750 mg PO Q4H PRN PRN Reason: Heartburn Dextrose (Dextrose 50 % 25 Gm/50 Ml Syringe) 25 gm IVPUSH Q15M PRN; Protocol PRN Reason: per Hypoglycemia Standing Ord. Enoxaparin Sodium (Enoxaparin Sodium 40 Mg/0.4 Ml Syringe) 40 mg SUBCUT Q24H KARELY Glucose (Glucose Gel 15 Gm Gel..Gram.) 15 gm PO Q15M PRN; Protocol PRN Reason: per Hypoglycemia Standing Ord. Insulin Human Lispro (Insulin Lispro 100 Unit/Ml 3 Ml Vial) 0 unit SUBCUT QIDACHS [facility]; Protocol Magnesium Hydroxide (Milk Of Magnesia 30 Ml Oral.Susp) 30 ml PO DAILY PRN PRN Reason: Constipation Melatonin (Melatonin 3 Mg Tablet) 6 mg PO BEDTIME PRN PRN Reason: Insomnia Sodium Chloride (0.9 % Sodium Chloride Flush 3 Ml Syringe) 3 ml IVFLUSH QSHIFT [facility] Home Medications ?Medication ?Instructions ?Recorded ?Confirmed ?Last Taken ?Type blood sugar diagnostic (Freeyle #10 ea 01/16/2209/11 Unknown History Lite Strips) metformin 500 mg tablet,extended 500 mg PO BID 4 09/29/24 Unknown History release 24 hr rosuvastatin 20 mg tablet 20 mg PO BEDTIME 07/31/24 Unknown History doxycycline monohydrate 100 mg 100 mg PO BID 09/03/24 09/29/24 Unknown History capsule empagliflozin 25 mg tablet 25 mg PO DAILY 09/03/24 Unknown History (Jardiance) Physical Exam 2 Vital Signs and Narrative: Vital Signs: Last Vital Signs Temp 98.3 F 08/09/25 21:00 Pulse 90 08/09/25 21:00 Resp 16 08/09/25 21:00 BP 186/89 H 08/09/25 21:00 Pulse Ox 99 08/09/25 21:00 O2 Del Method Room Air 08/09/25 21:00 BMI result Body Mass Index 28.9 Constitutional - Awake and Alert, No apparent distress HEENT - PERRLA, EOMI Heart - S1S2, RRR, No murmurs Lungs - Normal lung expansion, Normal respiratory effort, No respiratory distress, CTA bilaterally Abdomen - NT / ND; +BS; No rebound or guarding Extremities - no calf tenderness bilaterally, no swelling Musculoskeletal - Normal inspection, normal ROM Skin - Warm/Dry Neurological - Alert & oriented x3, strength: 4/5 LUE + LLE; 5/5 RUE + RLE. CN III-XII grossly intact. Normal speech. Psychological - Appropriate affect Results Labs 08/09/25 18:54 08/09/25 18:54 Labs: Laboratory Results - last 24 hr 08/09/25 18:54 MCV 83.7 MCH 30.4 MCHC 36.3 H RDW 13.0 Plt Count 230 MPV 8.9 L Immature Gran % (Auto) 1.4 H Neut % (Auto) 62.1 Lymph % (Auto) 22.9 [place] % (Auto) 8.5 Eos % (Auto) 4.3 H Baso % (Auto) 0.8 Lymph # (Auto) 2.4 [place] # (Auto) 0.9 Eos # (Auto) 0.4 Baso # (Auto) 0.1 Abs Immat Gran (auto) 0.14 H Absolute Neuts (auto) 6.4 Absolute Nucleated RBC 0.000 Nucleated RBC % (auto) 0.0 Anion Gap 14 Estim Creat Clear Calc 82.7 Estimated GFR > 60 Random Glucose 386 H* Calcium 9.0 D Magnesium 2.0 Total Bilirubin 0.2 Direct Bilirubin < 0.2 AST 17 ALT < 6 Alkaline Phosphatase 127 H Total Protein 5.7 L Albumin 3.5 Triglycerides 498 H Cholesterol 298 H LDL Cholesterol, Calc TNP HDL Cholesterol 35 L Assessment and Plan (1) Acute left-sided muscle weakness: Status: Acute (2) Uncontrolled hypertension: Status: Acute (3) Uncontrolled diabetes mellitus with hyperglycemia: Qualifiers: Diabetes mellitus type: type 2 Qualified Code(s): E11.65 - Type 2 diabetes mellitus with hyperglycemia Status: Acute Plan Blanca Zuniga is a 59 y/o woman who presents to the ED with: Left-sided weakness, acute CVA suspected + hypertensive crisis. Per ED no tPA candidate due elevated BP (240s/120s). Head CT scan without contrast and head and neck CTA -negative. Telemetry. Permissive hypertension. Aspirin 243 mg p.o. stat (pt took baby aspirin today am) then 81 mg p.o. daily. High-intensity statin. Labetalol 10 mg IV if SBP > 200 DSP 110. Continue home antihypertensive meds when appropriate. Neuro checks. Obtain echocardiogram and brain MRI. PT/OT eval. Neurology consult. Serum aldosterone, plasma renin activity and catecholamines has been found normal in the past. Status post renal angiogram did not reveal any hemodynamically significant stenosis of the large vessels. Uncontrolled type 2 diabetes mellitus. No longer using insulin. Has not been taking metformin and Jardiance over the last 3 months due to insurance issues. BG checks before meals at bedtime. Insulin sliding scale. Start Lantus 12 units subacute bedtime. Continue Jardiance. Diabetic diet. Check hemoglobin A1c. PAD. s/p right SFA stenting. Back pain, history of sciatica. Flexeril as needed. Tobacco dependence. Tobacco cessation education. Hyperlipidemia, uncontrolled. Atorvastatin 80 mg p.o. now then bedtime. Code status: Full DVT prophylaxis: Lovenox Patient will need hospitalization for at least 2 midnights for left-sided weakness suggestive of acute CVA treatment with aspirin statin; further evaluation with brain MRI and evaluation by Neurology. Quality Stroke Does the patient have a stroke diagnosis?: No VTE Prior VTE?: No VTE Risk Level:: Medical - moderate - high VTE Device Contraindication: Treatment Not Indicated VTE Drug Contraindication: N/A - Med Ordered
[2025-08-09 21:10] LABS: Glucose, Whole Blood 341 mg/dL (60-115)
[2025-08-09 22:00] VITALS: BP 186/76; PULSE 87; RESP 17; O2SAT 97
--- NOTE | 2025-08-09 22:15 | PHA.MEDREC ---
Addendum entered by Dex Rodgers PharmD 08/09/25 22:22: reviewed Original Note: Pharmacy Consult ? Medication Reconciliation Pharmacy has completed the medication reconciliation. Spoke to patient to confirm med list. Patient states she not taking Cyclobenzaprine 5 mg, and Metformin 500 mg. Patient confirm she takes Amlodipine 10 mg, however last fill date was 08/29/24, Jardiance 25 mg, last fill date , Labetalol 300 mg, last fill date 09/10/24, Losartan 100 mg-HCTZ 25 mg, last fill date 11/16/24 for 90 days, and Rosuvastatin 20 mg, last fill date 07/20/24. Patient did state she ran out of refills for some of her medications but could not confirm if was on all of her medications.
[2025-08-10] VITALS (11 sets, daily range): BP systolic 139–203; BP diastolic 60–96; PULSE 82–115; RESP 14–20; TEMP 36.1–36.8; O2SAT 94–99; BMI 27.6
[2025-08-10] MEDS: 0.9 % Sodium Chloride Flush 3 ML SYRINGE IVFLUSH ×4 (00:45→21:19)
[2025-08-10 05:16] LABS: Hemoglobin A1C 413.0545 umol/L; Total Hemoglobin (HGBA1C) 3452.9102 umol/L
--- NOTE | 2025-08-10 07:44 | PC.NURSE ---
This Rn assumed care of patient @ 0700 Patient A&O x 3 IV bilateral 20G's Patient c/o back pain rated 9/10 non radiating Denies C/P and SOB Redness noted on right arm and left hand. Patient reports this happens when my BP is high BP 167/67, reports Redness goes away on its own Patient attempted to stand pivot to commode with 1 assist, patient struggled to make it commode. Will utilize 2 assist for transfers MRI screen form completed VSS and up to date Provider in to see patient Patient awaiting bed assignment
--- NOTE | 2025-08-10 08:39 | HO.PM.IMPN ---
Subjective Subjective Date of Service: 08/10/25 Interval History: still with left sided weakness Physical Exam Exam: Exam: General: AO X 3, no acute distress Resp: CTA bilateral, no accessory muscles used CVS: S1,S2,RRR GI: soft, non tender, non distended Neuro: LUE and LLE 4/5, alert Psych: appropriate affect, appropriate insight bilateral upper extremity rash (rumpel leede) Vital Signs: Vital Signs: Last Vital Signs Temp 98.0 F 08/10/25 06:32 Pulse 90 08/10/25 06:32 Resp 20 08/10/25 06:32 BP 167/67 H 08/10/25 06:32 Pulse Ox 97 08/10/25 06:32 O2 Del Method Room Air 08/10/25 06:32 BMI result Body Mass Index 28.9 Objective Data Active Medications Acetaminophen (Acetaminophen 325 Mg Tablet) 650 mg PO Q6H PRN PRN Reason: Pain, Mild 1-3,fever,headache Amlodipine Besylate (Amlodipine Besylate 10 Mg Tablet) 10 mg PO DAILY [facility]; Protocol Aspirin (Aspirin Enteric Coated 81 Mg Tablet.Dr) 81 mg PO DAILY [facility] Atorvastatin Calcium (Atorvastatin Calcium 80 Mg Tablet) 80 mg PO BEDTIME KARELY Calcium Carbonate (Calcium Carbonate 750 Mg Tab.Chew) 750 mg PO Q4H PRN PRN Reason: Heartburn Cyclobenzaprine HCl (Cyclobenzaprine Hcl 10 Mg Tablet) 10 mg PO BEDTIME PRN PRN Reason: back pain Dextrose (Dextrose 50 % 25 Gm/50 Ml Syringe) 25 gm IVPUSH Q15M PRN; Protocol PRN Reason: per Hypoglycemia Standing Ord. Empagliflozin (Empagliflozin 25 Mg Tablet) 25 mg PO DAILY [facility] Enoxaparin Sodium (Enoxaparin Sodium 40 Mg/0.4 Ml Syringe) 40 mg SUBCUT Q24H KARELY Glucose (Glucose Gel 15 Gm Gel..Gram.) 15 gm PO Q15M PRN; Protocol PRN Reason: per Hypoglycemia Standing Ord. Hydrochlorothiazide (Hydrochlorothiazide 25 Mg Tablet) 25 mg PO DAILY [facility]; Protocol Insulin Glargine (Insulin Glargine,Hum.Rec.Anlog 100 Unit/Ml 10 Ml Vial) 12 unit SUBCUT BEDTIME KARELY Insulin Human Lispro (Insulin Lispro 100 Unit/Ml 3 Ml Vial) 0 unit SUBCUT QIDACHS [facility]; Protocol Last Admin: 08/09/25 21:13 Dose: 10 unit Documented By: STERLING-ROLANDO Labetalol HCl (Labetalol Hcl 100 Mg/20 Ml Vial) 10 mg IVPUSH Q2H PRN PRN Reason: SBP > 200 Labetalol HCl (Labetalol Hcl 100 Mg Tablet) 300 mg PO BID KARELY Losartan Potassium (Losartan Potassium 50 Mg Tablet) 100 mg PO DAILY [facility]; Protocol Magnesium Hydroxide (Milk Of Magnesia 30 Ml Oral.Susp) 30 ml PO DAILY PRN PRN Reason: Constipation Melatonin (Melatonin 3 Mg Tablet) 6 mg PO BEDTIME PRN PRN Reason: Insomnia Sodium Chloride (0.9 % Sodium Chloride Flush 3 Ml Syringe) 3 ml IVFLUSH QSHIFT KARELY Last Admin: 08/10/25 00:45 Dose: 3 ml Documented By: VIANNEY Labs 08/09/25 18:54 08/09/25 18:54 Labs: Laboratory Results - last 24 hr 08/09/25 08/09/25 18:54 21:06 MCV 83.7 MCH 30.4 MCHC 36.3 H RDW 13.0 Plt Count 230 MPV 8.9 L Immature Gran % (Auto) 1.4 H Neut % (Auto) 62.1 Lymph % (Auto) 22.9 [place] % (Auto) 8.5 Eos % (Auto) 4.3 H Baso % (Auto) 0.8 Lymph # (Auto) 2.4 [place] # (Auto) 0.9 Eos # (Auto) 0.4 Baso # (Auto) 0.1 Abs Immat Gran (auto) 0.14 H Absolute Neuts (auto) 6.4 Absolute Nucleated RBC 0.000 Nucleated RBC % (auto) 0.0 Anion Gap 14 Estim Creat Clear Calc 82.7 Estimated GFR > 60 POC Glucose 341 H Random Glucose 386 H* Estimat Average Glucose 329 Hemoglobin A1c % 13.1 H Calcium 9.0 D Magnesium 2.0 Total Bilirubin 0.2 Direct Bilirubin < 0.2 AST 17 ALT < 6 Alkaline Phosphatase 127 H Total Protein 5.7 L Albumin 3.5 Triglycerides 498 H Cholesterol 298 H LDL Cholesterol, Calc TNP HDL Cholesterol 35 L Assessment and Plan (1) PAD (peripheral artery disease): Status: Acute Plan 59F PMH dm, htn, BROWN, hyperlipidemia, pvd, active smoker, presented with left sided weakness, uncontrolled hypertension Left-sided weakness Rule out acute CVA Check MRI, Neurology PTOT Continue aspirin statin Hypertensive emergency Improving, continue amlodipine, labetalol, losartan, hydrochlorothiazide Diabetes Insulin sliding scale Bilateral upper extremity rash Due to rumple leede phenomenon - benign Peripheral vascular disease Aspirin, statin Hyperlipidemia Continue statin DVT prophylaxis with Lovenox Full code reason for continued hospitalization:stroke work up ongoing, bp control Quality Stroke Does the patient have a stroke diagnosis?: No VTE Prior VTE?: No VTE Risk Level:: Medical - moderate - high VTE Device Contraindication: Treatment Not Indicated VTE Drug Contraindication: N/A - Med Ordered
[2025-08-10 08:40] LABS: MANUAL DIFF FLAG NO
[2025-08-10 08:44] LABS: Hematocrit 39.5 % (37.0-47.0); Hemoglobin 14.3 g/dl (12.0-16.0); Imm Gran Abs Auto 0.07 X10*3/uL (0.00-0.03); Imm Gran Pct Auto 0.9 % (0.0-0.4); Lymphocytes Absolute Auto 1.3 X10*3/uL (1.2-4.9); Mean Corpuscular HGB Conc 36.2 g/dl (31.0-35.0); Mean Corpuscular Hemoglobin 30.2 pg (27.0-33.0); Mean Corpuscular Volume 83.5 fL (80.0-98.0); NRBC Abs Auto 0.000 X10*3/uL (0.0-0.012); NRBC Pct Auto 0.0 /100WBC (0.0-0.2); Platelet Count 221 X10*3/uL (160-400); Red Blood Count 4.73 X10*6/uL (4.20-5.50); White Blood Count 8.0 X10*3/uL (4.8-10.8)
[2025-08-10 08:59] LABS: Anion Gap 15 (12-20); Blood Urea Nitrogen 13 mg/dL (9-16); Calcium 9.3 mg/dL (8.4-10.2); Carbon Dioxide 26 mmol/L (22-29); Chloride 100 mmol/L (96-108); Creatinine Clr Calc Pharmacy 82.7; Estimated Glomerular Filt Rate > 60; Magnesium 1.9 mg/dL (1.6-2.6); Potassium 3.6 mmol/L (3.3-5.1); Sodium 137 mmol/L (135-145)
--- NOTE | 2025-08-10 09:07 | PC.NURSE ---
Recieved critical lab of glucose 521 notified MD Sebastian No new orders at this time No s/sx of hyperglycemia
[2025-08-10 09:34] LABS: Hemoglobin A1C 426.2511 umol/L; Total Hemoglobin (HGBA1C) 3535.8560 umol/L
[2025-08-10] MEDS: Aspirin Enteric Coated 81 MG TABLET.DR PO (09:44)
[2025-08-10 09:53] LABS: Glucose, Whole Blood 487 mg/dL (60-115)
[2025-08-10] MEDS: Nicotine 21 MG PATCH.TD24 TRANSDERMA (10:24)
[2025-08-10 11:38] LABS: Glucose, Whole Blood 317 mg/dL (60-115)
--- NOTE | 2025-08-10 12:18 | PC.NURSE ---
Dr Perez states that pt may go to MRI without telemetry monitoring.
--- NOTE | 2025-08-10 13:11 | PC.NURSE ---
While attempting to get to commode, pt stated that her legs slipped out from under her and she struck her buttocks on the floor. No other body part involved. No redness/injuries noted to buttocks. No c/o pain at this time per patient. Bed alarm placed back on. and call bed within reach. Instructed patient to use call bed if need to use commode going forward. She states I will and understands. Provider and primary nurse aware
--- NOTE | 2025-08-10 14:24 | MHC.STROKE ---
Met with patient in room 12. Pt sleeping however easily arousable to verbal stimuli. Oriented x 4. Pt is pleasant and engaged in conversation. Pt reports c/o left leg weakness starting 08/08 and left upper extremity weakness starting on 08/09. Pt states that her left arm feels numb and she is unable to lift it, hold her phone etc. Speech clear. Medical hx reviewed with patient including med dx, medications, diet, social history. 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 Reports that she is very active and has 2 small grandchildren that keep me busy . Pt is a 1/2 ppd smoker. Reports that she is using a nicotene patch while in the hospital. Education regarding smoking cessation provided. Stroke Education discussed. Pamphlet provided/reviewed. All questions answered. Pt states that she worked with PT/OT today.
--- NOTE | 2025-08-10 14:54 | P.CNNE_ITS ---
History of Present Illness Data of Consult Service Date: 08/10/25 Primary Care Provider: Kate Bailon MD [facility] Reason for consult: stroke This is a 59 years old woman with past medical history of type 2 diabetes mellitus, essential hypertension and smoking whp presented to the emergency department complaining of left-leg weakness that had been going on for about 18 hours. She was seen in the emergency room and discharged with a presumptive diagnosis of sciatica although she had no pain. She went home and later in the day the left hand became weak numb and tingly with progressive weakness so she came back. She had no facial droop speech problem or vision problem. She denied any headache, acute visual disturbances, nausea, vomiting, speech difficulty or facial droop. She has an ongoing tobacco smoker about half pack daily and has been smoking for the last 45 years. She denied alcohol abuse or illicit drug use. Patient mentioned that she has not been taking her diabetes medications: Metformin and Januvia over the last 3 months due to insurance issues. She used to take insulin but this was discontinued by her primary care physician. In the ED, she was found to have significant hypertension. Last blood pressure 186/89. Blood workup showed WBC count of 10.3, hemoglobin 13.4 platelets 230. Blood glucose quite elevated at 386. LFTs are unremarkable. BUN is 17 and creatinine 0.67. LFTs unremarkable. Alk-phos is 127. Total protein is 5.7, triglycerides 498, cholesterol 298 and HDL 35. ECG showed normal sinus rhythm and LVH findings. Head CT scan without contrast showed no acute intracranial hemorrhage. Head and neck CTA showed patent head and neck vessels.MRI:D iffusion-weighted images demonstrate multiple small acute infarcts involving the right basal ganglia, right mendez radiata, and right frontal and parietal lobes (all in the MCA distribution). There is no mass effect or midline shift. CTA of head and neck is without significant stenosis. [facility] Past Medical History Medical History Abnormal EKG Acute occlusion of artery of lower extremity Strain of right gastrocnemius muscle Abscess of left groin Squamous cell cancer of skin of forearm Skin lesion of left arm FH: cholecystectomy Diabetes HTN (hypertension) Family History Family History Father No problems noted. Mother Cancer Maternal Grandmother Cancer Surgical History Surgical History History of nasal surgery (~08/2024) H/O colonoscopy S/P angiogram of extremity (10/04/21) History of cholecystectomy S/P shoulder surgery History of tubal ligation Social History Social History Alcohol intake: current Alcohol intake frequency: holidays/special occasions only Comment: previously medicated Patient Tobacco Use Status: Current everyday Tobacco user Cigarettes Per Day: 6 Smoked in Last 30 Days: No Advance Directives: No Advance Directives Information Provided: No Do you have a plan to hurt others: No Plan Nutrition Risks: No Nutritional Risk service: No Current occupational status: employed and disabled 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 Meds Allergies Allergy/AdvReac Type Severity Reaction Status Date / Time cephalexin (From KEFLEX) Allergy Severe HIVES Verified 08/09/25 18:13 codeine (CODEINE) Allergy Intermediate NAUSEA & Verified 08/09/25 18:13 VOMITING, nausea and vomiting dulaglutide (Trulicity) Allergy Intermediate abdominal Verified 08/09/25 18:13 pain Cephalosporins Allergy Intermediate Hives Uncoded 08/09/25 18:13 seasonal Allergy Intermediate Itchy Eyes Uncoded 08/09/25 18:13 Active Medications: Current Medications Acetaminophen (Acetaminophen 325 Mg Tablet) 650 mg PO Q6H PRN PRN Reason: Pain, Mild 1-3,fever,headache Amlodipine Besylate (Amlodipine Besylate 10 Mg Tablet) 10 mg PO DAILY [facility]; Protocol Last Admin: 08/10/25 09:44 Dose: 10 mg Aspirin (Aspirin Enteric Coated 81 Mg Tablet.Dr) 81 mg PO DAILY [facility] Last Admin: 08/10/25 09:44 Dose: 81 mg Atorvastatin Calcium (Atorvastatin Calcium 80 Mg Tablet) 80 mg PO BEDTIME [facility] Calcium Carbonate (Calcium Carbonate 750 Mg Tab.Chew) 750 mg PO Q4H PRN PRN Reason: Heartburn Cyclobenzaprine HCl (Cyclobenzaprine Hcl 10 Mg Tablet) 10 mg PO BEDTIME PRN PRN Reason: back pain Last Admin: 08/10/25 09:54 Dose: 10 mg Dextrose (Dextrose 50 % 25 Gm/50 Ml Syringe) 25 gm IVPUSH Q15M PRN; Protocol PRN Reason: per Hypoglycemia Standing Ord. Empagliflozin (Empagliflozin 25 Mg Tablet) 25 mg PO DAILY [facility] Last Admin: 08/10/25 09:44 Dose: 25 mg Enoxaparin Sodium (Enoxaparin Sodium 40 Mg/0.4 Ml Syringe) 40 mg SUBCUT Q24H [facility] Last Admin: 08/10/25 09:45 Dose: 40 mg Glucose (Glucose Gel 15 Gm Gel..Gram.) 15 gm PO Q15M PRN; Protocol PRN Reason: per Hypoglycemia Standing Ord. Hydrochlorothiazide (Hydrochlorothiazide 25 Mg Tablet) 25 mg PO DAILY [facility]; Protocol Last Admin: 08/10/25 09:43 Dose: 25 mg Insulin Glargine (Insulin Glargine,Hum.Rec.Anlog 100 Unit/Ml 10 Ml Vial) 12 unit SUBCUT BEDTIME [facility] Insulin Human Lispro (Insulin Lispro 100 Unit/Ml 3 Ml Vial) 0 unit SUBCUT QIDACHS [facility]; Protocol Last Admin: 08/10/25 13:32 Dose: 10 unit Insulin Human Lispro (Insulin Lispro 100 Unit/Ml 3 Ml Vial) 5 unit SUBCUT QIDACHS [facility] Last Admin: 08/10/25 13:30 Dose: 5 unit Labetalol HCl (Labetalol Hcl 100 Mg/20 Ml Vial) 10 mg IVPUSH Q2H PRN PRN Reason: SBP > 200 Labetalol HCl (Labetalol Hcl 100 Mg Tablet) 300 mg PO BID [facility] Last Admin: 08/10/25 09:44 Dose: 300 mg Losartan Potassium (Losartan Potassium 50 Mg Tablet) 100 mg PO DAILY [facility]; Protocol Last Admin: 08/10/25 09:43 Dose: 100 mg Magnesium Hydroxide (Milk Of Magnesia 30 Ml Oral.Susp) 30 ml PO DAILY PRN PRN Reason: Constipation Melatonin (Melatonin 3 Mg Tablet) 6 mg PO BEDTIME PRN PRN Reason: Insomnia Nicotine (Nicotine 21 Mg Patch.Td24) 21 mg TRANSDERMA DAILY [facility] Last Admin: 08/10/25 10:24 Dose: 21 mg Sodium Chloride (0.9 % Sodium Chloride Flush 3 Ml Syringe) 3 ml IVFLUSH QSHIFT [facility] Last Admin: 08/10/25 09:45 Dose: 3 ml Home Medications ?Medication ?Instructions ?Recorded ?Confirmed ?Last Taken ?Type blood sugar diagnostic (Kodi #10 ea 01/16/2209/11 Unknown History Lite Strips) rosuvastatin 20 mg tablet 20 mg PO BEDTIME 07/31/24 Unknown History empagliflozin 25 mg tablet 25 mg PO DAILY 09/03/24 Unknown History (Jardiance) Physical Exam 2 Vital Signs: Vital Signs: Last Vital Signs Temp 98.2 F 08/10/25 08:44 Pulse 87 08/10/25 13:10 Resp 18 08/10/25 13:10 BP 168/63 H 08/10/25 13:10 Pulse Ox 98 08/10/25 13:10 O2 Del Method Room Air 08/10/25 13:10 BMI result Body Mass Index 28.9 Neuro: Other: She is alert and oriented x3. Speech and language functions are normal. Cranial nerves 2-12 are normal. She has left upper extremity weakness distally 0 to 1/5 proximally 3 to 4-/5. Left lower extremity is 4/5 both proximally and distally with some left-sided hyperreflexia and an extensor plantar response on the left. There is some hypalgesia to touch on the left side as well. Results Labs 08/10/25 08:23 08/10/25 08:23 Labs: Short CBC 08/09/25 08/10/25 Range/Units 18:54 08:23 WBC 10.3 8.0 (4.8-10.8) X10*3/uL Hgb 13.4 14.3 (12.0-16.0) g/dl Hct 36.9 L 39.5 (37.0-47.0) % Plt Count 230 221 (160-400) X10*3/uL BMP 08/09/25 08/10/25 18:54 08:23 Sodium 135 137 Potassium 3.3 D 3.6 Chloride 101 100 Carbon Dioxide 23 26 BUN 17 H 13 Creatinine 0.67 0.67 Calcium 9.0 D 9.3 Liver Function 08/09/25 Range/Units 18:54 Total Bilirubin 0.2 (0.0-1.0) mg/dL Direct Bilirubin < 0.2 (0.0-0.5) mg/dL AST 17 (5-31) U/L ALT < 6 (0-31) U/L Alkaline Phosphatase 127 H (39-117) U/L Albumin 3.5 (3.5-5.0) g/dL Assessment and Plan (1) Acute stroke due to embolism of right middle cerebral artery: Status: Acute Neuro 7 discrete acute infarcts of small size all in the left middle cerebral distribution consistent with an embolic process probably of cardiac origin particularly because the CTA is unremarkable. The MRI and CTA films were reviewed by me personally. Recommendation long-term Holter monitor. Start Eliquis 5 mg b.i.d.. Echocardiogram with bubble study. PT/ OT Procedures Date of Service Date of Service: 08/10/25
[2025-08-10 16:36] LABS: Glucose, Whole Blood 190 mg/dL (60-115)
[2025-08-10 20:16] LABS: Glucose, Whole Blood 155 mg/dL (60-115)
[2025-08-10] MEDS: Insulin Glargine,Hum.rec.anlog 100 UNIT/ML 10 ML VIAL 12 UNIT SUBCUT (21:18)
[2025-08-11] VITALS (7 sets, daily range): BP systolic 116–177; BP diastolic 55–81; PULSE 74–88; RESP 17–20; TEMP 36.2–36.8; O2SAT 94–98
--- NOTE | 2025-08-11 07:00 | CA_ITS ---
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 The calculated ejection fraction is 65% by biplane method. - There is severely increased left ventricular wall thickness. - There is no evidence of interatrial shunt by agitated saline (during stress and rest). - No obvious valvular pathology seen on this study. Findings Left Ventricle Normal left ventricular cavity size. There is severely increased left ventricular wall thickness. The left ventricular systolic function is normal. The calculated ejection fraction is 65% by biplane method. There is no evidence of regional wall motion abnormalities. Evidence suggests grade I (mild) diastolic dysfunction. Right Ventricle Normal right ventricular cavity size and systolic function. Atria Both atria are normal in size. There is no evidence of interatrial shunt by agitated saline. Aortic Valve There is a normal trileaflet aortic valve. There is no aortic valve stenosis. There is no aortic valve regurgitation. Mitral Valve There is mild mitral annular calcification. There is no mitral valve regurgitation. There is no mitral valve stenosis. Pulmonic Valve The pulmonic valve is likely normal. Tricuspid Valve There is trace tricuspid valve regurgitation. There is no evidence of pulmonary hypertension. Great Vessels The asc aorta is normal in size. Venous The inferior vena cava is normal in size and collapses greater than 50% with inspiration. Pericardium/Pleural There is no evidence of pericardial effusion. Prior Study Comparison No significant change compared to prior study dated: 03/30/2024. Recommendations, Care & Conclusions No obvious valvular pathology seen on this study. Measurements 2D Linear Measurements IVSd: 1.62 0.6-0.9/0.6-1.0 cm LVIDd: 3.50 3.9-5.3/4.2-5.9 cm LVIDd Index: 2.03 2.4-3.2/2.2-3.1 cm/m2 LVIDs: 2.13 2.0-3.6 cm LVPWd: 1.62 0.7-1.1 cm LA Diam: 3.60 2.7-3.8/3.0-4.0 cm LAIDs Index: 2.09 1.5-2.3 cm/m2 LV Mass: 273.84 67-162/88-224 g LV Mass Index: 159.21 43-95/49-115 g/m2 LVOT Diam: 2.30 3.0+(-)1.3 cm 2D Systolic Function EF 4C: 61.70 >55% EF 2C: 67.00 >55% EF BiP: 64.70 >55% Mitral Valve MV Pk E: 0.71 MV PK A: 1.11 MV Decel Time: 281.00 E/A: 0.60 E'Lateral: 3.15 E'Medial: 4.03 E/E' Med: 17.50 E/E' Lat: 22.40 PHT: 82.00 MVA PHT: 2.68 Decel [place]: 2.52 Aortic Valve AoV Pk Clayton: 1.54 AoV Mn Clayton: 0.94 AoV VTI: 0.32 AoV Pk Grad: 9.00 Aov Mn Grad: 4.00 AKHIL Cont.VTI: 3.27 LVOT LVOT Pk Clayton: 1.04 LVOT Mn Clayton: 0.69 LVOT VTI: 0.25 LVOT Pk Grad: 4.00 LVOT Mn Grad: 2.00 LVOT Diam: 2.30 LVOT Area: 4.15 Diastolic Function MV Pk E: 0.71 MV Pk A: 1.11 E/A: 0.60 E'Medial: 4.03 E/E' Med: 17.50 E' Laterial: 3.15 E/E' Lat: 22.40 Right Ventricle TAPSE (mm): 23.60 TVS' Clayton: 12.30 Tricuspid Valve TR Pk Clayton: 1.49 TR Pk Grad: 9.00 RA Press: 3.00 RVSP: 12.00 Great Vessels Aorta Sinus of Valsalva: 3.20 2.0-3.5 cm Ao Asc: 3.50 2.1-3.4 cm Pulmonary Valve PV Pk Clayton: 0.99 Peak PV Grad: 4.00 Updated in Other Vendor System with Status of Final Jeffrey Russo MD electronically signed on 08/11/2025 3:40:28 PM with status of Final
[2025-08-11 07:29] LABS: Hematocrit 38.2 % (37.0-47.0); Hemoglobin 13.6 g/dl (12.0-16.0); Mean Corpuscular HGB Conc 35.6 g/dl (31.0-35.0); Mean Corpuscular Hemoglobin 29.9 pg (27.0-33.0); Mean Corpuscular Volume 84.0 fL (80.0-98.0); NRBC Abs Auto 0.000 X10*3/uL (0.0-0.012); NRBC Pct Auto 0.0 /100WBC (0.0-0.2); Platelet Count 228 X10*3/uL (160-400); Red Blood Count 4.55 X10*6/uL (4.20-5.50); White Blood Count 7.1 X10*3/uL (4.8-10.8)
[2025-08-11 07:44] LABS: Anion Gap 14 (12-20); Blood Urea Nitrogen 19 mg/dL (9-16); Calcium 9.0 mg/dL (8.4-10.2); Carbon Dioxide 26 mmol/L (22-29); Chloride 106 mmol/L (96-108); Creatinine Clr Calc Pharmacy 78.6; Estimated Glomerular Filt Rate > 60; Magnesium 2.1 mg/dL (1.6-2.6); Potassium 3.2 mmol/L (3.3-5.1); Sodium 143 mmol/L (135-145)
[2025-08-11 07:59] LABS: Glucose, Whole Blood 197 mg/dL (60-115)
[2025-08-11] MEDS: Nicotine 21 MG PATCH.TD24 TRANSDERMA (08:55)
[2025-08-11] MEDS: 0.9 % Sodium Chloride Flush 3 ML SYRINGE IVFLUSH ×3 (08:58→22:24)
--- NOTE | 2025-08-11 10:26 | MHC.CM.PN ---
Pt. lives with her family, PCP confirmed: Kate Bailon. HCP is on file and confirmed: Jeni. Pt. does not use home health services or DME. She said that she is unsure about her insurance, and that our financial counselor is working with her on this, CM will follow up. Pt. has not been to STR before, PT and OT are rec. acute rehab at this time, no referrals out due to insurance, CM will follow for DC needs.
[2025-08-11 11:30] LABS: Glucose, Whole Blood 188 mg/dL (60-115)
[2025-08-11 15:50] LABS: Glucose, Whole Blood 118 mg/dL (60-115)
--- NOTE | 2025-08-11 16:22 | HO.PM.IMPN ---
Subjective Subjective Date of Service: 08/11/25 Interval History: No acute issues overnight. Symptoms stable Review of Systems Denies chest pain Denies shortness of breath Denies nausea vomiting diarrhea Denies fever chills Physical Exam Vital Signs: Vital Signs: Last Vital Signs Temp 97.1 F 08/11/25 15:34 Pulse 78 08/11/25 15:34 Resp 18 08/11/25 15:34 BP 155/77 H 08/11/25 15:34 Pulse Ox 98 08/11/25 15:34 O2 Del Method Room Air 08/11/25 15:34 BMI result Body Mass Index 27.6 Const: Other: Awake alert no acute distress Resp: Other: Clear to auscultation bilaterally no rales rhonchi or wheezes Cardio: Other: No S4; positive S1-S2; no S3 murmurs rubs or gallops GI: Other: Soft nontender nondistended normoactive bowel sounds Neuro: Other: Cranial nerves 2-12 grossly intact as tested. Motor 5/5 right upper and lower extremity; 3 to 4/5 left upper and lower extremity Extrem: Other: No edema bilaterally Objective Data Active Medications Acetaminophen (Acetaminophen 325 Mg Tablet) 650 mg PO Q6H PRN PRN Reason: Pain, Mild 1-3,fever,headache Last Admin: 08/10/25 21:17 Dose: 650 mg Documented By: SOSA Amlodipine Besylate (Amlodipine Besylate 10 Mg Tablet) 10 mg PO DAILY [facility]; Protocol Last Admin: 08/11/25 08:54 Dose: 10 mg Documented By: NEEMA Apixaban (Apixaban 5 Mg Tablet) 5 mg PO BID [facility] Last Admin: 08/11/25 08:55 Dose: 5 mg Documented By: NEEMA Atorvastatin Calcium (Atorvastatin Calcium 80 Mg Tablet) 80 mg PO BEDTIME [facility] Last Admin: 08/10/25 21:17 Dose: 80 mg Documented By: SOSA Calcium Carbonate (Calcium Carbonate 750 Mg Tab.Chew) 750 mg PO Q4H PRN PRN Reason: Heartburn Cyclobenzaprine HCl (Cyclobenzaprine Hcl 10 Mg Tablet) 10 mg PO BEDTIME PRN PRN Reason: back pain Last Admin: 08/10/25 09:54 Dose: 10 mg Documented By: ALONA Dextrose (Dextrose 50 % 25 Gm/50 Ml Syringe) 25 gm IVPUSH Q15M PRN; Protocol PRN Reason: per Hypoglycemia Standing Ord. Empagliflozin (Empagliflozin 25 Mg Tablet) 25 mg PO DAILY [facility] Last Admin: 08/11/25 08:55 Dose: 25 mg Documented By: NEEMA Glucose (Glucose Gel 15 Gm Gel..Gram.) 15 gm PO Q15M PRN; Protocol PRN Reason: per Hypoglycemia Standing Ord. Hydrochlorothiazide (Hydrochlorothiazide 25 Mg Tablet) 25 mg PO DAILY [facility]; Protocol Last Admin: 08/11/25 08:55 Dose: 25 mg Documented By: NEEMA Insulin Glargine (Insulin Glargine,Hum.Rec.Anlog 100 Unit/Ml 10 Ml Vial) 12 unit SUBCUT BEDTIME [facility] Last Admin: 08/10/25 21:18 Dose: 12 unit Documented By: SOSA Insulin Human Lispro (Insulin Lispro 100 Unit/Ml 3 Ml Vial) 0 unit SUBCUT QIDACHS [facility]; Protocol Last Admin: 08/11/25 11:47 Dose: 4 unit Documented By: NEEMA Insulin Human Lispro (Insulin Lispro 100 Unit/Ml 3 Ml Vial) 5 unit SUBCUT QIDACHS [facility] Last Admin: 08/11/25 11:48 Dose: 5 unit Documented By: NEEMA Labetalol HCl (Labetalol Hcl 100 Mg/20 Ml Vial) 10 mg IVPUSH Q2H PRN PRN Reason: SBP > 200 Labetalol HCl (Labetalol Hcl 100 Mg Tablet) 300 mg PO BID [facility] Last Admin: 08/11/25 08:54 Dose: 300 mg Documented By: NEEMA Losartan Potassium (Losartan Potassium 50 Mg Tablet) 100 mg PO DAILY [facility]; Protocol Last Admin: 08/11/25 08:54 Dose: 100 mg Documented By: NEEMA Magnesium Hydroxide (Milk Of Magnesia 30 Ml Oral.Susp) 30 ml PO DAILY PRN PRN Reason: Constipation Melatonin (Melatonin 3 Mg Tablet) 6 mg PO BEDTIME PRN PRN Reason: Insomnia Last Admin: 08/10/25 21:17 Dose: 6 mg Documented By: SOSA Nicotine (Nicotine 21 Mg Patch.Td24) 21 mg TRANSDERMA DAILY [facility] Last Admin: 08/11/25 08:55 Dose: 21 mg Documented By: NEEMA Sodium Chloride (0.9 % Sodium Chloride Flush 3 Ml Syringe) 3 ml IVFLUSH QSHIFT [facility] Last Admin: 08/11/25 08:58 Dose: 3 ml Documented By: NEEMA Labs 08/11/25 07:15 08/11/25 07:15 Labs: Laboratory Results - last 24 hr 08/10/25 08/10/25 08/11/25 16:32 20:12 07:15 MCV 84.0 MCH 29.9 MCHC 35.6 H RDW 13.3 Plt Count 228 MPV 9.1 L Absolute Nucleated RBC 0.000 Nucleated RBC % (auto) 0.0 Anion Gap 14 Estim Creat Clear Calc 78.6 Estimated GFR > 60 POC Glucose 190 H 155 H Random Glucose 188 H Calcium 9.0 Magnesium 2.1 08/11/25 08/11/25 08/11/25 07:43 11:24 15:41 MCV MCH MCHC RDW Plt Count MPV Absolute Nucleated RBC Nucleated RBC % (auto) Anion Gap Estim Creat Clear Calc Estimated GFR POC Glucose 197 H 188 H 118 H Random Glucose Calcium Magnesium Assessment and Plan (1) Acute stroke due to embolism of right middle cerebral artery: Status: Acute (2) Uncontrolled diabetes mellitus with hyperglycemia: Status: Acute Plan 59F PMH dm, htn, BROWN, hyperlipidemia, pvd, active smoker, presented with left sided weakness, uncontrolled hypertension presents after 7 discrete acute infarcts of the left middle cerebral distribution consistent with embolic in works likely cardiac 1.CVA -appreciate neuro input -Eliquis 5 mg twice daily -aspirin -PT/OT consult -High-dose statin 2.Hypertensive emergency.. Resolved -continue amlodipine, labetalol, losartan, hydrochlorothiazide -adjust as clinically indicated 3.Diabetes II -acceptable control on current therapies -lispro correctional scale -adjust as indicated Insulin sliding scale Eliquis Full code reason for continued hospitalization:stroke work up ongoing, bp control Quality Stroke Does the patient have a stroke diagnosis?: No VTE Prior VTE?: No VTE Risk Level:: Medical - moderate - high VTE Device Contraindication: Treatment Not Indicated VTE Drug Contraindication: N/A - Med Ordered
[2025-08-11 20:47] LABS: Glucose, Whole Blood 173 mg/dL (60-115)
[2025-08-11] MEDS: Insulin Glargine,Hum.rec.anlog 100 UNIT/ML 10 ML VIAL 12 UNIT SUBCUT (22:25)
[2025-08-12] VITALS (7 sets, daily range): BP systolic 118–170; BP diastolic 60–74; PULSE 79–101; RESP 16–20; TEMP 36.3–37.1; O2SAT 92–96
[2025-08-12 07:49] LABS: Glucose, Whole Blood 188 mg/dL (60-115)
[2025-08-12] MEDS: Nicotine 21 MG PATCH.TD24 TRANSDERMA (08:01)
[2025-08-12] MEDS: 0.9 % Sodium Chloride Flush 3 ML SYRINGE IVFLUSH ×3 (08:02→21:02)
[2025-08-12 11:12] LABS: Glucose, Whole Blood 263 mg/dL (60-115)
--- NOTE | 2025-08-12 13:21 | MHC.CM.PN ---
CM spoke with financial counselor about what is needed to determine if pt. can get health ins., we are waiting for to bring in documents re: his income. CM met with pt. to inquire about her employment, s question that financial counselor had, she is employed, but is not getting sick time now because she has used it all. CM informed pt. that the rec for her is acute rehab, but she needs to have insurance.
--- NOTE | 2025-08-12 15:33 | P.PNIM_ITS ---
Subjective Subjective Date of Service: 08/12/25 Interval History: No acute issues overnight. States increased left leg movement Review of Systems Denies chest pain Denies shortness of breath Denies nausea vomiting diarrhea Denies fever chills Physical Exam 2 Vital Signs: Vital Signs: Last Vital Signs Temp 98.1 F 08/12/25 15:20 Pulse 101 H 08/12/25 15:20 Resp 16 08/12/25 15:20 BP 139/74 08/12/25 15:20 Pulse Ox 94 08/12/25 15:20 O2 Del Method Room Air 08/12/25 15:20 BMI result Body Mass Index 27.6 Const: Other: Awake alert no acute distress Resp: Other: Clear to auscultation bilaterally no rales rhonchi or wheezes Cardio: Other: No S4; positive S1-S2; no S3 murmurs rubs or gallops GI: Other: Soft nontender nondistended normoactive bowel sounds Neuro: Other: Cranial nerves 2-12 grossly intact as tested. Motor 5/5 right upper and lower extremity; 3 to 4/5 left upper and lower extremity Extrem: Other: No edema bilaterally Objective Data Active Medications Acetaminophen (Acetaminophen 325 Mg Tablet) 650 mg PO Q6H PRN PRN Reason: Pain, Mild 1-3,fever,headache Last Admin: 08/12/25 15:00 Dose: 650 mg Documented By: NEEMA Amlodipine Besylate (Amlodipine Besylate 10 Mg Tablet) 10 mg PO DAILY [facility]; Protocol Last Admin: 08/12/25 08:02 Dose: 10 mg Documented By: NEEMA Apixaban (Apixaban 5 Mg Tablet) 5 mg PO BID [facility] Last Admin: 08/12/25 08:02 Dose: 5 mg Documented By: NEEMA Atorvastatin Calcium (Atorvastatin Calcium 80 Mg Tablet) 80 mg PO BEDTIME [facility] Last Admin: 08/11/25 22:24 Dose: 80 mg Documented By: BRIAN Calcium Carbonate (Calcium Carbonate 750 Mg Tab.Chew) 750 mg PO Q4H PRN PRN Reason: Heartburn Cyclobenzaprine HCl (Cyclobenzaprine Hcl 10 Mg Tablet) 10 mg PO BEDTIME PRN PRN Reason: back pain Last Admin: 08/10/25 09:54 Dose: 10 mg Documented By: ALONA Dextrose (Dextrose 50 % 25 Gm/50 Ml Syringe) 25 gm IVPUSH Q15M PRN; Protocol PRN Reason: per Hypoglycemia Standing Ord. Empagliflozin (Empagliflozin 25 Mg Tablet) 25 mg PO DAILY [facility] Last Admin: 08/12/25 08:02 Dose: 25 mg Documented By: NEEMA Glucose (Glucose Gel 15 Gm Gel..Gram.) 15 gm PO Q15M PRN; Protocol PRN Reason: per Hypoglycemia Standing Ord. Hydrochlorothiazide (Hydrochlorothiazide 25 Mg Tablet) 25 mg PO DAILY [facility]; Protocol Last Admin: 08/12/25 08:02 Dose: 25 mg Documented By: NEEMA Insulin Glargine (Insulin Glargine,Hum.Rec.Anlog 100 Unit/Ml 10 Ml Vial) 12 unit SUBCUT BEDTIME [facility] Last Admin: 08/11/25 22:25 Dose: 12 unit Documented By: BRIAN Insulin Human Lispro (Insulin Lispro 100 Unit/Ml 3 Ml Vial) 0 unit SUBCUT QIDACHS [facility]; Protocol Last Admin: 08/12/25 11:25 Dose: 8 unit Documented By: NEEMA Insulin Human Lispro (Insulin Lispro 100 Unit/Ml 3 Ml Vial) 5 unit SUBCUT QIDACHS [facility] Last Admin: 08/12/25 11:25 Dose: 5 unit Documented By: NEEMA Labetalol HCl (Labetalol Hcl 100 Mg/20 Ml Vial) 10 mg IVPUSH Q2H PRN PRN Reason: SBP > 200 Labetalol HCl (Labetalol Hcl 100 Mg Tablet) 300 mg PO BID [facility] Last Admin: 08/12/25 08:01 Dose: 300 mg Documented By: NEEMA Losartan Potassium (Losartan Potassium 50 Mg Tablet) 100 mg PO DAILY [facility]; Protocol Last Admin: 08/12/25 08:02 Dose: 100 mg Documented By: NEEMA Magnesium Hydroxide (Milk Of Magnesia 30 Ml Oral.Susp) 30 ml PO DAILY PRN PRN Reason: Constipation Melatonin (Melatonin 3 Mg Tablet) 6 mg PO BEDTIME PRN PRN Reason: Insomnia Last Admin: 08/10/25 21:17 Dose: 6 mg Documented By: SOSA Nicotine (Nicotine 21 Mg Patch.Td24) 21 mg TRANSDERMA DAILY [facility] Last Admin: 08/12/25 08:01 Dose: 21 mg Documented By: HO.GRIFFE Oxycodone HCl (Oxycodone Hcl Immed Release 5 Mg Tablet) 10 mg PO Q4H PRN PRN Reason: Pain, Moderate(Pain Scale 4-6) Sodium Chloride (0.9 % Sodium Chloride Flush 3 Ml Syringe) 3 ml IVFLUSH QSHIFT [facility] Last Admin: 08/12/25 15:01 Dose: 3 ml Documented By: NEEMA Labs 08/11/25 07:15 08/11/25 07:15 Labs: Laboratory Results - last 24 hr 08/11/25 08/11/25 08/12/25 15:41 20:33 07:29 POC Glucose 118 H 173 H 188 H 08/12/25 11:07 POC Glucose 263 H Assessment and Plan (1) Acute stroke due to embolism of right middle cerebral artery: Status: Acute (2) Uncontrolled diabetes mellitus with hyperglycemia: Status: Acute Plan 59F PMH dm, htn, BROWN, hyperlipidemia, pvd, active smoker, presented with left sided weakness, uncontrolled hypertension presents after 7 discrete acute infarcts of the left middle cerebral distribution consistent with embolic in works likely cardiac 1.CVA -appreciate neuro input -Eliquis 5 mg twice daily -aspirin -PT/OT consult... Await placement -High-dose statin 2.Hypertensive emergency.. Resolved -continue amlodipine, labetalol, losartan, hydrochlorothiazide -adjust as clinically indicated 3.Diabetes II -acceptable control on current therapies -lispro correctional scale -adjust as indicated Eliquis Full code reason for continued hospitalization:stroke work up ongoing, bp control Quality Stroke Does the patient have a stroke diagnosis?: No VTE Prior VTE?: No VTE Risk Level:: Medical - moderate - high VTE Device Contraindication: Treatment Not Indicated VTE Drug Contraindication: N/A - Med Ordered
[2025-08-12] MEDS: oxyCODONE HCl Immed Release 5 MG TABLET 10 MG PO ×2 (15:50→20:58)
[2025-08-12 17:07] LABS: Glucose, Whole Blood 143 mg/dL (60-115)
[2025-08-12 20:37] LABS: Glucose, Whole Blood 259 mg/dL (60-115)
[2025-08-12] MEDS: Insulin Glargine,Hum.rec.anlog 100 UNIT/ML 10 ML VIAL 12 UNIT SUBCUT (20:58)
[2025-08-13 04:00] VITALS: BP 148/73; PULSE 86; RESP 18; TEMP 37; O2SAT 93
[2025-08-13 07:11] LABS: Glucose, Whole Blood 181 mg/dL (60-115)
[2025-08-13 07:54] VITALS: BP 142/76; PULSE 98; RESP 18; TEMP 36.1; O2SAT 96
[2025-08-13] MEDS: Nicotine 21 MG PATCH.TD24 TRANSDERMA (08:09)
[2025-08-13] MEDS: 0.9 % Sodium Chloride Flush 3 ML SYRINGE IVFLUSH ×3 (08:12→22:50)
[2025-08-13 08:48] VITALS: BP 142/76; PULSE 98; O2SAT 96
[2025-08-13 11:32] LABS: Glucose, Whole Blood 191 mg/dL (60-115)
--- NOTE | 2025-08-13 11:38 | MHC.CM.PN ---
PT TO BE DCD HOME SELF CARE PT DOES NOT HAVE HEALTH INS THEREFORE CAN NOT GO TO REHAB OR HAVE A VNA
[2025-08-13] MEDS: oxyCODONE HCl Immed Release 5 MG TABLET 10 MG PO ×2 (11:57→20:14)
--- NOTE | 2025-08-13 12:37 | HO.PM.IMPN ---
Subjective Subjective Date of Service: 08/13/25 Interval History: No acute issues overnight. More movement in left lower extremity Review of Systems Denies chest pain Denies shortness of breath Denies nausea vomiting diarrhea Denies fever chills Physical Exam Vital Signs: Vital Signs: Last Vital Signs Temp 97.0 F 08/13/25 07:54 Pulse 98 08/13/25 08:48 Resp 18 08/13/25 07:54 BP 142/76 H 08/13/25 08:48 Pulse Ox 96 08/13/25 08:48 O2 Del Method Room Air 08/13/25 07:54 BMI result Body Mass Index 27.6 Const: Other: Awake alert no acute distress Resp: Other: Clear to auscultation bilaterally no rales rhonchi or wheezes Cardio: Other: No S4; positive S1-S2; no S3 murmurs rubs or gallops GI: Other: Soft nontender nondistended normoactive bowel sounds Neuro: Other: Cranial nerves 2-12 grossly intact as tested. Motor 5/5 right upper and lower extremity; 3 to 4/5 left upper and lower extremity Extrem: Other: No edema bilaterally Objective Data Active Medications Acetaminophen (Acetaminophen 325 Mg Tablet) 650 mg PO Q6H PRN PRN Reason: Pain, Mild 1-3,fever,headache Last Admin: 08/12/25 15:00 Dose: 650 mg Documented By: NEEMA Amlodipine Besylate (Amlodipine Besylate 10 Mg Tablet) 10 mg PO DAILY [facility]; Protocol Last Admin: 08/13/25 08:07 Dose: 10 mg Documented By: QUETA Apixaban (Apixaban 5 Mg Tablet) 5 mg PO BID [facility] Last Admin: 08/13/25 08:08 Dose: 5 mg Documented By: QUETA Atorvastatin Calcium (Atorvastatin Calcium 80 Mg Tablet) 80 mg PO BEDTIME [facility] Last Admin: 08/12/25 20:59 Dose: 80 mg Documented By: SHAQUILLE Calcium Carbonate (Calcium Carbonate 750 Mg Tab.Chew) 750 mg PO Q4H PRN PRN Reason: Heartburn Cyclobenzaprine HCl (Cyclobenzaprine Hcl 10 Mg Tablet) 10 mg PO BEDTIME PRN PRN Reason: back pain Last Admin: 08/10/25 09:54 Dose: 10 mg Documented By: ALONA Dextrose (Dextrose 50 % 25 Gm/50 Ml Syringe) 25 gm IVPUSH Q15M PRN; Protocol PRN Reason: per Hypoglycemia Standing Ord. Empagliflozin (Empagliflozin 25 Mg Tablet) 25 mg PO DAILY [facility] Last Admin: 08/13/25 08:08 Dose: 25 mg Documented By: QUETA Glucose (Glucose Gel 15 Gm Gel..Gram.) 15 gm PO Q15M PRN; Protocol PRN Reason: per Hypoglycemia Standing Ord. Hydrochlorothiazide (Hydrochlorothiazide 25 Mg Tablet) 25 mg PO DAILY [facility]; Protocol Last Admin: 08/13/25 08:08 Dose: 25 mg Documented By: QUETA Insulin Glargine (Insulin Glargine,Hum.Rec.Anlog 100 Unit/Ml 10 Ml Vial) 12 unit SUBCUT BEDTIME [facility] Last Admin: 08/12/25 20:58 Dose: 12 unit Documented By: SHAQUILLE Insulin Human Lispro (Insulin Lispro 100 Unit/Ml 3 Ml Vial) 0 unit SUBCUT QIDACHS [facility]; Protocol Last Admin: 08/13/25 11:59 Dose: 4 unit Documented By: QUETA Insulin Human Lispro (Insulin Lispro 100 Unit/Ml 3 Ml Vial) 5 unit SUBCUT QIDACHS [facility] Last Admin: 08/13/25 11:59 Dose: 5 unit Documented By: QUETA Labetalol HCl (Labetalol Hcl 100 Mg/20 Ml Vial) 10 mg IVPUSH Q2H PRN PRN Reason: SBP > 200 Labetalol HCl (Labetalol Hcl 100 Mg Tablet) 300 mg PO BID [facility] Last Admin: 08/13/25 08:07 Dose: 300 mg Documented By: QUETA Losartan Potassium (Losartan Potassium 50 Mg Tablet) 100 mg PO DAILY [facility]; Protocol Last Admin: 08/13/25 08:07 Dose: 100 mg Documented By: QUETA Magnesium Hydroxide (Milk Of Magnesia 30 Ml Oral.Susp) 30 ml PO DAILY PRN PRN Reason: Constipation Melatonin (Melatonin 3 Mg Tablet) 6 mg PO BEDTIME PRN PRN Reason: Insomnia Last Admin: 08/10/25 21:17 Dose: 6 mg Documented By: SOSA Nicotine (Nicotine 21 Mg Patch.Td24) 21 mg TRANSDERMA DAILY [facility] Last Admin: 08/13/25 08:09 Dose: 21 mg Documented By: QUETA Oxycodone HCl (Oxycodone Hcl Immed Release 5 Mg Tablet) 10 mg PO Q4H PRN PRN Reason: Pain, Moderate(Pain Scale 4-6) Last Admin: 08/13/25 11:57 Dose: 10 mg Documented By: QUETA Sodium Chloride (0.9 % Sodium Chloride Flush 3 Ml Syringe) 3 ml IVFLUSH QSHIFT [facility] Last Admin: 08/13/25 08:12 Dose: 3 ml Documented By: QUETA Labs 08/11/25 07:15 08/11/25 07:15 Labs: Laboratory Results - last 24 hr 08/12/25 08/12/25 08/13/25 17:04 20:33 07:08 POC Glucose 143 H 259 H 181 H 08/13/25 11:28 POC Glucose 191 H Assessment and Plan (1) Acute stroke due to embolism of right middle cerebral artery: Status: Acute (2) Uncontrolled diabetes mellitus with hyperglycemia: Status: Acute Plan 59F PMH dm, htn, BROWN, hyperlipidemia, pvd, active smoker, presented with left sided weakness, uncontrolled hypertension presents after 7 discrete acute infarcts of the left middle cerebral distribution consistent with embolic in works likely cardiac 1.CVA -appreciate neuro input -Eliquis 5 mg twice daily -aspirin -PT/OT consult... Await placement -High-dose statin 2.Hypertensive emergency.. Resolved -continue amlodipine, labetalol, losartan, hydrochlorothiazide -adjust as clinically indicated 3.Diabetes II -acceptable control on current therapies -lispro correctional scale -adjust as indicated Eliquis Full code reason for continued hospitalization:stroke work up ongoing, bp control Quality Stroke Does the patient have a stroke diagnosis?: No VTE Prior VTE?: No VTE Risk Level:: Medical - moderate - high VTE Device Contraindication: Treatment Not Indicated VTE Drug Contraindication: N/A - Med Ordered
--- NOTE | 2025-08-13 13:51 | MHC.CM.PN ---
pt to be dcd today at 4 to [facility]
[2025-08-13 15:13] VITALS: BP 141/64; PULSE 79; RESP 16; TEMP 36.6; O2SAT 93
--- NOTE | 2025-08-13 15:18 | MHC.CM.PN ---
PER ROUNDS PT NOT BEING DCD TODAY PT HAS NO HEALTH INS OR PCP CAN NOT HAVE A VNA OR BE PLACED AT [facility] TIME
[2025-08-13 16:22] LABS: Glucose, Whole Blood 151 mg/dL (60-115)
[2025-08-13 19:15] VITALS: BP 152/71; PULSE 75; RESP 16; TEMP 36.8; O2SAT 92
[2025-08-13 20:02] LABS: Glucose, Whole Blood 158 mg/dL (60-115)
[2025-08-13] MEDS: Insulin Glargine,Hum.rec.anlog 100 UNIT/ML 10 ML VIAL 12 UNIT SUBCUT (20:13)
[2025-08-14] VITALS (7 sets, daily range): BP systolic 126–165; BP diastolic 63–78; PULSE 79–83; RESP 15–18; TEMP 36.1–36.8; O2SAT 95–96
[2025-08-14 08:10] LABS: Glucose, Whole Blood 180 mg/dL (60-115)
[2025-08-14] MEDS: 0.9 % Sodium Chloride Flush 3 ML SYRINGE IVFLUSH ×3 (08:34→20:46)
[2025-08-14] MEDS: Nicotine 21 MG PATCH.TD24 TRANSDERMA (08:37)
[2025-08-14 11:34] LABS: Glucose, Whole Blood 157 mg/dL (60-115)
--- NOTE | 2025-08-14 11:57 | P.PNIM_ITS ---
Subjective Subjective Date of Service: 08/14/25 Interval History: No acute changes; left lower extremity strength improved compared to yesterday Review of Systems Denies chest pain Denies shortness of breath Denies nausea vomiting diarrhea Denies fever chills Physical Exam 2 Vital Signs: Vital Signs: Last Vital Signs Temp 98.2 F 08/14/25 07:26 Pulse 83 08/14/25 08:43 Resp 18 08/14/25 07:26 BP 165/78 H 08/14/25 08:41 Pulse Ox 95 08/14/25 07:26 O2 Del Method Room Air 08/14/25 07:26 BMI result Body Mass Index 27.6 Const: Other: Awake alert no acute distress Resp: Other: Clear to auscultation bilaterally no rales rhonchi or wheezes Cardio: Other: No S4; positive S1-S2; no S3 murmurs rubs or gallops GI: Other: Soft nontender nondistended normoactive bowel sounds Neuro: Other: Cranial nerves 2-12 grossly intact as tested. Motor 5/5 right upper and lower extremity; 3 to 4/5 left upper and lower extremity Extrem: Other: No edema bilaterally Objective Data Active Medications Acetaminophen (Acetaminophen 325 Mg Tablet) 650 mg PO Q6H PRN PRN Reason: Pain, Mild 1-3,fever,headache Last Admin: 08/12/25 15:00 Dose: 650 mg Documented By: NEEMA Amlodipine Besylate (Amlodipine Besylate 10 Mg Tablet) 10 mg PO DAILY [facility]; Protocol Last Admin: 08/14/25 08:41 Dose: 10 mg Documented By: FRANSICO Apixaban (Apixaban 5 Mg Tablet) 5 mg PO BID [facility] Last Admin: 08/14/25 08:40 Dose: 5 mg Documented By: FRANSICO Atorvastatin Calcium (Atorvastatin Calcium 80 Mg Tablet) 80 mg PO BEDTIME [facility] Last Admin: 08/13/25 20:14 Dose: 80 mg Documented By: SHAQUILLE Calcium Carbonate (Calcium Carbonate 750 Mg Tab.Chew) 750 mg PO Q4H PRN PRN Reason: Heartburn Cyclobenzaprine HCl (Cyclobenzaprine Hcl 10 Mg Tablet) 10 mg PO BEDTIME PRN PRN Reason: back pain Last Admin: 08/10/25 09:54 Dose: 10 mg Documented By: ALONA Dextrose (Dextrose 50 % 25 Gm/50 Ml Syringe) 25 gm IVPUSH Q15M PRN; Protocol PRN Reason: per Hypoglycemia Standing Ord. Empagliflozin (Empagliflozin 25 Mg Tablet) 25 mg PO DAILY [facility] Last Admin: 08/14/25 08:42 Dose: 25 mg Documented By: FRANSICO Glucose (Glucose Gel 15 Gm Gel..Gram.) 15 gm PO Q15M PRN; Protocol PRN Reason: per Hypoglycemia Standing Ord. Hydrochlorothiazide (Hydrochlorothiazide 25 Mg Tablet) 25 mg PO DAILY [facility]; Protocol Last Admin: 08/14/25 08:42 Dose: 25 mg Documented By: FRANSICO Insulin Glargine (Insulin Glargine,Hum.Rec.Anlog 100 Unit/Ml 10 Ml Vial) 12 unit SUBCUT BEDTIME [facility] Last Admin: 08/13/25 20:13 Dose: 12 unit Documented By: SHAQUILLE Insulin Human Lispro (Insulin Lispro 100 Unit/Ml 3 Ml Vial) 0 unit SUBCUT QIDACHS [facility]; Protocol Last Admin: 08/14/25 11:46 Dose: Not Given Documented By: FRANSICO Non-Admin Reason: per Dr. Chapin Insulin Human Lispro (Insulin Lispro 100 Unit/Ml 3 Ml Vial) 5 unit SUBCUT QIDACHS [facility] Last Admin: 08/14/25 11:51 Dose: 5 unit Documented By: FRANSICO Labetalol HCl (Labetalol Hcl 100 Mg/20 Ml Vial) 10 mg IVPUSH Q2H PRN PRN Reason: SBP > 200 Labetalol HCl (Labetalol Hcl 100 Mg Tablet) 300 mg PO BID [facility] Last Admin: 08/14/25 08:43 Dose: 300 mg Documented By: FRANSICO Losartan Potassium (Losartan Potassium 50 Mg Tablet) 100 mg PO DAILY [facility]; Protocol Last Admin: 08/14/25 08:42 Dose: 100 mg Documented By: FRANSICO Magnesium Hydroxide (Milk Of Magnesia 30 Ml Oral.Susp) 30 ml PO DAILY PRN PRN Reason: Constipation Melatonin (Melatonin 3 Mg Tablet) 6 mg PO BEDTIME PRN PRN Reason: Insomnia Last Admin: 08/10/25 21:17 Dose: 6 mg Documented By: SOSA Nicotine (Nicotine 21 Mg Patch.Td24) 21 mg TRANSDERMA DAILY [facility] Last Admin: 08/14/25 08:37 Dose: 21 mg Documented By: FRANSICO Oxycodone HCl (Oxycodone Hcl Immed Release 5 Mg Tablet) 10 mg PO Q4H PRN PRN Reason: Pain, Moderate(Pain Scale 4-6) Last Admin: 08/13/25 20:14 Dose: 10 mg Documented By: SHAQUILLE Sodium Chloride (0.9 % Sodium Chloride Flush 3 Ml Syringe) 3 ml IVFLUSH QSHIFT [facility] Last Admin: 08/14/25 08:34 Dose: 3 ml Documented By: FRANSICO Labs 08/11/25 07:15 08/11/25 07:15 Labs: Laboratory Results - last 24 hr 08/13/25 08/13/25 08/14/25 16:19 19:58 07:29 POC Glucose 151 H 158 H 180 H 08/14/25 11:27 POC Glucose 157 H Assessment and Plan (1) Acute stroke due to embolism of right middle cerebral artery: Status: Acute (2) Hypertension, uncontrolled: Status: Acute Plan 59F PMH dm, htn, BROWN, hyperlipidemia, pvd, active smoker, presented with left sided weakness, uncontrolled hypertension presents after 7 discrete acute infarcts of the left middle cerebral distribution consistent with embolic in works likely cardiac 1.CVA -Eliquis 5 mg twice daily -aspirin -PT/OT consult... Await placement -High-dose statin 2.Hypertension -continue amlodipine, labetalol, losartan, hydrochlorothiazide -adjust as clinically indicated 3.Diabetes II -acceptable control on current therapies -lispro correctional scale -adjust as indicated Eliquis Full code reason for continued hospitalization:stroke work up ongoing, bp control Quality Stroke Does the patient have a stroke diagnosis?: No VTE Prior VTE?: No VTE Risk Level:: Medical - moderate - high VTE Device Contraindication: Treatment Not Indicated VTE Drug Contraindication: N/A - Med Ordered
--- NOTE | 2025-08-14 12:55 | PC.NURSE ---
Patient had 4 loose stools from am ,Dr. Chapin notified
[2025-08-14 16:51] LABS: Glucose, Whole Blood 162 mg/dL (60-115)
[2025-08-14 20:22] LABS: Glucose, Whole Blood 160 mg/dL (60-115)
[2025-08-14] MEDS: oxyCODONE HCl Immed Release 5 MG TABLET 10 MG PO (20:39)
[2025-08-14] MEDS: Insulin Glargine,Hum.rec.anlog 100 UNIT/ML 10 ML VIAL 12 UNIT SUBCUT (20:39)
[2025-08-15 03:56] VITALS: BP 149/71; PULSE 77; RESP 18; TEMP 36.1; O2SAT 93
[2025-08-15 07:36] LABS: Glucose, Whole Blood 161 mg/dL (60-115)
[2025-08-15 07:45] VITALS: BP 132/68; PULSE 79; RESP 18; TEMP 36.4; O2SAT 96
[2025-08-15] MEDS: 0.9 % Sodium Chloride Flush 3 ML SYRINGE IVFLUSH ×3 (08:49→20:59)
[2025-08-15 08:51] VITALS: BP 160/72; PULSE 84
[2025-08-15] MEDS: Nicotine 21 MG PATCH.TD24 TRANSDERMA (08:53)
--- NOTE | 2025-08-15 09:06 | P.PNIM_ITS ---
Subjective Subjective Date of Service: 08/15/25 Interval History: f/u on stroke with left hemiparesis limitted mobility in LLE, flacid in left upper extremity Physical Exam 2 Exam: Exam: General: AO X 3, no acute distress Resp: CTA bilateral CVS: S1,S2,RRR GI: +BS, NT, no distention Skin: No rash Neuro: Left bailee-paresis Psych: appropriate affect Vital Signs: Vital Signs: Last Vital Signs Temp 97.6 F 08/15/25 07:45 Pulse 84 08/15/25 08:51 Resp 18 08/15/25 07:45 BP 160/72 H 08/15/25 08:51 Pulse Ox 96 08/15/25 07:45 O2 Del Method Room Air 08/15/25 07:45 BMI result Body Mass Index 27.6 Const: Other: Awake alert no acute distress Resp: Other: Clear to auscultation bilaterally no rales rhonchi or wheezes Cardio: Other: No S4; positive S1-S2; no S3 murmurs rubs or gallops GI: Other: Soft nontender nondistended normoactive bowel sounds Neuro: Other: Cranial nerves 2-12 grossly intact as tested. Motor 5/5 right upper and lower extremity; 3 to 4/5 left upper and lower extremity Extrem: Other: No edema bilaterally Objective Data Active Medications Acetaminophen (Acetaminophen 325 Mg Tablet) 650 mg PO Q6H PRN PRN Reason: Pain, Mild 1-3,fever,headache Last Admin: 08/12/25 15:00 Dose: 650 mg Documented By: NEEMA Amlodipine Besylate (Amlodipine Besylate 10 Mg Tablet) 10 mg PO DAILY [facility]; Protocol Last Admin: 08/15/25 08:51 Dose: 10 mg Documented By: FRANSICO Apixaban (Apixaban 5 Mg Tablet) 5 mg PO BID [facility] Last Admin: 08/15/25 08:54 Dose: 5 mg Documented By: FRANSICO Atorvastatin Calcium (Atorvastatin Calcium 80 Mg Tablet) 80 mg PO BEDTIME [facility] Last Admin: 08/14/25 20:39 Dose: 80 mg Documented By: SHAQUILLE Calcium Carbonate (Calcium Carbonate 750 Mg Tab.Chew) 750 mg PO Q4H PRN PRN Reason: Heartburn Cyclobenzaprine HCl (Cyclobenzaprine Hcl 10 Mg Tablet) 10 mg PO BEDTIME PRN PRN Reason: back pain Last Admin: 08/10/25 09:54 Dose: 10 mg Documented By: ALONA Dextrose (Dextrose 50 % 25 Gm/50 Ml Syringe) 25 gm IVPUSH Q15M PRN; Protocol PRN Reason: per Hypoglycemia Standing Ord. Empagliflozin (Empagliflozin 25 Mg Tablet) 25 mg PO DAILY [facility] Last Admin: 08/15/25 08:55 Dose: 25 mg Documented By: FRANSICO Glucose (Glucose Gel 15 Gm Gel..Gram.) 15 gm PO Q15M PRN; Protocol PRN Reason: per Hypoglycemia Standing Ord. Hydrochlorothiazide (Hydrochlorothiazide 25 Mg Tablet) 25 mg PO DAILY [facility]; Protocol Last Admin: 08/15/25 08:54 Dose: 25 mg Documented By: FRANSICO Insulin Glargine (Insulin Glargine,Hum.Rec.Anlog 100 Unit/Ml 10 Ml Vial) 12 unit SUBCUT BEDTIME [facility] Last Admin: 08/14/25 20:39 Dose: 12 unit Documented By: SHAQUILLE Insulin Human Lispro (Insulin Lispro 100 Unit/Ml 3 Ml Vial) 0 unit SUBCUT QIDACHS [facility]; Protocol Last Admin: 08/15/25 08:53 Dose: Not Given Documented By: FRANSICO Non-Admin Reason: held per Dr. Franks Insulin Human Lispro (Insulin Lispro 100 Unit/Ml 3 Ml Vial) 5 unit SUBCUT QIDACHS [facility] Last Admin: 08/15/25 08:47 Dose: 5 unit Documented By: FRANSICO Labetalol HCl (Labetalol Hcl 100 Mg/20 Ml Vial) 10 mg IVPUSH Q2H PRN PRN Reason: SBP > 200 Labetalol HCl (Labetalol Hcl 100 Mg Tablet) 300 mg PO BID [facility] Last Admin: 08/15/25 08:51 Dose: 300 mg Documented By: FRANSICO Losartan Potassium (Losartan Potassium 50 Mg Tablet) 100 mg PO DAILY [facility]; Protocol Last Admin: 08/15/25 08:55 Dose: 100 mg Documented By: FRANSICO Magnesium Hydroxide (Milk Of Magnesia 30 Ml Oral.Susp) 30 ml PO DAILY PRN PRN Reason: Constipation Melatonin (Melatonin 3 Mg Tablet) 6 mg PO BEDTIME PRN PRN Reason: Insomnia Last Admin: 08/10/25 21:17 Dose: 6 mg Documented By: SOSA Nicotine (Nicotine 21 Mg Patch.Td24) 21 mg TRANSDERMA DAILY [facility] Last Admin: 08/15/25 08:53 Dose: 21 mg Documented By: FRANSICO Oxycodone HCl (Oxycodone Hcl Immed Release 5 Mg Tablet) 10 mg PO Q4H PRN PRN Reason: Pain, Moderate(Pain Scale 4-6) Last Admin: 08/14/25 20:39 Dose: 10 mg Documented By: SHAQUILLE Sodium Chloride (0.9 % Sodium Chloride Flush 3 Ml Syringe) 3 ml IVFLUSH QSHIFT [facility] Last Admin: 08/15/25 08:49 Dose: 3 ml Documented By: FRANSICO Labs 08/11/25 07:15 08/11/25 07:15 Labs: Laboratory Results - last 24 hr 08/14/25 08/14/25 08/14/25 11:27 16:47 20:13 POC Glucose 157 H 162 H 160 H 08/15/25 07:17 POC Glucose 161 H Assessment and Plan (1) Acute stroke due to embolism of right middle cerebral artery: Status: Acute (2) Hypertension, uncontrolled: Status: Acute Plan 59F PMH dm, htn, BROWN, hyperlipidemia, pvd, active smoker, presented with left sided weakness, uncontrolled hypertension presents after 7 discrete acute infarcts of the left middle cerebral distribution consistent with embolic in works likely cardiac CVA with Left hemipareis, medical management with ASA, HI-statin, BP control, PT/OT and eventual rehab. Eliquis for presumed cardioembolic source Hypertension continue amlodipine, labetalol, losartan, hydrochlorothiazide -adjust as clinically indicated Diabetes II, adequate control continue Lantus, scheduled lispro, SSI and jardiance DVT prophylaxis: Eliquis Full code Dispo: Placement pending insurance and placement Quality Stroke Does the patient have a stroke diagnosis?: No VTE Prior VTE?: No VTE Risk Level:: Medical - moderate - high VTE Device Contraindication: Treatment Not Indicated VTE Drug Contraindication: N/A - Med Ordered
[2025-08-15 09:21] LABS: E. coli EAEC Not Detected (Not Detect.); E. coli EPEC Not Detected (Not Detect.); E. coli ETEC Not Detected (Not Detect.); E. coli STEC Not Detected (Not Detect.); Shigella sp./EIEC Not Detected (Not Detect.)
[2025-08-15 10:59] LABS: Glucose, Whole Blood 275 mg/dL (60-115)
[2025-08-15 15:15] VITALS: BP 127/56; PULSE 76; RESP 18; TEMP 37; O2SAT 96
[2025-08-15 16:08] LABS: Glucose, Whole Blood 145 mg/dL (60-115)
[2025-08-15 19:44] LABS: Glucose, Whole Blood 256 mg/dL (60-115)
[2025-08-15 20:00] VITALS: BP 143/71; PULSE 108; RESP 18; TEMP 37.2; O2SAT 92
[2025-08-15] MEDS: Insulin Glargine,Hum.rec.anlog 100 UNIT/ML 10 ML VIAL 12 UNIT SUBCUT (20:55)
[2025-08-15 22:59] LABS: Glucose, Whole Blood 169 mg/dL (60-115)
[2025-08-16 03:20] VITALS: BP 131/68; PULSE 71; RESP 16; TEMP 36.4; O2SAT 98
[2025-08-16 07:19] LABS: Glucose, Whole Blood 155 mg/dL (60-115)
[2025-08-16 07:54] VITALS: BP 144/67; PULSE 78; RESP 18; TEMP 36.3; O2SAT 100
[2025-08-16 07:55] VITALS: BP 144/67
[2025-08-16] MEDS: Nicotine 21 MG PATCH.TD24 TRANSDERMA (07:55)
[2025-08-16] MEDS: 0.9 % Sodium Chloride Flush 3 ML SYRINGE IVFLUSH ×3 (07:56→20:55)
--- NOTE | 2025-08-16 08:32 | HO.PM.IMPN ---
Subjective Subjective Date of Service: 08/16/25 Interval History: f/u on stroke with left hemiparesis more movement in the leg today, flacid in left upper extremity Physical Exam Exam: Exam: General: AO X 3, no acute distress Resp: CTA bilateral CVS: S1,S2,RRR GI: +BS, NT, no distention Skin: No rash Neuro: Left bailee-paresis Psych: appropriate affect Vital Signs: Vital Signs: Last Vital Signs Temp 97.3 F 08/16/25 07:54 Pulse 78 08/16/25 07:54 Resp 18 08/16/25 07:54 BP 144/67 H 08/16/25 07:55 Pulse Ox 100 08/16/25 07:54 O2 Del Method Room Air 08/16/25 07:54 BMI result Body Mass Index 27.6 Objective Data Active Medications Acetaminophen (Acetaminophen 325 Mg Tablet) 650 mg PO Q6H PRN PRN Reason: Pain, Mild 1-3,fever,headache Last Admin: 08/12/25 15:00 Dose: 650 mg Documented By: NEEMA Amlodipine Besylate (Amlodipine Besylate 10 Mg Tablet) 10 mg PO DAILY [facility]; Protocol Last Admin: 08/16/25 07:55 Dose: 10 mg Documented By: BRIDGET Apixaban (Apixaban 5 Mg Tablet) 5 mg PO BID [facility] Last Admin: 08/16/25 07:54 Dose: 5 mg Documented By: BRIDGET Atorvastatin Calcium (Atorvastatin Calcium 80 Mg Tablet) 80 mg PO BEDTIME [facility] Last Admin: 08/15/25 20:53 Dose: 80 mg Documented By: DAYSI Calcium Carbonate (Calcium Carbonate 750 Mg Tab.Chew) 750 mg PO Q4H PRN PRN Reason: Heartburn Cyclobenzaprine HCl (Cyclobenzaprine Hcl 10 Mg Tablet) 10 mg PO BEDTIME PRN PRN Reason: back pain Last Admin: 08/10/25 09:54 Dose: 10 mg Documented By: ALONA Dextrose (Dextrose 50 % 25 Gm/50 Ml Syringe) 25 gm IVPUSH Q15M PRN; Protocol PRN Reason: per Hypoglycemia Standing Ord. Empagliflozin (Empagliflozin 25 Mg Tablet) 25 mg PO DAILY [facility] Last Admin: 08/16/25 07:54 Dose: 25 mg Documented By: BRIDGET Glucose (Glucose Gel 15 Gm Gel..Gram.) 15 gm PO Q15M PRN; Protocol PRN Reason: per Hypoglycemia Standing Ord. Hydrochlorothiazide (Hydrochlorothiazide 25 Mg Tablet) 25 mg PO DAILY [facility]; Protocol Last Admin: 08/16/25 07:54 Dose: 25 mg Documented By: BRIDGET Insulin Glargine (Insulin Glargine,Hum.Rec.Anlog 100 Unit/Ml 10 Ml Vial) 12 unit SUBCUT BEDTIME [facility] Last Admin: 08/15/25 20:55 Dose: 12 unit Documented By: DAYSI Insulin Human Lispro (Insulin Lispro 100 Unit/Ml 3 Ml Vial) 0 unit SUBCUT QIDACHS [facility]; Protocol Last Admin: 08/16/25 07:56 Dose: 4 unit Documented By: BRIDGET Insulin Human Lispro (Insulin Lispro 100 Unit/Ml 3 Ml Vial) 5 unit SUBCUT QIDACHS [facility] Last Admin: 08/16/25 07:56 Dose: 5 unit Documented By: BRIDGET Labetalol HCl (Labetalol Hcl 100 Mg/20 Ml Vial) 10 mg IVPUSH Q2H PRN PRN Reason: SBP > 200 Labetalol HCl (Labetalol Hcl 100 Mg Tablet) 300 mg PO BID [facility] Last Admin: 08/16/25 07:53 Dose: 300 mg Documented By: BRIDGET Losartan Potassium (Losartan Potassium 50 Mg Tablet) 100 mg PO DAILY [facility]; Protocol Last Admin: 08/16/25 07:54 Dose: 100 mg Documented By: BRIDGET Magnesium Hydroxide (Milk Of Magnesia 30 Ml Oral.Susp) 30 ml PO DAILY PRN PRN Reason: Constipation Melatonin (Melatonin 3 Mg Tablet) 6 mg PO BEDTIME PRN PRN Reason: Insomnia Last Admin: 08/10/25 21:17 Dose: 6 mg Documented By: SOSA Nicotine (Nicotine 21 Mg Patch.Td24) 21 mg TRANSDERMA DAILY [facility] Last Admin: 08/16/25 07:55 Dose: 21 mg Documented By: BRIDGET Oxycodone HCl (Oxycodone Hcl Immed Release 5 Mg Tablet) 10 mg PO Q4H PRN PRN Reason: Pain, Moderate(Pain Scale 4-6) Last Admin: 08/14/25 20:39 Dose: 10 mg Documented By: HO.MCCARTN Sodium Chloride (0.9 % Sodium Chloride Flush 3 Ml Syringe) 3 ml IVFLUSH QSHIFT [facility] Last Admin: 08/16/25 07:56 Dose: 3 ml Documented By: BRIDGET Labs 08/11/25 07:15 08/11/25 07:15 Labs: Laboratory Results - last 24 hr 08/14/25 08/15/25 08/15/25 14:39 10:51 16:02 POC Glucose 275 H 145 H Stl C. cayetanensis PCR Not Detected Stool Rotavirus A PCR Not Detected Stl Adenov F 40/41 PCR Not Detected Stool Astrovirus (PCR) Not Detected Stool Campylobacter PCR Not Detected Stool Cryptosporidium PCR Not Detected Stl Sh Tox Pr E STEC PCR Not Detected Stool E coli O157 PCR Not applicable Stl Enterotoxigenic E PCR Not Detected Stool EPEC (PCR) Not Detected Stool EAEC (PCR) Not Detected Stl E. histolytica PCR Not Detected Stool Giardia Lamblia PCR Not Detected Stl P. shigelloides PCR Not Detected Stool Salmonella PCR Not Detected Stool Sapovirus (PCR) Not Detected Stl Shigella/EIEC PCR Not Detected St Y.enterocolitica PCR Not Detected Stool Vibrio (PCR) Not Detected Stl Vibrio cholerae PCR Not Detected Stl Norovirus GI/GII PCR Not Detected 08/15/25 08/15/25 08/16/25 19:26 22:55 07:08 POC Glucose 256 H 169 H 155 H Stl C. cayetanensis PCR Stool Rotavirus A PCR Stl Adenov F 40/41 PCR Stool Astrovirus (PCR) Stool Campylobacter PCR Stool Cryptosporidium PCR Stl Sh Tox Pr E STEC PCR Stool E coli O157 PCR Stl Enterotoxigenic E PCR Stool EPEC (PCR) Stool EAEC (PCR) Stl E. histolytica PCR Stool Giardia Lamblia PCR Stl P. shigelloides PCR Stool Salmonella PCR Stool Sapovirus (PCR) Stl Shigella/EIEC PCR St Y.enterocolitica PCR Stool Vibrio (PCR) Stl Vibrio cholerae PCR Stl Norovirus GI/GII PCR Assessment and Plan (1) Acute stroke due to embolism of right middle cerebral artery: Status: Acute (2) Hypertension, uncontrolled: Status: Acute Plan 59F PMH dm, htn, BROWN, hyperlipidemia, pvd, active smoker, presented with left sided weakness, uncontrolled hypertension presents after 7 discrete acute infarcts of the left middle cerebral distribution consistent with embolic in works likely cardiac CVA with Left hemipareis, but regaining function in left LE medical management with ASA, HI-statin, BP control, PT/OT and eventual rehab. for presumed cardioembolic source Hypertension continue amlodipine, labetalol, losartan, hydrochlorothiazide and adjust for optimal BP Diabetes II, adequate control continue Lantus, scheduled lispro, SSI and jardiance DVT prophylaxis: Mya Full code Dispo: Placement pending insurance and placement Quality Stroke Does the patient have a stroke diagnosis?: No VTE Prior VTE?: No VTE Risk Level:: Medical - moderate - high VTE Device Contraindication: Treatment Not Indicated VTE Drug Contraindication: N/A - Med Ordered
[2025-08-16 11:23] LABS: Glucose, Whole Blood 175 mg/dL (60-115)
[2025-08-16] MEDS: oxyCODONE HCl Immed Release 5 MG TABLET 10 MG PO (11:55)
[2025-08-16 15:27] VITALS: BP 133/63; PULSE 68; RESP 18; TEMP 36.2; O2SAT 98
--- NOTE | 2025-08-16 15:35 | MHC.CM.PN ---
per rounds pt is ready for dc barrier is ins and no pcp spoke with sam who talked with mario she is hopeful that he will bring in today verications needed to complete laila
[2025-08-16 15:58] LABS: Glucose, Whole Blood 168 mg/dL (60-115)
[2025-08-16 19:18] VITALS: BP 153/67; PULSE 84; RESP 16; O2SAT 97
[2025-08-16] MEDS: Insulin Glargine,Hum.rec.anlog 100 UNIT/ML 10 ML VIAL 12 UNIT SUBCUT (20:51)
[2025-08-16 20:56] LABS: Glucose, Whole Blood 203 mg/dL (60-115)
[2025-08-17 03:21] VITALS: BP 160/69; PULSE 74; RESP 16; TEMP 36.3; O2SAT 96
[2025-08-17 07:22] LABS: Glucose, Whole Blood 175 mg/dL (60-115)
[2025-08-17] MEDS: Nicotine 21 MG PATCH.TD24 TRANSDERMA (07:48)
[2025-08-17] MEDS: 0.9 % Sodium Chloride Flush 3 ML SYRINGE IVFLUSH ×3 (07:49→21:32)
[2025-08-17 08:38] VITALS: BP 155/72; PULSE 69; RESP 18; TEMP 36.1; O2SAT 93
--- NOTE | 2025-08-17 09:38 | HO.PM.IMPN ---
Subjective Subjective Date of Service: 08/17/25 Interval History: f/u on stroke with left hemiparesis Leg movement continue to improve but not moving left arm at all Physical Exam Exam: Exam: General: AO X 3, no acute distress Resp: CTA bilateral CVS: S1,S2,RRR GI: +BS, NT, no distention Skin: No rash Neuro: Left bailee-paresis, but more movment in the left leg today Psych: appropriate affect Vital Signs: Vital Signs: Last Vital Signs Temp 96.9 F 08/17/25 08:38 Pulse 69 08/17/25 08:38 Resp 18 08/17/25 08:38 BP 155/72 H 08/17/25 08:38 Pulse Ox 93 08/17/25 08:38 O2 Del Method Room Air 08/17/25 08:38 BMI result Body Mass Index 27.6 Objective Data Active Medications Acetaminophen (Acetaminophen 325 Mg Tablet) 650 mg PO Q6H PRN PRN Reason: Pain, Mild 1-3,fever,headache Last Admin: 08/12/25 15:00 Dose: 650 mg Documented By: NEEMA Amlodipine Besylate (Amlodipine Besylate 10 Mg Tablet) 10 mg PO DAILY [facility]; Protocol Last Admin: 08/17/25 07:48 Dose: 10 mg Documented By: BRIDGET Apixaban (Apixaban 5 Mg Tablet) 5 mg PO BID [facility] Last Admin: 08/17/25 07:48 Dose: 5 mg Documented By: BRIDGET Atorvastatin Calcium (Atorvastatin Calcium 80 Mg Tablet) 80 mg PO BEDTIME [facility] Last Admin: 08/16/25 20:45 Dose: 80 mg Documented By: DAYSI Calcium Carbonate (Calcium Carbonate 750 Mg Tab.Chew) 750 mg PO Q4H PRN PRN Reason: Heartburn Cyclobenzaprine HCl (Cyclobenzaprine Hcl 10 Mg Tablet) 10 mg PO BEDTIME PRN PRN Reason: back pain Last Admin: 08/10/25 09:54 Dose: 10 mg Documented By: ALONA Dextrose (Dextrose 50 % 25 Gm/50 Ml Syringe) 25 gm IVPUSH Q15M PRN; Protocol PRN Reason: per Hypoglycemia Standing Ord. Empagliflozin (Empagliflozin 25 Mg Tablet) 25 mg PO DAILY [facility] Last Admin: 08/17/25 07:48 Dose: 25 mg Documented By: BRIDGET Glucose (Glucose Gel 15 Gm Gel..Gram.) 15 gm PO Q15M PRN; Protocol PRN Reason: per Hypoglycemia Standing Ord. Hydrochlorothiazide (Hydrochlorothiazide 25 Mg Tablet) 25 mg PO DAILY [facility]; Protocol Last Admin: 08/17/25 07:48 Dose: 25 mg Documented By: BRIDGET Insulin Glargine (Insulin Glargine,Hum.Rec.Anlog 100 Unit/Ml 10 Ml Vial) 12 unit SUBCUT BEDTIME [facility] Last Admin: 08/16/25 20:51 Dose: 12 unit Documented By: DAYSI Insulin Human Lispro (Insulin Lispro 100 Unit/Ml 3 Ml Vial) 0 unit SUBCUT QIDACHS [facility]; Protocol Last Admin: 08/17/25 07:47 Dose: 4 unit Documented By: BRIDGET Insulin Human Lispro (Insulin Lispro 100 Unit/Ml 3 Ml Vial) 5 unit SUBCUT QIDACHS [facility] Last Admin: 08/17/25 07:47 Dose: 5 unit Documented By: BRIDGET Labetalol HCl (Labetalol Hcl 100 Mg/20 Ml Vial) 10 mg IVPUSH Q2H PRN PRN Reason: SBP > 200 Labetalol HCl (Labetalol Hcl 100 Mg Tablet) 300 mg PO BID [facility] Last Admin: 08/17/25 07:48 Dose: 300 mg Documented By: BRIDGET Losartan Potassium (Losartan Potassium 50 Mg Tablet) 100 mg PO DAILY [facility]; Protocol Last Admin: 08/17/25 07:48 Dose: 100 mg Documented By: BRIDGET Magnesium Hydroxide (Milk Of Magnesia 30 Ml Oral.Susp) 30 ml PO DAILY PRN PRN Reason: Constipation Melatonin (Melatonin 3 Mg Tablet) 6 mg PO BEDTIME PRN PRN Reason: Insomnia Last Admin: 08/10/25 21:17 Dose: 6 mg Documented By: SOSA Nicotine (Nicotine 21 Mg Patch.Td24) 21 mg TRANSDERMA DAILY [facility] Last Admin: 08/17/25 07:48 Dose: 21 mg Documented By: BRIDGET Oxycodone HCl (Oxycodone Hcl Immed Release 5 Mg Tablet) 10 mg PO Q4H PRN PRN Reason: Pain, Moderate(Pain Scale 4-6) Last Admin: 08/16/25 11:55 Dose: 10 mg Documented By: BRIDGET Sodium Chloride (0.9 % Sodium Chloride Flush 3 Ml Syringe) 3 ml IVFLUSH QSHIFT [facility] Last Admin: 08/17/25 07:49 Dose: 3 ml Documented By: BRIDGET Labs 08/11/25 07:15 08/11/25 07:15 Labs: Laboratory Results - last 24 hr 08/16/25 08/16/25 08/16/25 11:19 15:55 20:30 POC Glucose 175 H 168 H 203 H 08/17/25 07:19 POC Glucose 175 H Assessment and Plan (1) Acute stroke due to embolism of right middle cerebral artery: Status: Acute (2) Hypertension, uncontrolled: Status: Acute Plan 59F PMH dm, htn, BROWN, hyperlipidemia, pvd, active smoker, presented with left sided weakness, uncontrolled hypertension presents after 7 discrete acute infarcts of the left middle cerebral distribution consistent with embolic in works likely cardiac CVA with Left hemipareis, but regaining function in left LE medical management with ASA, HI-statin, BP control, PT/OT and eventual rehab. Eliquis for presumed cardioembolic source Hypertension continue amlodipine, labetalol, losartan, hydrochlorothiazide and adjust for optimal BP Diabetes II, adequate control continue Lantus, scheduled lispro, SSI and jardiance DVT prophylaxis: Eliquis Full code Dispo: Placement pending insurance and placement Quality Stroke Does the patient have a stroke diagnosis?: No VTE Prior VTE?: No VTE Risk Level:: Medical - moderate - high VTE Device Contraindication: Treatment Not Indicated VTE Drug Contraindication: N/A - Med Ordered
[2025-08-17 11:49] LABS: Glucose, Whole Blood 233 mg/dL (60-115)
[2025-08-17 16:10] VITALS: BP 149/65; PULSE 83; RESP 12; TEMP 36.1; O2SAT 94
[2025-08-17 16:48] LABS: Glucose, Whole Blood 263 mg/dL (60-115)
[2025-08-17 19:58] VITALS: BP 140/65; PULSE 80; RESP 18; TEMP 36.9; O2SAT 97
[2025-08-17 20:14] LABS: Glucose, Whole Blood 196 mg/dL (60-115)
[2025-08-17] MEDS: Insulin Glargine,Hum.rec.anlog 100 UNIT/ML 10 ML VIAL 12 UNIT SUBCUT (21:32)
[2025-08-18 03:34] VITALS: BP 148/71; PULSE 72; RESP 18; TEMP 36.7; O2SAT 96
[2025-08-18 07:30] VITALS: BP 170/74; PULSE 71; RESP 16; TEMP 36; O2SAT 94
[2025-08-18 07:41] LABS: Glucose, Whole Blood 199 mg/dL (60-115)
[2025-08-18] MEDS: Nicotine 21 MG PATCH.TD24 TRANSDERMA (07:41)
[2025-08-18] MEDS: 0.9 % Sodium Chloride Flush 3 ML SYRINGE IVFLUSH ×2 (07:42→16:56)
--- NOTE | 2025-08-18 09:17 | P.PNIM_ITS ---
Subjective Subjective Date of Service: 08/18/25 Interval History: Doing relatively well no new issues Physical Exam 2 Exam: Exam: General: AO X 3, no acute distress Resp: CTA bilateral CVS: S1,S2,RRR GI: +BS, NT, no distention Skin: No rash Neuro: Left bailee-paresis, but more movment in the left leg today Psych: appropriate affect Vital Signs: Vital Signs: Last Vital Signs Temp 96.8 F 08/18/25 07:30 Pulse 71 08/18/25 07:30 Resp 16 08/18/25 07:30 BP 170/74 H 08/18/25 07:30 Pulse Ox 94 08/18/25 07:30 O2 Del Method Room Air 08/18/25 07:30 BMI result Body Mass Index 27.6 Objective Data Active Medications Acetaminophen (Acetaminophen 325 Mg Tablet) 650 mg PO Q6H PRN PRN Reason: Pain, Mild 1-3,fever,headache Last Admin: 08/17/25 21:33 Dose: 650 mg Documented By: DARRON Amlodipine Besylate (Amlodipine Besylate 10 Mg Tablet) 10 mg PO DAILY [facility]; Protocol Last Admin: 08/18/25 07:42 Dose: 10 mg Documented By: ARMINDA Apixaban (Apixaban 5 Mg Tablet) 5 mg PO BID [facility] Last Admin: 08/18/25 07:42 Dose: 5 mg Documented By: ARMINDA Atorvastatin Calcium (Atorvastatin Calcium 80 Mg Tablet) 80 mg PO BEDTIME [facility] Last Admin: 08/17/25 21:31 Dose: 80 mg Documented By: DARRON Calcium Carbonate (Calcium Carbonate 750 Mg Tab.Chew) 750 mg PO Q4H PRN PRN Reason: Heartburn Cyclobenzaprine HCl (Cyclobenzaprine Hcl 5 Mg Tablet) 5 mg PO TID PRN PRN Reason: Muscle Spasm Last Admin: 08/17/25 21:30 Dose: 5 mg Documented By: DARRON Dextrose (Dextrose 50 % 25 Gm/50 Ml Syringe) 25 gm IVPUSH Q15M PRN; Protocol PRN Reason: per Hypoglycemia Standing Ord. Empagliflozin (Empagliflozin 25 Mg Tablet) 25 mg PO DAILY [facility] Last Admin: 08/18/25 07:42 Dose: 25 mg Documented By: ARMINDA Glucose (Glucose Gel 15 Gm Gel..Gram.) 15 gm PO Q15M PRN; Protocol PRN Reason: per Hypoglycemia Standing Ord. Hydrochlorothiazide (Hydrochlorothiazide 25 Mg Tablet) 25 mg PO DAILY [facility]; Protocol Last Admin: 08/18/25 07:42 Dose: 25 mg Documented By: ARMINDA Insulin Glargine (Insulin Glargine,Hum.Rec.Anlog 100 Unit/Ml 10 Ml Vial) 12 unit SUBCUT BEDTIME [facility] Last Admin: 08/17/25 21:32 Dose: 12 unit Documented By: DARRON Insulin Human Lispro (Insulin Lispro 100 Unit/Ml 3 Ml Vial) 0 unit SUBCUT QIDACHS [facility]; Protocol Last Admin: 08/18/25 07:43 Dose: 4 unit Documented By: ARMINDA Insulin Human Lispro (Insulin Lispro 100 Unit/Ml 3 Ml Vial) 5 unit SUBCUT QIDACHS [facility] Last Admin: 08/18/25 07:43 Dose: 5 unit Documented By: ARMINDA Labetalol HCl (Labetalol Hcl 100 Mg/20 Ml Vial) 10 mg IVPUSH Q2H PRN PRN Reason: SBP > 200 Labetalol HCl (Labetalol Hcl 100 Mg Tablet) 300 mg PO BID [facility] Last Admin: 08/18/25 07:41 Dose: 300 mg Documented By: ARMINDA Losartan Potassium (Losartan Potassium 50 Mg Tablet) 100 mg PO DAILY [facility]; Protocol Last Admin: 08/18/25 07:42 Dose: 100 mg Documented By: ARMINDA Magnesium Hydroxide (Milk Of Magnesia 30 Ml Oral.Susp) 30 ml PO DAILY PRN PRN Reason: Constipation Melatonin (Melatonin 3 Mg Tablet) 6 mg PO BEDTIME PRN PRN Reason: Insomnia Last Admin: 08/10/25 21:17 Dose: 6 mg Documented By: SOSA Nicotine (Nicotine 21 Mg Patch.Td24) 21 mg TRANSDERMA DAILY [facility] Last Admin: 08/18/25 07:41 Dose: 21 mg Documented By: ARMINDA Sodium Chloride (0.9 % Sodium Chloride Flush 3 Ml Syringe) 3 ml IVFLUSH QSHIFT [facility] Last Admin: 08/18/25 07:42 Dose: 3 ml Documented By: ARMINDA Labs 08/11/25 07:15 08/11/25 07:15 Labs: Laboratory Results - last 24 hr 08/17/25 08/17/25 08/17/25 11:46 16:39 20:10 POC Glucose 233 H 263 H 196 H 08/18/25 07:32 POC Glucose 199 H Assessment and Plan (1) Acute stroke due to embolism of right middle cerebral artery: Status: Acute (2) Hypertension, uncontrolled: Status: Acute Plan 59F PMH dm, htn, BROWN, hyperlipidemia, pvd, active smoker, presented with left sided weakness, uncontrolled hypertension presents after 7 discrete acute infarcts of the left middle cerebral distribution consistent with embolic in works likely cardiac CVA with Left hemipareis, but regaining function in left LE medical management with ASA, HI-statin, BP control, PT/OT and eventual rehab. Eliquis for presumed cardioembolic source Hypertension continue amlodipine, labetalol, losartan, hydrochlorothiazide and adjust for optimal BP Diabetes II, adequate control continue Lantus, scheduled lispro, SSI and jardiance DVT prophylaxis: Eliquis Full code Dispo: Placement pending insurance and placement Quality Stroke Does the patient have a stroke diagnosis?: No VTE Prior VTE?: No VTE Risk Level:: Medical - moderate - high VTE Device Contraindication: Treatment Not Indicated VTE Drug Contraindication: N/A - Med Ordered
[2025-08-18 11:11] VITALS: BP 120/57; PULSE 71; RESP 16; TEMP 36.3; O2SAT 98
[2025-08-18 11:22] LABS: Glucose, Whole Blood 214 mg/dL (60-115)
[2025-08-18 15:19] VITALS: BP 164/76; PULSE 79; RESP 18; TEMP 36; O2SAT 96
[2025-08-18 15:50] LABS: Glucose, Whole Blood 190 mg/dL (60-115)
--- NOTE | 2025-08-18 15:51 | MHC.CM.PN ---
[facility] [employer] [facility] [employer] verifying enrollment
[2025-08-18 19:56] VITALS: BP 175/77; PULSE 76; RESP 18; TEMP 36.4; O2SAT 95
[2025-08-18 20:07] LABS: Glucose, Whole Blood 164 mg/dL (60-115)
[2025-08-18] MEDS: Insulin Glargine,Hum.rec.anlog 100 UNIT/ML 10 ML VIAL 12 UNIT SUBCUT (21:07)
[2025-08-19] MEDS: 0.9 % Sodium Chloride Flush 3 ML SYRINGE IVFLUSH ×4 (00:30→22:58)
[2025-08-19 04:00] VITALS: BP 135/66; PULSE 76; RESP 16; TEMP 36.2; O2SAT 98
[2025-08-19 07:56] VITALS: BP 140/65; PULSE 77; RESP 18; O2SAT 95
[2025-08-19 08:00] LABS: Glucose, Whole Blood 197 mg/dL (60-115)
[2025-08-19] MEDS: Nicotine 21 MG PATCH.TD24 TRANSDERMA (08:25)
--- NOTE | 2025-08-19 08:59 | P.PNIM_ITS ---
Subjective Subjective Date of Service: 08/19/25 Interval History: Continues to make small but incremental progress, ambulate with walker and assist Physical Exam 2 Exam: Exam: General: AO X 3, no acute distress Resp: CTA bilateral CVS: S1,S2,RRR GI: +BS, NT, no distention Skin: No rash Neuro: Left bailee-paresis, but more movment in the left leg today, flacid left arm Psych: appropriate affect Vital Signs: Vital Signs: Last Vital Signs Temp 97.1 F 08/19/25 04:00 Pulse 77 08/19/25 07:56 Resp 18 08/19/25 07:56 BP 140/65 H 08/19/25 07:56 Pulse Ox 95 08/19/25 07:56 O2 Del Method Room Air 08/19/25 07:56 BMI result Body Mass Index 27.6 Objective Data Active Medications Acetaminophen (Acetaminophen 325 Mg Tablet) 650 mg PO Q6H PRN PRN Reason: Pain, Mild 1-3,fever,headache Last Admin: 08/18/25 18:34 Dose: 650 mg Documented By: ARMINDA Amlodipine Besylate (Amlodipine Besylate 10 Mg Tablet) 10 mg PO DAILY [facility]; Protocol Last Admin: 08/19/25 08:27 Dose: 10 mg Documented By: ARMINDA Apixaban (Apixaban 5 Mg Tablet) 5 mg PO BID [facility] Last Admin: 08/19/25 08:26 Dose: 5 mg Documented By: ARMINDA Atorvastatin Calcium (Atorvastatin Calcium 80 Mg Tablet) 80 mg PO BEDTIME [facility] Last Admin: 08/18/25 21:08 Dose: 80 mg Documented By: JENNA Calcium Carbonate (Calcium Carbonate 750 Mg Tab.Chew) 750 mg PO Q4H PRN PRN Reason: Heartburn Cyclobenzaprine HCl (Cyclobenzaprine Hcl 5 Mg Tablet) 5 mg PO TID PRN PRN Reason: Muscle Spasm Last Admin: 08/18/25 22:40 Dose: 5 mg Documented By: JENNA Dextrose (Dextrose 50 % 25 Gm/50 Ml Syringe) 25 gm IVPUSH Q15M PRN; Protocol PRN Reason: per Hypoglycemia Standing Ord. Empagliflozin (Empagliflozin 25 Mg Tablet) 25 mg PO DAILY [facility] Last Admin: 08/19/25 08:27 Dose: 25 mg Documented By: ARMINDA Glucose (Glucose Gel 15 Gm Gel..Gram.) 15 gm PO Q15M PRN; Protocol PRN Reason: per Hypoglycemia Standing Ord. Hydrochlorothiazide (Hydrochlorothiazide 25 Mg Tablet) 25 mg PO DAILY [facility]; Protocol Last Admin: 08/19/25 08:27 Dose: 25 mg Documented By: ARMINDA Insulin Glargine (Insulin Glargine,Hum.Rec.Anlog 100 Unit/Ml 10 Ml Vial) 12 unit SUBCUT BEDTIME [facility] Last Admin: 08/18/25 21:07 Dose: 12 unit Documented By: JENNA Insulin Human Lispro (Insulin Lispro 100 Unit/Ml 3 Ml Vial) 0 unit SUBCUT QIDACHS [facility]; Protocol Last Admin: 08/19/25 08:25 Dose: 4 unit Documented By: ARMINDA Insulin Human Lispro (Insulin Lispro 100 Unit/Ml 3 Ml Vial) 5 unit SUBCUT QIDACHS [facility] Last Admin: 08/19/25 08:25 Dose: 5 unit Documented By: ARMINDA Labetalol HCl (Labetalol Hcl 100 Mg/20 Ml Vial) 10 mg IVPUSH Q2H PRN PRN Reason: SBP > 200 Labetalol HCl (Labetalol Hcl 100 Mg Tablet) 300 mg PO BID [facility] Last Admin: 08/19/25 08:26 Dose: 300 mg Documented By: ARMINDA Losartan Potassium (Losartan Potassium 50 Mg Tablet) 100 mg PO DAILY [facility]; Protocol Last Admin: 08/19/25 08:27 Dose: 100 mg Documented By: ARMINDA Magnesium Hydroxide (Milk Of Magnesia 30 Ml Oral.Susp) 30 ml PO DAILY PRN PRN Reason: Constipation Melatonin (Melatonin 3 Mg Tablet) 6 mg PO BEDTIME PRN PRN Reason: Insomnia Last Admin: 08/10/25 21:17 Dose: 6 mg Documented By: SOSA Nicotine (Nicotine 21 Mg Patch.Td24) 21 mg TRANSDERMA DAILY [facility] Last Admin: 08/19/25 08:25 Dose: 21 mg Documented By: ARMINDA Sodium Chloride (0.9 % Sodium Chloride Flush 3 Ml Syringe) 3 ml IVFLUSH QSHIFT [facility] Last Admin: 08/19/25 08:27 Dose: 3 ml Documented By: ARMINDA Labs 08/11/25 07:15 08/11/25 07:15 Labs: Laboratory Results - last 24 hr 08/18/25 08/18/25 08/18/25 11:09 15:46 20:02 POC Glucose 214 H 190 H 164 H 08/19/25 07:50 POC Glucose 197 H Assessment and Plan (1) Acute stroke due to embolism of right middle cerebral artery: Status: Acute (2) Hypertension, uncontrolled: Status: Acute Plan 59F PMH dm, htn, BROWN, hyperlipidemia, pvd, active smoker, presented with left sided weakness, uncontrolled hypertension presents after 7 discrete acute infarcts of the left middle cerebral distribution consistent with embolic in works likely cardiac CVA with Left hemipareis, but regaining function in left LE medical management with ASA, HI-statin, BP control, continue PT/OT and eventual rehab. Eliquis for presumed cardioembolic source Hypertension continue amlodipine, labetalol, losartan, hydrochlorothiazide and adjust for optimal BP Diabetes II, adequate control , last A1C 13 on 08/10/25 continue Lantus, scheduled lispro, SSI and jardiance DVT prophylaxis: Eliquis Full code Dispo: Placement pending insurance and placement Quality Stroke Does the patient have a stroke diagnosis?: No VTE Prior VTE?: No VTE Risk Level:: Medical - moderate - high VTE Device Contraindication: Treatment Not Indicated VTE Drug Contraindication: N/A - Med Ordered
[2025-08-19] MEDS: Milk of Magnesia 30 ML ORAL.SUSP PO (09:12)
--- NOTE | 2025-08-19 10:53 | MHC.CM.PN ---
Addendum entered by Naima Garcia 08/20/25 16:34: [facility] HAS OBTAINED AUTH, HOWEVER THEY ARE UNABLE TO ACCEPT PT TODAY DUE TO STAFFING TRANSPORT BOOKED FOR 1000 HOURS TOMORROW VIA [facility] PATIENT AND MD AWARE Addendum entered by Naima Garcia 08/19/25 13:06: [facility] WILL SUBMIT FOR [employer] TOMORROW ONCE ACTIVE. Original Note: CM MET WITH PT, AND DAUGHTER, UPDATES WERE PROVIDED AND REFERRALS RESENT [facility] IS OFFERING A BED PENDING INSURANCE AUTH PT IS AWARE AND ACCEPTING
[2025-08-19 11:38] LABS: Glucose, Whole Blood 209 mg/dL (60-115)
[2025-08-19 15:19] VITALS: BP 137/65; PULSE 71; RESP 18; TEMP 36.1; O2SAT 96
[2025-08-19 16:02] LABS: Glucose, Whole Blood 152 mg/dL (60-115)
[2025-08-19 19:35] VITALS: BP 160/70; PULSE 74; RESP 18; TEMP 36.1; O2SAT 95
[2025-08-19 21:08] LABS: Glucose, Whole Blood 194 mg/dL (60-115)
[2025-08-19 22:49] VITALS: BP 145/60; PULSE 70
[2025-08-19] MEDS: Insulin Glargine,Hum.rec.anlog 100 UNIT/ML 10 ML VIAL 12 UNIT SUBCUT (22:59)
[2025-08-20 03:30] VITALS: BP 138/59; PULSE 71; RESP 18; TEMP 36.7; O2SAT 96
[2025-08-20 07:17] VITALS: BP 143/61; PULSE 73; RESP 12; O2SAT 95
[2025-08-20 07:24] LABS: Glucose, Whole Blood 170 mg/dL (60-115)
[2025-08-20] MEDS: Nicotine 21 MG PATCH.TD24 TRANSDERMA (08:18)
[2025-08-20] MEDS: 0.9 % Sodium Chloride Flush 3 ML SYRINGE IVFLUSH ×2 (08:19→20:28)
--- NOTE | 2025-08-20 08:19 | P.PNIM_ITS ---
Subjective Subjective Date of Service: 08/20/25 Interval History: spasm and cramps in the legs no change in neuro status pain in the legs 02/18 Physical Exam 2 Exam: Exam: General: AO X 3, no acute distress Resp: CTA bilateral CVS: S1,S2,RRR GI: +BS, NT, no distention Skin: No rash Neuro: Left bailee-paresis, but more movment in the left leg today, flacid left arm Psych: appropriate affect Vital Signs: Vital Signs: Last Vital Signs Temp 98.0 F 08/20/25 03:30 Pulse 73 08/20/25 07:17 Resp 12 08/20/25 07:17 BP 143/61 H 08/20/25 07:17 Pulse Ox 95 08/20/25 07:17 O2 Del Method Room Air 08/20/25 07:17 BMI result Body Mass Index 27.6 Objective Data Active Medications Acetaminophen (Acetaminophen 325 Mg Tablet) 650 mg PO Q6H PRN PRN Reason: Pain, Mild 1-3,fever,headache Last Admin: 08/19/25 14:57 Dose: 650 mg Documented By: ARMINDA Amlodipine Besylate (Amlodipine Besylate 10 Mg Tablet) 10 mg PO DAILY [facility]; Protocol Last Admin: 08/19/25 08:27 Dose: 10 mg Documented By: ARMINDA Apixaban (Apixaban 5 Mg Tablet) 5 mg PO BID [facility] Last Admin: 08/19/25 22:55 Dose: 5 mg Documented By: DAYSI Atorvastatin Calcium (Atorvastatin Calcium 80 Mg Tablet) 80 mg PO BEDTIME [facility] Last Admin: 08/19/25 22:49 Dose: 80 mg Documented By: DAYSI Calcium Carbonate (Calcium Carbonate 750 Mg Tab.Chew) 750 mg PO Q4H PRN PRN Reason: Heartburn Cyclobenzaprine HCl (Cyclobenzaprine Hcl 5 Mg Tablet) 5 mg PO TID PRN PRN Reason: Muscle Spasm Last Admin: 08/19/25 10:29 Dose: 5 mg Documented By: ARMINDA Dextrose (Dextrose 50 % 25 Gm/50 Ml Syringe) 25 gm IVPUSH Q15M PRN; Protocol PRN Reason: per Hypoglycemia Standing Ord. Empagliflozin (Empagliflozin 25 Mg Tablet) 25 mg PO DAILY [facility] Last Admin: 08/19/25 08:27 Dose: 25 mg Documented By: ARMINDA Glucose (Glucose Gel 15 Gm Gel..Gram.) 15 gm PO Q15M PRN; Protocol PRN Reason: per Hypoglycemia Standing Ord. Hydrochlorothiazide (Hydrochlorothiazide 25 Mg Tablet) 25 mg PO DAILY [facility]; Protocol Last Admin: 08/19/25 08:27 Dose: 25 mg Documented By: ARMINDA Insulin Glargine (Insulin Glargine,Hum.Rec.Anlog 100 Unit/Ml 10 Ml Vial) 12 unit SUBCUT BEDTIME [facility] Last Admin: 08/19/25 22:59 Dose: 12 unit Documented By: DAYSI Insulin Human Lispro (Insulin Lispro 100 Unit/Ml 3 Ml Vial) 0 unit SUBCUT QIDACHS [facility]; Protocol Last Admin: 08/19/25 22:51 Dose: 4 unit Documented By: DAYSI Insulin Human Lispro (Insulin Lispro 100 Unit/Ml 3 Ml Vial) 5 unit SUBCUT QIDACHS [facility] Last Admin: 08/19/25 23:00 Dose: 5 unit Documented By: DAYSI Labetalol HCl (Labetalol Hcl 100 Mg/20 Ml Vial) 10 mg IVPUSH Q2H PRN PRN Reason: SBP > 200 Labetalol HCl (Labetalol Hcl 100 Mg Tablet) 300 mg PO BID [facility] Last Admin: 08/19/25 22:49 Dose: 300 mg Documented By: DAYSI Losartan Potassium (Losartan Potassium 50 Mg Tablet) 100 mg PO DAILY [facility]; Protocol Last Admin: 08/19/25 08:27 Dose: 100 mg Documented By: ARMINDA Magnesium Hydroxide (Milk Of Magnesia 30 Ml Oral.Susp) 30 ml PO DAILY PRN PRN Reason: Constipation Last Admin: 08/19/25 09:12 Dose: 30 ml Documented By: ARMIDNA Melatonin (Melatonin 3 Mg Tablet) 6 mg PO BEDTIME PRN PRN Reason: Insomnia Last Admin: 08/10/25 21:17 Dose: 6 mg Documented By: SOSA Nicotine (Nicotine 21 Mg Patch.Td24) 21 mg TRANSDERMA DAILY [facility] Last Admin: 08/19/25 08:25 Dose: 21 mg Documented By: ARMINDA Sodium Chloride (0.9 % Sodium Chloride Flush 3 Ml Syringe) 3 ml IVFLUSH QSHIFT [facility] Last Admin: 08/19/25 22:58 Dose: 3 ml Documented By: DAYSI Tramadol HCl (Tramadol Hcl 50 Mg Tablet) 25 mg PO Q6H PRN PRN Reason: Pain, Severe (Pain Scale 7-10) Last Admin: 08/19/25 18:42 Dose: 25 mg Documented By: ARMINDA Labs 08/11/25 07:15 08/11/25 07:15 Labs: Laboratory Results - last 24 hr 08/19/25 08/19/25 08/19/25 11:35 15:55 21:03 POC Glucose 209 H 152 H 194 H 08/20/25 07:18 POC Glucose 170 H Assessment and Plan (1) Acute stroke due to embolism of right middle cerebral artery: Status: Acute (2) Hypertension, uncontrolled: Status: Acute Plan 59F PMH dm, htn, BROWN, hyperlipidemia, pvd, active smoker, presented with left sided weakness, uncontrolled hypertension presents after 7 discrete acute infarcts of the left middle cerebral distribution consistent with embolic in works likely cardiac CVA with Left hemipareis, but regaining function in left LE medical management with ASA, HI-statin, BP control, continue PT/OT and eventual rehab. Eliquis for presumed cardioembolic source Hypertension continue amlodipine, labetalol, losartan, hydrochlorothiazide and adjust for optimal BP Diabetes II, adequate control , last A1C 13 on 08/10/25 continue Lantus, scheduled lispro, SSI and jardiance Tobacci use disorder NRT DVT prophylaxis: Eliquis Full code Dispo: Placement pending insurance and placement Quality Stroke Does the patient have a stroke diagnosis?: No VTE Prior VTE?: No VTE Risk Level:: Medical - moderate - high VTE Device Contraindication: Treatment Not Indicated VTE Drug Contraindication: N/A - Med Ordered
[2025-08-20] MEDS: oxyCODONE HCl Immed Release 5 MG TABLET PO ×2 (10:19→14:18)
[2025-08-20 11:42] LABS: Glucose, Whole Blood 237 mg/dL (60-115)
[2025-08-20 14:02] VITALS: BP 143/61; PULSE 73; O2SAT 95
[2025-08-20 15:18] VITALS: BP 164/70; PULSE 74; RESP 14; TEMP 36.8; O2SAT 98
[2025-08-20 16:17] LABS: Glucose, Whole Blood 119 mg/dL (60-115)
[2025-08-20 19:20] VITALS: BP 149/67; PULSE 79; RESP 18; TEMP 36.6; O2SAT 94
[2025-08-20 20:07] LABS: Glucose, Whole Blood 137 mg/dL (60-115)
[2025-08-20] MEDS: Insulin Glargine,Hum.rec.anlog 100 UNIT/ML 10 ML VIAL 12 UNIT SUBCUT (20:28)
[2025-08-21 03:49] VITALS: BP 157/69; PULSE 76; RESP 18; TEMP 36.4; O2SAT 96
[2025-08-21 06:47] VITALS: BP 160/72; PULSE 76; RESP 15; TEMP 36.6; O2SAT 96
[2025-08-21 07:14] LABS: Glucose, Whole Blood 161 mg/dL (60-115)
[2025-08-21] MEDS: Nicotine 21 MG PATCH.TD24 TRANSDERMA (07:44)
[2025-08-21] MEDS: 0.9 % Sodium Chloride Flush 3 ML SYRINGE IVFLUSH (07:45)
--- NOTE | 2025-08-21 08:11 | P.DS_ITS ---
DS: Providers Provider Date of Service: 08/21/25 Date of admission: 08/09/25 20:35 Date of discharge: 08/21/25 Primary care physician: Kate Bailon MD Consults: 08/09/25 21:01 Consult to Neurology Routine Consulting Provider: Lisa Kinsey Reason for consultation: Left-sided weakness Has provider been notified: No DS: Diagnosis Discharge Diagnosis (1) Acute stroke due to embolism of right middle cerebral artery: Status: Acute (2) Hypertension, uncontrolled: Status: Acute DS: Summary Hospital Course Hospital Course: Admission Diagnosis: * Acute ischemic stroke, right MCA distribution (multiple embolic infarcts) * Uncontrolled hypertension * Poorly controlled type 2 diabetes mellitus * Hyperlipidemia * Tobacco use disorder Discharge Diagnosis: * Acute ischemic stroke, right MCA distribution (presumed cardioembolic) * Left hemiparesis, improving * Uncontrolled hypertension * Poorly controlled type 2 diabetes mellitus * Hyperlipidemia * Tobacco use disorder * Peripheral vascular disease * Nonalcoholic steatohepatitis (BROWN) Hospital Course: The patient is a 59-year-old woman with a history of type 2 diabetes mellitus, essential hypertension, hyperlipidemia, BROWN, peripheral vascular disease, and ongoing tobacco use, who presented with acute onset left-sided weakness and left hand/finger tingling. She also reported difficulty ambulating. She had not been taking her diabetes medications for the past three months due to insurance issues. On admission, she was found to be significantly hypertensive and hyperglycemic. Imaging revealed multiple acute right-sided infarcts in the middle cerebral artery distribution, consistent with embolic stroke. No acute hemorrhage was see n on head CT, and CTA showed patent head and neck vessels. MRI confirmed multiple acute infarcts, though the study was limited due to early termination. She was managed with IV labetalol for hypertension, started on aspirin, and initiated on high-intensity statin therapy. Neurology recommended anticoagulation with Eliquis for presumed cardioembolic source. Blood pressure and glucose were managed with a combination of antihypertensives and insulin therapy. She participated in physical and occupational therapy, with improvement in left lower extremity function. Outpatient Holter monitoring was arranged to evaluate for atrial fibrillation. She was counseled on smoking cessation and started on nicotine replacement therapy. She is being discharged to acute inpatient rehabilitation for continued therapy and recovery. ondition at Discharge: Stable, with improving left-sided weakness. Tolerating oral intake. Ambulating with assistance. Ready for transfer to acute inpatient rehabilitation. Time Attestation Discharge Coordination Time (in mins): 45 Quality: Safe Use of Opioids Does Pt have an Active Cancer Diagnosis on the Problem List?: No Quality: Stroke Does the patient have a stroke diagnosis?: Yes Reason for No Anti-thrombotic at DC: N/A - Med Ordered Reason for No Anticoagulant at DC: N/A - Med Ordered Reason Not Initiating IV-Tpa: Contraindicated Reason for No Anti-thrombotic by Day Two: N/A - Med Ordered Reason for No Statin at DC: N/A - Med Ordered Physical Exam Exam: Exam: General: AO X 3, no acute distress Resp: CTA bilateral CVS: S1,S2,RRR GI: +BS, NT, no distention Skin: No rash Neuro: Left bailee-paresis, but more movment in the left leg today, flacid left arm Psych: appropriate affect Vital Signs: Vital Signs: Last Vital Signs Temp 98 F 08/21/25 06:47 Pulse 76 08/21/25 06:47 Resp 15 08/21/25 06:47 BP 160/72 H 08/21/25 06:47 Pulse Ox 96 08/21/25 06:47 O2 Del Method Room Air 08/21/25 06:47 BMI result Body Mass Index 27.6 DS: Data Data Completed and Pending Labs on day of discharge: Laboratory Results - last 24 hr 08/20/25 08/20/25 08/20/25 11:34 16:10 19:54 POC Glucose 237 H 119 H 137 H 08/21/25 07:07 POC Glucose 161 H Discharge Plan Discharge Anticipated Discharge Date/Time: 08/21/25 08:06 Patient Disposition: Xfer Inpatient Rehab Fac Discharge Diagnosis: Acute stroke with left hemiparesis Referrals: [facility] [Outside] - 1 Day Referral Note: acute rehab Kate Bailon MD [Primary Care Provider, Medical] - 1 Week Thanh Hough MD [Physician, Cardiology] - 1 Week Referral Note: for holter monitoring followin embolic stroke Discharge Medications: New atorvastatin 80 mg Tablet 80 mg PO BEDTIME Qty: 30 0RF nicotine 21 mg/24 hr Patch 24 Hour 21 mg transdermal DAILY Qty: 28 0RF Eliquis 5 mg Tablet 5 mg PO BID Qty: 60 0RF insulin glargine [Lantus U-100 Insulin] 100 unit/mL Solution 12 unit subcut BEDTIME Qty: 10 0RF cyclobenzaprine 5 mg Tablet 5 mg PO TID PRN (Reason: Muscle Spasm) Qty: 30 0RF insulin lispro [Admelog U-100 Insulin lispro] 100 unit/mL Solution 5 unit subcut QIDACHS Qty: 10 0RF Rx Instructions: hold for blood sugar less than 150 insulin lispro [Admelog U-100 Insulin lispro] 100 unit/mL Solution See Protocol subcut QIDACHS Qty: 10 0RF Protocol: Insulin Resistant 1st 24 hours Less than or equal to 110 ---- Give (units): 0 111 to 150 Give (units): 2 151 to 200 Give (units): 4 201 to 250 Give (units): 6 251 to 300 Give (units): 8 301 to 350 Give (units): 10 Greater than 350 Give (units): 12 Call MD if Blood Glucose > : 350 Rx Instructions: BG <111 0 units, 111-150 - 0 units, 151-200 2 units, 201-250 4 units, 251-300 6 units, 301-350 8 units, >350 10 units Continued aspirin 81 mg tablet,delayed release (DR/EC) 81 mg PO DAILY Qty: 90 0RF Rx Instructions: OVERDUE for APPT. Please call to schedule for 2022 so we can continue refilling Rx's; [phone]. labetalol 300 mg tablet 300 mg PO BID 90 Days Qty: 180 3RF amlodipine 10 mg tablet 10 mg PO DAILY Qty: 90 3RF losartan-hydrochlorothiazide 100-25 mg tablet 1 tab PO DAILY Qty: 90 0RF (DME) FreeStyle Lite Strips Strip See Rx Instructions Not Applicable QID Qty: 10 Rx Instructions: As directed Jardiance 25 mg tablet 25 mg PO DAILY Discontinued rosuvastatin 20 mg tablet 20 mg PO BEDTIME Discharge Orders: Discharge Order (Routine); Ordered 08/21/25 Ordered By: Xiang Franks Diet: Diabetic diet Activity on Discharge: As tolerated Stand Alone Forms: Patient Portal Discharge page Print Language: Nigerien Care Plan Goals: Maximize neurological recovery and functional independence following acute ischemic stroke through comprehensive medical management, aggressive risk factor modification, and participation in acute inpatient rehabilitation. Focus on secondary stroke prevention, optimal control of hypertension and diabetes, smoking cessation, and safe transition to the next level of care. Health Concerns: * Recent acute ischemic stroke with left-sided weakness * Poorly controlled hypertension * Poorly controlled type 2 diabetes mellitus * Hyperlipidemia * Ongoing tobacco use * High risk for recurrent stroke and cardiovascular events Plan of Treatment: * continue antiplatelet (aspirin) and anticoagulation (Eliquis) for secondary stroke prevention * Optimize blood pressure and blood glucose control with appropriate medications * continue high-intensity statin (Lipitor) for lipid management * Nicotine replacement therapy and provide smoking cessation support * Continue physical and occupational therapy in acute inpatient rehabilitation * Arrange outpatient Holter monitoring to assess for atrial fibrillation through cardiology office--Dr. Hough's office * Schedule close follow-up with primary care, neurology, and cardiology Assessment: seen above
--- NOTE | 2025-08-21 08:51 | MHC.CM.PN ---
Patient cleared for dc at acute rehab at [place]. S transport scheduled for 11:30am. and RN aware.
[2025-08-21 10:07] VITALS: BP 130/60; PULSE 74
[2025-08-21 11:13] LABS: Glucose, Whole Blood 201 mg/dL (60-115)
[2025-08-21 11:25] VITALS: BP 141/66; PULSE 75; RESP 16; TEMP 36.6; O2SAT 96
== END 2025-08-21 12:12 | DRG 45 ==
LOC: HO.ED 20:20 → HO.EDOVER 20:48 → HO.IMC 08-10 15:23 → HO.S3 08-12 15:29
PROVIDERS: Hospitalist; Internal Medicine; Admitting Provider Internal Medicine; Emergency Provider Emergency Medicine; PCP Internal Medicine; Visit Provider Internal Medicine
DX: I63.411 Cerebral infarction due to embolism of right middle cerebral artery (principal); G81.94 Hemiplegia, unspecified affecting left nondominant side; E11.51 Type 2 diabetes mellitus with diabetic peripheral angiopathy without gangrene; K75.81 Nonalcoholic steatohepatitis (NASH); I10 Essential (primary) hypertension; R20.2 Paresthesia of skin; E11.65 Type 2 diabetes mellitus with hyperglycemia; E78.5 Hyperlipidemia, unspecified; I16.1 Hypertensive emergency; F17.210 Nicotine dependence, cigarettes, uncomplicated; Z71.6 Tobacco abuse counseling; Z79.4 Long term (current) use of insulin; Z79.82 Long term (current) use of aspirin; Z79.899 Other long term (current) drug therapy
CPT/HCPCS: 36415; 70450; 70496; 70498; 70551; 80048; 80061; 80076; 82947; 83036; 83735; 85025; 85027; 87507; 93005; 93306; 97110; 97112; 97116; 97161; 97165; 97530; 97535; 99285; J1650; J1920; Q9957; Q9967

== ENCOUNTER → 2025-08-09 18:22 | Outpatient (BNV) | payer SELFPAY | PROVIDERS: Admitting Provider Internal Medicine; Emergency Provider Emergency Medicine; PCP Internal Medicine; Visit Provider Internal Medicine | DX: I51.7 Cardiomegaly (principal); I25.2 Old myocardial infarction | CPT/HCPCS: 93010 ==

== ENCOUNTER 2025-08-09 20:35 | Outpatient (BNV) | payer SELFPAY | END 2025-08-10 12:17 | PROVIDERS: Admitting Provider Internal Medicine; Emergency Provider Emergency Medicine; PCP Internal Medicine; Visit Provider Radiology Diagnostic Radiology | DX: I63.9 Cerebral infarction, unspecified (principal) | CPT/HCPCS: 70551 ==

== ENCOUNTER 2025-08-09 20:35 | Outpatient (BNV) | payer SELFPAY | END 2025-08-11 07:00 | PROVIDERS: Admitting Provider Internal Medicine; Emergency Provider Emergency Medicine; PCP Internal Medicine; Visit Provider Internal Medicine | DX: I51.7 Cardiomegaly (principal); I34.81 Nonrheumatic mitral (valve) annulus calcification | CPT/HCPCS: 93306 ==

== ENCOUNTER → 2025-08-09 20:35 | Outpatient (BNV) | payer MEDICAID, SELFPAY | PROVIDERS: Admitting Provider Internal Medicine; Emergency Provider Emergency Medicine; PCP Internal Medicine; Visit Provider Internal Medicine | DX: I63.411 Cerebral infarction due to embolism of right middle cerebral artery (principal); I10 Essential (primary) hypertension | CPT/HCPCS: 99223; 99232; 99239 ==

== ENCOUNTER → 2025-08-09 20:35 | Outpatient (BNV) | payer SELFPAY | PROVIDERS: Admitting Provider Internal Medicine; Emergency Provider Emergency Medicine; PCP Internal Medicine; Visit Provider Psychiatry & Neurology Neurology | DX: I63.411 Cerebral infarction due to embolism of right middle cerebral artery (principal) | CPT/HCPCS: 99223 ==

== ENCOUNTER 2025-09-28 12:55 | Outpatient (AMB) | payer OTHER, SELFPAY ==
--- NOTE | 2025-09-28 12:58 | A.OFFVIS_ITS ---
Vital Signs 09/28/25 13:01 Height 5 ft 2 in BMI Reason not done Patient refused/unable BP 140/78 H Blood Pressure Location Rt brachial Position Sitting Pulse 86 Pulse Source Monitor Intake Visit Reasons: ED follow up (NS) Prisoner Classification Interviewer Required: No Accompanied by: Daughter Allergies cephalexin (From KEFLEX) Allergy (Severe, Verified 09/28/25 13:05) HIVES codeine (CODEINE) Allergy (Intermediate, Verified 09/28/25 13:05) NAUSEA & VOMITING, nausea and vomiting dulaglutide (Trulicity) Allergy (Intermediate, Verified 09/28/25 13:05) abdominal pain Cephalosporins Allergy (Intermediate, Uncoded 08/09/25 18:13) Hives seasonal Allergy (Intermediate, Uncoded 08/09/25 18:13) Itchy Eyes Medication List - Last Reconciled 09/28/25 by Darrel Townsend NP amlodipine 10 mg PO DAILY apixaban (Eliquis) 5 mg PO BID aspirin 81 mg PO DAILY atorvastatin 80 mg PO BEDTIME blood sugar diagnostic (FreeStyle Lite Strips) As directed cyclobenzaprine 5 mg PO TID PRN docusate sodium (Colace) 100 mg PO DAILY gabapentin 300 mg PO BEDTIME labetalol 300 mg PO BID losartan 50 mg PO DAILY magnesium oxide 400 mg PO DAILY HPI Comments Details: This is a 59-year-old female patient coming in for a hospital discharge follow- up visit, accompanied by her daughter. Patient with a history of hypertension, hyperlipidemia, diabetes, who has been following with the office for hypertension management, with the last visit pain back in July of 2024. Patient also with a history of bilateral renal artery stenosis, followed by Dr. Samano. End of July this year, patient was recently in the hospital for left-sided weakness and underwent imaging that confirmed embolic stroke with multiple acute infarcts on MRI. Neurology was consulted, patient was started on Eliquis. Patient also received IV labetalol for elevated blood pressures and discharged home statin therapy. Patient was discharged to rehab center and there she underwent PT and OT and now is at home and has these services at home. Patient states that her left-sided hemiparesis has improved however patient is still has trouble walking and therefore is using a cane for mobility. Patient states that her blood pressures the rehab center was low and therefore they lowered her losartan therapy. Since getting home, patient states blood pressures has been elevated again averaging in the 150s systolic. Patient is otherwise denying any exertional symptoms of chest pain, shortness of breath, palpitations, dizziness, orthopnea, PND, leg edema, presyncope or syncope. Patient is reporting compliance with all her medications. Patient does note that she has quit smoking since hospital discharge for which patient was commended. [facility] Medical History Hypertension, uncontrolled PAD (peripheral artery disease) Abnormal EKG Acute occlusion of artery of lower extremity Strain of right gastrocnemius muscle Abscess of left groin Squamous cell cancer of skin of forearm Skin lesion of left arm FH: cholecystectomy Diabetes HTN (hypertension) Surgical History History of nasal surgery (~08/2024) H/O colonoscopy S/P angiogram of extremity (10/04/21) History of cholecystectomy S/P shoulder surgery History of tubal ligation Family History Father No problems noted. 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 Review of Systems Const Denies daytime sleepiness, Denies difficulty sleeping, Denies snoring, Denies stops breathing during sleep and Denies weakness Card Denies chest pain, Denies rapid heart rate, Denies irregular heart rhythm, Denies claudication, Denies leg edema, Denies lightheadedness, Denies palpitations, Denies dyspnea, Denies dyspnea on exertion, Denies orthopnea, Denies paroxysmal nocturnal dyspnea and Denies slow heart rate Resp Denies cough, Denies dyspnea, Denies dyspnea on exertion and Denies snoring GI Reports no additional complaints, Denies hematochezia, Denies change in stool character and Denies dyspepsia Musc Denies abnormal gait, Denies muscle weakness and Denies numbness Neuro Denies abnormal gait, Denies numbness and Denies weakness Endo Denies palpitations Physical Exam Vital Signs: Last Vital Signs Pulse 86 09/28/25 13:01 BP 130/60 09/28/25 13:01 Const General: cooperative, healthy appearing, comfortable and no acute distress Orientation/consciousness: patient oriented x3 HEENT Head: Yes normal to inspection Neck Neck: Yes normal visual inspection, Yes trachea midline and Yes supple Chest Chest palpation & inspection: normal inspection of the chest Resp Effort & Inspection: normal respiratory effort Auscultation: clear to auscultation bilaterally, no crackles, no rales, no rhonchi and no wheezes Cardio Jugular venous distension: no JVD Palpation: normal PMI Rate: regular rate Rhythm: regular rhythm Heart sounds: S1 normal heart sound present, S2 normal heart sound present, no click, no gallops, no murmurs and no rubs Peripheral pulses: Peripheral pulses 2+ throughout GI Inspection: Yes normal to inspection Palpation (GI): Soft to palpation Auscultation: normal bowel sounds Skin General skin exam: no rashes or lesions noted Neuro General: patient oriented x3 Extrem Other: Left-sided hemiparesis General: No no pedal edema Psych Appearance: grossly normal Mental Status: mental status grossly normal Speech and movement: Normal speech and movement present Office Procedures EKG Details: EKG today showed normal sinus rhythm, rate 86 beats per minute, nonspecific STT wave, [place], [place]. [id number], Complete Assessment & Plan Assessment & Plan (1) CVA (cerebral vascular accident): Code(s): I63.9 - Cerebral infarction, unspecified Category: Medical Plan: Recently was in the hospital for left-sided weakness and underwent imaging that confirmed multiple acute infarcts on MRI. Patient was consulted by Neurology was started on Eliquis and statin therapy. On 08/11/2025, patient underwent echo with bubble study that was negative for intra-atrial shunt. Echo showed a normal LV systolic function with an ejection fraction at 65%, and severely increased LV wall thickness. Back in 2021, patient had undergone cardiac event monitoring that showed sinus rhythm with no significant arrhythmias. We discussed about an implantable loop recorder to assess for AFib or any significant arrhythmias. Patient agreeable of the plan. Procedure along with its indications, risks, and benefits post discussed in detail. Continue Eliquis therapy. Continue amlodipine, labetalol, losartan, and atorvastatin therapy. (2) Uncontrolled hypertension: Code(s): I10 - Essential (primary) hypertension Category: Medical Plan: Blood pressure today is elevated. Patient states that her blood pressures at home or systolically reaching in the 150s. Previously at the rehab center, patient's combination losartan hydrochlorothiazide therapy was discontinued due to low blood pressures. We will increase losartan to 100 mg daily. Advised monitoring blood pressures at home with a goal of blood pressure closer to 130/80. (3) Renal artery stenosis, iliamna, bilateral: Code(s): I70.1 - Atherosclerosis of renal artery Category: Medical Plan: Follows with Dr. Samano. Has not seen him for over a year. Patient will call the office for a follow up appointment. (4) High cholesterol: Code(s): E78.00 - Pure hypercholesterolemia, unspecified Category: Medical Plan: Continue statin therapy. Ideally, LDL goal should be less than 70. Advised on heart healthy diet. Most recent lipid panel in the hospital was elevated. We will plan to repeat this in 2 months. (5) Uncontrolled diabetes mellitus with hyperglycemia: Code(s): E11.65 - Type 2 diabetes mellitus with hyperglycemia Category: Medical Qualifiers: Diabetes mellitus type: type 2 Qualified Code(s): E11.65 - Type 2 diabetes mellitus with hyperglycemia Plan: Continue aggressive diabetes management with an A1c goal less than 8%. Followed by PCP. (6) Hospital discharge follow-up: Code(s): Z09 - Encounter for follow-up examination after completed treatment for conditions other than malignant neoplasm Plan: As above. Advised on heart healthy diet, regular exercise, med compliance, and aggressive management of vascular risk factors. Follow up after ILR. In the interim, patient will call the office with any concerns or change in symptoms. This note was generated using voice recognition software. While every effort has been made to ensure accuracy and proper public relations supervisor, there may be occasional errors that could affect the content or meaning of the described symptoms. Orders: Orders Lipid Panel 2 Months E78.00 - Pure hypercholesterolemia, unspecified AMB EKG-In Office Today I10 - Essential (primary) hypertension Basic Metabolic Panel Today I10 - Essential (primary) hypertension RT home sleep study Today G47.33 - Obstructive sleep apnea (adult) (pediatric) Medications: New losartan 100 mg PO DAILY 90 tabs 3RF Coding Level of Care Code Est Pt Level 4 (20576) Complex EM visit Add On G2211 Diagnoses CVA (cerebral vascular accident) I63.9 Uncontrolled hypertension I10 Renal artery stenosis, iliamna, bilateral I70.1 High cholesterol E78.00 Uncontrolled type 2 diabetes mellitus with hyperglycemia E11.65 Diabetes mellitus type: type 2 Hospital discharge follow-up Z09 CPT Codes EKG - CPT: 21795-[id number], Complete ([id number]) Time Spent (min) 34 Comment Time spent in reviewing the chart, test results, assessment, counseling and documentation.
[2025-09-28 13:01] VITALS: BP 140/78; PULSE 86
--- OUTSIDE RECORDS SUMMARY | 2025-09-29 04:24 | XMS_ITS | Clinical Summary ---
Author Organization [facility] Address [address] [place] [address] Phone Care Team Providers Care Dog Licenser Name Role Phone Kate Bailon MD Primary Care Provider [phone] Allergies Active Allergy Reactions Criticality Noted Date Comments Cephalexin Unknown 08/20/2025 Cephalosporins 08/20/2025 Codeine 08/20/2025 Medications amLODIPine (NORVASC) 10 mg tablet Take 1 tablet (10 mg total) by mouth 1 (one) time each day. 30 each 09/16/20 25 025 Active apixaban (ELIQUIS) 5 mg tabletIndicati ons:cva Take 1 tablet (5 mg total) by mouth 2 (two) times a day. 60 each 09/16/20 25 025 Active aspirin 81 mg EC tabletIndicati ons:cva Take 1 tablet (81 mg total) by mouth 1 (one) time each day. 30 each 09/16/20 25 025 Active atorvastatin (LIPITOR) 80 mg tablet Take 1 tablet (80 mg total) by mouth at bedtime. 30 each 09/16/20 25 025 Active labetaloL (NORMODYNE) 300 mg tablet Take 1 tablet (300 mg total) by mouth 2 (two) times a day. 60 each 09/16/20 25 025 Active cyclobenzaprin e (FLEXERIL) 10 mg tablet Take 1 tablet (10 mg total) by mouth 3 (three) times a day. 30 tablet 09/16/20 25 Active nicotine (NICODERM CQ) 21 mg/[address] 1 patch on the skin 1 (one) time each day at the same time. 30 each 09/16/20 25 Active citalopram (CeleXA) 10 mg tablet Take 1 tablet (10 mg total) by mouth 1 (one) time each day. 30 each 09/17/20 25 Active docusate sodium (COLACE) 100 mg capsule Take 1 capsule (100 mg total) by mouth 2 (two) times a day. 60 each 09/16/20 25 Active glipiZIDE 2.5 mg tabletIndicati ons:type 2 diabetes mellitus Take 2.5 mg by mouth 2 (two) times a day before meals. 60 tablet 09/16/20 25 Active gabapentin (NEURONTIN) 300 mg capsule Take 1 capsule (300 mg total) by mouth at bedtime. 30 each 09/16/20 25 Active magnesium oxide (MAG-OX) 400 mg (241.3 elemental magnesium) tablet Take 1 tablet (400 mg total) by mouth 2 (two) times a day. 60 each 09/16/20 25 Active losartan (COZAAR) 50 mg tablet Take 1 tablet (50 mg total) by mouth 1 (one) time each day. 30 each 09/17/20 25 Active apixaban (ELIQUIS) 5 mg tablet Take 1 tablet (5 mg total) by mouth 2 (two) times a day. Discontinued atorvastatin (LIPITOR) 80 mg tablet Take 1 tablet (80 mg total) by mouth at bedtime. Discontinued cyclobenzaprin e (FLEXERIL) 5 mg tablet Take 1 tablet (5 mg total) by mouth 3 (three) times a day if needed for muscle spasms. Discontinued(St op Taking at Discharge) nicotine (NICODERM CQ) 21 mg/[address] 1 patch on the skin 1 (one) time each day at the same time. Discontinued aspirin 81 mg EC tablet Take 1 tablet (81 mg total) by mouth 1 (one) time each day. 025 Discontinued labetaloL (NORMODYNE) 300 mg tablet Take 1 tablet (300 mg total) by mouth 2 (two) times a day. 025 Discontinued amLODIPine (NORVASC) 10 mg tablet Take 1 tablet (10 mg total) by mouth 1 (one) time each day. 025 Discontinued losartan-hydro CHLOROthiazide (HYZAAR) 100-25 mg per tablet Take 1 tablet by mouth 1 (one) time each day. 025 Discontinued(St op Taking at Discharge) Active Problems Problem Noted Date Diagnosed Date Hyperlipidemia associated wi th type 2 diabetes mellitus ([facility] V24, [facility] V28) 08/22/2025 Hypertriglyceridemia 08/22/2025 Tobacco use disorder 08/22/2025 Encounter for tobacco use cessation counseling 1 Stroke ([facility] V24, [facility] V28) 08/21/2025 BROWN (nonalcoholic steatohepatitis) Poorly-controlled hypertension DM (diabetes mellitus) ([facility] V24, [facility] V28 ) Encounters Date Type Department Care Team Description 09/15/2025 Plan of Care Documentation [facility] [address] [place] [phone] 09/08/2025 Plan of Care Documentation [facility] [address] [place] [phone] 09/01/2025 Plan of Care Documentation [facility] [address] [place] [phone] 08/25/2025 Plan of Care Documentation [facility] [address] [place] [phone] 08/21/2025 12:29 PM EDT - 09/17/2025 12:00 PM EST Hospital Encounter [facility] [address] [place] [phone] Loan Hicks DO [place]: [place] [facility] [place] Surgical History Surgery Date Site/Laterality Comments SHOULDER SURGERY PROCEDURE: NE UNLISTED PROCEDURE SHOULDER CHOLECYSTECTOMY 1987 PROCEDURE: HISTORICAL CHOLECYSTECTOMY TUBAL LIGATION 1989 PROCEDURE: HISTORICAL TUBAL LIGATION Medical History Medical History Date Comments BROWN (nonalcoholic steatohepatitis) HTN (hypertension) DM (diabetes mellitus) ([facility] V24, [facility] V28 ) Family History Medical History Relation Name Comments Diabetes Father Hypertension Father Relation Name Status Comments Father Mother (Age 62) Cirrhosis, lung cancer Social History Tobacco Use Types Packs/Day Years Used Date Smoking Tobacco: Every Day Cigarettes Smokeless Tobacco: Never Alcohol Use Standard Drinks/Week Comments No 0 (1 standard drink = 0.6 oz pur e alcohol) Health Literacy Answer Date Recorded How often do you need to hav e someone help you when you read instructions, pamphlets, or other written material from your doctor or pharmacy? Never 09/16/2025 Caregiver: How often do you need to have someone help you when you read instructions, pamphlets, or other written material from your doctor or pharmacy? Not on file 09/16/2025 Transportation Answer Date Recorded Has the lack of transportati on kept you from meetings, work, or from getting things needed for daily living? No Has the lack of transportati on kept you from medical appointments or from getting medications? No 08/23/2025 Social Isolation Answer Date Recorded How often do you feel lonely or isolated from th ose around you? Rarely 09/16/2025 Food Risk Answer Date Recorded Within the past 12 months we worried whether our food would run out before we got money to buy more. Never true 08/30/2025 Within the past 12 months th e food we bought just didn't last and we didn't have money to get more. Never true 08/30/2025 Interpersonal Safety Answer Date Record ed Physical Abuse Unrecognized value 08/21/2025 Verbal Abuse Unrecognized value 08/21/2025 Comments Unknown Sex and Gender Information Value Date Recorded Sex Assigned at Female 08/20/2025 8:30 AM EDT Legal Sex Female 6:51 PM EST Gender Identity Female 08/20/2025 8:30 AM EDT Sexual Orientation Choose not to disclose 2024 8:30 AM EDT Obstetrics History Last Filed Vital Signs Vital Sign Reading Time Taken Comments Blood Pressure 127/64 09/17/2025 8:14 AM EST Pulse 80 09/17/2025 8:14 AM EST Temperature 36.6 C (97.9 F) 09/17/2025 8:14 AM EST Respiratory Rate 18 09/17/2025 3:57 AM EST Oxygen Saturation 96% 09/17/2025 8:14 AM EST Inhaled Oxygen Concentration - - Weight 66.2 kg (146 lb 0.3 oz) 09/12/2025 12:00 PM EST Height 157 cm (5' 1.81 ) 08/20/2025 12:42 PM EDT Body Mass Index 26.87 08/20/2025 12:42 PM EDT Plan of Treatment Health Maintenance Due Date Last Done Comments Breast Cancer Screening 1964 Colorectal Cancer Screening: Colonoscopy 1964 Diabetes: Annual Retina Eye Exam 1974 DTaP,Tdap,and Td Vaccines (1 - Tdap) 1983 Pneumococcal Vaccine: 50+ Years (1 of 2 - PCV) 1983 Cervical Cancer Screening: Pap Smear 1985 RSV Immunization Adult Patients (1 - Risk 50-74 years 1-dose series) 2014 Zoster Vaccines (1 of 2) 2014 COVID-19 Vaccine (1 - season) 2025 Influenza Vaccine (#1) 2025 Diabetes: Annual Urine Albumin-Creatinine Ratio (uACR) 08/20/2025 Hepatitis C Screening 08/20/2025 Diabetes: Blood Sugar Control Test (HGBA1C) 02/23/2026 08/25/2025, 07/20/2024 Diabetes: Annual Foot Exam 08/22/2026 08/22/2025, Diabetes: Annual GFR (Glomerular Filtration Rate) 09/10/2026 09/10/2025, 09/05/2025, 09/03/2025, Additional history exists Hypertension/CHF/CAD Annual BMP Blood Test 09/10/2026 09/10/2025, 09/05/2025, 09/03/2025, Additional history exists Social Influencers of Health Screening 09/16/2026 09/16/2025 Cholesterol Screening (Lipid Panel) 08/09/2030 08/09/2025 HIV Screening Completed 03/30/2024 Depression Screening Completed 09/16/2025 HIB Vaccines Aged Out No longer eligi [...] on patient's age to complete this topic MMR Vaccines Aged Out No longer eligi ble based on patient's age to complete this topic Meningococcal ACWY Vaccine Aged Out N o longer eligible based on patient's age to complete this topic Meningococcal B Vaccine Aged Out No l onger eligible based on patient's age to complete this topic RSV Immunization Patients Under 20 months Aged Out No longer eligible based on patient's age to complete this topic Varicella Vaccines Aged Out No longer eligible based on patient's age to complete this topic Procedures Procedure Name Priority Date/Time Associated Diagnosis Comments POCT GLUCOSE BLOOD Routine 09/17/2025 11 :11 AM EST POCT GLUCOSE BLOOD Routine 09/17/2025 7: 20 AM EST POCT GLUCOSE BLOOD Routine 09/16/2025 8: 08 PM EST POCT GLUCOSE BLOOD Routine 09/16/2025 4: 11 PM EST POCT GLUCOSE BLOOD Routine 09/16/2025 11 :07 AM EST POCT GLUCOSE BLOOD Routine 09/16/2025 7: 36 AM EST POCT GLUCOSE BLOOD Routine 09/15/2025 8: 04 PM EST POCT GLUCOSE BLOOD Routine 09/15/2025 3: 46 PM EST POCT GLUCOSE BLOOD Routine 09/15/2025 11 :32 AM EST POCT GLUCOSE BLOOD Routine 09/15/2025 7: 14 AM EST POCT GLUCOSE BLOOD Routine 09/14/2025 7: 58 PM EST POCT GLUCOSE BLOOD Routine 09/14/2025 4: 03 PM EST POCT GLUCOSE BLOOD Routine 09/14/2025 11 :21 AM EST POCT GLUCOSE BLOOD Routine 09/14/2025 7: 15 AM EST POCT GLUCOSE BLOOD Routine 09/13/2025 8: 01 PM EST POCT GLUCOSE BLOOD Routine 09/13/2025 4: 22 PM EST POCT GLUCOSE BLOOD Routine 09/13/2025 11 :22 AM EST POCT GLUCOSE BLOOD Routine 09/13/2025 7: 46 AM EST POCT GLUCOSE BLOOD Routine 09/12/2025 8: 21 PM EST POCT GLUCOSE BLOOD Routine 09/12/2025 3: 40 PM EST POCT GLUCOSE BLOOD Routine 09/12/2025 11 :04 AM EST POCT GLUCOSE BLOOD Routine 09/12/2025 7: 24 AM EST POCT GLUCOSE BLOOD Routine 09/11/2025 8: 01 PM EDT POCT GLUCOSE BLOOD Routine 09/11/2025 4: 00 PM EDT POCT GLUCOSE BLOOD Routine 09/11/2025 11 :15 AM EDT POCT GLUCOSE BLOOD Routine 09/11/2025 7: 46 AM EDT POCT GLUCOSE BLOOD Routine 09/10/2025 7: 59 PM EDT POCT GLUCOSE BLOOD Routine 09/10/2025 3: 50 PM EDT POCT GLUCOSE BLOOD Routine 09/10/2025 11 :14 AM EDT POCT GLUCOSE BLOOD Routine 09/10/2025 7: 37 AM EDT MAGNESIUM Routine 09/10/2025 5:19 AM EDT COMPLETE BLOOD COUNT Routine 09/10/2025 5:19 AM EDT COMPREHENSIVE METABOLIC PANEL Routine 09/10/2025 5:19 AM EDT POCT GLUCOSE BLOOD Routine 09/09/2025 8: 03 PM EDT POCT GLUCOSE BLOOD Routine 09/09/2025 3: 55 PM EDT POCT GLUCOSE BLOOD Routine 09/09/2025 10 :59 AM EDT POCT GLUCOSE BLOOD Routine 09/09/2025 7: 19 AM EDT POCT GLUCOSE BLOOD Routine 09/08/2025 8: 28 PM EDT POCT GLUCOSE BLOOD Routine 09/08/2025 4: 31 PM EDT POCT GLUCOSE BLOOD Routine 09/08/2025 11 :04 AM EDT POCT GLUCOSE BLOOD Routine 09/08/2025 7: 15 AM EDT POCT GLUCOSE BLOOD Routine 09/07/2025 8: 02 PM EDT POCT GLUCOSE BLOOD Routine 09/07/2025 3: 45 PM EDT POCT GLUCOSE BLOOD Routine 09/07/2025 11 :23 AM EDT POCT GLUCOSE BLOOD Routine 09/07/2025 7: 10 AM EDT LAVENDER - EDTA Routine 09/07/2025 5:43 AM EDT EXTRA TUBES Routine 09/07/2025 5:43 AM EDT MAGNESIUM Routine 09/07/2025 5:43 AM EDT POCT GLUCOSE BLOOD Routine 09/06/2025 8: 08 PM EDT POCT GLUCOSE BLOOD Routine 09/06/2025 3: 53 PM EDT POCT GLUCOSE BLOOD Routine 09/06/2025 11 :00 AM EDT POCT GLUCOSE BLOOD Routine 09/06/2025 7: 25 AM EDT POCT GLUCOSE BLOOD Routine 09/05/2025 8: 07 PM EDT POCT GLUCOSE BLOOD Routine 09/05/2025 3: 56 PM EDT POCT GLUCOSE BLOOD Routine 09/05/2025 11 :14 AM EDT POCT GLUCOSE BLOOD Routine 09/05/2025 7: 30 AM EDT MAGNESIUM Routine 09/05/2025 5:31 AM EDT COMPLETE BLOOD COUNT Routine 09/05/2025 5:31 AM EDT BASIC METABOLIC PANEL Routine 09/05/2025 5:31 AM EDT POCT GLUCOSE BLOOD Routine 09/04/2025 7: 59 PM EDT POCT GLUCOSE BLOOD Routine 09/04/2025 4: 19 PM EDT POCT GLUCOSE BLOOD Routine 09/04/2025 11 :25 AM EDT POCT GLUCOSE BLOOD Routine 09/04/2025 7: 20 AM EDT POCT GLUCOSE BLOOD Routine 09/03/2025 8: 05 PM EDT POCT GLUCOSE BLOOD Routine 09/03/2025 4: 11 PM EDT POCT GLUCOSE BLOOD Routine 09/03/2025 11 :27 AM EDT POCT GLUCOSE BLOOD Routine 09/03/2025 7: 37 AM EDT COMPLETE BLOOD COUNT Routine 09/03/2025 5:21 AM EDT COMPREHENSIVE METABOLIC PANEL Routine 09/03/2025 5:21 AM EDT POCT GLUCOSE BLOOD Routine 09/02/2025 8: 17 PM EDT POCT GLUCOSE BLOOD Routine 09/02/2025 3: 58 PM EDT POCT GLUCOSE BLOOD Routine 09/02/2025 11 :05 AM EDT POCT GLUCOSE BLOOD Routine 09/02/2025 7: 23 AM EDT POCT GLUCOSE BLOOD Routine 09/01/2025 8: 19 PM EDT POCT GLUCOSE BLOOD Routine 09/01/2025 3: 47 PM EDT POCT GLUCOSE BLOOD Routine 09/01/2025 11 :22 AM EDT POCT GLUCOSE BLOOD Routine 09/01/2025 7: 20 AM EDT POCT GLUCOSE BLOOD Routine 08/31/2025 8: 19 PM EDT POCT GLUCOSE BLOOD Routine 08/31/2025 4: 05 PM EDT POCT GLUCOSE BLOOD Routine 08/31/2025 11 :10 AM EDT POCT GLUCOSE BLOOD Routine 08/31/2025 7: 15 AM EDT POTASSIUM Routine 08/31/2025 6:56 AM EDT LAVENDER - EDTA Routine 08/31/2025 6:53 AM EDT EXTRA TUBES Routine 08/31/2025 6:53 AM EDT POCT GLUCOSE BLOOD Routine 08/30/2025 7: 52 PM EDT POCT GLUCOSE BLOOD Routine 08/30/2025 4: 09 PM EDT POCT GLUCOSE BLOOD Routine 08/30/2025 11 :07 AM EDT POCT GLUCOSE BLOOD Routine 08/30/2025 7: 07 AM EDT ASPARTATE AMINOTRANSFERASE Add-On 08/30/2025 5:25 AM EDT ALANINE AMINOTRANSFERASE Add-On 5:25 AM EDT MAGNESIUM Routine 08/30/2025 5:25 AM EDT BASIC METABOLIC PANEL Routine 08/30/2025 5:25 AM EDT COMPLETE BLOOD COUNT Routine 08/30/2025 5:25 AM EDT POCT GLUCOSE BLOOD Routine 08/29/2025 8: 14 PM EDT POCT GLUCOSE BLOOD Routine 08/29/2025 3: 29 PM EDT POCT GLUCOSE BLOOD Routine 08/29/2025 11 :16 AM EDT POCT GLUCOSE BLOOD Routine 08/29/2025 7: 22 AM EDT POCT GLUCOSE BLOOD Routine 08/28/2025 8: 21 PM EDT POCT GLUCOSE BLOOD Routine 08/28/2025 3: 37 PM EDT POCT GLUCOSE BLOOD Routine 08/28/2025 11 :20 AM EDT POCT GLUCOSE BLOOD Routine 08/28/2025 7: 17 AM EDT POCT GLUCOSE BLOOD Routine 08/27/2025 8: 06 PM EDT POCT GLUCOSE BLOOD Routine 08/27/2025 3: 52 PM EDT POCT GLUCOSE BLOOD Routine 08/27/2025 11 :10 AM EDT POCT GLUCOSE BLOOD Routine 08/27/2025 7: 28 AM EDT POCT GLUCOSE BLOOD Routine 08/26/2025 8: 00 PM EDT POCT GLUCOSE BLOOD Routine 08/26/2025 3: 53 PM EDT POCT GLUCOSE BLOOD Routine 08/26/2025 11 :08 AM EDT POCT GLUCOSE BLOOD Routine 08/26/2025 7: 17 AM EDT COMPLETE BLOOD COUNT Routine 08/26/2025 5:15 AM EDT COMPREHENSIVE METABOLIC PANEL Routine 08/26/2025 5:15 AM EDT POCT GLUCOSE BLOOD Routine 08/25/2025 8: 07 PM EDT POCT GLUCOSE BLOOD Routine 08/25/2025 3: 46 PM EDT HEMOGLOBIN A1C Routine 08/25/2025 1:04 PM EDT SST - GOLD Routine 08/25/2025 1:01 PM EDT EXTRA TUBES Routine 08/25/2025 1:01 PM EDT POCT GLUCOSE BLOOD Routine 08/25/2025 11 :33 AM EDT POCT GLUCOSE BLOOD Routine 08/25/2025 7: 03 AM EDT POCT GLUCOSE BLOOD Routine 08/24/2025 8: 43 PM EDT POCT GLUCOSE BLOOD Routine 08/24/2025 3: 55 PM EDT POCT GLUCOSE BLOOD Routine 08/24/2025 11 :11 AM EDT POCT GLUCOSE BLOOD Routine 08/24/2025 7: 19 AM EDT POCT GLUCOSE BLOOD Routine 08/23/2025 8: 43 PM EDT POCT GLUCOSE BLOOD Routine 08/23/2025 4: 02 PM EDT POCT GLUCOSE BLOOD Routine 08/23/2025 11 :18 AM EDT POCT GLUCOSE BLOOD Routine 08/23/2025 7: 47 AM EDT POCT GLUCOSE BLOOD Routine 08/22/2025 7: 48 PM EDT POCT GLUCOSE BLOOD Routine 08/22/2025 4: 33 PM EDT POCT GLUCOSE BLOOD Routine 08/22/2025 11 :02 AM EDT POCT GLUCOSE BLOOD Routine 08/22/2025 7: 26 AM EDT CBC WITH AUTO DIFFERENTIAL Routine 08/22/2025 5:25 AM EDT COMPREHENSIVE METABOLIC PANEL Routine 08/22/2025 5:25 AM EDT CBC AND DIFFERENTIAL Routine 08/22/2025 5:25 AM EDT POCT GLUCOSE BLOOD Routine 08/21/2025 7: 57 PM EDT POCT GLUCOSE BLOOD Routine 08/21/2025 4: 14 PM EDT from Last 3 Months Results * (ABNORMAL) POCT Glucose, blood (09/17/2025 11:11 AM EST) Only the most recent of108 resultswithin the time period is included. Pathologist [facility] Glucose POCT 159(H) 70 - 100 mg/dL 09/17/2025 11:12 AM EST [facility] Blood Capillary blood specimen / Unknown 09/17/2025 11:11 AM EST 09/17/2025 11:14 AM EST Loan Hicks DO LAB POINT OF CARE TEST DOCKED DEVICE UNSOLICITED RESULTS Final Result [facility] [address] [place] [address], * (ABNORMAL) Complete blood count (09/10/2025 5:19 AM EDT) Only the most recent of5 resultswithin the time period is included. [facility] WBC 6.9 4.8 - 10.8 K/mcL LAB HEMETOLOGY METHOD 09/10/2025 6:39 AM EDT [facility] RBC 3.80 3.80 - 4.80 M/mcL LAB HEMETOLOGY METHOD 09/10/2025 6:39 AM EDT [facility] Hemoglobin 11.0(L) 11.5 - 16.0 g/dL LAB HEMETOLOGY METHOD 09/10/2025 6:39 AM EDT [facility] Hematocrit 33.2(L) 35.0 - 47.0 % LAB HEMETOLOGY METHOD 09/10/2025 6:39 AM EDT [facility] MCV 88.5 79.0 - 98.0 FL LAB HEMETOLOGY METHOD 09/10/2025 6:39 AM EDT [facility] MCH 29.3 27.0 - 32.0 pcg LAB HEMETOLOGY METHOD 09/10/2025 6:39 AM EDT [facility] MCHC 33.1 32.0 - 37.0 g/dL LAB HEMETOLOGY METHOD 09/10/2025 6:39 AM EDT [facility] RDW 13.7 11.0 - 15.0 % LAB HEMETOLOGY METHOD 09/10/2025 6:39 AM EDT [facility] Platelets 210 130 - 400 K/mcL LAB HEMETOLOGY METHOD 09/10/2025 6:39 AM EDT [facility] MPV 9.0 7.0 - 11.0 FL LAB HEMETOLOGY METHOD 09/10/2025 6:39 AM EDT [facility] NRBC 0.0 <1.0 % LAB HEMETOLOGY METHOD 09/10/2025 6:39 AM EDT [facility] NRBC Absolute 0.00 <0.10 K/mcL LAB HEMETOLOGY METHOD 09/10/2025 6:39 AM EDT [facility] Blood Venous blood specimen / Unknown Venipuncture / Unknown 09/10/2025 5:19 AM EDT 09/10/2025 6:18 AM EDT us Shelly GABRIEL LAB BLOOD ORDERABLES Final R esult [facility] [address] [place] [address], * Magnesium (09/10/2025 5:19 AM EDT) Only the most recent of4 resultswithin the time period is included. Magnesium 2.1 1.9 - 2.6 mg/dL LAB CHEMISTRY METHOD 09/10/2025 7:56 AM EDT [facility] Blood Venous blood specimen / Unknown Venipuncture / Unknown 09/10/2025 5:19 AM EDT 09/10/2025 6:18 AM EDT us Shelly GABRIEL LAB BLOOD ORDERABLES Final R esult [facility] [address] [place] [address], * (ABNORMAL) Comprehensive metabolic panel (09/10/2025 5:19 AM EDT) Only the most recent of4 resultswithin the time period is included. Sodium 142 133 - 145 mmol/L LAB CHEMISTRY METHOD 09/10/2025 7:56 AM [facility] Potassium 4.1 3.5 - 5.5 mmol/L LAB CHEMISTRY METHOD 09/10/2025 7:56 AM [facility] Chloride 109 96 - 110 mmol/L LAB CHEMISTRY METHOD 09/10/2025 7:56 AM [facility] CO2 27 21 - 32 mmol/L LAB CHEMISTRY METHOD 09/10/2025 7:56 AM [facility] Anion Gap 6 3 - 11 LAB CHEMISTRY METHOD 09/10/2025 7:56 AM [facility] Glucose 131(H) 70 - 100 mg/dL LAB CHEMISTRY METHOD 09/10/2025 7:56 AM [facility] BUN 15 5 - 25 mg/dL LAB CHEMISTRY METHOD 09/10/2025 7:56 AM [facility] Creatinine 0.52 0.50 - 1.10 mg/dL LAB CHEMISTRY METHOD 09/10/2025 7:56 AM [facility] eGFR 107 >=60 mL/min/1. 73m2 LAB CHEMISTRY METHOD 09/10/2025 7:56 AM [facility] Comment:Calculation based on the Chronic Kidney Disease Epidemiology Collaboration (CKD-EPI) equation refit without adjustment for race. BUN/Creatinine Ratio 28.8 LAB CHEMISTRY METHOD 09/10/2025 7:56 AM T [facility] Calcium 8.8 8.5 - 10.5 mg/dL LAB CHEMISTRY METHOD 09/10/2025 7:56 AM [facility] AST (SGOT) 11 10 - 42 unit/L LAB CHEMISTRY METHOD 09/10/2025 7:56 AM [facility] ALT (SGPT) 14 10 - 60 unit/L LAB CHEMISTRY METHOD 09/10/2025 7:56 AM [facility] Alkaline Phosphatase 134(H) 42 - 121 unit/L LAB CHEMISTRY METHOD 09/10/2025 7:56 AM [facility] Total Protein 5.6(L) 6.0 - 8.0 g/dL LAB CHEMISTRY METHOD 09/10/2025 7:56 AM [facility] Albumin 3.0(L) 3.2 - 5.0 g/dL LAB CHEMISTRY METHOD 09/10/2025 7:56 AM [facility] Total Bilirubin 0.3 0.0 - 1.4 mg/dL LAB CHEMISTRY METHOD 09/10/2025 7:56 AM [facility] Blood Venous blood specimen / Unknown Venipuncture / Unknown 09/10/2025 5:19 AM EDT 09/10/2025 6:18 AM EDT us Shelly GABRIEL LAB BLOOD ORDERABLES Final R esult [facility] [address] [place] [address], * Lavender tube (09/07/2025 5:43 AM EDT) Only the most recent of2 resultswithin the time period is included. Extra Tube Hold for add-ons. 09/07/2025 8:01 AM [facility] Comment:Auto resulted. Blood Venous blood specimen / Unknown Venipuncture / Unknown 09/07/2025 5:43 AM EDT 09/07/2025 6:04 AM EDT us Loan Hicks DO LAB BLOOD ORDERABLES Luz carmen Result [facility] [address] [place] [address], [place] [phone] * (ABNORMAL) Basic metabolic panel (09/05/2025 5:31 AM EDT) Only the most recent of2 resultswithin the time period is included. Sodium 141 133 - 145 mmol/L LAB CHEMISTRY METHOD 09/05/2025 7:39 AM [facility] Potassium 3.5 3.5 - 5.5 mmol/L LAB CHEMISTRY METHOD 09/05/2025 7:39 AM [facility] Chloride 108 96 - 110 mmol/L LAB CHEMISTRY METHOD 09/05/2025 7:39 AM [facility] CO2 27 21 - 32 mmol/L LAB CHEMISTRY METHOD 09/05/2025 7:39 AM [facility] Anion Gap 6 3 - 11 LAB CHEMISTRY METHOD 09/05/2025 7:39 AM [facility] Glucose 190(H) 70 - 100 mg/dL LAB CHEMISTRY METHOD 09/05/2025 7:39 AM [facility] BUN 13 5 - 25 mg/dL LAB CHEMISTRY METHOD 09/05/2025 7:39 AM [facility] Creatinine 0.49(L) 0.50 - 1.10 mg/dL LAB CHEMISTRY METHOD 09/05/2025 7:39 AM [facility] eGFR 108 >=60 mL/min/1. 73m2 LAB CHEMISTRY METHOD 09/05/2025 7:39 AM EDT [facility] Comment:Calculation based on the Chronic Kidney Disease Epidemiology Collaboration (CKD-EPI) equation refit without adjustment for race. BUN/Creatinine Ratio 26.5 LAB CHEMISTRY METHOD 09/05/2025 7:39 AM EDT [facility] Calcium 8.7 8.5 - 10.5 mg/dL LAB CHEMISTRY METHOD 09/05/2025 7:39 AM EDT [facility] Blood Venous blood specimen / Unknown Venipuncture / Unknown 09/05/2025 5:31 AM EDT 09/05/2025 6:38 AM EDT Gabby Hightower NP LAB BLOOD ORDERABLES Final Result Performing Organization Address City/[facility]/ZIP Co de Phone Number [facility] [address] [place] [address], * Potassium (08/31/2025 6:56 AM EDT) Potassium 3.9 3.5 - 5.5 mmol/L LAB CHEMISTRY METHOD 08/31/2025 8:08 AM EDT [facility] Blood Venous blood specimen / Unknown Venipuncture / Unknown 08/31/2025 6:56 AM EDT 08/31/2025 7:19 AM EDT Gabby Hightower NP LAB BLOOD ORDERABLES Final Result [facility] [address] [place] [address], * Alanine aminotransferase (08/30/2025 5:25 AM EDT) ALT (SGPT) 26 10 - 60 unit/L LAB CHEMISTRY METHOD 08/30/2025 1:09 PM EDT [facility] Blood Venous blood specimen / Unknown Venipuncture / Unknown 08/30/2025 5:25 AM EDT 08/30/2025 5:36 AM EDT Gabby Hightower NP LAB BLOOD ORDERABLES Final Result Performing Organization Address City/[facility]/ZIP Co de Phone Number [facility] [address] [place] [address], [place] [phone] * Aspartate aminotransferase (08/30/2025 5:25 AM EDT) AST (SGOT) 16 10 - 42 unit/L LAB CHEMISTRY METHOD 08/30/2025 1:38 PM EDT [facility] Blood Venous blood specimen / Unknown Venipuncture / Unknown 08/30/2025 5:25 AM EDT 08/30/2025 5:36 AM EDT Loan Hicks DO LAB BLOOD ORDERABLES Luz l Result Performing Organization Address [facility] de Phone Number [facility] [address] [place] [address], [place] [phone] * (ABNORMAL) Hemoglobin A1c (08/25/2025 1:04 PM EDT) Pathologist [facility] Hemoglobin A1C 11.1(H) <6.5 % LAB CHEMISTRY METHOD 08/25/2025 2:40 PM EDT [facility] Mean Bld Glu Estim. 272 mg/dL LAB CHEMISTRY METHOD 08/25/2025 2:40 PM EDT [facility] Blood Venous blood specimen / Unknown Venipuncture / Unknown 08/25/2025 1:04 PM EDT 08/25/2025 1:11 PM EDT Shelly GABRIEL LAB BLOOD ORDERABLES Final R esult [facility] [address] [place] [address], [place] [phone] * SST tube (08/25/2025 1:01 PM EDT) [facility] Extra Tube Hold for add-ons. 08/25/2025 3:02 PM EDT [facility] Comment:Auto resulted. Blood Venous blood specimen / Unknown 08/25/2025 1:01 PM EDT 08/25/2025 1:11 PM EDT Loan Hicks DO LAB BLOOD ORDERABLES Luz morales Result [facility] [address] [place] [address], [place] [phone] * (ABNORMAL) CBC auto differential (08/22/2025 5:25 AM EDT) [facility] WBC 9.8 4.8 - 10.8 K/mcL LAB HEMETOLOGY METHOD 08/22/2025 5:39 AM EDT [facility] RBC 4.20 3.80 - 4.80 M/mcL LAB HEMETOLOGY METHOD 08/22/2025 5:39 AM EDT [facility] Hemoglobin 12.2 11.5 - 16.0 g/dL LAB HEMETOLOGY METHOD 08/22/2025 5:39 AM EDT [facility] Hematocrit 36.8 35.0 - 47.0 % LAB HEMETOLOGY METHOD 08/22/2025 5:39 AM EDT [facility] MCV 88.2 79.0 - 98.0 FL LAB HEMETOLOGY METHOD 08/22/2025 5:39 AM [facility] MCH 29.3 27.0 - 32.0 pcg LAB HEMETOLOGY METHOD 08/22/2025 5:39 AM EDT [facility] MCHC 33.2 32.0 - 37.0 g/dL LAB HEMETOLOGY METHOD 08/22/2025 5:39 AM [facility] RDW 13.2 11.0 - 15.0 % LAB HEMETOLOGY METHOD 08/22/2025 5:39 AM [facility] Platelets 251 130 - 400 K/mcL LAB HEMETOLOGY METHOD 08/22/2025 5:39 AM [facility] MPV 9.1 7.0 - 11.0 FL LAB HEMETOLOGY METHOD 08/22/2025 5:39 AM [facility] NRBC 0.0 <1.0 % LAB HEMETOLOGY METHOD 08/22/2025 5:39 AM [facility] NRBC Absolute 0.00 <0.10 K/mcL LAB HEMETOLOGY METHOD 08/22/2025 5:39 AM [facility] Neutrophils Relative 62.1 % LAB HEMETOLOGY METHOD 08/22/2025 5:39 AM [facility] Lymphocytes Relative 21.0 % LAB HEMETOLOGY METHOD 08/22/2025 5:39 AM [facility] Monocytes Relative 10.8 % LAB HEMETOLOGY METHOD 08/22/2025 5:39 AM [facility] Eosinophils Relative 4.4 % LAB HEMETOLOGY METHOD 08/22/2025 5:39 AM [facility] Basophils Relative 0.6 % LAB HEMETOLOGY METHOD 08/22/2025 5:39 AM [facility] Immature Granulocytes Relative 1.1 % LAB HEMETOLOGY METHOD 08/22/2025 5:39 AM [facility] Neutrophils Absolute 6.05 1.50 - 7.00 K/mcL LAB HEMETOLOGY METHOD 08/22/2025 5:39 AM [facility] Lymphocytes Absolute 2.05 1.00 - 5.00 K/mcL LAB HEMETOLOGY METHOD 08/22/2025 5:39 AM EDT [facility] Monocytes Absolute 1.05(H) 0.20 - 1.00 K/mcL LAB HEMETOLOGY METHOD 08/22/2025 5:39 AM EDT [facility] Eosinophils Absolute 0.43 0.00 - 0.50 K[facility] HEMETOLOGY METHOD 08/22/2025 5:39 AM EDT [facility] Basophils Absolute 0.06 0.00 - 0.20 [facility] HEMETOLOGY METHOD 08/22/2025 5:39 AM EDT [facility] Immature Granulocytes Absolute 0.11(H) 0.00 - 0.03 K/[facility] HEMETOLOGY METHOD 08/22/2025 5:39 AM EDT [facility] Blood Venous blood specimen / Unknown Venipuncture / Unknown 08/22/2025 5:25 AM EDT 08/22/2025 5:32 AM EDT us Claudio Palmer NP LAB BLOOD ORDERABLES Final Res ult [facility] [address] [place] [address], [place] [phone] from Last 3 Months Insurance [facility] [place] [id number] Advance Directives Documents on File Type Date Recorded Patient Incident Coordinator Expl anation Advance Directives and Living Will 09/16/2025 8:11 AM HEALTH CARE PROXY * Full Code - Default (Latest Code Status on File) Date Activated Date Inactivated Comments 08/21/2025 1:49 PM 09/17/2025 2:32 PM This is ord er is used when code status has not been discussed with the patient, or code status is otherwise unknown/unconfirmed To update the patient's code status, place a code status order. Do not modify or discontinue any currently active code status orders. Care Teams Dog Licenser Relationship Specialty Start Date End Date Kate Bailon MD [address] [place] [phone] PCP - General Internal Medicine 08/23/25
== END 2025-09-28 13:50 | disposition home or self-care (01) ==
LOC: HO.HCS 12:56
PROVIDERS: PCP Internal Medicine
DX: I63.9 Cerebral infarction, unspecified (principal); I10 Essential (primary) hypertension; I70.1 Atherosclerosis of renal artery; E78.00 Pure hypercholesterolemia, unspecified; E11.65 Type 2 diabetes mellitus with hyperglycemia; Z09 Encounter for follow-up examination after completed treatment for conditions other than malignant neoplasm
CPT/HCPCS: 93010; 99214

== ENCOUNTER 2025-09-28 12:55 | Outpatient (REF) | payer OTHER, SELFPAY ==
[2025-09-28 14:50] LABS: Anion Gap 14 (12-20); Blood Urea Nitrogen 12 mg/dL (9-16); Calcium 9.7 mg/dL (8.4-10.2); Carbon Dioxide 25 mmol/L (22-29); Chloride 102 mmol/L (96-108); Estimated Glomerular Filt Rate > 60; Potassium 3.8 mmol/L (3.3-5.1); Sodium 137 mmol/L (135-145)
--- OUTSIDE RECORDS SUMMARY | 2025-09-29 07:40 | XMS_ITS | Encounter Summary ---
Author Organization [employer] Address [address] [place] [address] Care Team Providers Care Senior Visual Designer Name Role Phone Kate Bailon MD Primary Care Provider [phone]- [phone] Encounter Details Date Type Department Care Team ([facility] Contact Info) Description 12/13/2023 Telephone [facility] MED [facility] PEDS [address] [place] [address] Kate Bailon MD [address] [place] [address] Social History Tobacco Use Types Packs/Day Years Used Date Smoking Tobacco: Never Assessed Comments Unknown Sex and Gender Information Value Date Recorded Sex Assigned at Female 09/10/2022 10:17 AM EDT Legal Sex Female 10:17 AM EDT Gender Identity Female 09/10/2022 10:17 AM EDT Sexual Orientation Straight 07/21/2024 3: 34 PM EDT documented as of this encounter Plan of Treatment Upcoming Encounters Date Type Department Care Team ([facility] Contact Info) Description 09/30/2025 10:00 AM EST Office Visit [facility] [address] [place] [address] Kate Bailon MD [address] [place] [address] documented as of this encounter Visit Diagnoses Not on filedocumented in this encounter Care Teams Senior Visual Designer Relationship Specialty Start Date End Date Kate Bailon MD [address] [place] [id number] PCP - General Internal Medicine 09/03/19 [facility] 09/22/25 documented as of this encounter
--- OUTSIDE RECORDS SUMMARY | 2025-09-29 07:40 | XMS_ITS | Encounter Summary ---
Author Organization [employer] Address [address] [place] [address] Care Team Providers Care Real Estate Administrative Assistant Name Role Phone Kate Bailon MD Primary Care Provider Encounter Details Date Type Department Care Team ([facility] Contact Info) Description 09/28/2025 Orders Only GENERIC EXTERNAL DATA DEPARTMENT Provider, Generic External Data Social History Tobacco Use Types Packs/Day Years [...] Upcoming Encounters Date Type Department Care Team ([facility] Contact Info) Description 09/30/2025 10:00 AM EST Office Visit [facility] MED & PEDS [address] [place] [address] Kate Bailon MD [address] [place] [address] documented as of this encounter Procedures Procedure Name Priority Date/Time Associated Diagnosis Comments BASIC METABOLIC PANEL Routine 09/28/2025 1:58 PM EST documented in this encounter Results * (ABNORMAL) Basic Metabolic Panel (09/28/2025 1:58 PM EST) Sodium 137 135 - 145 mmol/L [facility] Potassium 3.8 3.3 - 5.1 mmol/L [facility] Chloride 102 96 - 108 mmol/L [facility] Carbon Dioxide 25 22 - 29 mmol/L [facility] Anion Gap 14 12 - 20 [facility] Urea Nitrogen (BUN) 12 9 - 16 mg/dL [facility] Creatinine, Serum 0.62 0.5 - 1.4 mg/dL [facility] Estimated Glomerular Filt Rate >60 [facility] Comment:Chronic Kidney Disea se: Estimated GFR < 60 mL/min/1.29l3Cltumd Kidney Disease: Estimated GFR < 15 mL/min/1.73m2 Glucose 260(H) 60 - 115 mg/dL [facility] Calcium 9.7 8.4 - 10.2 mg/dL [facility] 09/28/2025 1:58 PM EST 09/28/2025 1:58 PM EST us Generic External Data Provider LAB BLOOD ORDERAB LES Final Result Performing Organization Address City/State/[facility] Co de Phone Number [facility] [address] [place] [address] [phone] documented in this encounter Visit Diagnoses Not on filedocumented in this encounter Care Teams Real Estate Administrative Assistant Relationship Specialty Start Date End Date Kate Bailon MD [address] [place] [phone] PCP - General Internal Medicine 09/03/19 [facility] 09/22/25 documented as of this encounter
--- OUTSIDE RECORDS SUMMARY | 2025-09-29 07:40 | XMS_ITS | Encounter Summary ---
Author Organization [employer] Address [address] [place] [address] 7 [place] [address] Care Team Providers Care Frame Assembler Name Role Phone Kate Bailon MD Primary Care Provider [phone]- [phone] Reason for Referral * Consultation (Routine) - Closed Specialty Diagnoses / Procedures Referred By Contac t Referred To Contact Dermatology Diagnoses Neoplasm of uncertain behavior Kate Bailon MD [address] [place] [address] Phone: tel: fax: [facility] Dermatology [address] [place] [address] [address] [place], [place] Phone: tel: fax: Referral ID Status Reason Start Date Expiration Date V isits Requested Visits Authorized [id number] Closed Specialty Services Required 06/08/2024 06/08/2025 1 1 Encounter Details Date Type Department Care Team (Late st Contact Info) Description 06/08/2024 Orders Only [facility] MED & PEDS [address] [place], [place] [phone] Kate Bailon MD [address] [place], [place] [phone] Neoplasm of uncertain behavior (Primary Dx) Social [...] Upcoming Encounters Date Type Department Care Team (Late st Contact Info) Description 09/30/2025 10:00 AM EST Office Visit [facility] PEDS [address] [place] [address] Kate Bailon MD [address] [place] [address] Scheduled Referrals Name Type Priority Associated Diagnoses Order Schedule Referral to Dermatology Outpatient Referral Routine Neoplasm of uncertain behavior Expected: 06/08/2024 (Approximate), Expires: 06/08/2025 documented as of this encounter Visit Diagnoses Diagnosis Neoplasm of uncertain behavior- Primary Neoplasm of uncertain behavior, site unspecified documented in this encounter Care Teams Frame Assembler Relationship Specialty Start Date End Date Kate Bailon MD [address] [place] [address] PCP - General Internal Medicine 09/03/19 [facility] 09/22/25 documented as of this encounter
--- OUTSIDE RECORDS SUMMARY | 2025-09-29 07:40 | XMS_ITS | Encounter Summary ---
Author Organization [employer] Address [address] [place] [address] [address] [place] [address] Care Team Providers Care Cluster Bore Operator Name Role Phone Kate Bailon MD Primary Care Provider [phone]- [phone] Reason for Referral * Consultation (Routine) - Closed Specialty Diagnoses / Procedures Referred By Contac t Referred To Contact Pharmacy Diagnoses Type 2 diabetes mellitus with hyperglycemia, without long-term current use of insulin ([facility]) Kate Bailon MD [address] [place] [address] Phone: tel: fax: Referral ID Status Reason Start Date Expiration Date V isits Requested Visits Authorized [id number] Closed Consult and Treat 12/09/2024 12/09/2025 6 6 Encounter Details Date Type Department Care Team ([facility] st Contact Info) Description 12/09/2024 Orders Only [facility] MED & PEDS [address] [place] [address] Kate Bailon MD [address] [place], [place] [phone] Type 2 diabetes mellitus with hyperglycemia, without [...] Description 09/30/2025 10:00 AM EST Office Visit [facility] MED & PEDS [address] [place] [address] Kate Bailon MD [address] [place] [address] Scheduled Referrals Name Type Priority Associated Diagnoses Orde r Schedule Referral to Pharmacy CDTM Outpatient Referral Routine Type 2 diabetes mellitus with hyperglycemia, without long-term current use of insulin ([facility]) Ordered: 12/09/2024 documented as of this encounter Visit Diagnoses Diagnosis Type 2 diabetes mellitus with hyperglycemia, without long-term current use of insulin ([facility])- Primary documented in this encounter Care Teams Cluster Bore Operator Relationship Specialty Start Date End Date Kate Bailon MD [address] [place] [address] PCP - General Internal Medicine 09/03/19 [facility] 09/22/25 documented as of this encounter
--- OUTSIDE RECORDS SUMMARY | 2025-09-29 07:40 | XMS_ITS | Encounter Summary ---
Author Organization [employer] [facility] Address [address] [place] [address] 7 [place] [address] Care Team Providers Care Tongue And Quarter Stitcher Name Role Phone Kate Bailon MD Primary Care Provider [phone]- [phone] Encounter Details Date Type Department Care Team ([facility] Contact Info) Description 06/12/2024 Orders Only [facility] [address] [place] [address] ProviderAbner MD Social History Tobacco Use Types Packs/Day Years [...] Upcoming Encounters Date Type Department Care Team ([facility] Contact Info) Description 09/30/2025 10:00 AM EST Office Visit [facility] [address] [place] [address] Kate Bailon MD [address] [place] [address] documented as of this encounter Procedures Procedure Name Priority Date/Time Associated Diagnosis Comments DERMATOPATHOLOGY REPORT Routine 06/02/20 24 11:31 AM EDT documented in this encounter Results * Dermatopathology Report (06/02/2024 11:31 AM EDT) us Historical Provider LAB BLOOD ORDERABLES Luz l Result documented in this encounter Visit Diagnoses Not on filedocumented in this encounter Care Teams Tongue And Quarter Stitcher Relationship Specialty Start Date End Date Kate Bailon MD [address] [place] [id number] PCP - General Internal Medicine 09/03/19 [facility] 09/22/25 documented as of this encounter
--- OUTSIDE RECORDS SUMMARY | 2025-09-29 07:40 | XMS_ITS | Encounter Summary ---
Author Organization [employer] Address [address] [place] [address] 7 [place] [address] Care Team Providers Care Engine House Helper Name Role Phone Kate Bailon MD Primary Care Provider [phone]- [phone] Reason for Referral * Consultation (Routine) - Closed Specialty Diagnoses / Procedures Referred By Contac t Referred To Contact Gastroenterology Diagnoses Elevated alkaline phosphatase level Kate Bailon MD [address] [place] [address] Phone: tel: fax: Toshia Winkler MD [address] [place] [address] Phone: tel: fax: Referral ID Status Reason Start Date Expiration Date V isits Requested Visits Authorized [id number] Closed Specialty Services Required 04/30/2024 04/30/2025 1 1 Encounter Details Date Type Department Care Team (Late st Contact Info) Description 04/30/2024 Orders Only [facility] MED & PEDS [address] [place], [place] [phone] Kate Bailon MD [address] [place], [place] [phone] Elevated alkaline phosphatase level (Primary Dx) Social [...] Description 09/30/2025 10:00 AM EST Office Visit [facility] MED & PEDS [address] [place] [address] Kate Bailon MD [address] [place] [address] Scheduled Referrals Name Type Priority Associated Diagnoses Order Schedule Referral to Gastroenterology Outpatient Referral Routine Elevated alkaline phosphatase level Expected: 04/30/2024 (Approximate), Expires: 04/30/2025 documented as of this encounter Visit Diagnoses Diagnosis Elevated alkaline phosphatase level- Primary documented in this encounter Care Teams Engine House Helper Relationship Specialty Start Date End Date Kate Bailon MD [address] [place] [address] PCP - General Internal Medicine 09/03/19 [facility] 09/22/25 documented as of this encounter
--- OUTSIDE RECORDS SUMMARY | 2025-09-29 07:40 | XMS_ITS | Clinical Summary ---
Author Organization [employer] Address [address] [place] [address] [address] [place] [address] Care Team Providers Care Software Application Tester Name Role Phone Kate Bailon MD Primary Care Provider [phone] Allergies Active Allergy Reactions Criticality Noted Date Comments Codeine Nausea 02/11/2024 Cephalexin Hives 02/11/2024 Medications cholecalciferol (Vitamin D-3) 50 MCG (1999) capsule Take 2,000 Units by mouth in the morning. 021 Active apixaban (Eliquis) 5 MG tablet Take 5 mg by mouth every 12 (twelve) hours. Active Blood Pressure kitIndications:P rimary hypertension 1 kit Once per day. 1 kit Active Lancets miscIndications: Type 2 diabetes mellitus with hyperglycemia, with long-term current use of insulin ([facility]) Use to test blood sugar 2 times daily 100 each Active Alcohol Swabs 70 % padsIndications: Type 2 diabetes mellitus with hyperglycemia, with long-term current use of insulin ([facility]) Use to test blood sugar 2 times daily 100 each 024 Active Blood Glucose Monitoring Suppl (FreeStyle [place] Lite) w/Device kitIndications:T ype 2 diabetes mellitus with hyperglycemia, with long-term current use of insulin ([facility]) Use to test blood sugar 2 times daily 1 kit Active empagliflozin (Jardiance) 25 MGIndications:Ty pe 2 diabetes mellitus with hyperglycemia, without long-term current use of insulin ([facility]) Take 1 tablet (25 mg) by mouth Once per day. 30 tablet Active amLODIPine (Norvasc) 10 MG tablet Take 1 tablet by mouth Once per day. Active Aspirin Low Dose 81 MG EC tablet Take 1 tablet by mouth Once per day. Active atorvastatin (Lipitor) 80 MG tablet Take 80 mg by mouth at bedtime. Active citalopram (CeleXA) 10 MG tablet Take 1 tablet by mouth Once per day. Active cyclobenzaprine (Flexeril) 10 MG tablet Take 1 tablet by mouth every 6 (six) hours during the day. Active docusate sodium (Colace) 100 MG capsule Take 1 capsule by mouth 2 times daily. Active gabapentin (Neurontin) 300 MG capsule take 1 capsule by mouth everyday at bedtime Active insulin glargine (Lantus) 100 UNIT/ML injection Inject 12 Units under the skin at bedtime. Active Insulin Lispro (Admelog) 100 UNIT/ML solution Inject under the skin. Inject subcutaneously 4 times daily before meals per sliding scale: BG <111 0 units,111-150 - 0 units,151-200 2 units, 201-250 4 units,251-300 6 units,301-350 8 units,>350 10 units Active labetalol (Normodyne) 300 MG tablet Take 1 tablet by mouth 2 times daily. Active losartan (Cozaar) 50 MG tablet Take 1 tablet by mouth Once per day. Active magnesium oxide (Mag-Ox) 400 MG tablet Take 1 tablet by mouth 2 times daily. Active nicotine (Nicoderm, Step 1) 21 MG/24HR patch PLACE 1 PATCH ON THE SKIN 1 TIME EACH DAY AT THE SAME TIME. Active spironolactone (Aldactone) 100 MG tablet Take 100 mg by mouth in the morning. 2024 Discontinued(M ed list cleanup (will not trigger notification to Pharmacy)) amLODIPine (Norvasc) 5 MG tabletIndication s:Primary hypertension Take 1 tablet (5 mg) by mouth in the morning. 30 tablet /10/ 2025 Discontinued(M ed list cleanup (will not trigger notification to Pharmacy)) metFORMIN XR (Glucophage-XR) 500 MG 24 hr tabletIndication s:Uncontrolled type 2 diabetes mellitus with hyperglycemia (HCC) Take 1 tablet (500 mg) by mouth 2 times daily. Do not crush, chew, or split. 180 tablet 1 024 2024 Discontinued(M ed list cleanup (will not trigger notification to Pharmacy)) lisinopril 20 MG tabletIndication s:Primary hypertension TAKE 1 TABLET BY MOUTH EVERY DAY IN THE MORNING 90 tablet 1 024 2024 Discontinued(M ed list cleanup (will not trigger notification to Pharmacy)) rosuvastatin (Crestor) 20 MG tabletIndication s:Hypercholester olemia Take 1 tablet (20 mg) by mouth Once per day. 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 ) 08/20/2025 Telephone [facility] [address] [place] [address] Kate Bailon MD 08/19/2025 Telephone [facility] [address] [place], [place] [phone] Kate Bailon MD 08/09/2025 Orders Only [facility] External Provider, [facility] 07/29/2025 Telephone [facility] [address] [place] [address] Kate Bailon MD Appointment Request from Last [...] 07/20/2024 4:03 PM EDT Plan of Treatment Upcoming Encounters Date Type Department Care Team (Late st Contact Info) Description 09/30/2025 10:00 AM EST Office Visit [facility] [address] [place] [address] Kate Bailon MD [address] [place] [address] Health Maintenance Due Date Last Done Comments CT Colonography 1965 Colonoscopy 1964 Colorectal Cancer Screening 1964 Depression Screening 1964 FIT DNA/Cologuard 1964 FIT 1964 FOBT 1964 SDOH Screening 1965 Sigmoidoscopy 1964 Disability Screening 1964 Diabetes: Foot Exam 1974 Eye Exam 1974 Alcohol/Substance Use Screening 1976 DTaP/Tdap/Td Vaccines (1 - Tdap) 1983 Diabetes: Urine Protein Screening 1983 Hepatitis A Vaccines (1 of 2 - Risk 2-dose series) 1983 Pneumococcal Vaccine: 50+ Years (1 of 2 - PCV) 1983 Pap Smear 1985 Cervical Cancer Screening 1994 HPV/Cotest 1994 Mammogram 2004 RSV Patients and Patients Aged 60 years or older (1 - Risk 50-74 years 1-dose series) 2014 Zoster Vaccines (1 of 2) 2014 Hepatitis B Vaccines (1 of 3 - Risk 3-dose series) 2024 COVID-19 Vaccine (1 - 2024-2 6 season) 2025 Influenza Vaccine (#1) 2025 Tobacco Screening 07/20/2025 07/20/2024 Diabetes: Hemoglobin A1C 11/25/2025 025, 07/20/2024 Lipid Panel 08/09/2026 08/09/2025, 03/30/2024 HIV Screening Completed 03/30/2024 Hepatitis C Screening [...] METABOLIC PANEL Routine 09/28/2025 1:58 PM EST MR BRAIN WO CONTRAST Routine 08/10/2025 12:17 PM EDT CTA HEAD STROKE W AND WO CONTRAST Routine 08/09/2025 7:23 PM EDT LIPID PANEL, STANDARD Routine 08/09/2025 6:54 PM EDT MAGNESIUM Routine 08/09/2025 6:54 PM EDT BASIC METABOLIC PANEL Routine 08/09/2025 6:54 PM EDT HEPATIC FUNCTION PANEL Routine 08/09/2025 6:54 PM EDT CBC WITH AUTO DIFFERENTIAL Routine 08/09/2025 6:[address] HEAD STROKE WO CONTRAST Routine 08/09/2025 6:53 PM EDT LOWER EXTREMITY VENOUS DUPLEX LEFT Routine 08/09/2025 11:34 AM EDT XR LUMBAR SPINE 2-3 VIEWS Routine 08/09/2025 10:55 AM EDT POCT GLYCATED HEMOGLOBIN, TOTAL Routine 07/20/2024 4:37 [...] Relevant to Health Maintenance Results * (ABNORMAL) Basic Metabolic Panel (09/28/2025 1:58 PM EST) Only the most recent of2 resultswithin the time period is included. Sodium 137 135 - 145 mmol/L [facility] Potassium 3.8 3.3 - 5.1 mmol/L [facility] Chloride 102 96 - 108 mmol/L [facility] Carbon Dioxide 25 22 - 29 mmol/L [facility] Anion Gap 14 12 - 20 [facility] Urea Nitrogen (BUN) 12 9 - 16 mg/dL [facility] Creatinine, Serum 0.62 0.5 - 1.4 mg/dL [facility] Estimated Glomerular Filt Rate >60 [facility] Comment:Chronic Kidney Disea se: Estimated GFR < 60 mL/min/1.31s1Vqknzy Kidney Disease: Estimated GFR < 15 mL/min/1.73m2 Glucose 260(H) 60 - 115 mg/dL [facility] Calcium 9.7 8.4 - 10.2 mg/dL [facility] 09/28/2025 1:58 PM EST 09/28/2025 1:58 PM EST us Generic External Data Provider LAB BLOOD ORDERAB LES Final Result [facility] [address] [place] [phone] * MR Brain w/o Contrast (08/10/2025 12:17 PM EDT) Anatomical Region Laterality Modality Brain Magnetic Resonan ce 08/10/2025 12:1 7 PM EDT Narrative 08/10/2025 1:16 PM EDT [address] [address] Magnetic Resonance Report Signed Patient: Blanca Zuniga MR#: [id number] : 1965 Acct:[id number] Age/Sex: 59 / F ADM Date: 08/09/25 Loc: [facility]: Cristiano Sebastian MD Ordering Physician: Malu Albarran MD Date of Service: 08/10/25 Procedure(s): MR head/brain wo con Accession Number(s): [id number] cc: Kate Bailon MD; Malu Albarran MD Reason for Exam: Left-sided weakness EXAMINATION: MR BRAIN WITHOUT IV CONTRAST HISTORY: Left-sided weakness TECHNIQUE: Sagittal T1, and axial diffusion weighted MR images of the brain were obtained. The patient became claustrophobic and refused the remainder of the study. COMPARISON: Correlation is made with an unenhanced head CT dated 08/09/2025. FINDINGS: The pituitary is normal in size. The cerebellar tonsils are normally located. Diffusion-weighted images demonstrate multiple small acute infarcts involving the right basal ganglia, right mendez radiata, and right frontal and parietal lobes (all in the MCA distribution). There is no mass effect or midline shift. MR/MR head/brain wo con IMPRESSION: Multiple acute right-sided infarcts as described. The examination is otherwise limited as the patient terminated the examination. Findings were sent to Dr. Cristiano Sebastian on 08/10/2025 at 1:10 PM and immediately acknowledged. Electronically signed by: Bob Haile MD 08/10/2025 01:13 PM EDT Dictated By: Bob Haile MD Signed By: <Electronically signed by Bob Haile MD in OV> 08/10/25 1313 DD/ 1217 TD/TT: 08/10/25 1240 [employer] Associate: Procedure Note Donotuseinterpreter, Image - 08/10/[address] [address] Magnetic Resonance Report Signed Patient: Cassi uZniga#: [id number] : 1965Acct:[id number] Age/Sex: 59 / FADM Date: 08/09/25 Loc: [facility]: Cristiano Sebastian MD Ordering Physician: Malu Albarran MD Date of Service: 08/10/25 Procedure(s): MR head/brain wo con Accession Number(s): [id number] cc: Kate Bailon MD; Malu Albarran MD Reason for Exam: Left-sided weakness EXAMINATION: MR BRAIN WITHOUT IV CONTRAST HISTORY: Left-sided weakness TECHNIQUE: Sagittal T1, and axial diffusion weighted MR images of the brain were obtained. The patient became claustrophobic and refused the remainder of the study. COMPARISON: Correlation is made with an unenhanced head CT dated 08/09/2025. FINDINGS: The pituitary is normal in size. The cerebellar tonsils are normally located. Diffusion-weighted images demonstrate multiple small acute infarcts involving the right basal ganglia, right mendez radiata, and right frontal and parietal lobes (all in the MCA distribution). There is no mass effect or midline shift. MR/MR head/brain wo con IMPRESSION: Multiple acute right-sided infarcts as described. The examination is otherwise limited as the patient terminated the examination. Findings were sent to Dr. Cristiano Sebastian on 08/10/2025 at 1:10 PM and immediately acknowledged. Electronically signed by: Bob Haile MD 08/10/2025 01:13 PM EDT Dictated By: Bob Haile MD Signed By: <Electronically signed by Bob Haile MD in OV> 08/10/25 1313 DD/ 1217 TD/TT: 08/10/25 1240 Rural [employer] Associate: [facility] External Provider IMG MRI PROCEDURES Final Result * CTA Head Stroke w/ and w/o Contrast (08/09/2025 7:23 PM EDT) Anatomical Region Laterality Modality Computed Tomogra phy 08/09/2025 7:23 PM EDT Narrative 08/09/2025 7:24 PM EDT [address] [address] [address] Scan Report Signed Patient: Blanca Zuniga MR#: [id number] : 1965 Acct:[id number] Age/Sex: 59 / F ADM Date: 08/09/25 Loc: HO.ED Attending Dr: Ordering Physician: Pamela Reynoso DO Date of Service: 08/09/25 Procedure(s): CT angio head neck STROKE Accession Number(s): [id number] cc: Kate Bailon MD; Pamela Reynoso DO Report Number: [id number]: Total DLP = 732.00 mGy-cm Reason for Exam: HTN, L sided weakness CLINICAL HISTORY: HTN, L sided weakness CTA HEAD WITH CONTRAST, 3D POSTPROCESSING CTA NECK WITH CONTRAST, WITH 3D POSTPROCESSING Comparison: CT/SR - CT HEAD FOR STROKE - 08/09/25 18:27 EDT Findings: Aortic arch: Prominent atherosclerotic changes in the three-vessel arch including the branch origins which appear patent. Vertebral arteries: No occlusion or dissection. Extracranial carotid arteries: No occlusion, aneurysm or dissection. Mixed plaque formation with chunky calcific plaque in the bilateral carotid bifurcations. There is at least 50% stenosis per NASCET criteria. No flow-limiting stenosis in the bilateral proximal ICAs. Intracranial carotid arteries: Prominent calcific plaque with no occlusion or definite flow limiting stenosis. Vertebrobasilar system: Patent. Cerebellar arteries: Patent. Posterior cerebral arteries: Patent. No occlusion or aneurysm. Anterior cerebral arteries: Patent. No occlusion or aneurysm. Middle cerebral arteries: Patent. No occlusion or aneurysm. No enhancing intracranial mass lesion. Dural venous sinuses are patent. No enhancing cervical mass or fluid collection. Multiple nonenlarged cervical and submandibular lymph nodes are nonspecific. Probable multinodular thyroid gland. No acute abnormalities in the included lungs. No acute osseous abnormalities. Impression: 1. Patent head and neck CTA. This document has been electronically signed by: Seda Blanco DO on 08/09/2025 19:23:28 Dictated By: Seda Blanco MD Signed By: <Electronically signed by Seda Blanco MD in OV> 08/09/251923 DD/ 22 TD/TT: 08/09/251922 [employer] Associate: Procedure Note Donotuseinterpreter, Image - 09/29/[address] [address] [address] Scan Report Signed Patient: Cassi Zuniga#: [id number] : 1965Acct:[id number] Age/Sex: 59 / FADM Date: 08/09/25 Loc: HO.ED Attending Dr: Ordering Physician: Pamela Reynoso DO Date of Service: 08/09/25 Procedure(s): CT angio head neck STROKE Accession Number(s): [id number] cc: Kate Bailon MD; Pamela Reynoso DO Report Number: [id number]: Total DLP = 732.00 mGy-cm Reason for Exam: HTN, L sided weakness CLINICAL HISTORY: HTN, L sided weakness CTA HEAD WITH CONTRAST, 3D POSTPROCESSING CTA NECK WITH CONTRAST, WITH 3D POSTPROCESSING Comparison: CT/SR - CT HEAD FOR STROKE - 08/09/25 18:27 EDT Findings: Aortic arch: Prominent atherosclerotic changes in the three-vessel arch including the branch origins which appear patent. Vertebral arteries: No occlusion or dissection. Extracranial carotid arteries: No occlusion, aneurysm or dissection. Mixed plaque formation with chunky calcific plaque in the bilateral carotid bifurcations. There is at least 50% stenosis per NASCET criteria. No flow-limiting stenosis in the bilateral proximal ICAs. Intracranial carotid arteries: Prominent calcific plaque with no occlusion or definite flow limiting stenosis. Vertebrobasilar system: Patent. Cerebellar arteries: Patent. Posterior cerebral arteries: Patent. No occlusion or aneurysm. Anterior cerebral arteries: Patent. No occlusion or aneurysm. Middle cerebral arteries: Patent. No occlusion or aneurysm. No enhancing intracranial mass lesion. Dural venous sinuses are patent. No enhancing cervical mass or fluid collection. Multiple nonenlarged cervical and submandibular lymph nodes are nonspecific. Probable multinodular thyroid gland. No acute abnormalities in the included lungs. No acute osseous abnormalities. Impression: 1. Patent head and neck CTA. This document has been electronically signed by: Seda Blanco DO on 08/09/2025 19:23:28 Dictated By: Seda Blanco MD Signed By: <Electronically signed by Seda Blanco MD in OV> 08/09/251923 DD/ 22 TD/TT: 08/09/251922 Rural Carrier Associate: [facility] External Provider IMG CT PROCEDURES Final Result * (ABNORMAL) CBC auto differential (08/09/2025 6:54 PM EDT) White Blood Count 10.3 4.8 - 10.8 X10*3/uL [facility] Red Blood Count 4.41 4.20 - 5.50 X10*6/uL [facility] Hemoglobin 13.4 12.0 - 16.0 g/dl [facility] Hematocrit 36.9(L) 37.0 - 47.0 % [facility] Mean Corpuscular Volume 83.7 80.0 - 98.0 fL [facility] Mean Corpuscular Hemoglobin 30.4 27.0 - 33.0 pg [facility] Mean Corpuscular HGB Conc 36.3(H) 31.0 - 35.0 g/dl [facility] Red Cell Distribution Width 13.0 11.0 - 16.0 % [facility] Platelet Count 230 160 - 400 X10*3/uL [facility] Mean Platelet Volume 8.9(L) 9.4 - 12.3 fL [facility] Neutrophils Percent Auto 62.1 45 - 73 % [facility] Imm Gran Pct Auto 1.4(H) 0.0 - 0.4 % [facility] Lymphocytes Percent Auto 22.9 20 - 40 % [facility] Monocytes Percent Auto 8.5 2 - 11 % [facility] Eosinophils Percent Auto 4.3(H) 0 - 4 % [facility] Basophils Percent Auto 0.8 0 - 2 % [facility] NRBC Pct Auto 0.0 0.0 - 0.2 /100WBC [facility] Neutrophils Absolute Auto 6.4 2.0 - 8.3 x10*3/uL [facility] Imm Gran Abs Auto 0.14(H) 0.00 - 0.03 X10*3/uL [facility] Lymphocytes Absolute Auto 2.4 1.2 - 4.9 X10*3/uL [facility] Monocytes Absolute Auto 0.9 0.1 - 1.2 X10*3/uL [facility] Eosinophils Absolute Auto 0.4 0.0 - 0.4 X10*3/uL [facility] Basophils Absolute Auto 0.1 0.0 - 0.2 X10*3/uL [facility] NRBC Abs Auto 0.000 0.0 - 0.012 X10*3/uL [facility] 08/09/2025 6:54 PM EDT 08/09/2025 6:59 PM EDT Generic External Data Provider LAB BLOOD ORDERAB LES Final Result Performing Organization Address [facility]/ZIP Co de Phone Number [facility] [address] [place] [phone] * Magnesium (08/09/2025 6:54 PM EDT) Pathologist [facility] Magnesium 2.0 1.6 - 2.6 mg/dL [facility] 08/09/2025 6:54 PM EDT 08/09/2025 6:59 PM EDT Generic External Data Provider LAB BLOOD ORDERAB LES Final Result Performing Organization Address [facility]/ZIP Co de Phone Number [facility] [address] [place] [phone] * (ABNORMAL) Hepatic Function Panel (08/09/2025 6:54 PM EDT) Bilirubin, Total 0.2 0.0 - 1.0 mg/dL [facility] Bilirubin, Direct <0.2 0.0 - 0.5 mg/dL [facility] Aspartate Amino Transferase 17 5 - 31 U/L [facility] Alanine Aminotransferase <6 0 - 31 U/L [facility] Total Protein 5.7(L) 6.5 - 8.0 g/dL [facility] Albumin Level 3.5 3.5 - 5.0 g/dL [facility] Alkaline Phosphatase 127(H) 39 - 117 U/L [facility] 08/09/2025 6:54 PM EDT 08/09/2025 6:59 PM EDT us Generic External Data Provider LAB BLOOD ORDERAB LES Final Result Performing Organization Address City/[facility]/ZIP Co de Phone Number [facility] [address] [place] [phone] * (ABNORMAL) Lipid Panel, Standard (08/09/2025 6:54 PM EDT) Triglycerides 498(H) <150 mg/dL [facility] Comment:Desirable Triglyceri de: less than 150 mg/dLBorderline High Triglyceride 150-199 mg/dLHigh Triglyceride: 200-499 mg/dLVery High Triglyceride: greater than or equal to 5OO mg/dL Cholesterol 298(H) <200 mg/dL [facility] Comment:Desirable Cholestero l: less than 200 mg/dLBorderline High Cholesterol: 200-239 mg/dLHigh Cholesterol: greater than 239 mg/dL LDL Cholesterol Calculated TNP <100 mg/dL [facility] Comment:Unable to calculate the LDL. The formula of Friedwald,Almonte, and Ida is only valid if the triglycerides areless than 400 mg/dl. HDL Cholesterol 35(L) >40 mg/dL [facility] Comment:Desirable HDL: great er than 40 mg/dL Note: This HDL assay may give artificially low results in patients with liver disease. 08/09/2025 6:54 PM EDT 08/09/2025 6:59 PM EDT us Generic External Data Provider LAB BLOOD ORDERAB LES Final Result Performing Organization Address [facility]/ZIP Co de Phone Number [facility] [address] [place] [phone] * CT Head Stroke w/o Contrast (08/09/2025 6:53 PM EDT) Anatomical Region Laterality Modality Computed Tomogra phy 08/09/2025 6:53 PM EDT Narrative 08/09/2025 6:54 PM EDT [address] [address] [address] Scan Report Signed with Addjose Patient: Blanca Zuniga MR#: [id number] : 1965 Acct:[id number] Age/Sex: 59 / F ADM Date: 08/09/25 Loc: HO.ED Attending Dr: Ordering Physician: Pamela Reynoso DO Date of Service: 08/09/25 Procedure(s): CT head for STROKE Accession Number(s): [id number] cc: Kate Bailon MD; Pamela Reynoso DO Report Number: [id number]: Total DLP = 604.00 mGy-cm Reason for Exam: HTN, L Sided weakness ADDENDUM This document has been electronically signed by: Seda Blanco DO on 08/09/2025 18:53:04 ADDENDUM: This report was discussed with Dr Reynoso on Aug 09, 2025 19:01:00 EDT. This document has been electronically signed by: Anne Ley on 08/09/2025 19:02:03 Addendum Dictated By: Seda Blanco MD Addendum Signed By: <Electronically signed by Seda Blanco MD in OV> 08/09/251901 Addendum Cosigned By: DD/ TD/TT: 08/09/25 CLINICAL HISTORY: HTN, L Sided weakness CT HEAD WITHOUT CONTRAST Comparison: None provided Findings: No acute intracranial hemorrhage, extra-axial fluid collection, hydrocephalus or midline shift. Age appropriate generalized parenchymal atrophy. There are periventricular and subcortical white matter hypodensities which are nonspecific but most likely related to microangiopathic gliosis. Intracranial arteriosclerosis. No evidence for acute large territorial infarct. There is no sinus or mastoid fluid. Nonspecific mucosal thickening in the left maxillary sinus. Visualized orbits: No acute abnormalities. There is no acute fracture. IMPRESSION: 1. No acute intracranial process. This document has been electronically signed by: Seda Blanco DO on 08/09/2025 18:53:04 Dictated By: Seda Blanco MD Signed By: <Electronically signed by Seda Blanco MD in OV> 08/09/251853 DD/ 52 TD/TT: 08/09/251852 Rural Car[employer] Associate: Procedure Note Donotuseinterpreter, Image - 08/09/[address] [address] [address] Scan Report Signed with Addenda Patient: Blanca ZunigaMR#: [id number] : 1965Acct:[id number] Age/Sex: 59 / FADM Date: 08/09/25 Loc: .ED Attending Dr: Ordering Physician: Pamela Reynoso DO Date of Service: 08/09/25 Procedure(s): CT head for STROKE Accession Number(s): [id number] cc: Kate Bailon MD; Pamela Reynoso DO Report Number: [id number]: Total DLP = 604.00 mGy-cm Reason for Exam: HTN, L Sided weakness ADDENDUM This document has been electronically signed by: Seda Blanco DO on 08/09/2025 18:53:04 ADDENDUM: This report was discussed with Dr Reynoso on Aug 09, 2025 19:01:00 EDT. This document has been electronically signed by: Anne Ley on 08/09/2025 19:02:03 Addendum Dictated By: Seda Blanco MD Addendum Signed By: <Electronically signed by Seda Blanco MD in OV> 08/09/251901 Addendum Cosigned By: DD/ TD/TT: 08/09/25 CLINICAL HISTORY: HTN, L Sided weakness CT HEAD WITHOUT CONTRAST Comparison: None provided Findings: No acute intracranial hemorrhage, extra-axial fluid collection, hydrocephalus or midline shift. Age appropriate generalized parenchymal atrophy. There are periventricular and subcortical white matter hypodensities which are nonspecific but most likely related to microangiopathic gliosis. Intracranial arteriosclerosis. No evidence for acute large territorial infarct. There is no sinus or mastoid fluid. Nonspecific mucosal thickening in the left maxillary sinus. Visualized orbits: No acute abnormalities. There is no acute fracture. IMPRESSION: 1. No acute intracranial process. This document has been electronically signed by: Seda Blanco DO on 08/09/2025 18:53:04 Dictated By: Seda Blanco MD Signed By: <Electronically signed by Seda Blanco MD in OV> 08/09/251853 DD/ 52 TD/TT: 08/09/251852 Rural Carrier Associate: [facility] External Provider IMG CT PROCEDURES Edited Result - Final * Lower Extremity Venous Duplex (08/09/2025 11:34 AM EDT) 08/09/2025 11:3 4 AM EDT Narrative [facility] - 08/09/2025 11:59 AM EDT [place] [address] Ultrasound Report Signed Patient: Blanca Zuniga MR#: [id number] : 1965 Acct:[id number] Age/Sex: 59 / F ADM Date: 08/09/25 Loc: .ED Attending Dr: Ordering Physician: Zach Tavarez PA-C Date of Service: 08/09/25 Procedure(s): US venous duplex [facility] Accession Number(s): [id number] cc: Zach Tavarez PA-C; Kate Bailon MD Reason for Exam: weakness of L leg, HX of DVT EXAMINATION: US LOWER EXTREMITY VEINS LIMITED LEFT HISTORY: weakness of L leg, HX of DVT COMPARISON: There are no prior studies available for comparison. TECHNIQUE: Duplex and color Doppler sonographic examination of the deep venous system of the left lower extremity was performed. FINDINGS: The common femoral, superficial femoral, and popliteal veins are patent demonstrating normal compressibility, spontaneous flow, and augmentation. There is a normal color and spectral Doppler waveform appearance of the visualized deep venous system above the knee. The posterior tibial and peroneal veins are patent. US/US venous duplex LE LT IMPRESSION: No evidence of acute DVT in the left lower extremity. Electronically signed by: Bob Haile MD 08/09/2025 11:56 AM EDT RP Dictated By: Bob Haile MD Signed By: <Electronically signed by Bob Haile MD in OV> 08/09/25 1156 DD/ 1134 TD/TT: 08/09/25 1141 Rural Carrier Associate: Procedure Note Donhaleyter, Image - 08/09/2025 [place] [address] Ultrasound Report Signed Patient: Cassi Zuniga#: [id number] : 1965Acct:[id number] Age/Sex: 59 / FADM Date: 08/09/25 Loc: .ED Attending Dr: Ordering Physician: Zach Tavarez PA-C Date of Service: 08/09/25 Procedure(s): US venous duplex LE LT Accession Number(s): [id number] cc: Zach Tavarez PA-C; Kate Bailon MD Reason for Exam: weakness of L leg, HX of DVT EXAMINATION: US LOWER EXTREMITY VEINS LIMITED LEFT HISTORY: weakness of L leg, HX of DVT COMPARISON: There are no prior studies available for comparison. TECHNIQUE: Duplex and color Doppler sonographic examination of the deep venous system of the left lower extremity was performed. FINDINGS: The common femoral, superficial femoral, and popliteal veins are patent demonstrating normal compressibility, spontaneous flow, and augmentation. There is a normal color and spectral Doppler waveform appearance of the visualized deep venous system above the knee. The posterior tibial and peroneal veins are patent. US/US venous duplex LE LT IMPRESSION: No evidence of acute DVT in the left lower extremity. Electronically signed by: Bob Haile MD 08/09/2025 11:56 AM EDT RP Dictated By: Bob Haile MD Signed By: <Electronically signed by Bob Haile MD in OV> 08/09/25 1156 DD/ 1134 TD/TT: 08/09/25 1141 Rural Car[employer] Associate: [facility] External Provider CV VASC ULAR PROCEDURES Final Result [facility] [address] [place] [phone] * XR Lumbar Spine 2-3 Views (08/09/2025 10:55 AM EDT) Anatomical Region Laterality Modality Spine, L-spine Radiographic Ivette ging 08/09/2025 10:5 5 AM EDT Narrative 08/09/2025 11:09 AM EDT [address] [address] XRay Report Signed Patient: Blanca Zuniga MR#: [id number] : 1965 Acct:[id number] Age/Sex: 59 / F ADM Date: 08/09/25 Loc: HO.ED Attending Dr: Ordering Physician: Zach Tavarez PA-C Date of Service: 08/09/25 Procedure(s): XR lumbar spine 2-3V Accession Number(s): [id number] cc: Zach Tavarez PA-C; Kate Bailon MD Reason for Exam: lumbar back pain EXAMINATION: XR LUMBOSACRAL SPINE CLINICAL INFORMATION: lumbar back pain COMPARISON: Correlated to CT abdomen dated June 23, 2024. TECHNIQUE: AP and lateral views. FINDINGS: Mild multilevel endplate sclerosis and small marginal osteophyte formation at the levels of the axial skeleton. 2 mm anterolisthesis at L4-5. Vascular calcifications, aorta, iliac and likely the splenic arteries. Sclerosis and the sacroiliac joints bilaterally. Sclerosis along the articular surface of the coxofemoral joints not fully included in the hdbhl-[id number]-noag. Vascular clips right upper quadrant abdomen likely prior cystectomy. XR/XR lumbar spine 2-3V IMPRESSION: Multilevel thoracolumbar spondylosis resulting in grade 1 anterolisthesis L4-5. Atherosclerosis disease. Electronically signed by: Luis Enrique Taylor MD 08/09/2025 11:06 AM EDT RP Dictated By: Luis Enrique Pineda MD Signed By: <Electronically signed by Luis Enrique Maguire MD in OV> 08/09/25 1106 DD/ 1055 TD/TT: 08/09/25 1101 Rural Carrier Associate: Procedure Note Donotuseinterpreter, Image - 08/09/[address] [address] XRay Report Signed Patient: Blanca ZunigaMR#: [id number] : 1965Acct:[id number] Age/Sex: 59 / FADM Date: 08/09/25 Loc: HO.ED Attending Dr: Ordering Physician: Zach Tavarez PA-C Date of Service: 08/09/25 Procedure(s): XR lumbar spine 2-3V Accession Number(s): [id number] cc: Zach Tavarez PA-C; Kate Bailon MD Reason for Exam: lumbar back pain EXAMINATION: XR LUMBOSACRAL SPINE CLINICAL INFORMATION: lumbar back pain COMPARISON: Correlated to CT abdomen dated June 23, 2024. TECHNIQUE: AP and lateral views. FINDINGS: Mild multilevel endplate sclerosis and small marginal osteophyte formation at the levels of the axial skeleton. 2 mm anterolisthesis at L4-5. Vascular calcifications, aorta, iliac and likely the splenic arteries. Sclerosis and the sacroiliac joints bilaterally. Sclerosis along the articular surface of the coxofemoral joints not fully included in the husqh-pn-lshe. Vascular clips right upper quadrant abdomen likely prior cystectomy. XR/XR lumbar spine 2-3V IMPRESSION: Multilevel thoracolumbar spondylosis resulting in grade 1 anterolisthesis L4-5. Atherosclerosis disease. Electronically signed by: Luis Enrique Taylor MD 08/09/2025 11:06 AM EDT RP Dictated By: Luis Enrique Pienda MD Signed By: <Electronically signed by Luis Enrique Maguire MDin OV> 08/09/25 1106 DD/ 1055 TD/TT: 08/09/25 1101 Rural Carrier Associate: [facility] External Provider IMG XR PROCEDURES Final Result * (ABNORMAL) POCT HGB A1C (07/20/2024 4:37 PM EDT) Hemoglobin A1C 11.1(A) 4.0 - 6.0 % QC Media Lot # [id number] Lot# Expiration Date [id number] Blood 07/20/2024 4:37 PM EDT Result [facility] Kate Bailon MD POINT OF CARE TEST ENTER/ED IT ORDERABLES Final Result * Hepatitis C Ab (03/30/2024 2:27 PM EDT) Hepatitis C Antibody Nonreactive Nonreactive [facility] Comment:Antibodies to HCV no t detected; does not exclude early acuteHCV infection. Blood Venous blood specimen / Unknown 03/30/2024 2:27 PM EDT 03/30/2024 2:28 PM EDT Result [facility] Kate Bailon MD LAB BLOOD ORDERABLES Final Result [facility] [address] [place] [address] [phone] * HIV-1/2 Antigen and Antibodies, Fourth Generation, with Reflexes (03/30/2024 2:27 PM EDT) HIV AB/AG Nonreactive Nonreactive [facility] Comment:HIV-1 p24 Ag and/or HIV-1/HIV-2 Ab not detected.A test result that is nonreactive does not exclude thepossibility of exposure to or infection with HIV-1 and/orHIV-2. Nonreactive results in this assay for individualswith prior exposure to HIV-1 and/or HIV-2 may be due toantigen and antibody levels that are below the limit ofdetection of this assay.The [employer] HIV Ag/Ab Combo assay result andsupplemental assay results should be interpreted inconjunction with the patient's clinical presentation,history and other laboratory results. If the results areinconsistent with clinical evidence, additional testing issuggested to confirm the result. Blood Venous blood specimen / Unknown 03/30/2024 2:27 PM EDT 03/30/2024 2:28 PM EDT us Kate Bailon MD LAB BLOOD ORDERABLES Final Result [facility] [address] [place] [phone] from Last 3 Months or Most Recently Relevant to Health Maintenance Insurance [place] [address] Care Teams Software Application Tester Relationship Specialty Start Date End Date Kate Bailon MD [address] [place] [address] [place] [address] PCP - General Internal Medicine 09/03/19 [facility] 09/22/25
== END 2025-09-28 12:56 | disposition home or self-care (01) ==
LOC: HO.LAB 12:55
PROVIDERS: PCP Internal Medicine
DX: I10 Essential (primary) hypertension (principal); I70.1 Atherosclerosis of renal artery; E11.65 Type 2 diabetes mellitus with hyperglycemia; I63.9 Cerebral infarction, unspecified; E78.00 Pure hypercholesterolemia, unspecified; Z79.01 Long term (current) use of anticoagulants; Z79.899 Other long term (current) drug therapy; Z87.891 Personal history of nicotine dependence
CPT/HCPCS: 36415; 80048; 93005; 99212

== ENCOUNTER → 2025-10-25 08:21 | Outpatient (REF) | payer MEDICAID, SELFPAY | LOC: HO.SL 08:21 | PROVIDERS: PCP Internal Medicine | DX: G47.33 Obstructive sleep apnea (adult) (pediatric) (principal) | CPT/HCPCS: 95806 ==

== ENCOUNTER → 2025-10-25 09:08 | Outpatient (BNV) | payer MEDICAID, SELFPAY | PROVIDERS: PCP Internal Medicine; Visit Provider Psychiatry & Neurology Neurology | DX: G47.33 Obstructive sleep apnea (adult) (pediatric) (principal) | CPT/HCPCS: 95806 ==

== ENCOUNTER 2025-10-27 12:49 | Outpatient (REF) | payer MEDICAID, SELFPAY ==
[2025-10-27 12:45] VITALS: BP 143/67; PULSE 90; RESP 16; TEMP 36.2; O2SAT 99; BMI 51.6
--- NOTE | 2025-10-27 13:44 | P.BOP_ITS ---
Brief Operative Note Date of Service: 10/27/25 Pre-op diagnosis: CVA Post-op diagnosis: same Procedure: Placement of implantable loop recorder Implants: After obtaining consent patient was brought to the minor surgery room. Patient was then laid in the operating table in supine position. Patient is precordial area was then prepped and draped in a sterile fashion. Patient was then given 2% lidocaine with epinephrine intradermally and subcutaneously at the site of the incision. A small incision was then made. HEXIOtronic implantable loop recorder with serial number [id number] was then implanted in the subcutaneous space using modified Seldinger technique. The wound was then closed in a sterile fashion. Pressure dressing was then applied. Surgeon: Thanh Hough MD Anesthesia: local Was an Electrical Solderer used for this Procedure?: No Estimated blood loss (mL): 3 Pathology: none sent Condition: stable Disposition: same day
--- OUTSIDE RECORDS SUMMARY | 2025-10-27 16:57 | XMS_ITS | Encounter Summary ---
Author Organization [employer] Address [address] [place] [id number] Care Team Providers Care Package Wrapper Name Role Phone Kate Bailon MD Primary Care Provider [phone] Reason for Referral * Consultation (Routine) - Closed Specialty Diagnoses / Procedures Referred By Contac t Referred To Contact Gastroenterology Diagnoses Elevated alkaline phosphatase level Kate Bailon MD [address] [place] [address] Phone: tel: fax: Toshia Winkler MD [address] [place] [phone] Phone: tel: fax: Referral ID Status Reason Start Date Expiration Date V isits Requested Visits Authorized [id number] Closed Specialty Services Required 04/30/2024 04/30/2025 1 1 Encounter Details Date Type Department Care Team (Late st Contact Info) Description 04/30/2024 Orders Only [facility] [address] [place], [place] [phone] Kate Bailon MD [address], [place] [phone] Elevated alkaline phosphatase level (Primary Dx) Social [...] Care Team (Late st Contact Info) Description 11/23/2025 1:45 PM EST Office Visit [facility] [address] [place] [address] Kate Bailon MD [address] [place] [address] Scheduled Referrals Name Type Priority Associated Diagnoses Order Schedule Referral to Gastroenterology Outpatient Referral Routine Elevated alkaline phosphatase level Expected: 04/30/2024 (Approximate), Expires: 04/30/2025 documented as of this encounter Visit Diagnoses Diagnosis Elevated alkaline phosphatase level- Primary documented in this encounter Care Teams Package Wrapper Relationship Specialty Start Date End Date Kate Bailon MD [address] [place] [address] PCP - General Internal Medicine 09/03/19 [facility] 09/22/25 documented as of this encounter
--- OUTSIDE RECORDS SUMMARY | 2025-10-27 16:57 | XMS_ITS | Clinical Summary ---
Author Organization [employer] Address [address] [place] [address] 7 [place] [address] Care Team Providers Care Cereal Miller Name Role Phone Kate Bailon MD Primary Care Provider [phone] Allergies Active Allergy Reactions Criticality Noted Date Comments Codeine Nausea 02/11/2024 Cephalexin Hives 02/11/2024 Medications Blood Pressure kitIndications: Primary hypertension 1 kit Once per day. 1 kit 024 Active Lancets miscIndications :Type 2 diabetes mellitus with hyperglycemia, with long-term current use of insulin ([facility]) Use to test blood sugar 2 times daily 100 each 11 024 Active Alcohol Swabs 70 % padsIndications :Type 2 diabetes mellitus with hyperglycemia, with long-term current use of insulin ([facility]) Use to test blood sugar 2 times daily 100 each 11 024 Active Blood Glucose Monitoring Suppl (FreeStyle [place] Lite) w/Device kitIndications: Type 2 diabetes mellitus with hyperglycemia, with long-term current use of insulin ([facility]) Use to test blood sugar 2 times daily 1 kit 024 Active insulin glargine (Lantus) 100 UNIT/ML injection Inject 12 Units under the skin at bedtime. 022 Active Insulin Lispro (Admelog) 100 UNIT/ML solution Inject under the skin. Inject subcutaneously 4 times daily before meals per sliding scale: BG <111 0 units,111-150 - 0 units,151-200 2 units, 201-250 4 units,251-300 6 units,301-350 8 units,>350 10 units Active nicotine (Nicoderm, Step 1) 21 MG/24HR patch PLACE 1 PATCH ON THE SKIN 1 TIME EACH DAY AT THE SAME TIME. Active empagliflozin (Jardiance) 25 MGIndications:T ype 2 diabetes mellitus with hyperglycemia, without long-term current use of insulin (HCC) Take 1 tablet (25 mg) by mouth Once per day. 30 tablet 11 025 2025 Active spironolactone (Aldactone) 50 MG tabletIndicatio ns:Renal artery stenosis,Primar y hypertension Take 1 tablet (50 mg) by mouth Once per day. 30 tablet 11 025 2025 Active amLODIPine (Norvasc) 10 MG tabletIndicatio ns:Primary hypertension Take 1 tablet (10 mg) by mouth Once per day. 90 tablet 3 Active apixaban (Eliquis) 5 MG tabletIndicatio ns:Right sided cerebral infarction (CMS/HCC) (HCC),PVD (peripheral vascular disease) Take 1 tablet (5 mg) by mouth every 12 (twelve) hours. 60 tablet 3 Active Aspirin Low Dose 81 MG EC tabletIndicatio ns:Right sided cerebral infarction (CMS/HCC) (HCC) Take 1 tablet (81 mg) by mouth Once per day. 90 tablet 3 Active atorvastatin (Lipitor) 80 MG tabletIndicatio ns:Renal artery stenosis,PVD (peripheral vascular disease),Hyperc holesterolemia Take 1 tablet (80 mg) by mouth at bedtime. 90 tablet 3 Active cholecalciferol (Vitamin D-3) 50 MCG (2000 UT) capsule Take 1 capsule (50 mcg) by mouth Once per day. 30 capsule 3 Active citalopram (CeleXA) 10 MG tabletIndicatio ns:Anxiety Take 1 tablet (10 mg) by mouth Once per day. 90 tablet 3 Active cyclobenzaprine (Flexeril) 10 MG tabletIndicatio ns:Right sided cerebral infarction (CMS/HCC) (HCC) Take 1 tablet (10 mg) by mouth every 6 (six) hours during the day. 90 tablet 3 Active gabapentin (Neurontin) 300 MG capsuleIndicati ons:PVD (peripheral vascular disease) Take 1 capsule (300 mg) by mouth at bedtime. 90 capsule 3 Active labetalol (Normodyne) 300 MG tabletIndicatio ns:Primary hypertension Take 1 tablet (300 mg) by mouth 2 times daily. 180 tablet 3 Active losartan (Cozaar) 100 MG tabletIndicatio ns:Primary hypertension Take 1 tablet (100 mg) by mouth Once per day. 30 tablet 11 025 2025 Active magnesium oxide (Mag-Ox) 400 MG tabletIndicatio ns:Hypomagnesem ia Take 1 tablet (400 mg) by mouth Once per day. 30 tablet 3 Active docusate sodium (Colace) 100 MG capsuleIndicati ons:Other constipation TAKE 1 CAPSULE BY MOUTH TWICE A DAY 180 capsule Active cholecalciferol (Vitamin D-3) 50 MCG (2000 UT) capsule Take 2,000 Units by mouth in the morning. 021 2024 Discontinued(R eorder (will not trigger notification to Pharmacy)) apixaban (Eliquis) 5 MG tablet Take 5 mg by mouth every 12 (twelve) hours. 2024 Discontinued(R eorder (will not trigger notification to Pharmacy)) empagliflozin (Jardiance) 25 MGIndications:T ype 2 diabetes mellitus with hyperglycemia, without long-term current use of insulin (HCC) Take 1 tablet (25 mg) by mouth Once per day. 30 tablet 11 024 2024 Discontinued(R eorder (will not trigger notification to Pharmacy)) amLODIPine (Norvasc) 10 MG tablet Take 1 tablet by mouth Once per day. 025 2024 Discontinued(R eorder (will not trigger notification to Pharmacy)) Aspirin Low Dose 81 MG EC tablet Take 1 tablet by mouth Once per day. 025 2024 Discontinued(R eorder (will not trigger notification to Pharmacy)) atorvastatin (Lipitor) 80 MG tablet Take 80 mg by mouth at bedtime. 2024 Discontinued(R eorder (will not trigger notification to Pharmacy)) citalopram (CeleXA) 10 MG tablet Take 1 tablet by mouth Once per day. 2024 Discontinued(R eorder (will not trigger notification to Pharmacy)) cyclobenzaprine (Flexeril) 10 MG tablet Take 1 tablet by mouth every 6 (six) hours during the day. 2024 Discontinued(R eorder (will not trigger notification to Pharmacy)) docusate sodium (Colace) 100 MG capsule Take 1 capsule by mouth 2 times daily. 2024 Discontinued(R eorder (will not trigger notification to Pharmacy)) gabapentin (Neurontin) 300 MG capsule take 1 capsule by mouth everyday at bedtime 2024 Discontinued(R eorder (will not trigger notification to Pharmacy)) labetalol (Normodyne) 300 MG tablet Take 1 tablet by mouth 2 times daily. 2024 Discontinued(R eorder (will not trigger notification to Pharmacy)) losartan (Cozaar) 50 MG tablet Take 1 tablet by mouth Once per day. 2024 Discontinued(T herapy completed) magnesium oxide (Mag-Ox) 400 MG tablet Take 1 tablet by mouth 2 times daily. 2024 Discontinued(R eorder (will not trigger notification to Pharmacy)) docusate sodium (Colace) 100 MG capsuleIndicati ons:Other constipation Take 1 capsule (100 mg) by mouth 2 times daily. 30 capsule 3 2024 Discontinued Active Problems Problem Noted Date Diagnosed Date Right sided cerebral infarction (CMS/HCC) 2024 Renal artery stenosis 07/20/2024 PVD (peripheral vascular disease) 07/20/2024 Diabetic polyneuropathy asso ciated with type 2 diabetes mellitus 02/11/2024 Dyslipidemia 09/25/2021 Femoral artery occlusion 09/25/2021 Hypertensive disorder 09/25/2021 Type 2 diabetes mellitus 09/25/2021 Encounters Date Type Department Care Team Description 10/20/2025 Telephone [facility] MEDICINE [address] [place] [address] Kate Bailon MD 10/16/2025 Refill [facility] [address] [place] [address] Kate Bailon MD Other constipation 10/15/2025 1:30 PM EST Office Visit [facility] [address] [place] [address] Kate Bailon MD Hospital discharge follow-up (Primary Dx); Right sided cerebral infarction (CMS/HCC) (HCC); Renal artery stenosis; PVD (peripheral vascular disease); Primary hypertension; Type 2 diabetes mellitus with hyperglycemia, without long-term current use of insulin (HCC); Hypercholesterolemi a; Anxiety; Vitamin D deficiency; Other constipation; Hypomagnesemia 10/15/2025 Travel 10/13/2025 Population Health Risk Score [facility] () Department [address] [place] [address] [phone] Provider, Population Health Generic 09/30/2025 Telephone [facility] WALK-IN CENTER [address] [place] [phone] Marlys Braun RN Error (VOID this visit) 09/30/2025 Travel 09/28/2025 Orders Only GENERIC EXTERNAL DATA DEPARTMENT Provider, Generic External Data 09/21/2025 Telephone [facility] [address] [place] [address] Kate Bailon MD verbal orders 09/10/2025 Patient Outreach [facility] [address] [place] [address] Kate Bailon MD Transition Of Care (Tcm) (HDF scheduled. ) 08/20/2025 Telephone [facility] MEDICINE [address] [place] [phone] Kate Bailon MD 08/19/2025 Telephone [facility] MEDICINE [address] [place] [phone] Kate Bailon MD 08/09/2025 Orders Only [facility] External Provider, [facility] 07/29/2025 Telephone [facility] MED & PEDS [address] [place] [address] Kate Bailon MD Appointment Request from Last 3 Months Social History Tobacco Use Types Packs/Day Years Used Date Smoking Tobacco: Every Day Cigarettes 0.5 45 Smokeless Tobacco: Never Tobacco Cessation:Ready to Q uit: No; Counseling Given: Yes Alcohol Use Standard Drinks/Week Comments Never 0 (1 standard drink = 0.6 oz pur e alcohol) Depression Answer Date Recorded Patient Health Questionnaire-9 Score 4 10/15/2025 Patient Health Questionnaire-9 Score 4 10/15/2025 Last PHQ-9: Questionnaire Data Not on file 1 12/16/2024 Housing Stability Answer Date Recorded What is your housing situation today? I have elizabeth gong 10/15/[address] you li ve. Do you have problems with any of the following? None of the above 10/15/2025 Food Insecurity Answer Date Recorded Within the past 12 months, y ou worried that your food would run out before you got money to buy more: Never True 10/15/2025 Within the past 12 months,th e food you bought just didn't last and you didn't have enough money to get more: Never True 03/2025 Transportation Answer Date Recorded In the past 12 months, has l ack of transportation kept you from medical appts, meetings, work or from getting things needed for daily living? No 10/15/2025 Utilities Answer Date Recorded In the past 12 months, has t he electric, gas, oil or water company threatened to shut off services in your home? No 10/15/2025 Depression Answer Date Recorded Patient Health Questionnaire-2 Score 1 10/15/2025 Internet Access Answer Date Recorded Internet Access Q1 Yes 10/15/2025 Internet Access Q2 Not on file 10/15/2025 Comments Unknown Sex and Gender Information Value Date Recorded Sex Assigned at Female 09/10/2022 10:17 AM EDT Legal Sex Female 10:17 AM EDT Gender Identity Female 09/10/2022 10:17 AM EDT Sexual Orientation Straight 07/21/2024 3: 34 PM EDT Last Filed Vital Signs Vital Sign Reading Time Taken Comments Blood Pressure 165/74 10/15/2025 1:33 PM EST Pulse 86 10/15/2025 1:33 PM EST Temperature 36.3 C (97.3 F) 07/20/2024 4:03 PM EDT Respiratory Rate 20 10/15/2025 1:33 PM EST Oxygen Saturation 94% 10/15/2025 1:33 PM EST Inhaled Oxygen Concentration - - Weight 69.4 kg (153 lb) 10/15/2025 1:33 PM EST Height 158 cm (5' 2.2 ) 10/15/2025 1:33 PM EST Body Mass Index 27.8 10/15/2025 1:33 PM EST Plan of Treatment Upcoming Encounters Date Type Department Care Team (Late st Contact Info) Description 11/23/2025 1:45 PM EST Office Visit [facility] MED & PEDS [address], [place] [phone] Kate Bailon MD [address] [place], [place] [phone] Health Maintenance Due Date Last Done Comments CT Colonography 1965 Colonoscopy 1964 Colorectal Cancer Screening 1964 FIT DNA/Cologuard 1964 FIT 1965 FOBT 1964 Sigmoidoscopy 1964 Diabetes: Foot Exam 1974 Eye Exam 1974 DTaP/Tdap/Td Vaccines (1 - Tdap) 1983 Diabetes: Urine Protein Screening 1983 Hepatitis A Vaccines (1 of 2 - Risk 2-dose series) 1983 Pneumococcal Vaccine: 50+ Years (1 of 2 - PCV) 1983 Pap Smear 1985 Cervical Cancer Screening 1994 HPV/Cotest 1994 Mammogram 2004 Lung Cancer Screening 2014 RSV Patients and Patients Aged 60 years or older (1 - Risk 50-74 years 1-dose series) 2014 Zoster Vaccines (1 of 2) 2014 Hepatitis B Vaccines (1 of 3 - Risk 3-dose series) 2024 COVID-19 Vaccine (1 - 2024-2 6 season) 2025 Influenza Vaccine (#1) 2025 Diabetes: Hemoglobin A1C 11/25/2025 025, 07/20/2024 Lipid Panel 08/09/2026 08/09/2025, 03/30/2024 Alcohol/Substance Use Screening 10/15/2026 10/15/2025 Depression Screening 10/15/2026 10/15/2025, 10/15/2025 Disability Screening 10/15/2026 10/15/2025 SDOH Screening 10/15/2026 10/15/2025 Tobacco Screening 10/15/2026 10/15/2025 HIV Screening Completed 03/30/2024 Hepatitis C Screening [...] on patient's age to complete this topic Goals Goal Patient Goal Type Associated Problems Recent Progress Patient-Stated? Author Help patients manage their type 2 diabetes Care Plan Help patients manage their type 2 diabetes Natty Brownlee MA Weekly blood pressure task Care Plan Weekly blood pressure task Natty Brownlee MA Help patients manage their type 2 diabetes Care Plan Help patients manage their type 2 diabetes Natty Brownlee MA Patient has chronic kidney disease Care Plan Patient has chronic kidney disease Natty Brownlee MA Help patients manage their type 2 diabetes Care Plan Help patients manage their type 2 diabetes Natty Brownlee MA Patient has diabetic neuropathy Care Plan Patient has diabetic neuropathy Natty Brownlee MA Weekly blood pressure task Care Plan Weekly blood pressure task Natty Brownlee MA Weekly blood pressure task Care Plan Weekly blood pressure task No Natty Garcia MA Patient has chronic kidney disease Care Plan Patient has chronic kidney disease Natty Brownlee MA Patient has chronic kidney disease Care Plan Patient has chronic kidney disease No Natty Garcia MA Patient has diabetic neuropathy Care Plan Patient has diabetic neuropathy No Natty Garcia MA Patient has diabetic neuropathy Care Plan Patient has diabetic neuropathy No Natty Garcia MA Weekly blood pressure task Care Plan Weekly blood pressure task No Marlys Braun RN Weekly blood pressure task Care Plan Weekly blood pressure task No Marlys Braun RN Weekly blood pressure task Care Plan Weekly blood pressure task No Marlys Braun RN Patient has chronic kidney disease Care Plan Patient has chronic kidney disease No Marlys Braun RN Patient has chronic kidney disease Care Plan Patient has chronic kidney disease No Marlys Braun RN Patient has chronic kidney disease Care Plan Patient has chronic kidney disease No Marlys Braun RN Patient has diabetic neuropathy Care Plan Patient has diabetic neuropathy No Marlys Braun RN Patient has diabetic neuropathy Care Plan Patient has diabetic neuropathy No Marlys Braun RN Patient has diabetic neuropathy Care Plan Patient has diabetic neuropathy No Marlys Braun RN Weekly blood pressure task Care Plan Weekly blood pressure task No Natty Garcia MA Weekly blood pressure task Care Plan Weekly blood pressure task No Natty Garcia MA Weekly blood pressure task Care Plan Weekly blood pressure task No Natty Garcia MA Patient has chronic kidney disease Care Plan Patient has chronic kidney disease No Natty Garcia MA Patient has chronic kidney disease Care Plan Patient has chronic kidney disease No Natty Garcia MA Patient has chronic kidney disease Care Plan Patient has chronic kidney disease No Natty Garcia MA Patient has diabetic neuropathy Care Plan Patient has diabetic neuropathy No Natty Garcia MA Patient has diabetic neuropathy Care Plan Patient has diabetic neuropathy No Natty Garcia MA Patient has diabetic neuropathy Care Plan Patient has diabetic neuropathy No Natty Garcia MA Weekly blood pressure task Care Plan Weekly blood pressure task No Idania Cyr RN Weekly blood pressure task Care Plan Weekly blood pressure task No Idania Cyr RN Weekly blood pressure task Care Plan Weekly blood pressure task No Idania Cyr, RN Patient has chronic kidney disease Care Plan Patient has chronic kidney disease No Idania Cyr, RN Patient has chronic kidney disease Care Plan Patient has chronic kidney disease No Idania Cyr, [place] Patient has chronic kidney disease Care Plan Patient has chronic kidney disease No Idania Cyr, RN Patient has diabetic neuropathy Care Plan Patient has diabetic neuropathy No Idania Cyr, RN Patient has diabetic neuropathy Care Plan Patient has diabetic neuropathy No Idania Cyr RN Patient has diabetic neuropathy Care Plan Patient has diabetic neuropathy No Idania Cyr RN Weekly blood pressure task Care Plan Weekly blood pressure task No Guero Billings Weekly blood pressure task Care Plan Weekly blood pressure task No Guero Billings Weekly blood pressure task Care Plan Weekly blood pressure task No Asuncion Billingsngelisantos Patient has chronic kidney disease Care Plan Patient has chronic kidney disease No Asuncion Billingsngelie Patient has chronic kidney disease Care Plan Patient has chronic kidney disease No Jono Billingselisantos Patient has chronic kidney disease Care Plan Patient has chronic kidney disease No Jono Billingselisantos Patient has diabetic neuropathy Care Plan Patient has diabetic neuropathy No Jono Billingselisantos Patient has diabetic neuropathy Care Plan Patient has diabetic neuropathy No Guero Billings Patient has diabetic neuropathy Care Plan Patient has diabetic neuropathy No Guero Billings Procedures Procedure Name Priority Date/Time Associated Diagnosis [...] Uncontrolled type 2 diabetes mellitus with hyperglycemia ([facility]/HCC) Primary hypertension Dyslipidemia from Last 3 Months or Most Recently Relevant to Health Maintenance Results * (ABNORMAL) Basic Metabolic Panel (09/28/2025 1:58 PM EST) Only the most recent of2 resultswithin the time period is included. Sodium 137 135 - 145 mmol/L [facility] Potassium 3.8 3.3 - 5.1 mmol/L [facility] Chloride 102 96 - 108 mmol/L [facility] Carbon Dioxide 25 22 - 29 mmol/L [facility] Anion Gap 14 12 - 20 [facility] Urea Nitrogen (BUN) 12 9 - 16 mg/dL [facility] Creatinine, Serum 0.62 0.5 - 1.4 mg/dL [facility] Estimated Glomerular Filt Rate >60 [facility] Comment:Chronic Kidney Disea se: Estimated GFR < 60 mL/min/[id number] Kidney Disease: Estimated GFR < 15 mL/min/1.73m2 Glucose 260(H) 60 - 115 mg/dL [facility] Calcium 9.7 8.4 - 10.2 mg/dL [facility] 09/28/2025 1:58 PM EST 09/28/2025 1:58 PM EST us Generic External Data Provider LAB BLOOD ORDERAB LES Final Result [facility] [address] [place] [phone] * MR Brain w/o Contrast (08/10/2025 12:17 PM EDT) Anatomical Region Laterality Modality Brain Magnetic Resonan ce 08/10/2025 12:1 7 PM EDT Narrative 08/10/2025 1:16 PM EDT [address] [address] Magnetic Resonance Report Signed Patient: Blanca Zuniga MR#: [id number] : 1965 Acct:[id number] Age/Sex: 59 / F ADM Date: 08/09/25 [facility]: Cristiano Sebastian MD Ordering Physician: Malu Albarran MD Date of Service: 08/10/25 Procedure(s): MR head/brain wo con Accession Number(s): [id number] cc: Kate Bailon MD; Malu Albarran MD [...] 08/10/25 1313 DD/ 1217 TD/TT: 08/10/25 1240 Tracer Clerk: Procedure Note Donotuseinterpreter, Image - 08/10/2025 [place] [address] Magnetic Resonance Report Signed Patient: Cassi Zuniga#: [id number] : 1965Acct:[id number] Age/Sex: 59 / FADM Date: 08/09/25 [facility]: Cristiano Sebastian MD Ordering Physician: Malu Albarran MD Date of Service: 08/10/25 Procedure(s): MR head/brain wo con Accession Number(s): [id number] cc: Kate Bailon MD; Malu Albarran MD [...] Bob Haile MD 08/10/2025 01:13 PM EDT RP Dictated By: Bob Haile MD Signed By: <Electronically signed by Bob Haile MD in OV> 08/10/25 1313 DD/ 1217 TD/TT: 08/10/25 1240 Tracer Clerk: [facility] External Provider IMG MRI PROCEDURES Final Result * CTA Head Stroke w/ and w/o Contrast (08/09/2025 7:23 PM EDT) Anatomical Region Laterality Modality Computed Tomogra phy 08/09/2025 7:23 PM EDT Narrative 08/09/2025 7:24 PM EDT [place] [address] CT Scan Report Signed Patient: Blanca Zuniga MR#: [id number] : 1965 Acct:[id number] Age/Sex: 59 / F ADM Date: 08/09/25 Loc: .ED Attending Dr: Ordering Physician: Pamela Reynoso DO Date of Service: 08/09/25 Procedure(s): CT angio head neck STROKE Accession Number(s): [id number] cc: Kate Bailon MD; Pamela Reynoso DO Report Number: [id number]: Total DLP = 732.00 mGy-cm Reason for [...] in OV> 08/09/251923 DD/ 22 TD/TT: 08/09/251922 Tracer Clerk: Procedure Note Donotuseinterpreter, Image - 08/09/[address] [place] [address] [address] Scan Report Signed Patient: Cassi Zuniga#: [id number] : 1965Acct:[id number] Age/Sex: 59 / FADM Date: 08/09/25 Loc: .ED Attending Dr: Ordering Physician: Pamela Reynoso DO Date of Service: 08/09/25 Procedure(s): CT angio head neck STROKE Accession Number(s): [id number] cc: Kate Bailon MD; Pamela Reynoso DO Report Number: [id number]: Total DLP = 732.00 mGy-cm Reason for [...] in OV> 08/09/251923 DD/ 22 TD/TT: 08/09/251922 Tracer Clerk: [facility] External Provider IMG CT PROCEDURES Final Result * (ABNORMAL) CBC auto differential (08/09/2025 6:54 PM EDT) White Blood Count 10.3 4.8 - 10.8 X10*3/uL [facility] Red Blood Count 4.41 4.20 - 5.50 X10*6/uL [facility] Hemoglobin 13.4 12.0 - 16.0 g/dl [facility] Hematocrit 36.9(L) 37.0 - 47.0 % [facility] Mean Corpuscular Volume 83.7 80.0 - 98.0 fL [facility] Mean Corpuscular Hemoglobin 30.4 27.0 - 33.0 pg [facility] Mean Corpuscular HGB Conc 36.3(H) 31.0 - 35.0 g/dl [facility] Red Cell Distribution Width 13.0 11.0 - 16.0 % [facility] Platelet Count 230 160 - 400 X10*3/uL [facility] Mean Platelet Volume 8.9(L) 9.4 - 12.3 fL [facility] Neutrophils Percent Auto 62.1 45 - 73 % [facility] Imm Gran Pct Auto 1.4(H) 0.0 - 0.4 % [facility] Lymphocytes Percent Auto 22.9 20 - 40 % [facility] Monocytes Percent Auto 8.5 2 - 11 % [facility] Eosinophils Percent Auto 4.3(H) 0 - 4 % [facility] Basophils Percent Auto 0.8 0 - 2 % [facility] NRBC Pct Auto 0.0 0.0 - 0.2 /100WBC [facility] Neutrophils Absolute Auto 6.4 2.0 - 8.3 x10*3/uL [facility] Imm Gran Abs Auto 0.14(H) 0.00 - 0.03 X10*3/uL [facility] Lymphocytes Absolute Auto 2.4 1.2 - 4.9 X10*3/uL [facility] Monocytes Absolute Auto 0.9 0.1 - 1.2 X10*3/uL [facility] Eosinophils Absolute Auto 0.4 0.0 - 0.4 X10*3/uL [facility] Basophils Absolute Auto 0.1 0.0 - 0.2 X10*3/uL [facility] NRBC Abs Auto 0.000 0.0 - 0.012 X10*3/uL [facility] 08/09/2025 6:54 PM EDT 08/09/2025 6:59 PM EDT us Generic External Data Provider LAB BLOOD ORDERAB LES Final Result [facility] [address] [place] [phone] * Magnesium (08/09/2025 6:54 PM EDT) [facility] Magnesium 2.0 1.6 - 2.6 mg/dL [facility] 08/09/2025 6:54 PM EDT 08/09/2025 6:59 PM EDT us Generic External Data Provider LAB BLOOD ORDERAB LES Final Result Performing Organization Address [facility]/ZIP Co de Phone Number [facility] [address] [place] [phone] * (ABNORMAL) Hepatic Function Panel (08/09/2025 6:54 PM EDT) [facility] Bilirubin, Total 0.2 0.0 - 1.0 mg/dL [facility] Bilirubin, Direct <0.2 0.0 - 0.5 mg/dL [facility] Aspartate Amino Transferase 17 5 - 31 U/L [facility] Alanine Aminotransferase <6 0 - 31 U/L [facility] Total Protein 5.7(L) 6.5 - 8.0 g/dL [facility] Albumin Level 3.5 3.5 - 5.0 g/dL [facility] Alkaline Phosphatase 127(H) 39 - 117 U/L [facility] 08/09/2025 6:54 PM EDT 08/09/2025 6:59 PM EDT us Generic External Data Provider LAB BLOOD ORDERAB LES Final Result Performing Organization Address [facility]/ZIP Co de Phone Number [facility] [address] [place] [phone] * (ABNORMAL) Lipid Panel, Standard (08/09/2025 6:54 PM EDT) [facility] Triglycerides 498(H) <150 mg/dL [facility] Comment:Desirable Triglyceri de: less than 150 mg/dLBorderline High Triglyceride 150-199 mg/dLHigh Triglyceride: 200-499 mg/dLVery High Triglyceride: greater than or equal to 5OO mg/dL Cholesterol 298(H) <200 mg/dL [facility] Comment:Desirable Cholestero l: less than 200 mg/dLBorderline High Cholesterol: 200-239 mg/dLHigh Cholesterol: greater than 239 mg/dL LDL Cholesterol Calculated TNP <100 mg/dL [facility] Comment:Unable to calculate the LDL. The formula of Friedwald,Almonte, and Ida is only valid if the triglycerides areless than 400 mg/dl. HDL Cholesterol 35(L) >40 mg/dL [facility] Comment:Desirable HDL: great er than 40 mg/dL Note: This HDL assay may give artificially low results in patients with liver disease. 08/09/2025 6:54 PM EDT 08/09/2025 6:59 PM EDT us Generic External Data Provider LAB BLOOD ORDERAB LES Final Result Performing Organization Address City/State/[facility] Co de Phone Number [facility] [address] [place] [address] [phone] * CT Head Stroke w/o Contrast (08/09/2025 6:53 PM EDT) Anatomical Region Laterality Modality Computed Tomogra phy 08/09/2025 6:53 PM EDT Narrative 08/09/2025 6:54 PM EDT [place] [address] [address] Scan Report Signed with Addenda Patient: Blanca Zuniga MR#: [id number] : 1965 Acct:[id number] Age/Sex: 59 / F ADM Date: 08/09/25 Loc: .ED Attending Dr: Ordering Physician: Pamela Reynoso DO Date of Service: 08/09/25 Procedure(s): CT head for STROKE Accession Number(s): [id number] cc: Kate Bailon MD; Pamela Reynoso DO Report Number: [id number]: Total DLP = 604.00 mGy-cm Reason for [...] in OV> 08/09/251853 DD/ 52 TD/TT: 08/09/251852 Tracer Clerk: Procedure Note Donotuseinterpreter, Image - 08/09/[address] [address] [address] Scan Report Signed with Addenda Patient: Blacna ZunigaMR#: [id number] : 1965Acct:[id number] Age/Sex: 59 / FADM Date: 08/09/25 Loc: .ED Attending Dr: Ordering Physician: Pamela Reynoso DO Date of Service: 08/09/25 Procedure(s): CT head for STROKE Accession Number(s): [id number] cc: Kate Bailon MD; Pamela Reynoso DO Report Number: [id number]: Total DLP = 604.00 mGy-cm Reason for [...] in OV> 08/09/251853 DD/ 52 TD/TT: 08/09/251852 Tracer Clerk: [facility] External Provider IMG CT PROCEDURES Edited Result - Final * Lower Extremity Venous Duplex (08/09/2025 11:34 AM EDT) 08/09/2025 11:3 4 AM EDT [facility] IMAGING - 08/09/2025 11:59 AM EDT [address] [address] Ultrasound Report Signed Patient: Blanca Zuniga MR#: [id number] : 1965 Acct:[id number] Age/Sex: 59 / F ADM Date: 08/09/25 Loc: .ED Attending Dr: Ordering Physician: Zach Tavarez PA-C Date of Service: 08/09/25 Procedure(s): US venous duplex LE LT Accession Number(s): [id number] cc: Zach Tavarez PA-C; Kate Bailon MD [...] Bob Haile MD 08/09/2025 11:56 AM EDT Dictated By: Bob Haile MD Signed By: <Electronically signed by Bob Haile MD in OV> 08/09/25 1156 DD/ 1134 TD/TT: 08/09/25 1141 Tracer Clerk: Procedure Note Donotuseinterpreter, Image - 08/09/[address] [address] Ultrasound Report Signed Patient: Blanca ZunigaMR#: [id number] : 1965Acct:[id number] Age/Sex: 59 / FADM Date: 08/09/25 Loc: HO.ED Attending Dr: Ordering Physician: Zach Tavarez PA-C Date of Service: 08/09/25 Procedure(s): US venous duplex LE LT Accession Number(s): [id number] cc: Zach Tavarez PA-C; Kate Bailon MD [...] Bob Haile MD 08/09/2025 11:56 AM EDT Dictated By: Bob Haile MD Signed By: <Electronically signed by Bob Haile MD in OV> 08/09/25 1156 DD/ 1134 TD/TT: 08/09/25 1141 Tracer Clerk: [facility] External Provider CV VASC ULAR PROCEDURES Final Result [facility] [address] [place] [phone] * XR Lumbar Spine 2-3 Views (08/09/2025 10:55 AM EDT) Anatomical Region Laterality Modality Spine, L-spine Radiographic Ivette ging 08/09/2025 10:5 5 AM EDT Narrative 08/09/2025 11:09 AM EDT [address] [address] XRay Report Signed Patient: Blanca Zuniga MR#: [id number] : 1965 Acct:[id number] Age/Sex: 59 / F ADM Date: 08/09/25 Loc: .ED Attending Dr: Ordering Physician: Zach Tavarez PA-C Date of Service: 08/09/25 Procedure(s): XR lumbar spine 2-3V Accession Number(s): [id number] cc: Zach Tavarez PA-C; Kate Bailon MD [...] coxofemoral joints not fully included in the [id number]-fq-[id number]. Vascular clips right upper quadrant abdomen likely prior cystectomy. XR/XR lumbar spine 2-3V IMPRESSION: Multilevel thoracolumbar spondylosis resulting in grade 1 anterolisthesis L4-5. Atherosclerosis disease. Electronically signed by: Luis Enrique Taylor MD 08/09/2025 11:06 AM EDT Dictated By: Luis Enrique Pineda MD Signed By: <Electronically signed by Luis Enrique Maguire MD in OV> 08/09/25 1106 DD/ 1055 TD/TT: 08/09/25 1101 Tracer Clerk: Procedure Note Donotuseinterpreter, Image - 08/09/[address] [address] XRay Report Signed Patient: Blanca ZunigaMR#: [id number] : 1965Acct:[id number] Age/Sex: 59 / FADM Date: 08/09/25 Loc: HO.ED Attending Dr: Ordering Physician: Zach Tavarez PA-C Date of Service: 08/09/25 Procedure(s): XR lumbar spine 2-3V Accession Number(s): [id number] cc: Zach Tavarez PA-C; Kate Bailon MD [...] coxofemoral joints not fully included in the qpcdq-[id number]-vvrr. Vascular clips right upper quadrant abdomen likely prior cystectomy. XR/XR lumbar spine 2-3V IMPRESSION: Multilevel thoracolumbar spondylosis resulting in grade 1 anterolisthesis L4-5. Atherosclerosis disease. Electronically signed by: Luis Enrique Taylor MD 08/09/2025 11:06 AM EDT Dictated By: Luis Enrique Pineda MD Signed By: <Electronically signed by Luis Enrique Maguire MDin OV> 08/09/25 1106 DD/ 1055 TD/TT: 08/09/25 1101 Tracer Clerk: [facility] External Provider IMG XR PROCEDURES Final Result * (ABNORMAL) POCT HGB A1C (07/20/2024 4:37 PM EDT) Hemoglobin A1C 11.1(A) 4.0 - 6.0 % QC Media Lot # [id number] Lot# Expiration Date ,732,499 Blood 07/20/2024 4:37 PM EDT Kate Bailon MD POINT OF CARE TEST ENTER/ED IT ORDERABLES Final Result * Hepatitis C Ab (03/30/2024 2:27 PM EDT) Hepatitis C Antibody Nonreactive Nonreactive [facility] Comment:Antibodies to HCV no t detected; does not exclude early acuteHCV infection. Blood Venous blood specimen / Unknown 03/30/2024 2:27 PM EDT 03/30/2024 2:28 PM EDT us Kate Bailon MD LAB BLOOD ORDERABLES Final Result Performing Organization Address [facility]/ZIP Co de Phone Number [facility] [address] [place] [phone] * HIV-1/2 Antigen and Antibodies, Fourth Generation, with Reflexes (03/30/2024 2:27 PM EDT) HIV AB/AG Nonreactive Nonreactive [facility] Comment:HIV-1 p24 Ag and/or HIV-1/HIV-2 Ab not detected.A test result that is nonreactive does not exclude thepossibility of exposure to or infection with HIV-1 and/orHIV-2. Nonreactive results in this assay for individualswith prior exposure to HIV-1 and/or HIV-2 may be due toantigen and antibody levels that are below the limit ofdetection of this assay.The [employer] HIV Ag/Ab Combo assay result andsupplemental assay results should be interpreted inconjunction with the patient's clinical presentation,history and other laboratory results. If the results areinconsistent with clinical evidence, additional testing issuggested to confirm the result. Blood Venous blood specimen / Unknown 03/30/2024 2:27 PM EDT 03/30/2024 2:28 PM EDT us Kate Bailon MD LAB BLOOD ORDERABLES Final Result Performing Organization Address City/[facility]/ZIP Co de Phone Number [facility] [address] [place] [address] [phone] from Last 3 Months or Most Recently Relevant to Health Maintenance Additional Health Concerns Active Problems Noted Date Diagnosed Date Help patients manage their type 2 diabetes 09/30 Weekly blood pressure task 09/30/2025 Help patients manage their type 2 diabetes 09/30 Patient has chronic kidney disease 09/30/2025 Help patients manage their type 2 diabetes 09/30 Patient has diabetic neuropathy 09/30/2025 Weekly blood pressure task 09/30/2025 Weekly blood pressure task 09/30/2025 Patient has chronic kidney disease 09/30/2025 Patient has chronic kidney disease 09/30/2025 Patient has diabetic neuropathy 09/30/2025 Patient has diabetic neuropathy 09/30/2025 Weekly blood pressure task 09/30/2025 Weekly blood pressure task 09/30/2025 Weekly blood pressure task 09/30/2025 Patient has chronic kidney disease 09/30/2025 Patient has chronic kidney disease 09/30/2025 Patient has chronic kidney disease 09/30/2025 Patient has diabetic neuropathy 09/30/2025 Patient has diabetic neuropathy 09/30/2025 Patient has diabetic neuropathy 09/30/2025 Weekly blood pressure task 10/15/2025 Weekly blood pressure task 10/15/2025 Weekly blood pressure task 10/15/2025 Patient has chronic kidney disease 10/15/2025 Patient has chronic kidney disease 10/15/2025 Patient has chronic kidney disease 10/15/2025 Patient has diabetic neuropathy 10/15/2025 Patient has diabetic neuropathy 10/15/2025 Patient has diabetic neuropathy 10/15/2025 Weekly blood pressure task 10/20/2025 Weekly blood pressure task 10/20/2025 Weekly blood pressure task 10/20/2025 Patient has chronic kidney disease 10/20/2025 Patient has chronic kidney disease 10/20/2025 Patient has chronic kidney disease 10/20/2025 Patient has diabetic neuropathy 10/20/2025 Patient has diabetic neuropathy 10/20/2025 Patient has diabetic neuropathy 10/20/2025 Weekly blood pressure task 10/20/2025 Weekly blood pressure task 10/20/2025 Weekly blood pressure task 10/20/2025 Patient has chronic kidney disease 10/20/2025 Patient has chronic kidney disease 10/20/2025 Patient has chronic kidney disease 10/20/2025 Patient has diabetic neuropathy 10/20/2025 Patient has diabetic neuropathy 10/20/2025 Patient has diabetic neuropathy 10/20/2025 Insurance [facility] C3 Care Teams Cereal Miller Relationship Specialty Start Date End Date Kate Bailon MD [address] [place] [phone] PCP - General Internal Medicine 09/03/19 [place] 09/22/25
--- OUTSIDE RECORDS SUMMARY | 2025-10-27 16:57 | XMS_ITS | Encounter Summary ---
Author Organization [employer] Address [address] [place] [address] 7 [place] [address] Care Team Providers Care Film Mounter Name Role Phone Kate Bailon MD Primary Care Provider [phone] Reason for Referral * Consultation (Routine) - Closed Specialty Diagnoses / Procedures Referred By Contac t Referred To Contact Dermatology Diagnoses Neoplasm of uncertain behavior Kate Bailon MD [address] [place] [address] Phone: tel: fax: [facility] Dermatology [address] [place] [address] [address] [place], [place] Phone: tel: fax: Referral ID Status Reason Start Date Expiration Date V isits Requested Visits Authorized [id number] Closed Specialty Services Required 06/08/2024 06/08/2025 1 1 Encounter Details Date Type Department Care Team (Late st Contact Info) Description 06/08/2024 Orders Only [facility] PEDS [address] [place] [address] Kate Bailon MD [address] [place] [address] Neoplasm of uncertain behavior (Primary Dx) Social [...] Description 11/23/2025 1:45 PM EST Office Visit [facility] MED & PEDS [address] [place] [address] Kate Bailon MD [address] [place] [address] Scheduled Referrals Name Type Priority Associated Diagnoses Order Schedule Referral to Dermatology Outpatient Referral Routine Neoplasm of uncertain behavior Expected: 06/08/2024 (Approximate), Expires: 06/08/2025 documented as of this encounter Visit Diagnoses Diagnosis Neoplasm of uncertain behavior- Primary Neoplasm of uncertain behavior, site unspecified documented in this encounter Care Teams Film Mounter Relationship Specialty Start Date End Date Kate Bailon MD [address] [place] [phone] PCP - General Internal Medicine 09/03/19 [facility] 09/22/25 documented as of this encounter
--- OUTSIDE RECORDS SUMMARY | 2025-10-27 16:57 | XMS_ITS | Encounter Summary ---
Author Organization [email or web address] Address [address] [place] [address] Care Team Providers Care Occasional Babysitter Name Role Phone Kate Bailon MD Primary Care Provider [phone] Reason for Referral * Consultation (Routine) - Closed Specialty Diagnoses / Procedures Referred By Contac t Referred To Contact Pharmacy Diagnoses Type 2 diabetes mellitus with hyperglycemia, without long-term current use of insulin (HCC) Kate Bailon MD [address] [place] [address] Phone: tel: fax: Referral ID Status Reason Start Date Expiration Date V isits Requested Visits Authorized [id number] Closed Consult and Treat 12/09/2024 12/09/2025 6 6 Encounter Details Date Type Department Care Team ([facility] Contact Info) Description 12/09/2024 Orders Only [facility] MED [facility] PEDS [address] [place] [address] Kate Bailon MD [address] [place], [place] [phone] Type 2 diabetes mellitus with hyperglycemia, without [...] Description 11/23/2025 1:45 PM EST Office Visit [facility] MED & PEDS [address] [place] [address] Kate Bailon MD [address] [place] [address] Scheduled Referrals Name Type Priority Associated Diagnoses Orde r Schedule Referral to Pharmacy CDTM Outpatient Referral Routine Type 2 diabetes mellitus with hyperglycemia, without long-term current use of insulin ([facility]/HCC) Ordered: 12/09/2024 documented as of this encounter Visit Diagnoses Diagnosis Type 2 diabetes mellitus with hyperglycemia, without long-term current use of insulin ([facility])- Primary documented in this encounter Care Teams Occasional Babysitter Relationship Specialty Start Date End Date Kate Bailon MD [address] [place] [address] PCP - General Internal Medicine 09/03/19 [facility] 09/22/25 documented as of this encounter
--- OUTSIDE RECORDS SUMMARY | 2025-10-27 16:57 | XMS_ITS | Encounter Summary ---
Author Organization [employer] Address [address] [place] [address] Care Team Providers Care Tire Fabric Inspector Name Role Phone Kate Bailon MD Primary Care Provider [phone] Encounter Details Date Type Department Care Team ([facility] Contact Info) Description 06/12/2024 Orders Only [facility] MED & PEDS [address] [place] [address] ProviderAbner MD Social History Tobacco Use Types [...] Upcoming Encounters Date Type Department Care Team ([facility] Contact Info) Description 11/23/2025 1:45 PM EST Office Visit [facility] MED [facility] PEDS [address] [place], [place] [phone] Kate Bailon MD [address] [place] [address] documented as of this encounter Procedures Procedure Name Priority Date/Time Associated Diagnosis Comments DERMATOPATHOLOGY REPORT Routine 06/02/20 24 11:31 AM EDT documented in this encounter Results * Dermatopathology Report (06/02/2024 11:31 AM EDT) us Historical Provider LAB BLOOD ORDERABLES Luz l Result documented in this encounter Visit Diagnoses Not on filedocumented in this encounter Care Teams Tire Fabric Inspector Relationship Specialty Start Date End Date Kate Bailon MD [address] [place] [phone] PCP - General Internal Medicine 09/03/19 [facility] 09/22/25 documented as of this encounter
--- OUTSIDE RECORDS SUMMARY | 2025-10-27 16:57 | XMS_ITS | Clinical Summary ---
Author Organization [facility] Address [address] [place] [address] Care Team Providers Care It Operations Specialist Name Role Phone Kate Bailon Primary Care Provider [phone] Allergies Active Allergy Reactions Criticality Noted Date [...] Max Daily Amount: 200 mg 8 tablet Active empagliflozin (JARDIANCE) 25 mg tablet Take 25 mg by mouth daily. 4 Active Hospital, Clinic, or Other Facility Administered Medication Ordered Dose Route Frequency Start Date End Date Status mupirocin (BACTROBAN) 2% ointment topical Once 08/21/2024 Active Active Problems No known active problems Social History Tobacco Use Types Packs/Day Years Used Date Smoking Tobacco: Every Day Cigarettes 0.5 7 Started: 2019 Tobacco Cessation:Ready to Q uit: Not Asked; [...] Social Drivers of Health Annual Screening 2024 Influenza Vaccine (#1) 2025 COVID-19 Vaccine (1 - 2024-2 6 season) 2025 RSV Vaccine (60+ years old a nd patients) (1 - 1-dose 75+ series) 2039 HIV Screening Completed 03/30/2024, 03/30/2024 Hepatitis B Vaccines Aged Out No long er eligible based on patient's age to complete this topic Insurance [facility] MEDICAID Care Teams It Operations Specialist Relationship Specialty Start Date End Date Kate Bailon [address] [place] [address] PCP - General Internal Medicine 06/10/24
--- OUTSIDE RECORDS SUMMARY | 2025-10-27 16:57 | XMS_ITS | Clinical Summary ---
Author Organization [facility] Address [address] [place] [address] Phone Care Team Providers Care Photo Editor Name Role Phone Kate Bailon MD Primary Care Provider [phone] Allergies Active Allergy Reactions Criticality Noted Date Comments Cephalexin Unknown 08/20/2025 Cephalosporins 08/20/2025 Codeine 08/20/2025 Medications amLODIPine (NORVASC) 10 mg tablet Take 1 tablet (10 mg total) by mouth 1 (one) time each day. 30 each 09/16/2025 Active apixaban (ELIQUIS) 5 mg tabletIndicatio ns:cva Take 1 tablet (5 mg total) by mouth 2 (two) times a day. 60 each 09/16/2025 Active atorvastatin (LIPITOR) 80 mg tablet Take 1 tablet (80 mg total) by mouth at bedtime. 30 each 09/16/2025 Active labetaloL (NORMODYNE) 300 mg tablet Take 1 tablet (300 mg total) by mouth 2 (two) times a day. 60 each 09/16/2025 Active nicotine (NICODERM CQ) 21 mg/[address] 1 patch on the skin 1 (one) time each day at the same time. 30 each 09/16/2025 Active citalopram (CeleXA) 10 mg tablet Take 1 tablet (10 mg total) by mouth 1 (one) time each day. 30 each 09/17/2025 Active glipiZIDE 2.5 mg tabletIndicatio ns:type 2 diabetes mellitus Take 2.5 mg by mouth 2 (two) times a day before meals. 60 tablet 09/16/2025 Active gabapentin (NEURONTIN) 300 mg capsule Take 1 capsule (300 mg total) by mouth at bedtime. 30 each 09/16/2025 Active losartan (COZAAR) 50 mg tablet Take 1 tablet (50 mg total) by mouth 1 (one) time each day. 30 each 09/17/2025 Active aspirin 81 mg EC tabletIndicatio ns:cva Take 1 tablet (81 mg total) by mouth 1 (one) time each day. 30 each 09/16/2025 10/16/20 25 cyclobenzaprine (FLEXERIL) 10 mg tablet Take 1 tablet (10 mg total) by mouth 3 (three) times a day. 30 tablet 09/16/2025 10/16/20 25 docusate sodium (COLACE) 100 mg capsule Take 1 capsule (100 mg total) by mouth 2 (two) times a day. 60 each 09/16/2025 10/16/20 25 magnesium oxide (MAG-OX) 400 mg (241.3 elemental magnesium) tablet Take 1 tablet (400 mg total) by mouth 2 (two) times a day. 60 each 09/16/2025 10/16/20 25 Active Problems Problem Noted Date Diagnosed Date Hyperlipidemia associated with type 2 diabetes m caydenitus 08/22/2025 Hypertriglyceridemia 08/22/2025 Tobacco use disorder 08/22/2025 Encounter for tobacco use cessation counseling 1 Stroke 08/21/2025 BROWN (nonalcoholic steatohepatitis) Poorly-controlled hypertension DM (diabetes mellitus) Encounters Date Type Department Care Team Description 09/15/2025 Plan of Care Documentation [facility] [address] [place] [phone] 09/08/2025 Plan of Care Documentation [facility] [address] [place] [address] 09/01/2025 Plan of Care Documentation [facility] [address] [place] [phone] 08/25/2025 Plan of Care Documentation [facility] [address] [place] [phone] 08/21/2025 12:29 PM EDT - 09/17/2025 12:00 PM EST Hospital Encounter [facility] [address] [place] [address] Loan Hicks DO Discharge Disposition: Home-Health Care Svc from Last 3 Months Surgical History Surgery Date Site/Laterality Comments SHOULDER SURGERY PROCEDURE: [place] UNLISTED PROCEDURE SHOULDER CHOLECYSTECTOMY 1987 PROCEDURE: HISTORICAL CHOLECYSTECTOMY TUBAL LIGATION 1989 PROCEDURE: HISTORICAL TUBAL LIGATION Medical History Medical History Date Comments BROWN (nonalcoholic steatohepatitis) HTN (hypertension) DM (diabetes mellitus) (CMS/HCC V24, CMS/HCC V28 ) Family History Medical History Relation [...] not to disclose 2024 8:30 AM EDT Last Filed Vital Signs Vital Sign [...] of108 resultswithin the time period is included. Glucose POCT 159(H) 70 - 100 mg/dL 09/17/2025 11:12 AM EST [facility] Blood Capillary blood specimen / Unknown 09/17/2025 11:11 AM EST 09/17/2025 11:14 AM EST us Loan Hicks DO LAB POINT OF CARE TEST DOCKED DEVICE UNSOLICITED RESULTS Final Result [facility] [address] [place] [address], * (ABNORMAL) Complete blood count (09/10/2025 5:19 AM EDT) Only the most recent of5 resultswithin the time period is included. WBC 6.9 4.8 - 10.8 K/[facility] LAB HEMETOLOGY METHOD 09/10/2025 6:39 AM EDT [facility] RBC 3.80 3.80 - 4.80 M/[facility] LAB HEMETOLOGY METHOD 09/10/2025 6:39 AM EDT [facility] Hemoglobin 11.0(L) 11.5 - 16.0 g/dL LAB HEMETOLOGY METHOD 09/10/2025 6:39 AM EDT [facility] Hematocrit 33.2(L) 35.0 - 47.0 % LAB HEMETOLOGY METHOD 09/10/2025 6:39 AM EDT [facility] MCV 88.5 79.0 - 98.0 FL LAB HEMETOLOGY METHOD 09/10/2025 6:39 AM EDT [facility] MCH 29.3 27.0 - 32.0 pcg LAB HEMETOLOGY METHOD 09/10/2025 6:39 AM EDT [facility] MCHC 33.1 32.0 - 37.0 g/dL LAB HEMETOLOGY METHOD 09/10/2025 6:39 AM EDT [facility] RDW 13.7 11.0 - 15.0 % LAB HEMETOLOGY METHOD 09/10/2025 6:39 AM EDT [facility] Platelets 210 130 - 400 K/mcL LAB HEMETOLOGY METHOD 09/10/2025 6:39 AM EDT [facility] MPV 9.0 7.0 - 11.0 FL LAB HEMETOLOGY METHOD 09/10/2025 6:39 AM EDT [facility] NRBC 0.0 <1.0 % LAB HEMETOLOGY METHOD 09/10/2025 6:39 AM EDT [facility] NRBC Absolute 0.00 <0.10 K/mcL LAB HEMETOLOGY METHOD 09/10/2025 6:39 AM EDT [facility] Blood Venous blood specimen / Unknown Venipuncture / Unknown 09/10/2025 5:19 AM EDT 09/10/2025 6:18 AM EDT us Shelly GABRIEL LAB BLOOD ORDERABLES Final R esult [facility] [address] [place] [address], [place] [phone] * Magnesium (09/10/2025 5:19 AM EDT) Only the most recent of4 resultswithin the time period is included. Magnesium 2.1 1.9 - 2.6 mg/dL LAB CHEMISTRY METHOD 09/10/2025 7:56 AM EDT [facility] Blood Venous blood specimen / Unknown Venipuncture / Unknown 09/10/2025 5:19 AM EDT 09/10/2025 6:18 AM EDT Shelly GABRIEL LAB BLOOD ORDERABLES Final R esult [facility] [address] [place] [address], [place] [phone] * (ABNORMAL) Comprehensive metabolic panel (09/10/2025 5:19 AM EDT) Only the most recent of4 resultswithin the time period is included. Pathologist [facility] Sodium 142 133 - 145 mmol/L LAB CHEMISTRY METHOD 09/10/2025 7:56 AM [facility] Potassium 4.1 3.5 - 5.5 mmol/L LAB CHEMISTRY METHOD 09/10/2025 7:56 AM [facility] Chloride 109 96 - 110 mmol/L LAB CHEMISTRY METHOD 09/10/2025 7:56 AM [facility] CO2 27 21 - 32 mmol/L LAB CHEMISTRY METHOD 09/10/2025 7:56 AM [facility] Anion Gap 6 3 - 11 LAB CHEMISTRY METHOD 09/10/2025 7:56 AM [facility] Glucose 131(H) 70 - 100 mg/dL LAB CHEMISTRY METHOD 09/10/2025 7:56 AM [facility] BUN 15 5 - 25 mg/dL LAB CHEMISTRY METHOD 09/10/2025 7:56 AM [facility] Creatinine 0.52 0.50 - 1.10 mg/dL LAB CHEMISTRY METHOD 09/10/2025 7:56 AM [facility] eGFR 107 >=60 mL/min/1. 73m2 LAB CHEMISTRY METHOD 09/10/2025 7:56 AM [facility] Comment:Calculation based on the Chronic Kidney Disease Epidemiology Collaboration (CKD-EPI) equation refit without adjustment for race. BUN/Creatinine Ratio 28.8 LAB CHEMISTRY METHOD 09/10/2025 7:56 AM [facility] Calcium 8.8 8.5 - 10.5 mg/dL LAB CHEMISTRY METHOD 09/10/2025 7:56 AM [facility] AST (SGOT) 11 10 - 42 unit/L LAB CHEMISTRY METHOD 09/10/2025 7:56 AM [facility] ALT (SGPT) 14 10 - 60 unit/L LAB CHEMISTRY METHOD 09/10/2025 7:56 AM [facility] Alkaline Phosphatase 134(H) 42 - 121 unit/L LAB CHEMISTRY METHOD 09/10/2025 7:56 AM [facility] Total Protein 5.6(L) 6.0 - 8.0 g/dL LAB CHEMISTRY METHOD 09/10/2025 7:56 AM [facility] Albumin 3.0(L) 3.2 - 5.0 g/dL LAB CHEMISTRY METHOD 09/10/2025 7:56 AM [facility] Total Bilirubin 0.3 0.0 - 1.4 mg/dL LAB CHEMISTRY METHOD 09/10/2025 7:56 AM [facility] Blood Venous blood specimen / Unknown Venipuncture / Unknown 09/10/2025 5:19 AM EDT 09/10/2025 6:18 AM EDT us Shelly GABRIEL LAB BLOOD ORDERABLES Final R esult Performing Organization Address [facility]/ZIP Co de Phone Number [facility] [address] [place] [address], [place] [phone] * Lavender tube (09/07/2025 5:43 AM EDT) Only the most recent of2 resultswithin the time period is included. [facility] Extra Tube Hold for add-ons. 09/07/2025 8:01 AM EDT [facility] Comment:Auto resulted. Blood Venous blood specimen / Unknown Venipuncture / Unknown 09/07/2025 5:43 AM EDT 09/07/2025 6:04 AM EDT Loan Hicks DO LAB BLOOD ORDERABLES Luz l Result Performing Organization Address [facility]/ZIP Co de Phone Number [facility] [address] [place] [address], [place] [phone] * (ABNORMAL) Basic metabolic panel (09/05/2025 5:31 AM EDT) Only the most recent of2 resultswithin the time period is included. [facility] Sodium 141 133 - 145 mmol/L LAB CHEMISTRY METHOD 09/05/2025 7:39 AM [facility] Potassium 3.5 3.5 - 5.5 mmol/L LAB CHEMISTRY METHOD 09/05/2025 7:39 AM T [facility] Chloride 108 96 - 110 mmol/L LAB CHEMISTRY METHOD 09/05/2025 7:39 AM [facility] CO2 27 21 - 32 mmol/L LAB CHEMISTRY METHOD 09/05/2025 7:39 AM [facility] Anion Gap 6 3 - 11 LAB CHEMISTRY METHOD 09/05/2025 7:39 AM [facility] Glucose 190(H) 70 - 100 mg/dL LAB CHEMISTRY METHOD 09/05/2025 7:39 AM EDT [facility] BUN 13 5 - 25 mg/dL LAB CHEMISTRY METHOD 09/05/2025 7:39 AM EDT [facility] Creatinine 0.49(L) 0.50 - 1.10 mg/dL LAB CHEMISTRY METHOD 09/05/2025 7:39 AM EDT [facility] eGFR 108 >=60 mL/min/1. 73m2 LAB CHEMISTRY METHOD 09/05/2025 7:39 AM EDT [facility] Comment:Calculation based on the Chronic Kidney Disease Epidemiology Collaboration (CKD-EPI) equation refit without adjustment for race. BUN/Creatinine Ratio 26.5 LAB CHEMISTRY METHOD 09/05/2025 7:39 AM EDT [facility] Calcium 8.7 8.5 - 10.5 mg/dL LAB CHEMISTRY METHOD 09/05/2025 7:39 AM EDT [facility] Blood Venous blood specimen / Unknown Venipuncture / Unknown 09/05/2025 5:31 AM EDT 09/05/2025 6:38 AM EDT us Gabby Hightower NP LAB BLOOD ORDERABLES Final Result [facility] [address] [place] [address], * Potassium (08/31/2025 6:56 AM EDT) [facility] Signature Potassium 3.9 3.5 - 5.5 mmol/L LAB CHEMISTRY METHOD 08/31/2025 8:08 AM EDT [facility] Blood Venous blood specimen / Unknown Venipuncture / Unknown 08/31/2025 6:56 AM EDT 08/31/2025 7:19 AM EDT us Gabby Hightower NP LAB BLOOD ORDERABLES Final Result [facility] [address] [place] [address], * Alanine aminotransferase (08/30/2025 5:25 AM EDT) ALT (SGPT) 26 10 - 60 unit/L LAB CHEMISTRY METHOD 08/30/2025 1:09 PM EDT [facility] Blood Venous blood specimen / Unknown Venipuncture / Unknown 08/30/2025 5:25 AM EDT 08/30/2025 5:36 AM EDT Gabby Hightower NP LAB BLOOD ORDERABLES Final Result Performing Organization Address [facility]/ZIP Co de Phone Number [facility] [address] [place] [address], * Aspartate aminotransferase (08/30/2025 5:25 AM EDT) AST (SGOT) 16 10 - 42 unit/L LAB CHEMISTRY METHOD 08/30/2025 1:38 PM EDT [facility] Blood Venous blood specimen / Unknown Venipuncture / Unknown 08/30/2025 5:25 AM EDT 08/30/2025 5:36 AM EDT Loan Hicks DO LAB BLOOD ORDERABLES Luz l Result Performing Organization Address City/[facility]/ZIP Co de Phone Number [facility] [address] [place] [address], * (ABNORMAL) Hemoglobin A1c (08/25/2025 1:04 PM EDT) Hemoglobin A1C 11.1(H) <6.5 % LAB CHEMISTRY METHOD 08/25/2025 2:40 PM EDT [facility] Mean Bld Glu Estim. 272 mg/dL LAB CHEMISTRY METHOD 08/25/2025 2:40 PM EDT [facility] Blood Venous blood specimen / Unknown Venipuncture / Unknown 08/25/2025 1:04 PM EDT 08/25/2025 1:11 PM EDT us Shelly Estrada PA LAB BLOOD ORDERABLES Final R esult Performing Organization Address City/[facility]/ZIP Co de Phone Number [facility] [address] [place] [address], [place] [phone] * SST tube (08/25/2025 1:01 PM EDT) [facility] Extra Tube Hold for add-ons. 08/25/2025 3:02 PM EDT [facility] Comment:Auto resulted. Blood Venous blood specimen / Unknown 08/25/2025 1:01 PM EDT 08/25/2025 1:11 PM EDT Loan Hicks DO LAB BLOOD ORDERABLES Luz l Result Performing Organization Address City/[facility]/ZIP Co de Phone Number [facility] [address] [place] [address], [place] [phone] * (ABNORMAL) CBC auto differential (08/22/2025 5:25 AM EDT) [facility] WBC 9.8 4.8 - 10.8 K/mcL LAB HEMETOLOGY METHOD 08/22/2025 5:39 AM EDT [facility] RBC 4.20 3.80 - 4.80 M/mcL LAB HEMETOLOGY METHOD 08/22/2025 5:39 AM EDT [facility] Hemoglobin 12.2 11.5 - 16.0 g/dL LAB HEMETOLOGY METHOD 08/22/2025 5:39 AM EDT [facility] Hematocrit 36.8 35.0 - 47.0 % LAB HEMETOLOGY METHOD 08/22/2025 5:39 AM T [facility] MCV 88.2 79.0 - 98.0 FL LAB HEMETOLOGY METHOD 08/22/2025 5:39 AM [facility] MCH 29.3 27.0 - 32.0 pcg LAB HEMETOLOGY METHOD 08/22/2025 5:39 AM [facility] MCHC 33.2 32.0 - 37.0 g/dL LAB HEMETOLOGY METHOD 08/22/2025 5:39 AM [facility] RDW 13.2 11.0 - 15.0 % LAB HEMETOLOGY METHOD 08/22/2025 5:39 AM [facility] Platelets 251 130 - 400 K/mcL LAB HEMETOLOGY METHOD 08/22/2025 5:39 AM [facility] MPV 9.1 7.0 - 11.0 FL LAB HEMETOLOGY METHOD 08/22/2025 5:39 AM [facility] NRBC 0.0 <1.0 % LAB HEMETOLOGY METHOD 08/22/2025 5:39 AM [facility] NRBC Absolute 0.00 <0.10 K/mcL LAB HEMETOLOGY METHOD 08/22/2025 5:39 AM [facility] Neutrophils Relative 62.1 % LAB HEMETOLOGY METHOD 08/22/2025 5:39 AM [facility] Lymphocytes Relative 21.0 % LAB HEMETOLOGY METHOD 08/22/2025 5:39 AM [facility] Monocytes Relative 10.8 % LAB HEMETOLOGY METHOD 08/22/2025 5:39 AM [facility] Eosinophils Relative 4.4 % LAB HEMETOLOGY METHOD 08/22/2025 5:39 AM [facility] Basophils Relative 0.6 % LAB HEMETOLOGY METHOD 08/22/2025 5:39 AM EDT [facility] Immature Granulocytes Relative 1.1 % LAB HEMETOLOGY METHOD 08/22/2025 5:39 AM EDT [facility] Neutrophils Absolute 6.05 1.50 - 7.00 K/mcL LAB HEMETOLOGY METHOD 08/22/2025 5:39 AM EDT [facility] Lymphocytes Absolute 2.05 1.00 - 5.00 K/mcL LAB HEMETOLOGY METHOD 08/22/2025 5:39 AM EDT [facility] Monocytes Absolute 1.05(H) 0.20 - 1.00 K/mcL LAB HEMETOLOGY METHOD 08/22/2025 5:39 AM EDT [facility] Eosinophils Absolute 0.43 0.00 - 0.50 K/mcL LAB HEMETOLOGY METHOD 08/22/2025 5:39 AM EDT [facility] Basophils Absolute 0.06 0.00 - 0.20 K/mcL LAB HEMETOLOGY METHOD 08/22/2025 5:39 AM EDT [facility] Immature Granulocytes Absolute 0.11(H) 0.00 - 0.03 K/mcL LAB HEMETOLOGY METHOD 08/22/2025 5:39 AM EDT [facility] Blood Venous blood specimen / Unknown Venipuncture / Unknown 08/22/2025 5:25 AM EDT 08/22/2025 5:32 AM EDT us Claudio Palmer DIRECTOR OF CAPITAL GIVING LAB BLOOD ORDERABLES Final Res ult [facility] [address] [place] [address], from Last 3 Months Insurance [facility] [employer] Advance Directives Documents on File Type Date Recorded Patient Urban Anthropologist Expl anation Advance Directives and Living Will [...] currently active code status orders. Care Teams Photo Editor Relationship Specialty Start Date End Date Kate Bailon MD [address] [place] [phone] PCP - General Internal Medicine 08/23/25
--- OUTSIDE RECORDS SUMMARY | 2025-10-27 16:57 | XMS_ITS | Encounter Summary ---
Author Organization [employer] Address [address] [place] [id number] Care Team Providers Care Magento Developer Name Role Phone Kate Bailon MD Primary Care Provider Encounter Details Date Type Department Care Team ([facility] Contact Info) Description 12/13/2023 Telephone [facility] [address] [place] [address] Kate Bailon MD [address] [place] [address] Social History Tobacco Use Types Packs/Day Years [...] Upcoming Encounters Date Type Department Care Team ([facility] Contact Info) Description 11/23/2025 1:45 PM EST Office Visit [facility] [address] [place], [place] [phone] Kate Bailon MD [address] [place] [address] documented as of this encounter Visit Diagnoses Not on filedocumented in this encounter Care Teams Magento Developer Relationship Specialty Start Date End Date Kate Bailon MD [address] [place] [phone] PCP - General Internal Medicine 09/03/19 [facility] 09/22/25 documented as of this encounter
== END 2025-10-27 12:50 | disposition home or self-care (01) ==
LOC: HO.MS 12:49
PROVIDERS: PCP Internal Medicine; Visit Provider Internal Medicine Cardiovascular Disease
PROC: (CPT 33285; principal; 2025-10-27 13:00)
DX: I63.9 Cerebral infarction, unspecified (principal)
CPT/HCPCS: 33285; C1764; J2004

== ENCOUNTER 2025-11-05 13:49 | Outpatient (AMB) | payer MEDICAID, SELFPAY ==
--- OUTSIDE RECORDS SUMMARY | 2025-11-05 13:52 | XMS_ITS | Encounter Summary ---
Author Organization [employer] Address [address] [place] [address] Care Team Providers Care Family Counselor Name Role Phone Kate Bailon MD Primary Care Provider Encounter Details Date Type Department Care Team ([facility] Contact Info) Description 12/13/2023 Telephone [facility] [address] [place] [address] Kate Bailon MD [address] [place] [address] Social History Tobacco Use Types Packs/Day Years [...] Upcoming Encounters Date Type Department Care Team ([facility] Contact Info) Description 11/23/2025 1:45 PM EST Office Visit [facility] [address] [place], [place] [phone] Kate Bailon MD [address] [place] [address] documented as of this encounter Visit Diagnoses Not on filedocumented in this encounter Care Teams Family Counselor Relationship Specialty Start Date End Date Kate Bailon MD [address] [place] [phone] PCP - General Internal Medicine 09/03/19 [facility] 09/22/25 documented as of this encounter
--- OUTSIDE RECORDS SUMMARY | 2025-11-05 13:52 | XMS_ITS | Encounter Summary ---
Author Organization [employer] Address [address] [place] [address] Care Team Providers Care Ground Support Equipment Fitter Name Role Phone Kate Bailon MD Primary Care Provider [phone] Reason for Referral * Consultation (Routine) - Closed Specialty Diagnoses / Procedures Referred By Contac t Referred To Contact Pharmacy Diagnoses Type 2 diabetes mellitus with hyperglycemia, without long-term current use of insulin (HCC) Kate Bailon MD [address] [place] [address] Phone: tel: fax: Referral ID Status Reason Start Date Expiration Date V isits Requested Visits Authorized [id number] Closed Consult and Treat 12/09/2024 12/09/2025 6 6 Encounter Details Date Type Department Care Team ([facility] Contact Info) Description 12/09/2024 Orders Only [facility] [address] [place] [address] Kate Bailon MD [address] [place], [place] [phone] Type 2 diabetes mellitus with hyperglycemia, without [...] 1:45 PM EST Office Visit [facility] [address] [place] [address] Kate Bailon MD [address] [place] [address] Scheduled Referrals Name Type Priority Associated Diagnoses Orde r Schedule Referral to Pharmacy CDTM Outpatient Referral Routine Type 2 diabetes mellitus with hyperglycemia, without long-term current use of insulin ([facility]/HCC) Ordered: 12/09/2024 documented as of this encounter Visit Diagnoses Diagnosis Type 2 diabetes mellitus with hyperglycemia, without long-term current use of insulin ([facility])- Primary documented in this encounter Care Teams Ground Support Equipment Fitter Relationship Specialty Start Date End Date Kate Bailon MD [address] [place] [address] PCP - General Internal Medicine 09/03/19 [facility] 09/22/25 documented as of this encounter
--- OUTSIDE RECORDS SUMMARY | 2025-11-05 13:52 | XMS_ITS | Clinical Summary ---
Author Organization [facility] Address [address] [place] [address] Care Team Providers Care Pastry Chef Name Role Phone Kate Bailon Primary Care [...] patient's age to complete this topic Insurance [facility] MEDICAID Care Teams Pastry Chef Relationship Specialty Start Date End Date Kate Bailon [address] [place] [address] PCP - General Internal Medicine 06/10/24
--- OUTSIDE RECORDS SUMMARY | 2025-11-05 13:52 | XMS_ITS | Clinical Summary ---
Author Organization [facility] Address [address] [place] [address] Phone Care Team Providers Care Insurance Customer Service Specialist Name Role Phone Kate Bailon MD Primary Care Provider [phone] Allergies Active Allergy Reactions Criticality Noted Date [...] Team Description 09/15/2025 Plan of Care Documentation [facility] [address] [place] [phone] 09/08/2025 Plan of Care Documentation [facility] [address] [place] [address] 09/01/2025 Plan of Care Documentation [facility] [address] [place] [phone] 08/25/2025 Plan of Care Documentation [facility] [address] [place] [phone] 08/21/2025 12:29 PM EDT - 09/17/2025 12:00 PM EST Hospital Encounter [facility] [address] [place] [address] Loan Hicks DO Discharge Disposition: Home-Health Care Svc from Last 3 Months Surgical History Surgery Date Site/Laterality Comments SHOULDER SURGERY PROCEDURE: ID UNLISTED PROCEDURE SHOULDER CHOLECYSTECTOMY 1987 PROCEDURE: HISTORICAL [...] - 100 mg/dL 09/17/2025 11:12 AM EST [facility] Blood Capillary blood specimen / Unknown 09/17/2025 11:11 AM EST 09/17/2025 11:14 AM EST us Loan Hicks DO LAB POINT OF CARE TEST DOCKED DEVICE UNSOLICITED RESULTS Final Result [facility] [address] [place] [address], * (ABNORMAL) Complete blood count (09/10/2025 5:19 AM EDT) Only the most recent of5 resultswithin the time period is included. WBC 6.9 4.8 - 10.8 K/[facility] LAB HEMETOLOGY METHOD 09/10/2025 6:39 AM EDT [facility] RBC 3.80 3.80 - 4.80 M/[facility] LAB HEMETOLOGY METHOD 09/10/2025 6:39 AM EDT [facility] Hemoglobin 11.0(L) 11.5 - 16.0 g/dL LAB HEMETOLOGY METHOD 09/10/2025 6:39 AM EDT [facility] Hematocrit 33.2(L) 35.0 - 47.0 % LAB HEMETOLOGY METHOD 09/10/2025 6:39 AM EDT [facility] MCV 88.5 79.0 - 98.0 FL LAB HEMETOLOGY METHOD 09/10/2025 6:39 AM EDT [facility] MCH 29.3 27.0 - 32.0 pcg LAB HEMETOLOGY METHOD 09/10/2025 6:39 AM EDT [facility] MCHC 33.1 32.0 - 37.0 g/dL LAB HEMETOLOGY METHOD 09/10/2025 6:39 AM EDT [facility] RDW 13.7 11.0 - 15.0 % LAB HEMETOLOGY METHOD 09/10/2025 6:39 AM EDT [facility] Platelets 210 130 - 400 K/mcL LAB HEMETOLOGY METHOD 09/10/2025 6:39 AM EDT [facility] MPV 9.0 7.0 - 11.0 FL LAB HEMETOLOGY METHOD 09/10/2025 6:39 AM EDT [facility] NRBC 0.0 <1.0 % LAB HEMETOLOGY METHOD 09/10/2025 6:39 AM EDT [facility] NRBC Absolute 0.00 <0.10 K/mcL LAB HEMETOLOGY METHOD 09/10/2025 6:39 AM EDT [facility] Blood Venous blood specimen / Unknown Venipuncture / Unknown 09/10/2025 5:19 AM EDT 09/10/2025 6:18 AM EDT us Shelly GABRIEL LAB BLOOD ORDERABLES Final R esult [facility] [address] [place] [address], [place] [phone] * Magnesium (09/10/2025 5:19 AM EDT) Only the most recent of4 resultswithin the time period is included. Magnesium 2.1 1.9 - 2.6 mg/dL LAB CHEMISTRY METHOD 09/10/2025 7:56 AM EDT [facility] Blood Venous blood specimen / Unknown Venipuncture / Unknown 09/10/2025 5:19 AM EDT 09/10/2025 6:18 AM EDT Shelly GABRIEL LAB BLOOD ORDERABLES Final R esult [facility] [address] [place] [address], [place] [phone] * (ABNORMAL) Comprehensive metabolic panel (09/10/2025 5:19 AM EDT) Only the most recent of4 resultswithin the time period is included. Pathologist [facility] [place] Sodium 142 133 - 145 mmol/L LAB CHEMISTRY METHOD 09/10/2025 7:56 AM [facility] Potassium 4.1 3.5 - 5.5 mmol/L LAB CHEMISTRY METHOD 09/10/2025 7:56 AM [facility] Chloride 109 96 - 110 mmol/L LAB CHEMISTRY METHOD 09/10/2025 7:56 AM [facility] CO2 27 21 - 32 mmol/L LAB CHEMISTRY METHOD 09/10/2025 7:56 AM [facility] Anion Gap 6 3 - 11 LAB CHEMISTRY METHOD 09/10/2025 7:56 AM [facility] Glucose 131(H) 70 - 100 mg/dL LAB CHEMISTRY METHOD 09/10/2025 7:56 AM [facility] BUN 15 5 - 25 mg/dL LAB CHEMISTRY METHOD 09/10/2025 7:56 AM [facility] Creatinine 0.52 0.50 - 1.10 mg/dL LAB CHEMISTRY METHOD 09/10/2025 7:56 AM [facility] eGFR 107 >=60 mL/min/1. 73m2 LAB CHEMISTRY METHOD 09/10/2025 7:56 AM [facility] Comment:Calculation based on the Chronic Kidney Disease Epidemiology Collaboration (CKD-EPI) equation refit without adjustment for race. BUN/Creatinine Ratio 28.8 LAB CHEMISTRY METHOD 09/10/2025 7:56 AM [facility] Calcium 8.8 8.5 - 10.5 mg/dL LAB CHEMISTRY METHOD 09/10/2025 7:56 AM [facility] AST (SGOT) 11 10 - 42 unit/L LAB CHEMISTRY METHOD 09/10/2025 7:56 AM [facility] ALT (SGPT) 14 10 - 60 unit/L LAB CHEMISTRY METHOD 09/10/2025 7:56 AM [facility] Alkaline Phosphatase 134(H) 42 - 121 unit/L LAB CHEMISTRY METHOD 09/10/2025 7:56 AM [facility] Total Protein 5.6(L) 6.0 - 8.0 g/dL LAB CHEMISTRY METHOD 09/10/2025 7:56 AM [facility] Albumin 3.0(L) 3.2 - 5.0 g/dL LAB CHEMISTRY METHOD 09/10/2025 7:56 AM [facility] Total Bilirubin 0.3 0.0 - 1.4 mg/dL LAB CHEMISTRY METHOD 09/10/2025 7:56 AM [facility] Blood Venous blood specimen / Unknown Venipuncture / Unknown 09/10/2025 5:19 AM EDT 09/10/2025 6:18 AM EDT us Shelly GABRIEL LAB BLOOD ORDERABLES Final R esult Performing Organization Address [facility]/ZIP Co de Phone Number [facility] [address] [place] [address], [place] [phone] * Lavender tube (09/07/2025 5:43 AM EDT) Only the most recent of2 resultswithin the time period is included. [facility] Extra Tube Hold for add-ons. 09/07/2025 8:01 AM EDT [facility] Comment:Auto resulted. Blood Venous blood specimen / Unknown Venipuncture / Unknown 09/07/2025 5:43 AM EDT 09/07/2025 6:04 AM EDT Loan Hicks DO LAB BLOOD ORDERABLES Luz l Result Performing Organization Address [facility]/ZIP Co de Phone Number [facility] [address] [place] [address], [place] [phone] * (ABNORMAL) Basic metabolic panel (09/05/2025 5:31 AM EDT) Only the most recent of2 resultswithin the time period is included. [facility] Sodium 141 133 - 145 mmol/L LAB CHEMISTRY METHOD 09/05/2025 7:39 AM [facility] Potassium 3.5 3.5 - 5.5 mmol/L LAB CHEMISTRY METHOD 09/05/2025 7:39 AM T [facility] Chloride 108 96 - 110 mmol/L LAB CHEMISTRY METHOD 09/05/2025 7:39 AM [facility] CO2 27 21 - 32 mmol/L LAB CHEMISTRY METHOD 09/05/2025 7:39 AM [facility] Anion Gap 6 3 - 11 LAB CHEMISTRY METHOD 09/05/2025 7:39 AM [facility] Glucose 190(H) 70 - 100 mg/dL LAB CHEMISTRY METHOD 09/05/2025 7:39 AM EDT [facility] BUN 13 5 - 25 mg/dL LAB CHEMISTRY METHOD 09/05/2025 7:39 AM EDT [facility] Creatinine 0.49(L) 0.50 - 1.10 mg/dL LAB CHEMISTRY METHOD 09/05/2025 7:39 AM EDT [facility] eGFR 108 >=60 mL/min/1. 73m2 LAB CHEMISTRY METHOD 09/05/2025 7:39 AM EDT [facility] Comment:Calculation based on the Chronic Kidney Disease Epidemiology Collaboration (CKD-EPI) equation refit without adjustment for race. BUN/Creatinine Ratio 26.5 LAB CHEMISTRY METHOD 09/05/2025 7:39 AM EDT [facility] Calcium 8.7 8.5 - 10.5 mg/dL LAB CHEMISTRY METHOD 09/05/2025 7:39 AM EDT [facility] Blood Venous blood specimen / Unknown Venipuncture / Unknown 09/05/2025 5:31 AM EDT 09/05/2025 6:38 AM EDT us Gabby Hightower NP LAB BLOOD ORDERABLES Final Result [facility] [address] [place] [address], * Potassium (08/31/2025 6:56 AM EDT) [facility] Signature Potassium 3.9 3.5 - 5.5 mmol/L LAB CHEMISTRY METHOD 08/31/2025 8:08 AM EDT [facility] Blood Venous blood specimen / Unknown Venipuncture / Unknown 08/31/2025 6:56 AM EDT 08/31/2025 7:19 AM EDT us Gabby Hightower NP LAB BLOOD ORDERABLES Final Result [facility] [address] [place] [address], * Alanine aminotransferase (08/30/2025 5:25 AM EDT) ALT (SGPT) 26 10 - 60 unit/L LAB CHEMISTRY METHOD 08/30/2025 1:09 PM EDT [facility] Blood Venous blood specimen / Unknown Venipuncture / Unknown 08/30/2025 5:25 AM EDT 08/30/2025 5:36 AM EDT Gabby Hightower NP LAB BLOOD ORDERABLES Final Result Performing Organization Address [facility]/ZIP Co de Phone Number [facility] [address] [place] [address], * Aspartate aminotransferase (08/30/2025 5:25 AM EDT) AST (SGOT) 16 10 - 42 unit/L LAB CHEMISTRY METHOD 08/30/2025 1:38 PM EDT [facility] Blood Venous blood specimen / Unknown Venipuncture / Unknown 08/30/2025 5:25 AM EDT 08/30/2025 5:36 AM EDT Loan Hicks DO LAB BLOOD ORDERABLES Luz l Result Performing Organization Address City/[facility]/ZIP Co de Phone Number [facility] [address] [place] [address], * (ABNORMAL) Hemoglobin A1c (08/25/2025 1:04 PM EDT) Hemoglobin A1C 11.1(H) <6.5 % LAB CHEMISTRY METHOD 08/25/2025 2:40 PM EDT [facility] Mean Bld Glu Estim. 272 mg/dL LAB CHEMISTRY METHOD 08/25/2025 2:40 PM EDT [facility] Blood Venous blood specimen / Unknown Venipuncture / Unknown 08/25/2025 1:04 PM EDT 08/25/2025 1:11 PM EDT us Shelly Estrada PA LAB BLOOD ORDERABLES Final R esult Performing Organization Address City/[facility]/ZIP Co de Phone Number [facility] [address] [place] [address], [place] [phone] * SST tube (08/25/2025 1:01 PM EDT) [facility] Extra Tube Hold for add-ons. 08/25/2025 3:02 PM EDT [facility] Comment:Auto resulted. Blood Venous blood specimen / Unknown 08/25/2025 1:01 PM EDT 08/25/2025 1:11 PM EDT Loan Hicks DO LAB BLOOD ORDERABLES Luz l Result Performing Organization Address City/[facility]/ZIP Co de Phone Number [facility] [address] [place] [address], [place] [phone] * (ABNORMAL) CBC auto differential (08/22/2025 5:25 AM EDT) [facility] WBC 9.8 4.8 - 10.8 K/mcL LAB HEMETOLOGY METHOD 08/22/2025 5:39 AM EDT [facility] RBC 4.20 3.80 - 4.80 M/mcL LAB HEMETOLOGY METHOD 08/22/2025 5:39 AM EDT [facility] Hemoglobin 12.2 11.5 - 16.0 g/dL LAB HEMETOLOGY METHOD 08/22/2025 5:39 AM EDT [facility] Hematocrit 36.8 35.0 - 47.0 % LAB HEMETOLOGY METHOD 08/22/2025 5:39 AM T [facility] MCV 88.2 79.0 - 98.0 FL LAB HEMETOLOGY METHOD 08/22/2025 5:39 AM [facility] MCH 29.3 27.0 - 32.0 pcg LAB HEMETOLOGY METHOD 08/22/2025 5:39 AM [facility] MCHC 33.2 32.0 - 37.0 g/dL LAB HEMETOLOGY METHOD 08/22/2025 5:39 AM [facility] RDW 13.2 11.0 - 15.0 % LAB HEMETOLOGY METHOD 08/22/2025 5:39 AM [facility] Platelets 251 130 - 400 K/mcL LAB HEMETOLOGY METHOD 08/22/2025 5:39 AM [facility] MPV 9.1 7.0 - 11.0 FL LAB HEMETOLOGY METHOD 08/22/2025 5:39 AM [facility] NRBC 0.0 <1.0 % LAB HEMETOLOGY METHOD 08/22/2025 5:39 AM [facility] NRBC Absolute 0.00 <0.10 K/mcL LAB HEMETOLOGY METHOD 08/22/2025 5:39 AM [facility] Neutrophils Relative 62.1 % LAB HEMETOLOGY METHOD 08/22/2025 5:39 AM [facility] Lymphocytes Relative 21.0 % LAB HEMETOLOGY METHOD 08/22/2025 5:39 AM [facility] Monocytes Relative 10.8 % LAB HEMETOLOGY METHOD 08/22/2025 5:39 AM [facility] Eosinophils Relative 4.4 % LAB HEMETOLOGY METHOD 08/22/2025 5:39 AM [facility] Basophils Relative 0.6 % LAB HEMETOLOGY METHOD 08/22/2025 5:39 AM EDT [facility] Immature Granulocytes Relative 1.1 % LAB HEMETOLOGY METHOD 08/22/2025 5:39 AM EDT [facility] Neutrophils Absolute 6.05 1.50 - 7.00 K/mcL LAB HEMETOLOGY METHOD 08/22/2025 5:39 AM EDT [facility] Lymphocytes Absolute 2.05 1.00 - 5.00 K/mcL LAB HEMETOLOGY METHOD 08/22/2025 5:39 AM EDT [facility] Monocytes Absolute 1.05(H) 0.20 - 1.00 K/mcL LAB HEMETOLOGY METHOD 08/22/2025 5:39 AM EDT [facility] Eosinophils Absolute 0.43 0.00 - 0.50 K/mcL LAB HEMETOLOGY METHOD 08/22/2025 5:39 AM EDT [facility] Basophils Absolute 0.06 0.00 - 0.20 K/mcL LAB HEMETOLOGY METHOD 08/22/2025 5:39 AM EDT [facility] Immature Granulocytes Absolute 0.11(H) 0.00 - 0.03 K/mcL LAB HEMETOLOGY METHOD 08/22/2025 5:39 AM EDT [facility] Blood Venous blood specimen / Unknown Venipuncture / Unknown 08/22/2025 5:25 AM EDT 08/22/2025 5:32 AM EDT us Claudio Palmer PROPERTY APPRAISER LAB BLOOD ORDERABLES Final Res ult [facility] [address] [place] [address], from Last 3 Months Insurance [facility] Advance Directives Documents on File Type Date Recorded Patient Power Generation Technician Expl anation Advance Directives and Living Will [...] currently active code status orders. Care Teams Insurance Customer Service Specialist Relationship Specialty Start Date End Date Kate Bailon MD [address] [place] [phone] PCP - General Internal Medicine 08/23/25
--- OUTSIDE RECORDS SUMMARY | 2025-11-05 13:53 | XMS_ITS | Clinical Summary ---
Author Organization [email or web address] Address [address] [place] [address] 7 [place] [address] Care Team Providers Care Senior Network Engineer Name Role Phone Kate Bailon MD Primary Care Provider [phone]- [phone] Allergies Active Allergy Reactions Criticality Noted Date Comments Codeine Nausea 02/11/2024 Cephalexin Hives 02/11/2024 Medications Blood Pressure kitIndications: Primary hypertension 1 kit Once per day. 1 kit 024 Active Lancets miscIndications :Type 2 diabetes mellitus with hyperglycemia, with long-term current use of insulin ([facility]) Use to test blood sugar 2 times daily 100 each 11 024 Active Alcohol Swabs 70 % padsIndications :Type 2 diabetes mellitus with hyperglycemia, with long-term current use of insulin ([facility]) Use to test blood sugar 2 times daily 100 each 11 024 Active Blood Glucose Monitoring Suppl (FreeStyle [place] Lite) w/Device kitIndications: Type 2 diabetes mellitus with hyperglycemia, with long-term current use of insulin ([facility]) Use to test blood sugar 2 times [...] Type Department Care Team Description 10/20/2025 Telephone [facility] [address] [place] [address] Kate Bailon MD 10/16/2025 Refill [facility] [address] [place] [address] Kate Bailon MD Other constipation 10/15/2025 1:30 PM EST Office Visit [facility] [address] [place] [address] Kate Bailon MD Hospital discharge follow-up (Primary Dx); Right sided cerebral infarction (CMS/HCC) (HCC); Renal artery stenosis; PVD (peripheral vascular disease); Primary hypertension; Type 2 diabetes mellitus with hyperglycemia, without long-term current use of insulin (HCC); Hypercholesterolemi a; Anxiety; Vitamin D deficiency; Other constipation; Hypomagnesemia 10/15/2025 Travel 10/13/2025 Population Health Risk Score [facility] () Department [address] [place] [address] [phone] Provider, Population Health Generic 09/30/2025 Telephone [facility] [address] [place] [phone] Marlys Braun RN Error (VOID this visit) 09/30/2025 Travel 09/28/2025 Orders Only GENERIC EXTERNAL DATA DEPARTMENT Provider, Generic External Data 09/21/2025 Telephone [facility] [address] [place] [address] Kate Bailon MD verbal orders 09/10/2025 Patient Outreach [facility] [address] [place] [address] Kate Bailon MD Transition Of Care (Tcm) (HDF scheduled. ) 08/20/2025 Telephone [facility] [address] [place] [address] Kate Bailon MD 08/19/2025 Telephone [facility] [address] [place] [address] Kate Bailon MD 08/09/2025 Orders Only [facility] External Provider, [facility] from Last 3 Months Social History Tobacco [...] 1:45 PM EST Office Visit [facility] [address] [place], [place] [phone] Kate Bailon MD [address] [place], [place] [phone] Health Maintenance Due Date Last Done Comments [...] blood pressure task No Natty Garcia MA Help patients manage their type 2 diabetes Care Plan Help patients manage their type 2 diabetes Natty Brownlee MA Patient has chronic kidney disease Care Plan Patient has chronic kidney disease No Natty Garcia MA Help patients manage their type 2 [...] Care Plan Patient has diabetic neuropathy Natty Brownlee, WILDER Weekly blood pressure task Care Plan Weekly [...] Plan Weekly blood pressure task No Natty Gacria MA Weekly blood pressure task Care Plan Weekly blood pressure task No Natty Garcia [place] Weekly blood pressure task Care Plan Weekly blood pressure task No Dougie Garciaa, [place] Patient has chronic kidney disease Care Plan Patient has chronic kidney disease No Dougie Garciaa, [place] Patient has chronic kidney disease Care Plan Patient has chronic kidney disease No Dougie Garciaa, [place] Patient has chronic kidney disease Care Plan Patient has chronic kidney disease No Dougie Garciaa, [place] Patient has diabetic neuropathy Care Plan Patient has diabetic neuropathy No GarciaDougie hurleya, [place] Patient has diabetic neuropathy Care Plan Patient has diabetic neuropathy No Dougie Garciaa, [place] Patient has diabetic neuropathy Care Plan Patient has diabetic neuropathy No Dougie Garciaa, WILDER Weekly blood pressure task Care Plan Weekly blood pressure task No Idania Cyr RN Weekly blood pressure task Care Plan Weekly blood pressure task No Idania Cyr RN Weekly blood pressure task Care Plan Weekly blood pressure task No Idania Cyr, [place] Patient has chronic kidney disease Care Plan Patient has chronic kidney disease No Idania Cyr RN Patient has chronic kidney disease Care Plan Patient has chronic kidney disease No Idania Cyr RN Patient has chronic kidney disease Care [...] Weekly blood pressure task No Guero Billings Patient has chronic kidney disease Care Plan Patient has chronic kidney disease No Guero Billings Patient has chronic kidney disease Care Plan Patient has chronic kidney disease No Guero Billings Patient has chronic kidney disease Care Plan Patient has chronic kidney disease No Guero Billings Patient has diabetic neuropathy [...] included. Sodium 137 135 - 145 mmol/L [facility] Potassium 3.8 3.3 - 5.1 mmol/L [facility] Chloride 102 96 - 108 mmol/L [facility] Carbon Dioxide 25 22 - 29 mmol/L [facility] Anion Gap 14 12 - 20 [facility] Urea Nitrogen (BUN) 12 9 - 16 mg/dL [facility] Creatinine, Serum 0.62 0.5 - 1.4 mg/dL [facility] Estimated Glomerular Filt Rate >60 [facility] Comment:Chronic Kidney Disea se: Estimated GFR < 60 mL/min/1.70s7Pctqbo Kidney Disease: Estimated GFR < 15 mL/min/1.73m2 Glucose 260(H) 60 - 115 mg/dL [facility] Calcium 9.7 8.4 - 10.2 mg/dL [facility] 09/28/2025 1:58 PM EST 09/28/2025 1:58 PM EST us Generic External Data Provider LAB BLOOD ORDERAB LES Final Result [facility] [address] [place] [phone] * MR Brain w/o Contrast (08/10/2025 12:17 PM EDT) Anatomical Region Laterality Modality Brain Magnetic Resonan ce 08/10/2025 12:1 7 PM EDT Narrative 08/10/2025 1:16 PM EDT [address] [address] Magnetic Resonance Report Signed Patient: Blanca Zuniga MR#: [id number] : 1965 Acct:[id number] Age/Sex: 59 / F ADM Date: 08/09/25 Loc: [facility]: Cristiano Sebastian MD Ordering Physician: Malu Albarran MD Date of Service: 08/10/25 Procedure(s): MR head/brain wo con Accession Number(s): [id number] cc: Kate Bailon MD; Malu Albarran MD [...] 08/10/25 1313 DD/ 1217 TD/TT: 08/10/25 1240 Side Stitcher: Procedure Note Donotuseinterpreter, Image - 08/10/2025 [place] [address] Magnetic Resonance Report Signed Patient: Cassi Zuniga#: [id number] : 1965Acct:[id number] Age/Sex: 59 / FADM Date: 08/09/25 Loc: [facility]: Cristiano Sebastian MD Ordering Physician: Malu Albarran MD Date of Service: 08/10/25 Procedure(s): MR head/brain wo con Accession Number(s): [id number] cc: Kate Bailon MD; Malu Albarran MD [...] 08/10/25 1313 DD/ 1217 TD/TT: 08/10/25 1240 Side Stitcher: [facility] External Provider IMG MRI PROCEDURES Final Result * CTA Head Stroke w/ and w/o Contrast (08/09/2025 7:23 PM EDT) Anatomical Region Laterality Modality Computed Tomogra phy 08/09/2025 7:23 PM EDT Narrative 08/09/2025 7:24 PM EDT [place] [address] CT Scan Report Signed Patient: Blanca Zuniga MR#: [id number] : 1965 Acct:[id number] Age/Sex: 59 / F ADM Date: 08/09/25 Loc: .ED Attending Dr: Ordering Physician: Pamela Reynoso DO Date of Service: 08/09/25 Procedure(s): CT angio head neck STROKE Accession Number(s): [id number] cc: Kate Bailon MD; Pamela Reynoso DO Report Number: [id number]: Total DLP = 732.00 mGy-cm Reason for [...] in OV> 08/09/251923 DD/ 22 TD/TT: 08/09/251922 Side Stitcher: Procedure Note Donotuseinterpreter, Image - 08/09/[address] [place] [address] [address] Scan Report Signed Patient: Blanca ZunigaMR#: [id number] : 1965Acct:[id number] Age/Sex: 59 / FADM Date: 08/09/25 Loc: .ED Attending Dr: Ordering Physician: Pamela Reynoso DO Date of Service: 08/09/25 Procedure(s): CT angio head neck STROKE Accession Number(s): [id number] cc: Kate Bailon MD; Pamela Reynoso DO Report Number: [id number]: Total DLP = 732.00 mGy-cm Reason for [...] in OV> 08/09/251923 DD/ 22 TD/TT: 08/09/251922 Side Stitcher: [facility] External Provider IMG CT PROCEDURES Final Result * (ABNORMAL) CBC auto differential (08/09/2025 6:54 PM EDT) White Blood Count 10.3 4.8 - 10.8 X10*3/uL [facility] Red Blood Count 4.41 4.20 - 5.50 X10*6/uL [facility] Hemoglobin 13.4 12.0 - 16.0 g/dl [facility] Hematocrit 36.9(L) 37.0 - 47.0 % [facility] Mean Corpuscular Volume 83.7 80.0 - 98.0 fL [facility] Mean Corpuscular Hemoglobin 30.4 27.0 - 33.0 pg [facility] Mean Corpuscular HGB Conc 36.3(H) 31.0 - 35.0 g/dl [facility] Red Cell Distribution Width 13.0 11.0 - 16.0 % [facility] Platelet Count 230 160 - 400 X10*3/uL [facility] Mean Platelet Volume 8.9(L) 9.4 - 12.3 fL [facility] Neutrophils Percent Auto 62.1 45 - 73 % [facility] Imm Gran Pct Auto 1.4(H) 0.0 - 0.4 % [facility] Lymphocytes Percent Auto 22.9 20 - 40 % [facility] Monocytes Percent Auto 8.5 2 - 11 % [facility] Eosinophils Percent Auto 4.3(H) 0 - 4 % [facility] Basophils Percent Auto 0.8 0 - 2 % [facility] NRBC Pct Auto 0.0 0.0 - 0.2 /100WBC [facility] Neutrophils Absolute Auto 6.4 2.0 - 8.3 x10*3/uL [facility] Imm Gran Abs Auto 0.14(H) 0.00 - 0.03 X10*3/uL [facility] Lymphocytes Absolute Auto 2.4 1.2 - 4.9 X10*3/uL [facility] Monocytes Absolute Auto 0.9 0.1 - 1.2 X10*3/uL [facility] Eosinophils Absolute Auto 0.4 0.0 - 0.4 X10*3/uL [facility] Basophils Absolute Auto 0.1 0.0 - 0.2 X10*3/uL [facility] NRBC Abs Auto 0.000 0.0 - 0.012 X10*3/uL [facility] 08/09/2025 6:54 PM EDT 08/09/2025 6:59 PM EDT us Generic External Data Provider LAB BLOOD ORDERAB LES Final Result [facility] [address] [place] [address] [phone] * Magnesium (08/09/2025 6:54 PM EDT) Magnesium 2.0 1.6 - 2.6 mg/dL [facility] 08/09/2025 6:54 PM EDT 08/09/2025 6:59 PM EDT us Generic External Data Provider LAB BLOOD ORDERAB LES Final Result Performing Organization Address [facility] Co de Phone Number [facility] [address] [place] [phone] * (ABNORMAL) Hepatic Function Panel (08/09/2025 6:54 PM EDT) Bilirubin, Total 0.2 0.0 - 1.0 mg/dL [facility] Bilirubin, Direct <0.2 0.0 - 0.5 mg/dL [facility] Aspartate Amino Transferase 17 5 - 31 U/L [facility] Alanine Aminotransferase <6 0 - 31 U/L [facility] Total Protein 5.7(L) 6.5 - 8.0 g/dL [facility] Albumin Level 3.5 3.5 - 5.0 g/dL [facility] Alkaline Phosphatase 127(H) 39 - 117 U/L [facility] 08/09/2025 6:54 PM EDT 08/09/2025 6:59 PM EDT Generic External Data Provider LAB BLOOD ORDERAB LES Final Result Performing Organization Address [facility] Co de Phone Number [facility] [address] [place] [phone] * (ABNORMAL) Lipid Panel, Standard (08/09/2025 6:54 PM EDT) Triglycerides 498(H) <150 mg/dL [facility] Comment:Desirable Triglyceri de: less than 150 mg/dLBorderline High Triglyceride 150-199 mg/dLHigh Triglyceride: 200-499 mg/dLVery High Triglyceride: greater than or equal to 5OO mg/dL Cholesterol 298(H) <200 mg/dL [facility] Comment:Desirable Cholestero l: less than 200 mg/dLBorderline High Cholesterol: 200-239 mg/dLHigh Cholesterol: greater than 239 mg/dL LDL Cholesterol Calculated TNP <100 mg/dL [facility] Comment:Unable to calculate the LDL. The formula of Friedwald,Almonte, and Ida is only valid if the triglycerides areless than 400 mg/dl. HDL Cholesterol 35(L) >40 mg/dL [facility] Comment:Desirable HDL: great er than 40 mg/dL Note: This HDL assay may give artificially low results in patients with liver disease. 08/09/2025 6:54 PM EDT 08/09/2025 6:59 PM EDT us Generic External Data Provider LAB BLOOD ORDERAB LES Final Result Performing Organization Address City/State/[facility] Co de Phone Number [facility] [address] [place] [address] [phone] * CT Head Stroke w/o Contrast (08/09/2025 6:53 PM EDT) Anatomical Region Laterality Modality Computed Tomogra phy 08/09/2025 6:53 PM EDT Narrative 08/09/2025 6:54 PM EDT [place] [address] CT Scan Report Signed with Hailey Patient: Blanca Zuniga MR#: [id number] : 1965 Acct:[id number] Age/Sex: 59 / F ADM Date: 08/09/25 Loc: .ED Attending Dr: Ordering Physician: Pamela Reynoso DO Date of Service: 08/09/25 Procedure(s): CT head for STROKE Accession Number(s): [id number] cc: Kate Bailon MD; Pamela Reynoso DO Report Number: [id number]: Total DLP = 604.00 mGy-cm Reason for [...] in OV> 08/09/251853 DD/ 52 TD/TT: 08/09/251852 Side Stitcher: Procedure Note Donotuseinterpreter, Image - 08/09/[address] [place] [address] [address] Scan Report Signed with Addenda Patient: Blanca ZunigaMR#: [id number] : 1965Acct:[id number] Age/Sex: 59 / FADM Date: 08/09/25 Loc: HO.ED Attending Dr: Ordering Physician: Pamela Reynoso DO Date of Service: 08/09/25 Procedure(s): CT head for STROKE Accession Number(s): [id number] cc: Kate Bailon MD; Pamela Reynoso DO Report Number: [id number]: Total DLP = 604.00 mGy-cm Reason for [...] in OV> 08/09/251853 DD/ 52 TD/TT: 08/09/251852 Side Stitcher: us [facility] External Provider IMG CT PROCEDURES Edited Result - Final * Lower Extremity Venous Duplex (08/09/2025 11:34 AM EDT) 08/09/2025 11:3 4 AM EDT Narrative [facility] - 08/09/2025 11:59 AM EDT [address] [address] Ultrasound Report Signed Patient: Blanca Zuniga MR#: [id number] : 1965 Acct:[id number] Age/Sex: 59 / F ADM Date: 08/09/25 Loc: HO.ED Attending Dr: Ordering Physician: Zach Tavarez PA-C Date of Service: 08/09/25 Procedure(s): US venous duplex LE LT Accession Number(s): [id number] cc: Zach Tavarez PA-C; Kate Bailon MD [...] 08/09/25 1156 DD/ 1134 TD/TT: 08/09/25 1141 Side Stitcher: Procedure Note Donotuseinterpreter, Image - 08/09/[address] [address] Ultrasound Report Signed Patient: Blanca ZunigaMR#: [id number] : 1965Acct:[id number] Age/Sex: 59 / FADM Date: 08/09/25 Loc: HO.ED Attending Dr: Ordering Physician: Zach Tavarez PA-C Date of Service: 08/09/25 Procedure(s): US venous duplex LE LT Accession Number(s): [id number] cc: Zach Tavarez PA-C; Kate Bailon MD [...] 08/09/25 1156 DD/ 1134 TD/TT: 08/09/25 1141 Side Stitcher: [facility] External Provider CV VASC ULAR PROCEDURES Final Result Performing Organization Address City/State/[facility] Co de Phone Number [facility] [address] [place] [phone] * XR Lumbar Spine 2-3 Views (08/09/2025 10:55 AM EDT) Anatomical Region Laterality Modality Spine, L-spine Radiographic Ivette ging 08/09/2025 10:5 5 AM EDT Narrative 08/09/2025 11:09 AM EDT [address] [address] XRay Report Signed Patient: Blanca Zuniga MR#: [id number] : 1965 Acct:[id number] Age/Sex: 59 / F ADM Date: 08/09/25 Loc: HO.ED Attending Dr: Ordering Physician: Zach Tavarez PA-C Date of Service: 08/09/25 Procedure(s): XR lumbar spine 2-3V Accession Number(s): [id number] cc: Zach Tavarez PA-C; Kate Bailon MD [...] coxofemoral joints not fully included in the erwxv-hs-jaab. Vascular clips right upper quadrant abdomen likely prior cystectomy. XR/XR lumbar spine 2-3V IMPRESSION: Multilevel thoracolumbar spondylosis resulting in grade 1 anterolisthesis L4-5. Atherosclerosis disease. Electronically signed by: Luis Enrique Taylor MD 08/09/2025 11:06 AM EDT Dictated By: Luis Enrique Pineda MD Signed By: <Electronically signed by Luis Enrique Maguire MD in OV> 08/09/25 1106 DD/ 1055 TD/TT: 08/09/25 1101 Side Stitcher: Procedure Note Donotuseinterpreter, Image - 08/09/[address] [address] XRay Report Signed Patient: Cassi Zuniga#: [id number] : 1965Acct:[id number] Age/Sex: 59 / FADM Date: 08/09/25 Loc: HO.ED Attending Dr: Ordering Physician: Zach Tavarez PA-C Date of Service: 08/09/25 Procedure(s): XR lumbar spine 2-3V Accession Number(s): [id number] cc: Zach Tavarez PA-C; Kate Bailon MD [...] coxofemoral joints not fully included in the pktef-zf-tbty. Vascular clips right upper quadrant abdomen likely prior cystectomy. XR/XR lumbar spine 2-3V IMPRESSION: Multilevel thoracolumbar spondylosis resulting in grade 1 anterolisthesis L4-5. Atherosclerosis disease. Electronically signed by: Luis Enrique Taylor MD 08/09/2025 11:06 AM EDT RP Dictated By: Luis Enrique Pineda MD Signed By: <Electronically signed by Luis Enrique Maguire MDin OV> 08/09/25 1106 DD/ 1055 TD/TT: 08/09/25 1101 Side Stitcher: [facility] External Provider IMG XR PROCEDURES Final Result * (ABNORMAL) POCT HGB A1C (07/20/2024 4:37 PM EDT) Hemoglobin A1C 11.1(A) 4.0 - 6.0 % QC Media Lot # [id number] Lot# Expiration Date ,469,862 Blood 07/20/2024 4:37 PM EDT Kate Bailon MD POINT OF CARE TEST ENTER/ED IT ORDERABLES Final Result * Hepatitis C Ab (03/30/2024 2:27 PM EDT) Hepatitis C Antibody Nonreactive Nonreactive [facility] Comment:Antibodies to HCV no t detected; does not exclude early acuteHCV infection. Blood Venous blood specimen / Unknown 03/30/2024 2:27 PM EDT 03/30/2024 2:28 PM EDT us Kate Bailon MD LAB BLOOD ORDERABLES Final Result Performing Organization Address [facility]/ZIP Co de Phone Number [facility] [address] [place] [address] [phone] * HIV-1/2 Antigen and Antibodies, Fourth Generation, with Reflexes (03/30/2024 2:27 PM EDT) Pathologist [facility] HIV AB/AG Nonreactive Nonreactive [facility] Comment:HIV-1 p24 Ag and/or HIV-1/HIV-2 Ab not detected.A test result that is nonreactive does not exclude thepossibility of exposure to or infection with HIV-1 and/orHIV-2. Nonreactive results in this assay for individualswith prior exposure to HIV-1 and/or HIV-2 may be due toantigen and antibody levels that are below the limit ofdetection of this assay.The [employer] HIV Ag/Ab Combo assay result andsupplemental assay results should be interpreted inconjunction with the patient's clinical presentation,history and other laboratory results. If the results areinconsistent with clinical evidence, additional testing issuggested to confirm the result. Blood Venous blood specimen / Unknown 03/30/2024 2:27 PM EDT 03/30/2024 2:28 PM EDT us Kate Bailon MD LAB BLOOD ORDERABLES Final Result Performing Organization Address [facility]/ZIP Co de Phone Number [facility] [address] [place] [phone] [phone] from Last 3 Months or Most [...] 10/20/2025 Patient has diabetic neuropathy 10/20/2025 Insurance [facility] C3 Care Teams Senior Network Engineer Relationship Specialty Start Date End Date Kate Bailon MD [address] [place] [address] PCP - General Internal Medicine 09/03/19 [facility] 09/22/25
--- OUTSIDE RECORDS SUMMARY | 2025-11-05 13:53 | XMS_ITS | Encounter Summary ---
Author Organization [employer] Address [address] [place] [address] Care Team Providers Care Assurance Auditor Name Role Phone Kate Bailon MD Primary Care Provider [phone]- [phone] Reason for Referral * Consultation (Routine) - Closed Specialty Diagnoses / Procedures Referred By Contac t Referred To Contact Gastroenterology Diagnoses Elevated alkaline phosphatase level Kate Bailon MD [address] [place] [address] Phone: tel: fax: Toshia Winkler MD [address] [place] [phone] Phone: tel: fax: Referral ID Status Reason Start Date Expiration Date V isits Requested Visits Authorized [id number] Closed Specialty Services Required 04/30/2024 04/30/2025 1 1 Encounter Details Date Type Department Care Team (Late st Contact Info) Description 04/30/2024 Orders Only [facility] [address] [place], [place] [phone] Kaet Bailon MD [address] [place], [place] [phone] Elevated alkaline phosphatase level (Primary Dx) Social [...] Description 11/23/2025 1:45 PM EST Office Visit [facility] [address] [place] [address] Kate Bailon MD [address] [place] [address] Scheduled Referrals Name Type Priority Associated Diagnoses Order Schedule Referral to Gastroenterology Outpatient Referral Routine Elevated alkaline phosphatase level Expected: 04/30/2024 (Approximate), Expires: 04/30/2025 documented as of this encounter Visit Diagnoses Diagnosis Elevated alkaline phosphatase level- Primary documented in this encounter Care Teams Assurance Auditor Relationship Specialty Start Date End Date Kate Bailon MD [address] [place] [address] PCP - General Internal Medicine 09/03/19 [facility] 09/22/25 documented as of this encounter
--- OUTSIDE RECORDS SUMMARY | 2025-11-05 13:53 | XMS_ITS | Encounter Summary ---
Author Organization [email or web address] Address [address] [place] [address] [address] [place] [address] Care Team Providers Care Aircraft Engine Mechanic Name Role Phone Kate Bailon MD Primary Care Provider [phone]- [phone] Reason for Referral * Consultation (Routine) - Closed Specialty Diagnoses / Procedures Referred By Contac t Referred To Contact Dermatology Diagnoses Neoplasm of uncertain behavior Kate Bailon MD [address] [place] [address] Phone: tel: fax: [facility] Dermatology [address] [place] [address] [address] [place], [place] Phone: tel: fax: Referral ID Status Reason Start Date Expiration Date V isits Requested Visits Authorized [id number] Closed Specialty Services Required 06/08/2024 06/08/2025 1 1 Encounter Details Date Type Department Care Team (Late st Contact Info) Description 06/08/2024 Orders Only [facility] [address] [place] [address] Kate Bailon MD [address] [place] [address] Neoplasm of uncertain behavior (Primary Dx) Social [...] Description 11/23/2025 1:45 PM EST Office Visit [facility] [address] [place] [address] Kate Bailon MD [address] [place] [address] Scheduled Referrals Name Type Priority Associated Diagnoses Order Schedule Referral to Dermatology Outpatient Referral Routine Neoplasm of uncertain behavior Expected: 06/08/2024 (Approximate), Expires: 06/08/2025 documented as of this encounter Visit Diagnoses Diagnosis Neoplasm of uncertain behavior- Primary Neoplasm of uncertain behavior, site unspecified documented in this encounter Care Teams Aircraft Engine Mechanic Relationship Specialty Start Date End Date Kate Bailon MD [address] [place] [address] PCP - General Internal Medicine 09/03/19 [facility] 09/22/25 documented as of this encounter
--- OUTSIDE RECORDS SUMMARY | 2025-11-05 13:53 | XMS_ITS | Encounter Summary ---
Author Organization [employer] Address [address] [place] [id number] Care Team Providers Care Extruding Department Supervisor Name Role Phone Kate Bailon MD Primary Care Provider [phone] Encounter Details Date Type Department Care Team ([facility] Contact Info) Description 06/12/2024 Orders Only [facility] [address] [place] [address] ProviderAbner MD Social History Tobacco Use Types [...] Upcoming Encounters Date Type Department Care Team ([facility] Contact Info) Description 11/23/2025 1:45 PM EST Office Visit [facility] [address], [place] [phone] Kate Bailon MD [address] [place] [address] documented as of this encounter Procedures Procedure Name Priority Date/Time Associated Diagnosis Comments DERMATOPATHOLOGY REPORT Routine 06/02/20 24 11:31 AM EDT documented in this encounter Results * Dermatopathology Report (06/02/2024 11:31 AM EDT) us Historical Provider LAB BLOOD ORDERABLES Luz l Result documented in this encounter Visit Diagnoses Not on filedocumented in this encounter Care Teams Extruding Department Supervisor Relationship Specialty Start Date End Date Kate Bailon MD [address] [place] [phone] PCP - General Internal Medicine 09/03/19 [place] 09/22/25 documented as of this encounter
--- NOTE | 2025-11-05 13:56 | A.OFFVIS_ITS ---
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 Required: No Accompanied by: Daughter Allergies cephalexin (From KEFLEX) Allergy (Severe, Verified 11/05/25 13:59) HIVES codeine (CODEINE) Allergy (Intermediate, Verified 11/05/25 13:59) NAUSEA & VOMITING, nausea and vomiting dulaglutide (Trulicity) Allergy (Intermediate, Verified 11/05/25 13:59) abdominal pain Cephalosporins Allergy (Intermediate, Uncoded 08/09/25 18:13) Hives seasonal Allergy (Intermediate, Uncoded 08/09/25 18:13) Itchy Eyes Medication List - Last Reconciled 11/05/25 by Darrel Townsend NP amlodipine 10 mg PO DAILY apixaban (Eliquis) 5 mg PO BID aspirin 81 mg PO DAILY atorvastatin 80 mg PO BEDTIME blood sugar diagnostic (FreeStyle Lite Strips) As directed cyclobenzaprine 5 mg PO TID PRN docusate sodium (Colace) 100 mg PO DAILY gabapentin 300 mg PO BEDTIME labetalol 300 mg PO BID losartan 100 mg PO DAILY magnesium oxide 400 mg PO DAILY spironolactone 25 mg PO DAILY HPI Comments Details: This is a 59-year-old female patient coming in for a follow-up visit status post ILR implantation, accompanied by her daughter. Patient with a history of hypertension, hyperlipidemia, diabetes, bilateral renal artery stenosis follows Dr. Samano, and embolic stroke multiple acute infarcts on MRI at the end of July. Patient has had a cardiac even monitor back in 2021 showing no significant arrhythmias and recent echo with bubble study was negative for an a PFO. Given her multiple acute infarcts on MRI, patient underwent an ILR implantation with Dr. Hough on 10/27/2025 to assess for AFib or any significant arrhythmias. Today, patient is reporting feeling well overall without any symptoms of exertional chest pain, shortness breath, palpitations, dizziness, orthopnea, PND, leg edema, presyncope, or syncope. Patient is reporting compliance with all medications and states that her left-sided weakness is improving. Patient has been having issues with high blood pressure for which we had increased her losartan at the previous visit. Patient most recently had seen PCP who had started her on spironolactone as well. Patient states that blood pressures are better now at home. [facility] Medical History Hypertension, uncontrolled PAD (peripheral artery disease) Abnormal EKG Acute occlusion of artery of lower extremity Strain of right gastrocnemius muscle Abscess of left groin Squamous cell cancer of skin of forearm Skin lesion of left arm FH: cholecystectomy Diabetes HTN (hypertension) Surgical History History of nasal surgery (~08/2024) H/O colonoscopy S/P angiogram of extremity (10/04/21) History of cholecystectomy S/P shoulder surgery History of tubal ligation Family History Father No problems noted. 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 Review of Systems Const Denies daytime sleepiness, Denies difficulty sleeping, Denies snoring, Denies stops breathing during sleep and Denies weakness Card Denies chest pain, Denies rapid heart rate, Denies irregular heart rhythm, Denies claudication, Denies leg edema, Denies lightheadedness, Denies palpitations, Denies dyspnea, Denies dyspnea on exertion, Denies orthopnea, Denies paroxysmal nocturnal dyspnea and Denies slow heart rate Resp Denies cough, Denies dyspnea, Denies dyspnea on exertion and Denies snoring GI Reports no additional complaints, Denies hematochezia, Denies change in stool character and Denies dyspepsia Musc Denies abnormal gait, Denies muscle weakness and Denies numbness Neuro Denies abnormal gait, Denies numbness and Denies weakness Endo Denies palpitations Physical Exam Vital Signs: Last Vital Signs Pulse 88 11/05/25 14:04 BP 130/62 11/05/25 14:04 Const General: cooperative, healthy appearing, comfortable and no acute distress Orientation/consciousness: patient oriented x3 HEENT Head: Yes normal to inspection Neck Neck: Yes normal visual inspection, Yes trachea midline and Yes supple Chest Chest palpation & inspection: normal inspection of the chest Resp Effort & Inspection: normal respiratory effort Auscultation: clear to auscultation bilaterally, no crackles, no rales, no rhonchi and no wheezes Cardio Jugular venous distension: no JVD Palpation: normal PMI Rate: regular rate Rhythm: regular rhythm Heart sounds: S1 normal heart sound present, S2 normal heart sound present, no click, no gallops, no murmurs and no rubs Peripheral pulses: Peripheral pulses 2+ throughout GI Inspection: Yes normal to inspection Palpation (GI): Soft to palpation Auscultation: normal bowel sounds Skin Other: Dressing to the incision site is clean dry and intact. Neuro General: patient oriented x3 Extrem Other: Left-sided hemiparesis General: No no pedal edema Psych Appearance: grossly normal Mental Status: mental status grossly normal Speech and movement: Normal speech and movement present Assessment & Plan Assessment & Plan (1) CVA (cerebral vascular accident): Code(s): I63.9 - Cerebral infarction, unspecified Category: Medical Plan: Late July, patient was in the hospital for left-sided weakness and underwent imaging that confirmed multiple acute infarcts on MRI. Continue Eliquis and statin therapy. No reported signs of bleeding. Echo with bubble study on 08/11/2025 was negative for intra-atrial shunt. Echo showed a normal LV systolic function with an ejection fraction at 65%, and severely increased LV wall thickness. Back in 2021, patient had undergone cardiac event monitoring that showed sinus rhythm with no significant arrhythmias. Patient underwent ILR placement with Dr. Hough on [id number] without any complications. On exam today, dressing to the incision site for implantable loop recorder is clean dry and intact. No erythema, swelling, drainage, or hematoma noted. Reinforced on wound care. We will continue to remotely monitor the ILR. Patient also underwent a sleep study to assess for sleep apnea and this was positive for mild sleep apnea. Given her history of the stroke, referral to pulmonology has been placed for further management. (2) Visit for wound check: Code(s): Z51.89 - Encounter for other specified aftercare Plan: As above. (3) Status post placement of implantable loop recorder: Code(s): Z95.818 - Presence of other cardiac implants and grafts Category: Medical Plan: As above. (4) Uncontrolled hypertension: Code(s): I10 - Essential (primary) hypertension Category: Medical Plan: Blood pressure today is well-controlled. Continue current regimen with a blood pressure goal less than 130/80. Advised on low salt diet. (5) High cholesterol: Code(s): E78.00 - Pure hypercholesterolemia, unspecified Category: Medical Plan: Continue statin therapy with an LDL less than 70. Plan to repeat lipid profile in the next month. (6) Uncontrolled diabetes mellitus with hyperglycemia: Code(s): E11.65 - Type 2 diabetes mellitus with hyperglycemia Category: Medical Qualifiers: Diabetes mellitus type: type 2 Qualified Code(s): E11.65 - Type 2 diabetes mellitus with hyperglycemia Plan: Continue aggressive diabetes management with an A1c goal less than 8%. Followed by PCP. Advised on heart healthy diet, exercise as tolerated, med compliance, and aggressive management of vascular risk factors. Follow up in 6 months, in the interim, patient will call the office with any concerns or change in symptoms. This note was generated using voice recognition software. While every effort has been made to ensure accuracy and proper clinical rehabilitation coordinator, there may be occasional errors that could affect the content or meaning of the described symptoms. Medications: New spironolactone 50 mg PO DAILY 90 tabs 0RF Coding Level of Care Code Est Pt Level 4 (51424) Add On Problem Visit Only Diagnoses CVA (cerebral vascular accident) I63.9 Visit for wound check Z51.89 Status post placement of implantable loop recorder Z95.818 Uncontrolled hypertension I10 High cholesterol E78.00 Uncontrolled type 2 diabetes mellitus with hyperglycemia E11.65 Diabetes mellitus type: type 2 Time Spent (min) 31 Comment Time spent in reviewing the chart, test results, assessment, counseling and documentation.
[2025-11-05 14:04] VITALS: BP 130/62; PULSE 88
== END 2025-11-05 14:17 | disposition home or self-care (01) ==
LOC: HO.HCS 13:50
PROVIDERS: PCP Internal Medicine
DX: I63.9 Cerebral infarction, unspecified (principal); Z51.89 Encounter for other specified aftercare; Z95.818 Presence of other cardiac implants and grafts; I10 Essential (primary) hypertension; E78.00 Pure hypercholesterolemia, unspecified; E11.65 Type 2 diabetes mellitus with hyperglycemia
CPT/HCPCS: 99214

== ENCOUNTER → 2025-11-05 13:49 | Outpatient (BNVA) | payer MEDICAID, SELFPAY | PROVIDERS: PCP Internal Medicine | DX: Z51.89 Encounter for other specified aftercare (principal); I63.9 Cerebral infarction, unspecified; I10 Essential (primary) hypertension; E78.00 Pure hypercholesterolemia, unspecified; E11.65 Type 2 diabetes mellitus with hyperglycemia; Z95.818 Presence of other cardiac implants and grafts; Z79.899 Other long term (current) drug therapy; Z79.01 Long term (current) use of anticoagulants | CPT/HCPCS: 99212 ==

== ENCOUNTER 2025-11-10 15:23 | Outpatient (AMB) | payer MEDICAID, SELFPAY ==
--- NOTE | 2025-11-10 15:35 | A.OFFVIS_ITS ---
Intake Visit Reasons: stroke, seen in ER Allergies cephalexin (From KEFLEX) Allergy (Severe, Verified 11/05/25 13:59) HIVES codeine (CODEINE) Allergy (Intermediate, Verified 11/05/25 13:59) NAUSEA & VOMITING, nausea and vomiting dulaglutide (Trulicity) Allergy (Intermediate, Verified 11/05/25 13:59) abdominal pain Cephalosporins Allergy (Intermediate, Uncoded 08/09/25 18:13) Hives seasonal Allergy (Intermediate, Uncoded 08/09/25 18:13) Itchy Eyes HPI Comments Details: The patient is a 59 year old female presenting for a follow-up visit after a recent stroke. She experienced a right-sided stroke on August 09, which initially presented as left-sided weakness, starting with stumbling in her left foot. Following hospitalization, she was in rehabilitation at [facility] for 7.5 weeks and was discharged home on September 17. The patient reports significant improvement; she is now walking and regaining movement in her left arm. Her current care includes a visiting nurse 3 days a week and both occupational and physical therapy twice a week each. Regarding the stroke etiology, she denies a known history of heart disease. 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 Her blood pressure is reported as good, with a history of only marginally high levels. She is taking baby aspirin and Eliquis. For post-stroke mood changes, she was prescribed Lexapro and reports her mood is okay. [facility] Medical History Hypertension, uncontrolled PAD (peripheral artery disease) Abnormal EKG Acute occlusion of artery of lower extremity Strain of right gastrocnemius muscle Abscess of left groin Squamous cell cancer of skin of forearm Skin lesion of left arm FH: cholecystectomy Diabetes HTN (hypertension) Surgical History History of nasal surgery (~08/2024) H/O colonoscopy S/P angiogram of extremity (10/04/21) History of cholecystectomy S/P shoulder surgery History of tubal ligation Family History Father No problems noted. 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 HEENT:?No headache, vision changes, hearing loss, nasal congestion, sore throat. Cardiovascular:?No chest pain, palpitations, orthopnea, PND, or leg swelling. Respiratory:?No cough, shortness of breath, wheezing, or hemoptysis. Gastrointestinal:?No nausea, vomiting, abdominal pain, diarrhea, or constipation. Genitourinary:?No dysuria, frequency, incontinence, or hematuria. Musculoskeletal:?No joint pain, stiffness, weakness, or muscle aches. Neurological:? Complain of left-sided weakness and difficulty walking Psychiatric:? Complain of anxiety Endocrine:?No heat/cold intolerance, polydipsia, polyuria, or hair/skin changes. Hematologic/Lymphatic:?No easy bruising, bleeding, or lymphadenopathy. Integumentary (Skin):?No rash, lesions, itching, or color changes. Allergic/Immunologic:?No seasonal allergies, hives, or recurrent infections. Physical Exam Neuro Other: Mental Status: Alert and oriented to person, place, and time. Normal attention. Normal spontaneous speech, fluency, and comprehension. No obvious issues with mood and memory. Affect is appropriate. Cranial Nerves: CN II: Visual limon full to confrontation, visual acuity intact. CN III, IV, : Pupils equal, round, reactive to light and accommodation. Extraocular movements are normal. CN V: Facial sensation is normal. CN VII: Mild left-sided central type facial weakness CN VIII: Hearing intact to bedside conversation is normal. CN IX, X: Palate elevates symmetrically. CN XI: Shoulder shrug and head turn symmetrical. CN XII: Tongue midline without atrophy or fasciculations. Motor: Moderate left hemiparesis arm more than leg Coordination: [id number] on right side is okay. Gait and Station: In a wheelchair. Extrapyramidal: Full facial expressions and blinking. No rigidity. Movements are appropriate with no tremor or abnormality. Speech: Normal; no dysarthria or tremor. Results Reviewed Results Reviewed: HISTORY: Left-sided weakness TECHNIQUE: Sagittal T1, and axial diffusion weighted MR images of the brain were obtained. The patient became claustrophobic and refused the remainder of the study. COMPARISON: Correlation is made with an unenhanced head CT dated 08/09/2025. FINDINGS: The pituitary is normal in size. The cerebellar tonsils are normally located. Diffusion-weighted images demonstrate multiple small acute infarcts involving the right basal ganglia, right mendez radiata, and right frontal and parietal lobes (all in the MCA distribution). There is no mass effect or midline shift. MR/MR head/brain wo con IMPRESSION: Multiple acute right-sided infarcts as described. The examination is otherwise limited as the patient terminated the examination. Findings were sent to Dr. Cristiano Sebastian on 08/10/2025 at 1:10 PM and immediately acknowledged. [place] [address] CT Scan Report Signed Patient: Blanca Zuniga MR#: [id number] : 1965 Acct:[id number] Age/Sex: 59 / F ADM Date: 08/09/25 Loc: HO.ED Attending Dr: Ordering Physician: Pamela Reynoso DO Date of Service: 08/09/25 Procedure(s): CT angio head neck STROKE Accession Number(s): [id number] cc: Kate Bailon MD; Pamela Reynoso DO~ Report Number: [id number]: Total DLP = 732.00 mGy-cm Reason for Exam: HTN, L sided weakness CLINICAL HISTORY: HTN, L sided weakness CTA HEAD WITH CONTRAST, 3D POSTPROCESSING CTA NECK WITH CONTRAST, WITH 3D POSTPROCESSING Comparison: CT/SR - CT HEAD FOR STROKE - 08/09/25 18:27 EDT Findings: Aortic arch: Prominent atherosclerotic changes in the three-vessel arch including the branch origins which appear patent. Vertebral arteries: No occlusion or dissection. Extracranial carotid arteries: No occlusion, aneurysm or dissection. Mixed plaque formation with chunky calcific plaque in the bilateral carotid bifurcations. There is at least 50% stenosis per NASCET criteria. No flow-limiting stenosis in the bilateral proximal ICAs. Intracranial carotid arteries: Prominent calcific plaque with no occlusion or definite flow limiting stenosis. Vertebrobasilar system: Patent. Cerebellar arteries: Patent. Posterior cerebral arteries: Patent. No occlusion or aneurysm. Anterior cerebral arteries: Patent. No occlusion or aneurysm. Middle cerebral arteries: Patent. No occlusion or aneurysm. No enhancing intracranial mass lesion. Dural venous sinuses are patent. No enhancing cervical mass or fluid collection. Multiple nonenlarged cervical and submandibular lymph nodes are nonspecific. Probable multinodular thyroid gland. No acute abnormalities in the included lungs. No acute osseous abnormalities. Impression: 1. Patent head and neck CTA. This document has been electronically signed by: Seda Blanco DO on 08/09/2025 19:23:28 CT HEAD WITHOUT CONTRAST Comparison: None provided Findings: No acute intracranial hemorrhage, extra-axial fluid collection, hydrocephalus or midline shift. Age appropriate generalized parenchymal atrophy. There are periventricular and subcortical white matter hypodensities which are nonspecific but most likely related to microangiopathic gliosis. Intracranial arteriosclerosis. No evidence for acute large territorial infarct. There is no sinus or mastoid fluid. Nonspecific mucosal thickening in the left maxillary sinus. Visualized orbits: No acute abnormalities. There is no acute fracture. IMPRESSION: 1. No acute intracranial process. Assessment & Plan Assessment & Plan (1) Cerebral infarction: Code(s): I63.9 - Cerebral infarction, unspecified Category: Medical Qualifiers: Cerebral infarction mechanism: unspecified mechanism Qualified Code(s): I63.9 - Cerebral infarction, unspecified Plan Impression: a: Right mendez radiata area ischemic probably embolic infarct b: Left hemiparesis, arm more than leg Rec: a: She already has an internal loop recorder to r/o a fibb b: Continue aspirin for now I discussed the patient's ongoing recovery from her stroke. I explained that while her leg should continue to improve, recovery of her arm and hand function will likely take a longer time. We reviewed that the cause of her stroke is being investigated, with a high suspicion of a cardiac origin, which is why she is on Eliquis. I noted the recent placement of a loop recorder and explained that she would stay on Eliquis if a cardiac issue is confirmed. In response to a query, I clarified that hypertension was a less likely cause, as her blood pressure was only marginally high and the stroke imaging did not suggest a hypertensive origin. I recommended she continue her current treatments and therapies and scheduled a follow-up in six months. Coding Level of Care Code Est Pt Level 4 (69730) Diagnoses Cerebral infarction, unspecified mechanism I63.9 Cerebral infarction mechanism: unspecified mechanism
--- OUTSIDE RECORDS SUMMARY | 2025-11-10 15:58 | XMS_ITS | Clinical Summary ---
Author Organization [facility] Address [address] [place] [address] Phone Care Team Providers Care Art Glass Setter Name Role Phone Kate Bailon MD Primary Care Provider +1 -[phone] Allergies Active Allergy Reactions Criticality Noted Date [...] Team Description 09/15/2025 Plan of Care Documentation [facility] [address] [place] [phone] 09/08/2025 Plan of Care Documentation [facility] [address] [place] [address] 09/01/2025 Plan of Care Documentation [facility] [address] [place] [phone] 08/25/2025 Plan of Care Documentation [facility] [address] [place] [phone] 08/21/2025 12:29 PM EDT - 09/17/2025 12:00 PM EST Hospital Encounter [facility] [address] [place] [address] Loan Hicks DO Discharge Disposition: Home-Health Care Svc from Last 3 Months Surgical History Surgery Date Site/Laterality Comments SHOULDER SURGERY PROCEDURE: [place] UNLISTED PROCEDURE SHOULDER CHOLECYSTECTOMY 1987 PROCEDURE: HISTORICAL [...] - 100 mg/dL 09/17/2025 11:12 AM EST [facility] Blood Capillary blood specimen / Unknown 09/17/2025 11:11 AM EST 09/17/2025 11:14 AM EST us Loan Hicks DO LAB POINT OF CARE TEST DOCKED DEVICE UNSOLICITED RESULTS Final Result [facility] [address] [place] [address], * (ABNORMAL) Complete blood count (09/10/2025 5:19 AM EDT) Only the most recent of5 resultswithin the time period is included. WBC 6.9 4.8 - 10.8 K/[facility] LAB HEMETOLOGY METHOD 09/10/2025 6:39 AM EDT [facility] RBC 3.80 3.80 - 4.80 M/[facility] LAB HEMETOLOGY METHOD 09/10/2025 6:39 AM EDT [facility] Hemoglobin 11.0(L) 11.5 - 16.0 g/dL LAB HEMETOLOGY METHOD 09/10/2025 6:39 AM EDT [facility] Hematocrit 33.2(L) 35.0 - 47.0 % LAB HEMETOLOGY METHOD 09/10/2025 6:39 AM EDT [facility] MCV 88.5 79.0 - 98.0 FL LAB HEMETOLOGY METHOD 09/10/2025 6:39 AM EDT [facility] MCH 29.3 27.0 - 32.0 pcg LAB HEMETOLOGY METHOD 09/10/2025 6:39 AM EDT [facility] MCHC 33.1 32.0 - 37.0 g/dL LAB HEMETOLOGY METHOD 09/10/2025 6:39 AM EDT [facility] RDW 13.7 11.0 - 15.0 % LAB HEMETOLOGY METHOD 09/10/2025 6:39 AM EDT [facility] Platelets 210 130 - 400 K/mcL LAB HEMETOLOGY METHOD 09/10/2025 6:39 AM EDT [facility] MPV 9.0 7.0 - 11.0 FL LAB HEMETOLOGY METHOD 09/10/2025 6:39 AM EDT [facility] NRBC 0.0 <1.0 % LAB HEMETOLOGY METHOD 09/10/2025 6:39 AM EDT [facility] NRBC Absolute 0.00 <0.10 K/mcL LAB HEMETOLOGY METHOD 09/10/2025 6:39 AM EDT [facility] Blood Venous blood specimen / Unknown Venipuncture / Unknown 09/10/2025 5:19 AM EDT 09/10/2025 6:18 AM EDT us Shelly GABRIEL LAB BLOOD ORDERABLES Final R esult [facility] [address] [place] [address], [place] [phone] * Magnesium (09/10/2025 5:19 AM EDT) Only the most recent of4 resultswithin the time period is included. Magnesium 2.1 1.9 - 2.6 mg/dL LAB CHEMISTRY METHOD 09/10/2025 7:56 AM EDT [facility] Blood Venous blood specimen / Unknown Venipuncture / Unknown 09/10/2025 5:19 AM EDT 09/10/2025 6:18 AM EDT Shelly GABRIEL LAB BLOOD ORDERABLES Final R esult [facility] [address] [place] [address], [place] [phone] * (ABNORMAL) Comprehensive metabolic panel (09/10/2025 5:19 AM EDT) Only the most recent of4 resultswithin the time period is included. Pathologist [facility] Sodium 142 133 - 145 mmol/L LAB CHEMISTRY METHOD 09/10/2025 7:56 AM [facility] Potassium 4.1 3.5 - 5.5 mmol/L LAB CHEMISTRY METHOD 09/10/2025 7:56 AM [facility] Chloride 109 96 - 110 mmol/L LAB CHEMISTRY METHOD 09/10/2025 7:56 AM [facility] CO2 27 21 - 32 mmol/L LAB CHEMISTRY METHOD 09/10/2025 7:56 AM [facility] Anion Gap 6 3 - 11 LAB CHEMISTRY METHOD 09/10/2025 7:56 AM [facility] Glucose 131(H) 70 - 100 mg/dL LAB CHEMISTRY METHOD 09/10/2025 7:56 AM [facility] BUN 15 5 - 25 mg/dL LAB CHEMISTRY METHOD 09/10/2025 7:56 AM [facility] Creatinine 0.52 0.50 - 1.10 mg/dL LAB CHEMISTRY METHOD 09/10/2025 7:56 AM [facility] eGFR 107 >=60 mL/min/1. 73m2 LAB CHEMISTRY METHOD 09/10/2025 7:56 AM [facility] Comment:Calculation based on the Chronic Kidney Disease Epidemiology Collaboration (CKD-EPI) equation refit without adjustment for race. BUN/Creatinine Ratio 28.8 LAB CHEMISTRY METHOD 09/10/2025 7:56 AM [facility] Calcium 8.8 8.5 - 10.5 mg/dL LAB CHEMISTRY METHOD 09/10/2025 7:56 AM [facility] AST (SGOT) 11 10 - 42 unit/L LAB CHEMISTRY METHOD 09/10/2025 7:56 AM [facility] ALT (SGPT) 14 10 - 60 unit/L LAB CHEMISTRY METHOD 09/10/2025 7:56 AM [facility] Alkaline Phosphatase 134(H) 42 - 121 unit/L LAB CHEMISTRY METHOD 09/10/2025 7:56 AM [facility] Total Protein 5.6(L) 6.0 - 8.0 g/dL LAB CHEMISTRY METHOD 09/10/2025 7:56 AM [facility] Albumin 3.0(L) 3.2 - 5.0 g/dL LAB CHEMISTRY METHOD 09/10/2025 7:56 AM [facility] Total Bilirubin 0.3 0.0 - 1.4 mg/dL LAB CHEMISTRY METHOD 09/10/2025 7:56 AM [facility] Blood Venous blood specimen / Unknown Venipuncture / Unknown 09/10/2025 5:19 AM EDT 09/10/2025 6:18 AM EDT us Shelly GABRIEL LAB BLOOD ORDERABLES Final R esult Performing Organization Address [facility]/ZIP Co de Phone Number [facility] [address] [place] [address], [place] [phone] * Lavender tube (09/07/2025 5:43 AM EDT) Only the most recent of2 resultswithin the time period is included. [facility] Extra Tube Hold for add-ons. 09/07/2025 8:01 AM EDT [facility] Comment:Auto resulted. Blood Venous blood specimen / Unknown Venipuncture / Unknown 09/07/2025 5:43 AM EDT 09/07/2025 6:04 AM EDT Loan Hicks DO LAB BLOOD ORDERABLES Luz l Result Performing Organization Address [facility]/ZIP Co de Phone Number [facility] [address] [place] [address], [place] [phone] * (ABNORMAL) Basic metabolic panel (09/05/2025 5:31 AM EDT) Only the most recent of2 resultswithin the time period is included. [facility] Sodium 141 133 - 145 mmol/L LAB CHEMISTRY METHOD 09/05/2025 7:39 AM [facility] Potassium 3.5 3.5 - 5.5 mmol/L LAB CHEMISTRY METHOD 09/05/2025 7:39 AM T [facility] Chloride 108 96 - 110 mmol/L LAB CHEMISTRY METHOD 09/05/2025 7:39 AM [facility] CO2 27 21 - 32 mmol/L LAB CHEMISTRY METHOD 09/05/2025 7:39 AM [facility] Anion Gap 6 3 - 11 LAB CHEMISTRY METHOD 09/05/2025 7:39 AM [facility] Glucose 190(H) 70 - 100 mg/dL LAB CHEMISTRY METHOD 09/05/2025 7:39 AM EDT [facility] BUN 13 5 - 25 mg/dL LAB CHEMISTRY METHOD 09/05/2025 7:39 AM EDT [facility] Creatinine 0.49(L) 0.50 - 1.10 mg/dL LAB CHEMISTRY METHOD 09/05/2025 7:39 AM EDT [facility] eGFR 108 >=60 mL/min/1. 73m2 LAB CHEMISTRY METHOD 09/05/2025 7:39 AM EDT [facility] Comment:Calculation based on the Chronic Kidney Disease Epidemiology Collaboration (CKD-EPI) equation refit without adjustment for race. BUN/Creatinine Ratio 26.5 LAB CHEMISTRY METHOD 09/05/2025 7:39 AM EDT [facility] Calcium 8.7 8.5 - 10.5 mg/dL LAB CHEMISTRY METHOD 09/05/2025 7:39 AM EDT [facility] Blood Venous blood specimen / Unknown Venipuncture / Unknown 09/05/2025 5:31 AM EDT 09/05/2025 6:38 AM EDT us Gabby Hightower NP LAB BLOOD ORDERABLES Final Result [facility] [address] [place] [address], * Potassium (08/31/2025 6:56 AM EDT) [facility] Signature Potassium 3.9 3.5 - 5.5 mmol/L LAB CHEMISTRY METHOD 08/31/2025 8:08 AM EDT [facility] Blood Venous blood specimen / Unknown Venipuncture / Unknown 08/31/2025 6:56 AM EDT 08/31/2025 7:19 AM EDT us Gabby Hightower NP LAB BLOOD ORDERABLES Final Result [facility] [address] [place] [address], * Alanine aminotransferase (08/30/2025 5:25 AM EDT) ALT (SGPT) 26 10 - 60 unit/L LAB CHEMISTRY METHOD 08/30/2025 1:09 PM EDT [facility] Blood Venous blood specimen / Unknown Venipuncture / Unknown 08/30/2025 5:25 AM EDT 08/30/2025 5:36 AM EDT Gabby Hightower NP LAB BLOOD ORDERABLES Final Result Performing Organization Address [facility]/ZIP Co de Phone Number [facility] [address] [place] [address], * Aspartate aminotransferase (08/30/2025 5:25 AM EDT) AST (SGOT) 16 10 - 42 unit/L LAB CHEMISTRY METHOD 08/30/2025 1:38 PM EDT [facility] Blood Venous blood specimen / Unknown Venipuncture / Unknown 08/30/2025 5:25 AM EDT 08/30/2025 5:36 AM EDT Loan Hicks DO LAB BLOOD ORDERABLES Luz l Result Performing Organization Address City/[facility]/ZIP Co de Phone Number [facility] [address] [place] [address], * (ABNORMAL) Hemoglobin A1c (08/25/2025 1:04 PM EDT) Hemoglobin A1C 11.1(H) <6.5 % LAB CHEMISTRY METHOD 08/25/2025 2:40 PM EDT [facility] Mean Bld Glu Estim. 272 mg/dL LAB CHEMISTRY METHOD 08/25/2025 2:40 PM EDT [facility] Blood Venous blood specimen / Unknown Venipuncture / Unknown 08/25/2025 1:04 PM EDT 08/25/2025 1:11 PM EDT us Shelly Estrada PA LAB BLOOD ORDERABLES Final R esult Performing Organization Address City/[facility]/ZIP Co de Phone Number [facility] [address] [place] [address], [place] [phone] * SST tube (08/25/2025 1:01 PM EDT) [facility] Extra Tube Hold for add-ons. 08/25/2025 3:02 PM EDT [facility] Comment:Auto resulted. Blood Venous blood specimen / Unknown 08/25/2025 1:01 PM EDT 08/25/2025 1:11 PM EDT Loan Hicks DO LAB BLOOD ORDERABLES Luz l Result Performing Organization Address City/[facility]/ZIP Co de Phone Number [facility] [address] [place] [address], [place] [phone] * (ABNORMAL) CBC auto differential (08/22/2025 5:25 AM EDT) [facility] WBC 9.8 4.8 - 10.8 K/mcL LAB HEMETOLOGY METHOD 08/22/2025 5:39 AM EDT [facility] RBC 4.20 3.80 - 4.80 M/mcL LAB HEMETOLOGY METHOD 08/22/2025 5:39 AM EDT [facility] Hemoglobin 12.2 11.5 - 16.0 g/dL LAB HEMETOLOGY METHOD 08/22/2025 5:39 AM EDT [facility] Hematocrit 36.8 35.0 - 47.0 % LAB HEMETOLOGY METHOD 08/22/2025 5:39 AM T [facility] MCV 88.2 79.0 - 98.0 FL LAB HEMETOLOGY METHOD 08/22/2025 5:39 AM [facility] MCH 29.3 27.0 - 32.0 pcg LAB HEMETOLOGY METHOD 08/22/2025 5:39 AM [facility] MCHC 33.2 32.0 - 37.0 g/dL LAB HEMETOLOGY METHOD 08/22/2025 5:39 AM [facility] RDW 13.2 11.0 - 15.0 % LAB HEMETOLOGY METHOD 08/22/2025 5:39 AM [facility] Platelets 251 130 - 400 K/mcL LAB HEMETOLOGY METHOD 08/22/2025 5:39 AM [facility] MPV 9.1 7.0 - 11.0 FL LAB HEMETOLOGY METHOD 08/22/2025 5:39 AM [facility] NRBC 0.0 <1.0 % LAB HEMETOLOGY METHOD 08/22/2025 5:39 AM [facility] NRBC Absolute 0.00 <0.10 K/mcL LAB HEMETOLOGY METHOD 08/22/2025 5:39 AM [facility] Neutrophils Relative 62.1 % LAB HEMETOLOGY METHOD 08/22/2025 5:39 AM [facility] Lymphocytes Relative 21.0 % LAB HEMETOLOGY METHOD 08/22/2025 5:39 AM [facility] Monocytes Relative 10.8 % LAB HEMETOLOGY METHOD 08/22/2025 5:39 AM [facility] Eosinophils Relative 4.4 % LAB HEMETOLOGY METHOD 08/22/2025 5:39 AM [facility] Basophils Relative 0.6 % LAB HEMETOLOGY METHOD 08/22/2025 5:39 AM EDT [facility] Immature Granulocytes Relative 1.1 % LAB HEMETOLOGY METHOD 08/22/2025 5:39 AM EDT [facility] Neutrophils Absolute 6.05 1.50 - 7.00 K/mcL LAB HEMETOLOGY METHOD 08/22/2025 5:39 AM EDT [facility] Lymphocytes Absolute 2.05 1.00 - 5.00 K/mcL LAB HEMETOLOGY METHOD 08/22/2025 5:39 AM EDT [facility] Monocytes Absolute 1.05(H) 0.20 - 1.00 K/mcL LAB HEMETOLOGY METHOD 08/22/2025 5:39 AM EDT [facility] Eosinophils Absolute 0.43 0.00 - 0.50 K/mcL LAB HEMETOLOGY METHOD 08/22/2025 5:39 AM EDT [facility] Basophils Absolute 0.06 0.00 - 0.20 K/mcL LAB HEMETOLOGY METHOD 08/22/2025 5:39 AM EDT [facility] Immature Granulocytes Absolute 0.11(H) 0.00 - 0.03 K/mcL LAB HEMETOLOGY METHOD 08/22/2025 5:39 AM EDT [facility] Blood Venous blood specimen / Unknown Venipuncture / Unknown 08/22/2025 5:25 AM EDT 08/22/2025 5:32 AM EDT us Claudio Palmer MEAL GRINDER TENDER LAB BLOOD ORDERABLES Final Res ult [facility] [address] [place] [address], from Last 3 Months Insurance [facility] PL[facility] Advance Directives Documents on File Type Date Recorded Patient Client Service Professional Expl anation Advance Directives and Living Will [...] currently active code status orders. Care Teams Art Glass Setter Relationship Specialty Start Date End Date Kate Bailon MD [address] [place] [address] PCP - General Internal Medicine 08/23/25
--- OUTSIDE RECORDS SUMMARY | 2025-11-10 15:59 | XMS_ITS | Encounter Summary ---
Author Organization [facility] Address [address] [place] [address] 7 [place] [address] Care Team Providers Care Health Center Assistant Name Role Phone Kate Bailon MD Primary Care Provider [phone]- [phone] Reason for Referral * Consultation (Routine) - Closed Specialty Diagnoses / Procedures Referred By Contac t Referred To Contact Dermatology Diagnoses Neoplasm of uncertain behavior Kate Bailon MD [address] [place] [address] Phone: tel: fax: [facility] Dermatology [address] [place] [address] [address] [place], [place] Phone: tel: fax: Referral ID Status Reason Start Date Expiration Date V isits Requested Visits Authorized [id number] Closed Specialty Services Required 06/08/2024 06/08/2025 1 1 Encounter Details Date Type Department Care Team (Late st Contact Info) Description 06/08/2024 Orders Only [facility] [address] [place], [place] [phone] Kate Bailon MD [address] [place] [address] Neoplasm of uncertain behavior (Primary Dx) Social [...] 1:45 PM EST Office Visit [facility] [address] [place] [address] Kate Bailon MD [address] [place] [address] Scheduled Referrals Name Type Priority Associated Diagnoses Order Schedule Referral to Dermatology Outpatient Referral Routine Neoplasm of uncertain behavior Expected: 06/08/2024 (Approximate), Expires: 06/08/2025 documented as of this encounter Visit Diagnoses Diagnosis Neoplasm of uncertain behavior- Primary Neoplasm of uncertain behavior, site unspecified documented in this encounter Care Teams Health Center Assistant Relationship Specialty Start Date End Date Kate Bailon MD [address] [place] [address] PCP - General Internal Medicine 09/03/19 [facility] 09/22/25 documented as of this encounter
--- OUTSIDE RECORDS SUMMARY | 2025-11-10 15:59 | XMS_ITS | Encounter Summary ---
Author Organization [facility] [facility] Address [address] [place] [address] Care Team Providers Care Body Design Checker Name Role Phone Kate Bailon MD Primary Care Provider [phone]- [phone] Reason for Referral * Consultation (Routine) - Closed Specialty Diagnoses / Procedures Referred By Contac t Referred To Contact Pharmacy Diagnoses Type 2 diabetes mellitus with hyperglycemia, without long-term current use of insulin (HCC) Kate Bailon MD [address] [place] [address] Phone: tel: fax: Referral ID Status Reason Start Date Expiration Date V isits Requested Visits Authorized [id number] Closed Consult and Treat 12/09/2024 12/09/2025 6 6 Encounter Details Date Type Department Care Team ([facility] Contact Info) Description 12/09/2024 Orders Only [facility]EDS [address] [place] [address] Kate Bailon MD [address] [place], [place] [id number] Type 2 diabetes mellitus with hyperglycemia, without [...] [facility] [address] [place] [address] Kate Bailon MD [address] [place] [address] Scheduled Referrals Name Type Priority Associated Diagnoses Orde r Schedule Referral to Pharmacy CDTM Outpatient Referral Routine Type 2 diabetes mellitus with hyperglycemia, without long-term current use of insulin ([facility]/HCC) Ordered: 12/09/2024 documented as of this encounter Visit Diagnoses Diagnosis Type 2 diabetes mellitus with hyperglycemia, without long-term current use of insulin ([facility])- Primary documented in this encounter Care Teams Body Design Checker Relationship Specialty Start Date End Date Kate Bailon MD [address] [place] [address] PCP - General Internal Medicine 09/03/19 [facility] 09/22/25 documented as of this encounter
--- OUTSIDE RECORDS SUMMARY | 2025-11-10 15:59 | XMS_ITS | Encounter Summary ---
Author Organization [employer] [facility] Address [address] [place] [address] Care Team Providers Care Charcoal Burner Beehive Kiln Name Role Phone Kate Bailon MD Primary Care Provider [phone]- [phone] Reason for Referral * Consultation (Routine) - Closed Specialty Diagnoses / Procedures Referred By Contac t Referred To Contact Gastroenterology Diagnoses Elevated alkaline phosphatase level Kate Bailon MD [address] [place] [address] Phone: tel: fax: Toshia Winkler MD [address] [place] [phone] Phone: tel: fax: Referral ID Status Reason Start Date Expiration Date V isits Requested Visits Authorized [id number] Closed Specialty Services Required 04/30/2024 04/30/2025 1 1 Encounter Details Date Type Department Care Team (Late st Contact Info) Description 04/30/2024 Orders Only [facility]EDS [address] [place], [place] [phone] Kate Bailon MD [address] [place], [place] [phone] Elevated alkaline phosphatase level (Primary Dx) Social [...] Description 11/23/2025 1:45 PM EST Office Visit [facility] MED [facility]ED[facility] [address] [place] [address] Kate Bailon MD [address] [place] [address] Scheduled Referrals Name Type Priority Associated Diagnoses Order Schedule Referral to Gastroenterology Outpatient Referral Routine Elevated alkaline phosphatase level Expected: 04/30/2024 (Approximate), Expires: 04/30/2025 documented as of this encounter Visit Diagnoses Diagnosis Elevated alkaline phosphatase level- Primary documented in this encounter Care Teams Charcoal Burner [employer]hive Kiln Relationship Specialty Start Date End Date Kate Bailon MD [address] [place] [address] PCP - General Internal Medicine 09/03/19 [facility] 09/22/25 documented as of this encounter
--- OUTSIDE RECORDS SUMMARY | 2025-11-10 15:59 | XMS_ITS | Encounter Summary ---
Author Organization [employer] Address [address] [place] [address] Care Team Providers Care Makeup Artist Name Role Phone Kate Bailon MD Primary Care Provider Encounter Details Date Type Department Care Team ([facility] Contact Info) Description 12/13/2023 Telephone [facility] [address] [place] [address] Kate Bailon MD [address] [place] [address] Social History Tobacco Use Types Packs/Day Years [...] Upcoming Encounters Date Type Department Care Team ([facility] Contact Info) Description 11/23/2025 1:45 PM EST Office Visit [facility] [address] [place], [place] [phone] Kate Bailon MD [address] [place] [address] documented as of this encounter Visit Diagnoses Not on filedocumented in this encounter Care Teams Makeup Artist Relationship Specialty Start Date End Date Kate Bailon MD [address] [place] [address] PCP - General Internal Medicine 09/03/19 [facility] 09/22/25 documented as of this encounter
--- OUTSIDE RECORDS SUMMARY | 2025-11-10 15:59 | XMS_ITS | Clinical Summary ---
Author Organization [employer] Address [address] [place] [address] 7 [place] [address] Care Team Providers Care Contractor Buyer Name Role Phone Kate Bailon MD Primary Care Provider [phone] Allergies Active Allergy Reactions Criticality Noted Date Comments Codeine Nausea 02/11/2024 Cephalexin Hives 02/11/2024 Medications Blood Pressure kitIndications: Primary hypertension 1 kit Once per day. 1 kit 024 Active Lancets miscIndications :Type 2 diabetes mellitus with hyperglycemia, with long-term current use of insulin ([facility]) Use to test blood sugar 2 times daily 100 each 11 024 Active Alcohol Swabs 70 % padsIndications :Type 2 diabetes mellitus with hyperglycemia, with long-term current use of insulin ([facility]) Use to test blood sugar 2 times daily 100 each 11 024 Active Blood Glucose Monitoring Suppl (FreeStyle Ellsworth Lite) w/Device kitIndications: Type 2 diabetes mellitus with hyperglycemia, with long-term current use of insulin ([facility]) Use to test blood sugar 2 times [...] Type Department Care Team Description 10/20/2025 Telephone [facility] [address] [place] [address] Kate Bailon MD 10/16/2025 Refill [facility] [address] [place] [address] Kate Bailon MD Other constipation 10/15/2025 1:30 PM EST Office Visit [facility] [address] [place] [address] Kate Bailon MD Hospital discharge follow-up (Primary Dx); Right sided cerebral infarction (CMS/HCC) (HCC); Renal artery stenosis; PVD (peripheral vascular disease); Primary hypertension; Type 2 diabetes mellitus with hyperglycemia, without long-term current use of insulin (HCC); Hypercholesterolemi a; Anxiety; Vitamin D deficiency; Other constipation; Hypomagnesemia 10/15/2025 Travel 10/13/2025 Population Health Risk Score [facility] () Department [address] [place] [phone] Provider, Population Health Generic 09/30/2025 Telephone [facility] [address] [place] [phone] Marlys Braun RN Error (VOID this visit) 09/30/2025 Travel 09/28/2025 Orders Only GENERIC EXTERNAL DATA DEPARTMENT Provider, Generic External Data 09/21/2025 Telephone [facility] [address] [place] [address] Kate Bailon MD verbal orders 09/10/2025 Patient Outreach [facility] [address] [place] [address] Kate Bailon MD Transition Of Care (Tcm) (HDF scheduled. ) 08/20/2025 Telephone [facility] [address] [place] [phone] Kate Bailon MD 08/19/2025 Telephone [facility] [address] [place] [phone] Kate Bailon MD from Last 3 Months Social History Tobacco [...] Description 11/23/2025 1:45 PM EST Office Visit [facility] [address] [place] [address] Kate Bailon MD [address] [place], [place] [phone] Health Maintenance Due Date Last Done Comments [...] Help patients manage their type 2 diabetes No Natty Garcia MA Weekly blood pressure task Care Plan Weekly blood pressure task No Natty Garcia MA Help patients manage their type 2 diabetes Care Plan Help patients manage their type 2 diabetes No Natty Garcia MA Patient has chronic kidney disease Care Plan Patient has chronic kidney disease No Natty Garcia MA Help patients manage their type 2 diabetes Care Plan Help patients manage their type 2 diabetes No Natty Garcia MA Patient has diabetic [...] Care Plan Weekly blood pressure task No Garcia, Natty, ME Weekly blood pressure task Care Plan Weekly blood pressure task No Garcia, Natty, ME Weekly blood pressure task Care Plan Weekly blood pressure task No Garcia, Natty, ME Patient has chronic kidney disease Care Plan Patient has chronic kidney disease No Garcia, Natty, ME Patient has chronic kidney disease Care Plan Patient has chronic kidney disease No Garcia, Natty, ME Patient has chronic kidney disease Care Plan Patient has chronic kidney disease No Garcia, Natty, ME Patient has diabetic neuropathy Care Plan Patient has diabetic neuropathy No Garcia, Natty, ME Patient has diabetic neuropathy Care Plan Patient has diabetic neuropathy No Garcia, Natty, ME Patient has diabetic neuropathy Care Plan Patient has diabetic neuropathy No Garcia, Natty, ME Weekly blood pressure task Care Plan Weekly blood pressure task No Idania Cyr RN Weekly blood pressure task Care Plan Weekly blood pressure task No Idania Cyr RN Weekly blood pressure task Care Plan Weekly blood pressure task No Idania Cyr RN Patient has chronic kidney disease Care Plan Patient has chronic kidney disease No Idania Cyr RN Patient has chronic kidney disease Care Plan Patient has chronic kidney disease No Idania Cyr RN Patient has chronic kidney disease Care Plan Patient has chronic kidney disease No Idania Cyr RN Patient has diabetic neuropathy Care Plan Patient has diabetic neuropathy No Iadnia Cyr RN Patient has diabetic neuropathy Care [...] WO CONTRAST Routine 08/10/2025 12:17 PM EDT LIPID PANEL, STANDARD Routine 08/09/2025 6:54 PM EDT POCT GLYCATED HEMOGLOBIN, TOTAL Routine 07/20/2024 [...] EST) Sodium 137 135 - 145 mmol/L [facility] Potassium 3.8 3.3 - 5.1 mmol/L [facility] Chloride 102 96 - 108 mmol/L [facility] Carbon Dioxide 25 22 - 29 mmol/L [facility] Anion Gap 14 12 - 20 [facility] Urea Nitrogen (BUN) 12 9 - 16 mg/dL [facility] Creatinine, Serum 0.62 0.5 - 1.4 mg/dL [facility] Estimated Glomerular Filt Rate >60 [facility] Comment:Chronic Kidney Disea se: Estimated GFR < 60 mL/min/1.66h0Ltbyac Kidney Disease: Estimated GFR < 15 mL/min/1.73m2 Glucose 260(H) 60 - 115 mg/dL [facility] Calcium 9.7 8.4 - 10.2 mg/dL [facility] 09/28/2025 1:58 PM EST 09/28/2025 1:58 PM EST us Generic External Data Provider LAB BLOOD ORDERAB LES Final Result Performing Organization Address City/State/[facility] Co de Phone Number [facility] [address] [place] [phone] * MR Brain w/o Contrast (08/10/2025 12:17 PM EDT) Anatomical Region Laterality Modality Brain Magnetic Resonan ce 08/10/2025 12:1 7 PM EDT Narrative 08/10/2025 1:16 PM EDT [address] [address] Magnetic Resonance Report Signed Patient: Blanca Zuniga MR#: [id number] : 1965 Acct:[id number] Age/Sex: 59 / F ADM Date: 08/09/25 Loc: [facility]: Cristiano Sebastian MD Ordering Physician: Malu Albarran MD Date of Service: 08/10/25 Procedure(s): MR head/brain wo con Accession Number(s): [id number] cc: Kate Bailon MD; Malu Albarran MD [...] 08/10/25 1313 DD/ 1217 TD/TT: 08/10/25 1240 Physics Tutor: Procedure Note Donotuseinterpreter, Image - 08/10/2025 [place] [address] Magnetic Resonance Report Signed Patient: Cassi Zuniga#: [id number] : 1965Acct:[id number] Age/Sex: 59 / FADM Date: 08/09/25 Loc: [facility]: Cristiano Sebastian MD Ordering Physician: Malu Albarran MD Date of Service: 08/10/25 Procedure(s): MR head/brain wo con Accession Number(s): [id number] cc: Kate Bailon MD; Malu Albarran MD [...] 08/10/25 1313 DD/ 1217 TD/TT: 08/10/25 1240 Physics Tutor: [facility] External Provider IMG MRI PROCEDURES Final Result * (ABNORMAL) Lipid Panel, Standard (08/09/2025 6:54 PM EDT) Triglycerides 498(H) <150 mg/dL [facility] Comment:Desirable Triglyceri de: less than 150 mg/dLBorderline High Triglyceride 150-199 mg/dLHigh Triglyceride: 200-499 mg/dLVery High Triglyceride: greater than or equal to 5OO mg/dL Cholesterol 298(H) <200 mg/dL [facility] Comment:Desirable Cholestero l: less than 200 mg/dLBorderline High Cholesterol: 200-239 mg/dLHigh Cholesterol: greater than 239 mg/dL LDL Cholesterol Calculated TNP <100 mg/dL [facility] Comment:Unable to calculate the LDL. The formula of Friedwald,Almonte, and Ida is only valid if the triglycerides areless than 400 mg/dl. HDL Cholesterol 35(L) >40 mg/dL [facility] Comment:Desirable HDL: great er than 40 mg/dL Note: This HDL assay may give artificially low results in patients with liver disease. 08/09/2025 6:54 PM EDT 08/09/2025 6:59 PM EDT us Generic External Data Provider LAB BLOOD ORDERAB LES Final Result Performing Organization Address [facility]/ZIP Co de Phone Number [facility] [address] [place] [phone] * (ABNORMAL) POCT HGB A1C (07/20/2024 4:37 PM EDT) Hemoglobin A1C 11.1(A) 4.0 - 6.0 % QC Media Lot # [id number] Lot# Expiration Date [id number] Blood 07/20/2024 4:37 PM EDT us Kate Bailon MD POINT OF CARE TEST ENTER/ED IT ORDERABLES Final Result * Hepatitis C Ab (03/30/2024 2:27 PM EDT) Hepatitis C Antibody Nonreactive Nonreactive [facility] Comment:Antibodies to HCV no t detected; does not exclude early acuteHCV infection. Blood Venous blood specimen / Unknown 03/30/2024 2:27 PM EDT 03/30/2024 2:28 PM EDT us Kate Bailon MD LAB BLOOD ORDERABLES Final Result Performing Organization Address City/[facility]/ZIP Co de Phone Number [facility] [address] [place] [phone] * HIV-1/2 Antigen and Antibodies, Fourth Generation, with Reflexes (03/30/2024 2:27 PM EDT) HIV AB/AG Nonreactive Nonreactive [facility] Comment:HIV-1 p24 Ag and/or HIV-1/HIV-2 Ab not detected.A test result that is nonreactive does not exclude thepossibility of exposure to or infection with HIV-1 and/orHIV-2. Nonreactive results in this assay for individualswith prior exposure to HIV-1 and/or HIV-2 may be due toantigen and antibody levels that are below the limit ofdetection of this assay.The [employer] HIV Ag/Ab Combo assay result andsupplemental assay results should be interpreted inconjunction with the patient's clinical presentation,history and other laboratory results. If the results areinconsistent with clinical evidence, additional testing issuggested to confirm the result. Blood Venous blood specimen / Unknown 03/30/2024 2:27 PM EDT 03/30/2024 2:28 PM EDT us Kate Bailon MD LAB BLOOD ORDERABLES Final Result [facility] [address] [place] [phone] from Last 3 Months or Most Recently [...] 10/20/2025 Patient has diabetic neuropathy 10/20/2025 Insurance [employer] C3 Care Teams Contractor Buyer Relationship Specialty Start Date End Date Kate Bailon MD [address] [place] [address] Minerva WILDER [phone] PCP - General Internal Medicine 09/03/19 [place] 09/22/25
--- OUTSIDE RECORDS SUMMARY | 2025-11-10 15:59 | XMS_ITS | Encounter Summary ---
Author Organization [employer] Address [address] [place] [phone] Care Team Providers Care Commercial Escrow Officer Name Role Phone Kate Bailon MD Primary Care Provider [phone] Encounter Details Date Type Department Care Team ([facility] Contact Info) Description 06/12/2024 Orders Only [facility] [address] [place] [address] ProviderAbner MD Social History Tobacco Use Types [...] Upcoming Encounters Date Type Department Care Team ([facility] Contact Info) Description 11/23/2025 1:45 PM EST Office Visit [facility] [address] [place], [place] [phone] Kate Bailon MD [address] [place] [address] documented as of this encounter Procedures Procedure Name Priority Date/Time Associated Diagnosis Comments DERMATOPATHOLOGY REPORT Routine 06/02/20 24 11:31 AM EDT documented in this encounter Results * Dermatopathology Report (06/02/2024 11:31 AM EDT) us Historical Provider LAB BLOOD ORDERABLES Luz l Result documented in this encounter Visit Diagnoses Not on filedocumented in this encounter Care Teams Commercial Escrow Officer Relationship Specialty Start Date End Date Kate Bailon MD [address] [place] [phone] PCP - General Internal Medicine 09/03/19 [facility] 09/22/25 documented as of this encounter
--- OUTSIDE RECORDS SUMMARY | 2025-11-10 15:59 | XMS_ITS | Clinical Summary ---
Author Organization [facility] Address [address] [place] [address] Care Team Providers Care Team Automobile Assembler Name Role Phone Kate Bailon Primary Care [...] patient's age to complete this topic Insurance [facility] MEDICAID Care Teams Team Automobile Assembler Relationship Specialty Start Date End Date Kate Bailon [address] [place] [address] PCP - General Internal Medicine 06/10/24
== END 2025-11-10 15:47 | disposition home or self-care (01) ==
PROVIDERS: PCP Internal Medicine; Visit Provider Psychiatry & Neurology Neurology
DX: I63.9 Cerebral infarction, unspecified (principal)
CPT/HCPCS: 99214

== ENCOUNTER → 2025-11-10 15:23 | Outpatient (BNVA) | payer MEDICAID, SELFPAY | PROVIDERS: PCP Internal Medicine; Visit Provider Psychiatry & Neurology Neurology | DX: I69.354 Hemiplegia and hemiparesis following cerebral infarction affecting left non-dominant side (principal); Z79.82 Long term (current) use of aspirin; Z87.891 Personal history of nicotine dependence | CPT/HCPCS: 99212 ==